=== PATIENT | female | born 1950 | race Caucasian/White ===

== ENCOUNTER 2017-01-19 08:58 | Day surgery (SDC) | payer OTHER ==
[2016-11-29 09:25] VITALS: BMI 42.0
[2017-01-16 09:56] VITALS: BMI 42.0
[~2017-01-19] VITALS: Ht 162.6 cm; Wt 110.5 kg
[~2017-01-19 08:58] MED LIST: ASPCH81X PO; ATOR-24 PO; CARV6.252 PO; FLUO40CA8 PO; LACTATED RINGER'S 1000ML 1,000 ML IV SCH; LEVO25TA5 PO; LORA-741 PO; PANT40TA PO; ZNTT/150 PO
[2017-01-19] MEDS ORDERED: FENTANYL CITRATE INJ 50 MCG/1 ML 2 ML VIAL ONE (09:10)
[2017-01-19] MEDS ORDERED: MIDAZOLAM HCL 1 MG/ML 2ML VIAL ONE (09:10)
[2017-01-19 09:15] VITALS: BP 128/71; PULSE 60; TEMP 37.4; O2SAT 96; Ht 162.6 cm; Wt 110.5 kg
[2017-01-19] MEDS ORDERED: METO50TA7 PO (09:15)
[2017-01-19] MEDS ORDERED: SODIUM CHLORIDE 0.9% 500ML 500 ML IV ONE (09:16)
--- NOTE | 2017-01-19 09:16 | Endo History and Physical ---
History & Physical Date of Service: Jan 18, 2017. Chief Complaint: Referring Physician: History of Present Illness Berta Swenson is a 66 year old female w non small cell lung ca, s/p RLL resection, XRT, currently on 4th line chemo Nivolumab. She is referred to GI clinic by Kimberli Vaz PA-C for evaluation of epigastric abd pain which pt reports as being for many months. She states pain comes and goes throughout the day. Pain is achy in nature, non radiating, not associated w eating or certain foods; or correlating w BM habits. She denies any loss of appetite or unexpected weight loss. Denies any dysphagia, odynophagia. Does have reflux symptoms despite being on Protonix 40mg daily and Ranitidine 150mg daily. Though takes ASA 81mg daily and regularly use Ibuprofen. She did have hx of constipation, but none now. She recently had PET scan on 10/11/16 which showed low level uptake within gastric fundus, antrum, within hiatal hernia, likely physiologic. Though also abnormal uptake in mid body and tail of pancreas, maximum SUV of 5.61. Mild heterogenous uptake throughout head of pancreas. Of note, she did have abnormal PET activity in stomach area too in 2015. Referred then for EGD evaluation on 02/05/15 and found to have normal esophagus, Zline irregular, medium sized hiatus hernia, normal stomach and duodenum. Bx of stomach and esophagus showed mild gastritis and esophagitis, normal duodenum. No signs of Hpylori, metaplasia or dysplasia. She has no hx of colonoscopy done. Hx of father who has colon ca. Her sister had pancreas ca. Today has stable dyspnea, but no other complaints. LINES AND DEVICES: None. LIVER: Within normal limits. BILE DUCTS: Stable mild intrahepatic biliary duct dilatation. There is stable dilatation of the common bile duct, measuring up to 20 mm. GALLBLADDER: Surgically absent. PANCREAS: The pancreas is stable in morphology from 2015. There is no focal atrophy of the gland and no focal pancreatic ductal dilatation. No discrete masses are identified in the pancreas. SPLEEN: Within normal limits. ADRENALS: Within normal limits. KIDNEYS/URETERS(visualized): The kidneys enhance symmetrically and there is no hydronephrosis. 1.5 cm cyst in the upper pole of the right kidney. There are tiny hypodensities within both kidneys which are too small to characterize. BOWEL: There is a small hiatal hernia. A transverse colonic anastomosis is noted. Visualized bowel loops are normal in caliber. LYMPH NODES: No significant adenopathy. VESSELS: Extensive atherosclerotic calcifications the abdominal aorta and its major branches. PERITONEUM/RETROPERITONEUM: No ascites, free air, or discrete fluid collections. ABDOMINAL WALL/SOFT TISSUES: Within normal limits. BONES: The osseous structures are diffusely osteopenic. There are mild degenerative changes of the spine. IMPRESSION 1. No discrete pancreatic mass, focal pancreatic atrophy, or focal pancreatic ductal dilatation. 2. Stable intrahepatic biliary ductal dilatation and dilatation of the common bile duct. 3. Other stable chronic and incidental findings, as above. I have personally reviewed this examination and agree with the resident/fellow physician's interpretation. Resident Physician: THEODORE CHOWDHURY [[id number]] Radiologist: OTIS EDMOND MD [[id number]] Authenticated By Authenticating Date Authenticating Time Reading Providers(s) OTIS EDMOND MD 12-12-2016 11:22 OTIS EDMOND MD Date and Time Status Provider Status Resulted: 12/12/2016 11:21 AM Final result Reviewed [facility]CRE[facility] CT WITH IV AND PO CONTRAST on 11/29/2016 Previous Results GIULIA Schmidt on 12/14/2016 3:18 PM GIULIA Morrison on 12/13/2016 12:[address] WITH IV AND PO CONTRAST [15375.3 (CPT)] (Spec. #[id number]) (Order [id number]) [employer] PACS Image Order Date and Time Ordering User Department 11/29/2016 5:00 PM GIULIA Schmidt [[id number]] Gastro [facility][[id number]] Authorizing Provider Encounter Provider ([id number]) GIULIA Schmidt ([id number]) GIULIA Schmidt Supervising Provider Type of Supervision ([id number]) Levar Cooley MD General Status Provider Status Final result (Collected: 12/06/2016 2:59 PM) Reviewed Collected: 12/06/2016 2:59 PM Resulting Agency: [facility] [employer] [facility] Priority Class Routine OUTPATIENT PRECERT POOL Please click here to add Additional Comments for this order or to review the most recent Creatinine and BUN result information for this patient. CREATININE(mg/dL) Cynthia Dt/Tm Resulted Value Status 11/27/16 9:30A 11/27/16 0.9 FINAL BUN(mg/dL) Cynthia Dt/Tm Resulted Value Status 11/27/16 9:30A 11/27/16 17 FINAL Question Answer Comment What is the Reason for Study? r/o pancreatic mass Where is this test being performed? [facility] How soon should this test be performed? 1 Week or Less Is the Patient Allergic to Contrast? No Order BUN/Creatine if conditions present. Select all that apply. No Indications Elevated CA 19-9 level [R97.8] - Primary 12/06/2016 2:00 PM - 30 min [id number] [address] Completed View Encounter Click here for any available precertification information PANCREAS CT WITH IV AND PO CONTRAST (Order #[id number]) on 11/29/16 CT PET Abdomen: The pancreas appears slightly more prominent than the previous examination, however, a distinct mass is difficult to identify. This finding, in addition to the FDG avidity mentioned above, is concerning for underlying inflammatory, infectious, or neoplastic process. Dedicated imaging and laboratory evaluation recommended. Extensive atherosclerotic calcifications are present. Stable cortical cyst on the right kidney. No acute process identified in the abdomen. Past Surgical History Hx Abdominal Surgery: Yes (LAP TOMY, COLOSTOMY WITH REVERSAL (2' COMPLICATION)) Hx Post-Op Nausea and Vomiting: No Hx Thoracic Surgery: Yes (RIGHT LOWER LOBECTOMY) Hx Orthopedic: No Hx Urinary Tract Surgery: No Social History Smoking Status: Never Smoker Hx Substance Use: No Hx Alcohol Use: No Allergies Coded Allergies: Penicillins (Verified Allergy, Mild, HIVES, 01/19/17) Current Medications Reported Home Medications Medications Dose Route/Sig Max Daily Dose Days Date Category Protonix (Pantoprazole Sodium) 40 Mg Tab 40 Mg PO QAM 11/29/16 Reported Lipitor (Atorvastatin Calcium) 40 Mg Tab 40 Mg PO QAM 11/29/16 Reported Levothyroxine Sodium 25 Mcg Tab 2 Tab PO QAM 11/29/16 Reported Zantac (Ranitidine HCl) 150 Mg Tab 150 Mg PO QAM 11/29/16 Reported Coreg (Carvedilol) 6.25 Mg Tab 6.25 Mg PO BID 11/29/16 Reported Prozac (Fluoxetine HCl) 40 Mg Cap 40 Mg PO QAM 11/29/16 Reported Ativan (Lorazepam) 0.5 Mg Tab 1 Mg PO HS 11/29/16 Reported Aspirin Chewable (Aspirin) 81 Mg Chew 81 Mg PO QAM 04/19/12 Reported Vital Signs Weight (Kilograms): 110.45 Height (Feet): 5 Height (Inches): 4 Physical Exam General Appearance: WD/WN, no apparent distress Respiratory/Chest: Auscultation: deminished air movement Cardiovascular: Apical Impulse: not displaced Heart Auscultation: RRR, normal S1, normal S2 Abdomen: Bowel Sounds: normal Inspection & Palpation: soft, non-distended Assessment and Plan 66-year-old with a history of non-small cell lung cancer, ischemic cardiomyopathy with an equivocally positive PET scan and normal CT scan of the abdomen and a very mildly elevated CA 19 9 presenting for endoscopic ultrasound
[2017-01-19] MEDS ORDERED: FENTANYL CITRATE INJ 50 MCG/1 ML 2 ML VIAL IV PRN (09:30)
[2017-01-19] MEDS ORDERED: PHENYLEPHRINE 100MCG/ML 5ML SYR IV PRN (09:30)
[2017-01-19] MEDS ORDERED: HYDROmorphone INJ 2 MG/ML SYR/VIAL IV PRN (09:30)
[2017-01-19] MEDS ORDERED: EpHEDrine SULFATE INJ 50 MG/ML AMP IV PRN (09:30)
[2017-01-19] MEDS ORDERED: MEPERIDINE HCL 25 MG/ML CARP IV PRN (09:30)
[2017-01-19] MEDS ORDERED: FLUMAZENIL 0.1 MG/1 ML 10 ML VIAL IV PRN (09:30)
[2017-01-19] MEDS ORDERED: ONDANSETRON INJ 2 MG/ML 2 ML VIAL IV PRN (09:30)
[2017-01-19] MEDS ORDERED: ATROPINE SULFATE 0.1 MG/ML 5ML SYR IV PRN (09:30)
[2017-01-19] MEDS ORDERED: LABETALOL HCL IV 5 MG/ML 20ML IV PRN (09:30)
[2017-01-19] MEDS ORDERED: NALOXONE HCL 0.4 MG/1 ML VIAL/CARP IV PRN (09:30)
--- NOTE | 2017-01-19 09:30 | Progress Note ---
Progress Note Date of Service Jan 19, 2017. Progress Note Plan to proceed with EUS as scheduled, no new additions.
[2017-01-19] MEDS ORDERED: SUCCINYLCHOLINE CHLORIDE 20 MG/ML 10 ML VIAL IV ONE (10:08)
[2017-01-19] MEDS ORDERED: LIDOCAINE HCL 2% 2 ML VIAL (20MG/ML) ONE (10:08)
[2017-01-19] MEDS ORDERED: LARYING-O-JET KIT (LTA) EXT ONE ×2 (10:08)
[2017-01-19] MEDS ORDERED: PROPOFOL IV EMULSION 10 MG/ML 20 ML VIAL IV ONE (10:08)
[2017-01-19] MEDS ORDERED: DEXAMETHASONE SOD INJ 4 MG/ML VIAL ONE (10:08)
[2017-01-19] MEDS ORDERED: ONDANSETRON INJ 2 MG/ML 2 ML VIAL ONE (10:08)
[2017-01-19 10:22] LABS: HEMATOCRIT 40.6 % (37-47); MEAN CELL VOLUME 85.8 fL (80-100); MEAN CORPUSCULAR HEMOGLOBIN 30.2 pg (25-34); MEAN PLATELET VOLUME 10.3 fL (7.4-10.4); PLATELET COUNT 198 K/uL (130-400); RED BLOOD COUNT 4.73 M/uL (4.2-5.4); WHITE BLOOD COUNT 7.47 K/uL (4.8-10.8)
--- NOTE | 2017-01-19 10:33 | Discharge Instructions ---
Endoscopy Patient Instructions Date / Procedure(s) Performed Jan 19, 2017. Other Allergy Information Coded Allergies: Penicillins (Verified Allergy, Mild, HIVES, 01/19/17) Discharge Date / Findings Jan 19, 2017. Normal exam Provider Instructions Activity Restrictions - No exercising or heavy lifting for 24 hours. - Do not drink alcohol the day of the procedure. - Do not drive a car or operate machinery until the day after the procedure. - Do not make any important decisions or sign important papers in 24 hours after the procedure. Following Day: - Return to full activity which may include returning to work/school. Diet Start your diet with liquids and light foods (jello, soup, juice, toast). Then eat your usual diet if not nauseated. Treatment For Common After Affects For mild abdominal pain, bloating, or excessive gas: - Rest - Eat lightly - Lie on right side Follow-Up Information Follow-up with as scheduled Anesthesia Information What You Should Know You have had a procedure that required some medicine to reduce anxiety and discomfort. This treatment is called moderate sedation. After receiving the treatment, you may be sleepy, but you will be able to breathe on your own. The effects of the treatment may last for several hours. Follow these instructions along with Activity/Diet recommendations noted above: * Do NOT do anything where dizziness or clumsiness would be dangerous. * Rest quietly at home today, then you can be up and about tomorrow. * Have a responsible person stay with you the rest of today. * You may have had an I.V. today. If so, you may take the dressing off later today. Recommendations Call your doctor if: * Trouble breathing * Continuous vomiting for more than 24 hours * Temperature above 101 degrees * Severe abdominal pain or bloating * Pain not relieved by pain medicine ordered * There is increased drainage or redness from any incision * A large amount of rectal bleeding greater than 2-3 tablespoons. (If you had a polyp/s removed or have hemorrhoids, a small amount of blood - from the rectum is to be expected.) * You have any unanswered questions or concerns. IN THE EVENT OF A SERIOUS EMERGENCY, GO TO THE NEAREST EMERGENCY ROOM Your discharge instructions were prepared by provider Chester Hernandez. Patient Instructions Signature Page Berta Swenson Patient (or Guardian) Signature/Date: I have read and understand the instructions given to me by my caregivers. Caregiver/RN/Doctor Signature/Date: The above-named patient and/or guardian has received patient instructions on this date. + Original Patient Signature Page (only) stays with chart. Please make copy for patient.
[2017-01-19 10:35] LABS: MEAN CORPUSCULAR HGB CONC 35.2 g/dl (32-36)
--- NOTE | 2017-01-19 11:04 | Anesthesiology Progress Note ---
Anesthesia Post Op Note Date & Time Jan 19, 2017 at 11:03 Vital Signs Pain Intensity: 0 Vital Signs Past 12 Hours Date Time Temp Pulse Resp B/P Pulse Ox O2 Delivery O2 Flow Rate FiO2 01/19/17 10:51 149/83 01/19/17 10:47 61 17 98 01/19/17 10:47 61 17 01/19/17 10:46 160/65 01/19/17 10:44 60 19 100 01/19/17 10:44 61 19 01/19/17 10:41 157/73 01/19/17 10:39 61 17 01/19/17 10:39 60 17 99 01/19/17 10:36 143/96 01/19/17 10:34 64 12 99 01/19/17 10:34 65 12 01/19/17 10:30 144/70 01/19/17 10:29 65 16 01/19/17 10:29 36.1 65 18 161/78 97 Mask 10 01/19/17 10:29 65 16 161/78 96 01/19/17 09:15 37.4 60 20 128/71 96 Room Air Notes Mental Status: alert / awake / arousable, participated in evaluation Pt Amnestic to Procedure: Yes Nausea / Vomiting: adequately controlled Pain: adequately controlled Airway Patency, RR, SpO2: stable & adequate BP & HR: stable & adequate Hydration State: stable & adequate Anesthetic Complications: no major complications apparent
[2017-01-19 11:15] VITALS: BP 124/67; PULSE 63; TEMP 37.1; O2SAT 93
[2017-01-19 11:45] VITALS: BP 135/59; PULSE 64; TEMP 36.2; O2SAT 93
--- NOTE | 2017-01-19 11:50 | GI REPORT ---
Procedure Date: 01/19/2017 9:54 AM Procedure: Upper GI endoscopy Indications: Epigastric abdominal pain Medicines: General Anesthesia Complications: No immediate complications. Estimated blood loss: None. Estimated Blood Loss: Estimated blood loss: none. Procedure: Pre-Anesthesia Assessment: - Pre-Anesthesia Assessment: - Prior to the procedure, a History and Physical was performed, and patient medications, allergies and sensitivities were reviewed. The patient's tolerance of previous anesthesia was reviewed. Please see [employer] for complete details. - The risks and benefits of the procedure and the sedation options and risks were discussed with the patient. All questions were answered and informed consent was obtained. - Patient identification and proposed procedure were verified prior to the procedure by the physician and the nurse. The procedure was verified in the pre-procedure area in the procedure room. After obtaining informed consent, the endoscope was passed carefully and meticuously under direct vision and only advanced when the lumen was clearly identified, C02 insuflation was utilized throughout the entirity of the procedure. Throughout the procedure, the patient's blood pressure, pulse, and oxygen saturations were monitored continuously. After obtaining informed consent, the endoscope was passed under direct vision. Throughout the procedure, the patient's blood pressure, pulse, and oxygen saturations were monitored continuously. The Scope was introduced through the mouth, and advanced to the second part of duodenum. The upper GI endoscopy was accomplished without difficulty. The patient tolerated the procedure well. Findings: The examined esophagus was normal. Localized mild inflammation was found in the gastric antrum. Biopsies were taken with a cold forceps for histology. The examined duodenum was normal. Biopsies were taken with a cold forceps for histology. Impression: - Normal esophagus. - Gastritis. Biopsied. - Normal examined duodenum. Biopsied. Recommendation: - Await pathology results. - Discharge patient to home (with escort). - Return to referring physician as previously scheduled. Chester Hernandez MD 01/19/2017 11:49:56 AM This report has been signed electronically. Note Initiated On: 01/19/2017 9:54 AM I attest to the content of the Intraoperative Record and orders documented therein, exceptions below
--- NOTE | 2017-01-19 11:54 | GI REPORT ---
Procedure Date: 01/19/2017 10:00 AM Procedure: Upper EUS Indications: Abnormal abdominal PET scan Medicines: General Anesthesia Complications: No immediate complications. Estimated blood loss: None. Estimated Blood Loss: Estimated blood loss: none. Procedure: Pre-Anesthesia Assessment: - Pre-Anesthesia Assessment: - Prior to the procedure, a History and Physical was performed, and patient medications, allergies and sensitivities were reviewed. The patient's tolerance of previous anesthesia was reviewed. Please see [employer] for complete details. - The risks and benefits of the procedure and the sedation options and risks were discussed with the patient. All questions were answered and informed consent was obtained. - Patient identification and proposed procedure were verified prior to the procedure by the physician and the nurse. The procedure was verified in the pre-procedure area in the procedure room. After obtaining informed consent, the endoscope was passed carefully and meticuously under direct vision and only advanced when the lumen was clearly identified, C02 insuflation was utilized throughout the entirity of the procedure. Throughout the procedure, the patient's blood pressure, pulse, and oxygen saturations were monitored continuously. After obtaining informed consent, the endoscope was passed under direct vision. Throughout the procedure, the patient's blood pressure, pulse, and oxygen saturations were monitored continuously. The Endosonoscope was introduced through the mouth, and advanced to the second part of duodenum. The upper EUS was accomplished without difficulty. The patient tolerated the procedure well. Findings: Endosonographic Finding : There was no sign of significant endosonographic abnormality in the entire pancreas. The pancreas was well visualized, no pathologic lymphadenopathy, no masses, no cysts, no calcifications, the pancreatic duct was well visualized from ampulla to tail, the pancreatic duct was thin in caliber, the pancreatic duct was regular in contour. There was no sign of significant endosonographic abnormality in the common bile duct. The gallbladder was surgically absent consistent with history of cholecystectomy. There was no sign of significant endosonographic abnormality in the left lobe of the liver. No lymphadenopathy seen. There was no sign of significant endosonographic abnormality in the entire examined left adrenal gland. There was no sign of significant endosonographic abnormality involving the celiac trunk. Impression: - There was no sign of significant pathology in the entire pancreas. - There was no sign of significant pathology in the common bile duct. - There was no evidence of significant pathology in the left lobe of the liver. - Endosonographic images of the left adrenal gland were unremarkable. - The celiac trunk was endosonographically normal. - No specimens collected. Recommendation: - Discharge patient to home (with escort). - Return to referring physician as previously scheduled. Chester Hernandez MD 01/19/2017 11:53:13 AM This report has been signed electronically. Note Initiated On: 01/19/2017 10:00 AM I attest to the content of the Intraoperative Record and orders documented therein, exceptions below
[2017-01-19 12:15] VITALS: BP 103/68; PULSE 60; TEMP 36.7; O2SAT 93
[2017-08-14] MEDS ORDERED: NYST80OI TOP (11:04)
[2017-08-14] MEDS ORDERED: IBUP-1050 PO (11:04)
[2017-08-14] MEDS ORDERED: ONDA8TAB6 PO (11:04)
[2017-08-14] MEDS ORDERED: NTRGSL/4 SL (11:04)
[2017-08-14] MEDS ORDERED: TIZA4CAP PO (11:04)
[2017-08-14] MEDS ORDERED: MULT-506 PO (11:04)
[2017-09-03] MEDS ORDERED: BENZ100C84 PO (15:10)
[2017-09-05] MEDS ORDERED: PRED20TA2 PO (09:11)
[2017-09-11] MEDS ORDERED: NAPR-1168 PO (09:21)
== END 2017-01-19 12:30 | disposition home or self-care (01) ==
LOC: C.ACU 08:58
PROVIDERS: ATTEND Internal Medicine
DX: K29.70 Gastritis, unspecified, without bleeding (principal); C34.90 Malignant neoplasm of unspecified part of unspecified bronchus or lung; Z98.890 Other specified postprocedural states

== ENCOUNTER → 2017-07-25 | Outpatient (CLI) | payer OTHER ==
[~2017-07-25] MED LIST changes: -CARV6.252 PO; -LACTATED RINGER'S 1000ML 1,000 ML IV SCH; +METO50TA7 PO
--- NOTE | 2017-07-25 14:02 | Discharge Instructions ---
Discharge Instructions Procedure Procedure Date: Jul 25, 2017. Reason for visit: Malignant Neoplasm Lower Lobe Rt Lung,Mets To Lymp. Discharge Discharge Date: Jul 25, 2017. Discharge Diagnosis: same Instructions Activity Recommendations: No limitations Return to School/Work: no limitations Recommended Home Diet: Resume Previous Diet Provider Instructions: ACTIVITY RECOMMENDATIONS: * Rest today. * Resume regular activity in one day. MEDICATIONS: * May take Tylenol or Ibuprofen as needed for pain. DIET: * Resume previous diet. SPECIAL CARE INSTRUCTIONS: Call your doctor if: * Temperature above 101 degrees F. * Pain not relieved by pain medicine ordered. * Increased drainage or redness from incision. * Notify your doctor with any questions or concerns. Call your doctor or go to the nearest Emergency Department if you experience: * Increased chest pain or shortness of breath. FOLLOW UP VISIT: Follow-up with Referring Physician as scheduled. Allergies Coded Allergies: Penicillins (Verified Allergy, Mild, HIVES, 01/19/17) Emmy Patel Recommendations: Call your doctor if: * Temperature above 101 degrees * Pain not relieved by pain medicine ordered * There is increased drainage or redness from any incision * You have any unanswered questions or concerns. Your Doctors Instructions noted above were prepared by provider Robson Schneider. Patient Signature Section: Patient Instructions Signature Page Berta Swenson Patient (or Guardian) Signature/Date: I have read and understand the instructions given to me by my caregivers. Caregiver/RN/Doctor Signature/Date: The above-named patient and/or guardian has received patient instructions on this date. + Original Patient Signature Page (only) stays with chart. Please make copy for patient.
--- NOTE | 2017-07-25 14:06 | DIAGNOSTIC IMAGING REPORT ---
ULTRASOUND-GUIDED FINE-NEEDLE ASPIRATION OF A LEFT CERVICAL LYMPH NODE HISTORY: FDG avid left cervical lymph node MALIGNANT NEOPLASM LOWER LOBE RT LUNG,METS TO LYMP COMPARISON: Outside hospital PET/CT 06/20/2017. PROCEDURE: Written informed consent was obtained. The neck was prepped and draped in the usual sterile fashion. 1% lidocaine was used for local anesthesia. A total of 1 pass using a 25-gauge needle were made through left cervical lymph node under ultrasound guidance. Specimens were given to the on-site pathologist who determined adequate tissue for diagnosis. The patient tolerated the procedure well. There were no immediate complications. IMPRESSION: Successful ultrasound-guided fine-needle aspiration of a left cervical lymph node. Of note, only a single pass was made due to the fact that the lymph node was directly behind the internal jugular vein. Electronically signed by: Robson Schneider M.D. 07/25/2017 2:05 PM Dictated Date/Time: 07/25/2017 2:03 PM
== END | disposition home or self-care (01) ==
LOC: C.ULTR 13:03
PROVIDERS: ATTEND Internal Medicine Hematology
DX: C34.31 Malignant neoplasm of lower lobe, right bronchus or lung (principal)

== ENCOUNTER 2017-08-28 11:54 | Emergency (ER) | payer OTHER ==
[~2017-08-28] VITALS: Ht 162.6 cm; Wt 106.0 kg
[~2017-08-28 11:54] MED LIST changes: +IBUP-1050 PO; +MULT-506 PO; +NTRGSL/4 SL; +NYST80OI TOP; +ONDA8TAB6 PO; +TIZA4CAP PO
[2017-08-28 12:03] VITALS: TEMP 36.9; Ht 162.6 cm; Wt 106.0 kg
[2017-08-28] MEDS ORDERED: ALBUTEROL HFA 8 GM INHALER INH STA (12:13)
--- NOTE | 2017-08-28 12:16 | EMERGENCY ROOM VISIT NOTE ---
History Report prepared by Shelli: Tiara De Los Santos Under the Supervision of: Dr. Hunter Funk M.D. First contact with patient: 12:06 Chief Complaint: RESPIRATORY PROBLEMS Stated Complaint: WHEEZING, PNEUMONIA History of Present Illness The patient is a 67 year old female who presents to the Emergency Room with complaints of constant respiratory problems beginning several days ago. Per her daughter, the patient went to her PCP and her PCP believed that the patient was getting pneumonia. Per her daughter, the patient was placed on a Z-pack. Her daughter states that the patient was hallucinating from her cough syrup so the patient stopped taking it. Her daughter reports that the patient also began to wheeze last night. The patient denies having a fever. Per her daughter, the patient takes prednisone intermittently for her liver, so her daughter gave her prednisone and albuterol which somewhat helped the patient's symptoms. Her daughter reports that the patient is in chemotherapy for lung cancer. Her daughter states that her cancer is not currently active in her lung, but is active in her lymph nodes right now. Per her daughter, the patient takes Aspirin but is not on other blood thinners. Source of History: patient, family (daughter) Onset: several days ago Position: other (global) Quality: other (respiratory problems ) Timing: constant Associated Symptoms: No fevers Note: additional symptom: wheezing Review of Systems All systems have been listed, reviewed, and are negative other than those previously mentioned. Please see Additional Medical History Sheet. Past Medical & Surgical Medical Problems: (1) Heart disease (2) Hypertension (3) Lung cancer (4) Pneumonia Surgical Problems: (1) History of cholecystectomy Family History Cancer Heart disease Hypertension Social History Smoking Status: Former Smoker Current/Historical Medications Scheduled Aspirin (Aspirin Chewable), 81 MG PO HS Atorvastatin (Lipitor), 40 MG PO HS Fluoxetine (Prozac), 40 MG PO HS Furosemide (Lasix), 20 MG PO QD@08 Levothyroxine Sodium (Levothyroxine Sodium), 2 TAB PO HS Lorazepam (Ativan), 1 MG PO HS Metoprolol Succ (Toprol Xl) (Toprol-Xl), 1 TAB PO HS Multivitamin (Multivitamin), 1 TAB PO HS Nitroglycerin (Nitrostat), 1 TAB SL UD Pantoprazole (Protonix), 40 MG PO HS Ranitidine (Zantac), 150 MG PO HS Scheduled PRN Ibuprofen (Advil), 200 MG PO BID PRN for Pain Allergies Coded Allergies: Penicillins (Verified Allergy, Mild, HIVES, 08/28/17) Physical Exam Vital Signs Date Time Temp Pulse Resp B/P (MAP) Pulse Ox O2 Delivery O2 Flow Rate FiO2 08/28/17 15:35 65 134/63 95 08/28/17 14:10 94 Room Air 08/28/17 14:10 65 22 126/68 94 Room Air 08/28/17 13:05 Room Air 08/28/17 12:03 36.9 69 22 110/54 94 Room Air Physical Exam GENERAL: Patient awake, alert, oriented x 3. Patient follows commands. Patient does not appear toxic. Patient is adequately hydrated and well- nourished. SKIN: No erythema, pallor, cyanosis or rash HEENT: Normal head, pupils equal, reactive to light and accommodation. Ears normal. Oral cavity and posterior pharynx appear normal. Dry mucous membranes. Neck: Without adenopathy, no neck vein distention. LUNGS: Wheezes in all martinez. No rales, no rhonchi. HEART: No murmurs. No gallops. No rubs ABDOMEN: No masses, no rebound, no hepatomegaly or splenomegaly. Obese. EXTREMITIES: No signs of trauma. No pedal or pretibial edema. No calf or thigh tenderness. Round dry scaly rash approximately 4 cm in diameter on dorsal aspect of left leg. NEUROLOGIC: Cranial nerves II-XII within normal limits. No gross motor sensory function deficits. Medical Decision & Procedures ER Provider Diagnostic Interpretation: Radiology results as stated below per my review and radiologist interpretation: CHEST 2 VIEWS ROUTINE CLINICAL HISTORY: cough dyspnea COMPARISON STUDY: 04/22/2012 FINDINGS: Central catheter remains in superior vena cava. Lungs remain generally clear. Mild chronic apical pleural thickening is present. Emphysematous changes noted. Increased prominence of the pulmonary vasculature compared to the prior study. IMPRESSION: Findings consistent with developing components of congestive failure. Stable emphysematous change with mild stable cardiomegaly. The above report was generated using voice recognition software. It may contain grammatical, syntax or spelling errors. Electronically signed by: Willie Ordaz M.D. 08/28/2017 2:08 PM Dictated Date/Time: 08/28/2017 2:07 PM Laboratory Results 08/28/17 12:55 Red Blood Count 4.53, Mean Corpuscular Volume 87.9, Mean Corpuscular Hemoglobin 30.2, Mean Corpuscular Hemoglobin Concent 34.4, Mean Platelet Volume 9.3, Neutrophils (%) (Auto) 61.2, Lymphocytes (%) (Auto) 18.7, Monocytes (%) (Auto) 12.0, Eosinophils (%) (Auto) 7.2, Basophils (%) (Auto) 0.5, Neutrophils # (Auto ) 6.41, Lymphocytes # (Auto) 1.95, Monocytes # (Auto) 1.25, Eosinophils # (Auto ) 0.75, Basophils # (Auto) 0.05 08/28/17 12:55 Test 08/28/17 12:55 08/28/17 12:58 White Blood Count 10.45 K/uL (4.8-10.8) Red Blood Count 4.53 M/uL (4.2-5.4) Hemoglobin 13.7 g/dL (12.0-16.0) Hematocrit 39.8 % (37-47) Mean Corpuscular Volume 87.9 fL (80-100) Mean Corpuscular Hemoglobin 30.2 pg (25-34) Mean Corpuscular Hemoglobin Concent 34.4 g/dl (32-36) Platelet Count 242 K/uL (130-400) Mean Platelet Volume 9.3 fL (7.4-10.4) Neutrophils (%) (Auto) 61.2 % Lymphocytes (%) (Auto) 18.7 % Monocytes (%) (Auto) 12.0 % Eosinophils (%) (Auto) 7.2 % Basophils (%) (Auto) 0.5 % Neutrophils # (Auto) 6.41 K/uL (1.4-6.5) Lymphocytes # (Auto) 1.95 K/uL (1.2-3.4) Monocytes # (Auto) 1.25 K/uL (0.11-0.59) Eosinophils # (Auto) 0.75 K/uL (0-0.5) Basophils # (Auto) 0.05 K/uL (0-0.2) RDW Standard Deviation 43.9 fL (36.4-46.3) RDW Coefficient of Variation 13.7 % (11.5-14.5) Immature Granulocyte % (Auto) 0.4 % Immature Granulocyte # (Auto) 0.04 K/uL (0.00-0.02) Anion Gap 7.0 mmol/L (3-11) Est Creatinine Clear Calc Drug Dose 73.3 ml/min Estimated GFR () 79.9 Estimated GFR (Non- 68.9 BUN/Creatinine Ratio 18.1 (10-20) Calcium Level 9.0 mg/dl (8.5-10.1) Lactic Acid Level 1.2 mmol/L (0.4-2.0) Laboratory results as stated above per my review. Medications Administered Medications (Trade) Dose Ordered Sig/Jadon Route Start Time Stop Time Status Last Admin Dose Admin Albuterol (Ventolin Hfa Inhaler) 2 puffs NOW STAT INH 08/28/17 12:13 08/28/17 12:16 DC 08/28/17 12:59 2 PUFFS Furosemide (Lasix Inj) 40 mg STK-MED ONCE .ROUTE 08/28/17 14:35 08/28/17 14:36 DC 08/28/17 14:35 40 MG Heparin Sodium (Porcine) (Heparin 100 Unit/ml 5ml Flush) 5 ml STK-MED ONCE .ROUTE 08/28/17 15:11 08/28/17 15:12 DC 08/28/17 15:11 5 ML ED Course 1212: Past medical records reviewed. The patient was evaluated in room B9. A complete history and physical examination was performed. 1213: Ordered Albuterol 2 puffs INH. 1435: Ordered Lasix Inj 40 mg. 1440: I spoke with the patient and updated her on her results. She stated that she will have a follow-up appointment with Dr. Christensen. 1507: Upon reevaluation, the patient appeared to have improvement of her symptoms. I discussed today's findings with her. She verbalized agreement of the treatment plan. She was discharged home. Medical Decision Nurses notes reviewed. Medical history sheet reviewed. Differential diagnosis includes but is not limited to: acute bronchitis, pneumonia, and lung cancer. Multiple labs, EKG and imaging were obtained. Please see above. White count is not elevated. The patient has findings on his chest x-ray consistent with early CHF. The patient was given 20 mg of IV Lasix here and will continue on Lasix at home. We've already set up a follow-up appointment with outpatient medicines later this week. The patient will also continue using her albuterol inhaler because I believe she has a component of bronchitis. The patient was felt stable enough to return home. Medication Reconcilliation Current Medication List: was personally reviewed by me Blood Pressure Screening Patient's blood pressure: Normal blood pressure Impression Primary Impression: Congestive heart failure Additional Impressions: Bronchitis History of lung cancer Scribe Attestation The scribe's documentation has been prepared under my direction and personally reviewed by me in its entirety. I confirm that the note above accurately reflects all work, treatment, procedures, and medical decision making performed by me. Departure Information Dispostion Home / Self-Care Prescriptions Furosemide (LASIX) 20 Mg Tab 20 MG PO QD@08, #30 TABS Prov: Hunter Funk M.D. 08/28/17 Referrals No Doctor, Assigned (PCP) Forms HOME CARE DOCUMENTATION FORM, IMPORTANT VISIT INFORMATION, WORK / SCHOOL INSTRUCTIONS Patient Instructions My [facility] Additional Instructions 20 mg of Lasix daily. Continue all of your current medications as prescribed. 2 puffs of the inhaler every 4 hours as needed for wheezing. Follow-up on Sunday with the medical doctor. Problem Qualifiers
[2017-08-28 13:04] LABS: BASO % 0.5 %; BASO ABS # 0.05 K/uL (0-0.2); COMPLETE YES; EOS % 7.2 %; HEMATOCRIT 39.8 % (37-47); IG% 0.4 %; LYMPH % 18.7 %; LYMPH ABS # 1.95 K/uL (1.2-3.4); MEAN CELL VOLUME 87.9 fL (80-100); MEAN CORPUSCULAR HEMOGLOBIN 30.2 pg (25-34); MEAN CORPUSCULAR HGB CONC 34.4 g/dl (32-36); MEAN PLATELET VOLUME 9.3 fL (7.4-10.4); NEUT % 61.2 %; PLATELET COUNT 242 K/uL (130-400); RED BLOOD COUNT 4.53 M/uL (4.2-5.4); WHITE BLOOD COUNT 10.45 K/uL (4.8-10.8)
[2017-08-28 13:22] LABS: BUN/CREATININE RATIO 18.1 (10-20); CREATININE 0.86 mg/dl (0.60-1.20); POTASSIUM 3.5 mmol/L (3.5-5.1)
--- NOTE | 2017-08-28 14:09 | DIAGNOSTIC IMAGING REPORT ---
CHEST 2 VIEWS ROUTINE CLINICAL HISTORY: cough dyspnea COMPARISON STUDY: 04/22/2012 FINDINGS: Central catheter remains in superior vena cava. Lungs remain generally clear. Mild chronic apical pleural thickening is present. Emphysematous changes noted. Increased prominence of the pulmonary vasculature compared to the prior study. IMPRESSION: Findings consistent with developing components of congestive failure. Stable emphysematous change with mild stable cardiomegaly. The above report was generated using voice recognition software. It may contain grammatical, syntax or spelling errors. Electronically signed by: Willie Ordaz M.D. 08/28/2017 2:08 PM Dictated Date/Time: 08/28/2017 2:07 PM
[2017-08-28 14:10] VITALS: O2SAT 94
[2017-08-28] MEDS ORDERED: FUROSEMIDE INJ 20 MG in SYRINGE 0 ML IV ONE (14:30)
[2017-08-28] MEDS ORDERED: FUROSEMIDE 40 MG/4 ML VIAL ONE (14:35)
[2017-08-28] MEDS ORDERED: FURO20TA PO (15:05)
[2017-08-28 15:35] VITALS: BP 134/63; PULSE 65; O2SAT 95
== END 2017-08-28 15:36 | disposition home or self-care (01) ==
LOC: C.EDB 11:55
DX: I50.9 Heart failure, unspecified (principal); J40 Bronchitis, not specified as acute or chronic; I10 Essential (primary) hypertension; Z85.118 Personal history of other malignant neoplasm of bronchus and lung; I51.9 Heart disease, unspecified; Z87.01 Personal history of pneumonia (recurrent); Z90.49 Acquired absence of other specified parts of digestive tract; Z87.891 Personal history of nicotine dependence; Z79.82 Long term (current) use of aspirin; Z79.899 Other long term (current) drug therapy; Z88.0 Allergy status to penicillin; Z80.9 Family history of malignant neoplasm, unspecified; Z82.49 Family history of ischemic heart disease and other diseases of the circulatory system

== ENCOUNTER 2017-09-14 12:30 | Emergency (ER) | payer OTHER ==
[~2017-09-14] VITALS: Ht 160 cm; Wt 105.0 kg
[~2017-09-14 12:30] MED LIST changes: +BENZ100C84 PO; +NAPR-1168 PO; -NYST80OI TOP; -ONDA8TAB6 PO; +PRED20TA2 PO; -TIZA4CAP PO
[2017-09-14 12:55] VITALS: TEMP 36.3; Ht 160 cm; Wt 105.0 kg
--- NOTE | 2017-09-14 14:27 | DIAGNOSTIC IMAGING REPORT ---
CT SCAN OF THE BONY PELVIS WITHOUT IV CONTRAST CLINICAL HISTORY: Fall with right hip pain. COMPARISON STUDY: PET/CT dated 06/20/2017. TECHNIQUE: CT scan of the bony pelvis is performed from the pelvic inlet to the proximal femora. Images are reviewed in the axial, sagittal, and coronal planes. IV contrast was not administered for this examination. A dose lowering technique was utilized adhering to the principles of ALARA. Note that interpretation is suboptimal without plain film correlate. CT DOSE: 814.45 mGycm FINDINGS: The skeletal structures are osteopenic. There is a subtle nondistracted fracture of the right sacral ala, best seen on axial image #131. There is also a nondistracted fracture of the left sacral ala. Fracture extends inferiorly involving the bodies of S1 and S2. Fracture may extend into the S1 sacral foramen on the left. There is angulation at the S2-S3 junction seen on the sagittal reformat, which is new from the 06/20/2017 PET examination and likely related to fracture. The remainder of the bony pelvis appears intact. The proximal femora are preserved. There is mild degenerative sclerosis in the sacroiliac joints. Minimal arthritic change is seen in the hips. No lytic or blastic lesion is seen. There is generalized atrophy of the regional musculature. No intramuscular hematoma is identified. The bladder is normal as visualized. There are calcified uterine fibroids. No adnexal lesion is seen. The visualized bowel loops are normal in caliber. No pelvic sidewall or inguinal lymphadenopathy is identified. There is atherosclerotic calcification of the distal abdominal aorta and iliac vessels. A small fat-containing umbilical hernia is noted. IMPRESSION: 1. There are bilateral nondistracted sacral ala fractures as detailed above. Fracture also crosses the sacral midline with mild angulation at the S2-S3 junction. 2. No additional fracture is seen. The proximal femora are intact. 3. Osteopenia and mild degenerative changes as above. 4. Fibroid uterus. Electronically signed by: Hank Castaneda M.D. 09/14/2017 2:25 PM Dictated Date/Time: 09/14/2017 2:16 PM
--- NOTE | 2017-09-14 15:04 | EMERGENCY ROOM VISIT NOTE ---
History Report prepared by Shelli: Cindy Rincon Under the Supervision of: Dr. Manny Escalante D.O. First contact with patient: 13:08 Chief Complaint: FALL Stated Complaint: BACK/LEG/BUTT PAIN DUE TO FALL History of Present Illness The patient is a 67 year old female who presents to the Emergency Room with complaints of persistent right leg pain that occurred after a fall. The patient' s daughter states that the patient has been experiencing pain for the past several weeks. The patient was given Tramadol as a pain medication, which did not help relief the symptoms. The patient was recently diagnosed with pneumonia and was given Codeine for her symptoms. The patient's daughter states that the Codeine made the patient hallucinate, causing her to full and injure her buttocks. The patient states she has bruising on her buttocks. The patient had an x-ray performed by her PCP, who said there were no findings. The patient's daughter is in the process of getting her a walker and having [facility] Source of History: patient, family (patient's daughter) Onset: several weeks Position: leg Quality: other (leg pain) Timing: other (persistent) Review of Systems See HPI for pertinent positives & negatives. A total of 10 systems reviewed and were otherwise negative. Past Medical & Surgical Medical Problems: (1) Heart disease (2) Hypertension (3) Lung cancer (4) Pneumonia Surgical Problems: (1) History of cholecystectomy Family History Cancer Heart disease Hypertension Social History Smoking Status: Never Smoker Smokeless Tobacco Use: No Alcohol Use: none Drug Use: none Marital Status: Housing Status: lives with family Occupation Status: unemployed Current/Historical Medications Scheduled Aspirin (Aspirin Chewable), 81 MG PO HS Atorvastatin (Lipitor), 40 MG PO HS Fluoxetine (Prozac), 40 MG PO HS Levothyroxine Sodium (Levothyroxine Sodium), 2 TAB PO DAILY Lorazepam (Ativan), 1 MG PO HS Metoprolol Succ (Toprol Xl) (Toprol-Xl), 1 TAB PO HS Multivitamin (Multivitamin), 1 TAB PO HS Naproxen Ds (Naprosyn Ds), 550 MG PO BID Pantoprazole (Protonix), 40 MG PO HS Prednisone (Prednisone Tab), 40 MG PO DAILY Ranitidine (Zantac), 150 MG PO HS Scheduled PRN Benzonatate (Tessalon Perles), 1-2 CAP PO Q4 PRN for Cough Ibuprofen (Advil), 200 MG PO BID PRN for Pain Nitroglycerin (Nitrostat), 1 TAB SL UD PRN for Chest Pain Allergies Coded Allergies: Penicillins (Verified Allergy, Mild, HIVES, 09/14/17) Physical Exam Vital Signs Date Time Temp Pulse Resp B/P (MAP) Pulse Ox O2 Delivery O2 Flow Rate FiO2 09/14/17 14:58 56 20 97/51 95 Room Air 09/14/17 12:55 36.3 59 18 93/52 94 Room Air Physical Exam CONSTITUTIONAL/VITAL SIGNS: Reviewed / noted above. GENERAL: Non-toxic in appearance. INTEGUMENTARY: Warm, dry, and [place]. HEAD: Normocephalic. EYES: without scleral icterus or trauma. ENT/OROPHARYNX: clear and moist. LYMPHADENOPATHY/NECK: Is supple without lymphadenopathy or meningismus. RESPIRATORY: Lungs clear and equal. CARDIOVASCULAR: Regular rate and rhythm. GI/ABDOMEN: Soft and nontender. No organomegaly or pulsatile mass. No rebound or guarding. Normal bowel sounds. EXTREMITIES: Warm and well perfused. Right hip and buttock pain with movement of right hip. BACK: No CVA tenderness. NEUROLOGICAL: Intact without focal deficits. PSYCHIATRIC: normal affect. MUSCULOSKELETAL: Normally developed with good muscle tone. Medical Decision & Procedures ER Provider Diagnostic Interpretation: Radiology results as stated below per my review and radiologist interpretation: CT SCAN OF THE BONY PELVIS WITHOUT IV CONTRAST CLINICAL HISTORY: Fall with right hip pain. COMPARISON STUDY: PET/CT dated 06/20/2017. TECHNIQUE: CT scan of the bony pelvis is performed from the pelvic inlet to the proximal femora. Images are reviewed in the axial, sagittal, and coronal planes. IV contrast was not administered for this examination. A dose lowering technique was utilized adhering to the principles of ALARA. Note that interpretation is suboptimal without plain film correlate. CT DOSE: 814.45 mGycm FINDINGS: The skeletal structures are osteopenic. There is a subtle nondistracted fracture of the right sacral ala, best seen on axial image #131. There is also a nondistracted fracture of the left sacral ala. Fracture extends inferiorly involving the bodies of S1 and S2. Fracture may extend into the S1 sacral foramen on the left. There is angulation at the S2-S3 junction seen on the sagittal reformat, which is new from the 06/20/2017 PET examination and likely related to fracture. The remainder of the bony pelvis appears intact. The proximal femora are preserved. There is mild degenerative sclerosis in the sacroiliac joints. Minimal arthritic change is seen in the hips. No lytic or blastic lesion is seen. There is generalized atrophy of the regional musculature. No intramuscular hematoma is identified. The bladder is normal as visualized. There are calcified uterine fibroids. No adnexal lesion is seen. The visualized bowel loops are normal in caliber. No pelvic sidewall or inguinal lymphadenopathy is identified. There is atherosclerotic calcification of the distal abdominal aorta and iliac vessels. A small fat-containing umbilical hernia is noted. IMPRESSION: 1. There are bilateral nondistracted sacral ala fractures as detailed above. Fracture also crosses the sacral midline with mild angulation at the S2-S3 junction. 2. No additional fracture is seen. The proximal femora are intact. 3. Osteopenia and mild degenerative changes as above. 4. Fibroid uterus. Electronically signed by: Hank Castaneda M.D. 09/14/2017 2:25 PM ED Course 1309: Previous medical records were reviewed. The patient was evaluated in room C2. A complete history and physical examination was performed. Medical Decision Differential includes close head injury, intracranial bleed, facial trauma, cervical spine trauma, chest and thoracic trauma, abdominal and intra-abdominal trauma, spine neurologic trauma, extremity trauma. This is a 67 year old who presents with bilateral buttock pain related to a fall 4 weeks ago. She [facility] and was referred here for evaluation for possible transfer to . the patient's physical exam reveals some discomfort with palpation of the sacral area and some discomfort in that area with movement of the legs. It seems to be a little worse on the right than the left. There is some old ecchymosis to the buttock area and some redness from her lying around a lot. There is no open sacral to keep his ulcers. Exam is otherwise unremarkable. She is in no distress. CT scan of the pelvis reveals bilateral sacral fractures with some mild evaluation of the S2-3 junction. An ultrasound of the leg was requested by the daughter to rule out DVT. This was negative. The CAT scan findings were reviewed with Dr. Campos who feels the patient can go to rehabilitation. This is a nonsurgical fracture. The patient is going to be evaluated for [facility]. Medication Reconcilliation Current Medication List: was personally reviewed by me Consults Time Called: [phone] Consulting Physician: Dr. Campos [facility] Returned Call: [phone] Discussed the patient's case. The patient will be evaluated for further treatment and disposition. Impression Primary Impression: Sacral fracture, closed Scribe Attestation The scribe's documentation has been prepared under my direction and personally reviewed by me in its entirety. I confirm that the note above accurately reflects all work, treatment, procedures, and medical decision making performed by me. Departure Information Dispostion Rehab Inpatient Facility Referrals Keith Carlson M.D.([facility]) (PCP) Patient Instructions My [facility]
--- NOTE | 2017-09-14 15:37 | DIAGNOSTIC IMAGING REPORT ---
R VENOUS DOPP LOWER EXT UNILAT CLINICAL HISTORY: rt leg pain pain. Edema. TECHNIQUE: Ultrasound COMPARISON STUDY: None FINDINGS: Normal study IMPRESSION: Normal study The above report was generated using voice recognition software. It may contain grammatical, syntax or spelling errors. Electronically signed by: Willie Ordaz M.D. 09/14/2017 3:35 PM Dictated Date/Time: 09/14/2017 3:35 PM
[2017-09-14 18:14] VITALS: BP 111/58; PULSE 60; O2SAT 96
[2017-09-17] MEDS ORDERED: LIDO5OIN TD (11:49)
[2017-09-17] MEDS ORDERED: SODIENE PR (11:49)
[2017-09-17] MEDS ORDERED: ACET-1256 PO (11:49)
[2017-09-17] MEDS ORDERED: TRAM-10 PO (11:49)
[2017-09-17] MEDS ORDERED: SENN-65 PO (11:49)
[2017-09-17] MEDS ORDERED: POLY335019 PO (11:49)
[2017-09-17] MEDS ORDERED: MOML PO (11:49)
[2017-09-17] MEDS ORDERED: DOCU-94 PO (11:49)
== END 2017-09-14 18:16 ==
LOC: C.EDB 12:31 → C.EDC 18:16
DX: S32.10XA Unspecified fracture of sacrum, initial encounter for closed fracture (principal); W19.XXXA Unspecified fall, initial encounter; I10 Essential (primary) hypertension; Z85.118 Personal history of other malignant neoplasm of bronchus and lung; Z87.01 Personal history of pneumonia (recurrent); Z90.49 Acquired absence of other specified parts of digestive tract; Z82.49 Family history of ischemic heart disease and other diseases of the circulatory system; Z79.82 Long term (current) use of aspirin; Z79.899 Other long term (current) drug therapy

== ENCOUNTER → 2017-10-05 | Outpatient (CLI) | payer OTHER ==
[~2017-10-05] MED LIST changes: -BENZ100C84 PO; +DOCU-94 PO; +GADAVIST IV PRN; -IBUP-1050 PO; +LIDO5OIN TD; -METO50TA7 PO; +METO50TA8 PO; +MOML PO; -NAPR-1168 PO; +POLY335019 PO; +RANI150T85 PO; +SENN-65 PO; +SODIENE PR; +TRAM-10 PO; -ZNTT/150 PO
--- NOTE | 2017-10-05 10:12 | DIAGNOSTIC IMAGING REPORT ---
MRI OF THE SACRUM COMBO CLINICAL HISTORY: Sacral fracture. Low back pain radiating into lower extremities, right greater than left. Reported history of lung cancer. COMPARISON STUDY: Pelvic CT dated 09/14/2017. TECHNIQUE: MRI of the sacrum was performed utilizing various T1 and T2-weighted sequences in the axial, sagittal, and coronal planes. Contrast-enhanced sequences are acquired following the IV administration of 10 cc of Gadavist. The Examination is mildly degraded by motion artifact. FINDINGS: There is marked marrow edema identified throughout the sacral ala bilaterally consistent with bilateral sacral fractures. Fracture extends to the sacral midline at S2-S3 with associated angulation. No destructive bony lesion is identified. The sacroiliac joints are maintained. The sacral nerve roots are normal as visualized. No enhancing mass lesion is suggested in the pelvis. Mild diverticulosis is noted in the sigmoid colon. The regional musculature is normal in bulk and signal intensity. IMPRESSION: 1. Marked marrow edema from bilateral sacral fractures as above. 2. The sacral nerve roots are normal as visualized. 3. No destructive bony lesion or enhancing pelvic mass is suspected. Dictated: 10/05/2017 9:38 AM Transcribed: 10/05/2017 10:12 AM [facility] Electronically signed by: Hank Castaneda M.D. 10/05/2017 10:58 AM Dictated Date/Time: 10/05/2017 9:38 AM
== END | disposition home or self-care (01) ==
LOC: C.MRI 07:49
PROVIDERS: ATTEND Physical Medicine & Rehabilitation
DX: M54.16 Radiculopathy, lumbar region (principal); Z51.0 Encounter for antineoplastic radiation therapy; C77.0 Secondary and unspecified malignant neoplasm of lymph nodes of head, face and neck; Z85.118 Personal history of other malignant neoplasm of bronchus and lung

== ENCOUNTER → 2018-01-10 | Outpatient (CLI) | payer OTHER ==
[~2018-01-10] MED LIST changes: -GADAVIST IV PRN
[2018-01-10 14:11] VITALS: BP 135/61; PULSE 73; TEMP 36.8; O2SAT 92
--- NOTE | 2018-01-10 16:02 | Radiation Oncology Follow-Up ---
Radiation Oncology Follow-Up Date of Visit Jan 10, 2018. Reason For Visit 3 month follow-up Radiation Completion Date 10/24/17 Diagnosis (1) Lung cancer Status: Chronic Histology Subtype: Adenocarcinoma Permanent Comment: History of carcinoma of the right lower lobe in 2011 Status post completion of combined radiation and chemotherapy, chemotherapy comprised of Taxol and carboplatin radiation completed 06/28/2012 Development right cervical lymphadenopathy 04/14/2014 Status post radiation therapy and 3 cycles of Taxol and carboplatin Finding of lung metastasis 01/21/2015 Chemotherapy with gemcitabine and then addition of Navelbine Development of left cervical lymphadenopathy 06/20/2017 Status post FNA 07/25/2017 showing metastatic adenocarcinoma 07/29/2015 chemotherapy changed to Opdivo Recheck PET/CT following chemotherapy, only residual disease left supraclavicular area Status post completion of radiation therapy to the left supraclavicular area received 6600 cGy Last Edited By: Nusrat Thomas on Oct 30, 2017 16: 15 History of Present Illness Ms. Swenson was initially diagnosed with right lung cancer in 2011. The patient was initially diagnosed with stage III non-small cell lung carcinoma involving the right lung ([id number], stage IIIA). The patient received chemotherapy with radiation therapy which completed in June 2012 (6620 cGy , 37 fractions, 06/28/2012, Dr. Mg Freedman). The patient subsequently got adjuvant chemotherapy underneath the supervision of Dr. Won Tesfaye. The patient then had a PET/CT scan completed in February 2014 which revealed recurrent disease involving her right supraclavicular region. The patient elected to undergo a course of chemotherapy and radiation therapy in May 2014. More recently, the patient did have a PET scan completed in January 2015 which revealed metabolic disease involving her left neck. The patient was then treated with gemcitabine chemotherapy until July 2015. Her PET scan in July 2015 did show progression of disease involving bilateral pulmonary nodules, right hilar adenopathy and subcarinal lymphadenopathy. The patient was then started on Opdivo in July 2015. The patient has been maintained on Opdivo. She more recently had a PET/CT scan completed on 06/21/2017 which only reveals a persistent area of metabolic activity involving a level IV lymph node in the left neck otherwise unremarkable. Dr. Tesfaye from medical oncology has recommended continued Opdivo with radiation therapy to the left supraclavicular region. We are now seeing the patient in consultation to discuss the role radiation therapy. Overall, the patient in relatively well. She has no significant complaints at this time. She completed radiation therapy 10/24/2017. She received 6600 cGy to the left supraclavicular area. Interim History She is stable currently from a respiratory standpoint. She does have a sore throat and dysphasia. She had discomfort at the end of treatment. This improved but lately she now has a sore throat once again. Her tongue feels sore. Her mouth is dry. She has a history of dryness of the mouth. They have tried multiple [id number] medications for the dry mouth. She has a cough which is dry. This is unchanged. She has been followed in medical oncology and recently underwent PET/CT. This is showed resolution of the areas of activity that were treated. She is currently off chemotherapy. Allergies Coded Allergies: Penicillins (Verified Allergy, Mild, HIVES, 09/14/17) Home Medications Scheduled Aspirin (Aspirin Chewable), 81 MG PO HS Atorvastatin (Lipitor), 40 MG PO HS Fluoxetine (Prozac), 40 MG PO HS Levothyroxine Sodium (Levothyroxine Sodium), 2 TAB PO DAILY Lorazepam (Ativan), 1 MG PO HS Metoprolol Succ (Toprol Xl) (Toprol-Xl), 1 TAB PO HS Multivitamin (Multivitamin), 1 TAB PO HS Pantoprazole (Protonix), 40 MG PO HS Ranitidine (Zantac), 150 MG PO BID Scheduled PRN Docusate Sodium (Colace), 1 CAP PO BID PRN for Constipation Magnesium Hydroxide (Milk Of Magnesia), 30 ML PO DAILY PRN for Constipation Nitroglycerin (Nitrostat), 1 TAB SL UD PRN for Chest Pain Polyethylene Glycol 3350 (Miralax), 17 GM PO DAILY PRN for Constipation Senna/Docusate Sod (Senokot S), 1 TAB PO DAILY PRN for Constipation Sodium Phosphate/Biphosphate (Fleet Enema), 1 EA NM DAILY PRN for Constipation Review of Systems Gastrointestinal: Symptoms: WNL, Diarrhea GI Comments: Mid Abd pain comes and goes, immodium with relief for diarrhea Oral: Symptoms: No Problems Other Oral Symptoms: Sore throat, mouth reddened, thick mucus in back of throat Respiratory: Symptoms: WNL, Moist Cough, SOB With Exertion, Productive Cough Other Respiratory: Productive cough of thick white/yellow mucus - one time was "skin" Urinary: Symptoms: WNL Skin: Symptoms: No Problems Physical Exam Vital Signs Date Time Temp Pulse Resp B/P (MAP) Pulse Ox O2 Delivery O2 Flow Rate FiO2 01/10/18 14:11 36.8 73 20 135/61 92 Fatigue: None General Appearance: no apparent distress Eyes: normal inspection, EOMI ENT: normal ENT inspection, hearing grossly normal, + pertinent finding (Mouth reveals erythema and dryness of the tongue. There is erythema of the buccal mucosa and hard palate. This extends to the soft palate and to the uvula.) Neck: no adenopathy, thyroid normal Respiratory/Chest: no respiratory distress, no accessory muscle use, + decreased breath sounds Cardiovascular: regular rate, rhythm, no gallop, no murmur Neurologic/Psychiatric: no motor/sensory deficits, alert, normal mood/affect Skin: warm/dry Pain Management Patient Reports Pain: Yes Pain Location: Abdomen Initial Pain Intensity: 8.0 Pain Management Plan Abdominal pain is intermittent. Currently she is without pain unless she coughs. This has been extensively evaluated and worked up on prior admissions. Pain management is through her primary care provider and medical oncology. Laboratory Laboratory Results: not applicable Pathology Pathology Results: were reviewed, and pertinent findings noted in HPI Imaging Imaging Studies: were reviewed, and pertinent findings noted below Imaging Comments Date/Time of Imaging Study Study Completed: 12/05/2017 11:46 AM [facility] PACS Image Narrative EXAM PET CT SKULL BASE TO MID THIGH FDG - 12/05/2017 11:46 am HISTORY History of recurrent non-small cell lung cancer with recent involvement of the left supraclavicular lymph node currently on immunotherapy, evaluate for restaging. DATE OF DICTATION:12/05/2017 COMPARISON Multiple PET CTs most recent from 06/20/2017. TECHNIQUE Following the intravenous administration of approximately 7.23 mCi of F18-FDG and the oral administration of Gastroview, PET/CT imaging was performed from the skull base to the mid thighs 60 minutes following the radiotracer injection. The patient's glucose level at the time of radiotracer injection was 96mg/dL. This is a follow up PET/CT for the above indication. FINDINGS HEAD / NECK: No FDG avid disease. Resolution of the previously seen metabolically active left level IV lymph node. No enlarged cervical lymph nodes. CHEST: No FDG avid disease. Right chest wall MediPort with distal tip at the cavoatrial junction. Heart is normal in size without pericardial effusion. Coronary artery calcifications. Right lung volume loss with surgical clips compatible with right lower lobectomy. Posttreatment changes within the right upper lobe. No pleural effusion. No mediastinal lymphadenopathy. No axillary lymphadenopathy. ABDOMEN/PELVIS: No FDG avid disease. Gastrointestinal and genitourinary uptake is physiologic. Unenhanced liver, spleen, gallbladder and pancreas are unremarkable. No focal adrenal nodules. No hydronephrosis. No acute findings in the bowel. Postsurgical changes of a partial colon resection. No significant abdominopelvic lymphadenopathy. Severe atherosclerotic calcifications of the aorta and its branches. MUSCULOSKELETAL / OTHER: FDG avid right sacral ala max SUV: 2.91, consistent with known history of sacral fracture. No focal suspicious osseous lesions. IMPRESSION 1. Resolution of the metabolically active left cervical lymph node with no evidence of recurrent disease. 2. Healing right sacral alar fracture. I have personally reviewed this examination and agree with the resident/fellow physician's interpretation. Resident Physician: DEDE STILL [[id number]] Radiologist: DAVID BOOKER DO [[id number]] Authenticated By Authenticating Date Authenticating Time Reading Providers(s) DAVID BOOKER DO 12-06-2017 10:57 DAVID BOOKER DO Assessment & Plan She was seen and examined by Dr. Tesfaye. It is felt she may be having a yeast infection of her mouth. She had been on antibiotics and steroids for prolonged period of time. Prescription was given for nystatin oral suspension. She will continue follow-up with medical oncology. She will have follow-up scanning scheduled through their office. We asked her to return to our office in 6 months. She may call if she has any questions or concerns in the interim. Assessment & Plan (Attending) I agree with note created by Nusrat Thomas PA-C. I reviewed the patient's chart and information with her. I have examined and evaluated the patient. I reviewed relevant clinical information and answered the patient's and/or family' s questions. MERCHANDISER Total Time In Follow-Up I spent 20 minutes speaking to the patient and performing examination. I spent 15 minutes reviewing information and completing this note. AK Total Time (Attending) In Follow-Up I spent 15 minutes examining and counseling the patient. MERCHANDISER Copy To Won Tesfaye M.D.; Keith Carlson M.D.(SHIVANI); Sweetie Lutz CRNP
== END | disposition home or self-care (01) ==
LOC: C.ONC 14:04
PROVIDERS: ATTEND Physician Assistant Medical
DX: Z08 Encounter for follow-up examination after completed treatment for malignant neoplasm (principal); Z92.3 Personal history of irradiation; Z85.118 Personal history of other malignant neoplasm of bronchus and lung

== ENCOUNTER 2024-09-08 14:33 | Inpatient (IN) ==
--- NOTE | 2024-09-08 14:57 | Emergency Department Note ---
Impression & Plan Acute hypoxemic respiratory failure, Lung cancer, Vocal cord paralysis, Leukocytosis, Pulmonary embolism ED Provider Note NAME: WESLY NOGUERA AGE: 74 SEX: F : 1950 ARRIVES VIA: Walk-In INFORMANT: Patient ED PROVIDER(S): Gera Morales DO CHIEF COMPLAINT: shortness of breath HPI: Patient is a 74-year-old female with a past medical history of lung cancer, heart disease, and hypertension who presents to the ER for trouble breathing. Daughter notes that this has been going on for the past 2 months. It has been gradually getting worse. She saw ENT today at [place] and was referred in here. Patient does have a history of dementia. She denies any headache or chest pain. Daughter notes that when she breathes through her nose she has no trouble. When she breathes through her mouth she appears to have trouble breathing. Denies any belly pain, nausea, vomiting, or diarrhea. ADDITIONAL HISTORY OBTAINED: Per HPI Chronic Medical/Social Conditions Affecting Care: Per HPI PAST MEDICAL HISTORY:See Below PAST SURGICAL HISTORY:See Below FAMILY HISTORY:See Below SOCIAL HISTORY:See Below HOME MEDICATIONS:See Below ALLERGIES:See Below VITALS:See Below PHYSICAL EXAMINATION: GENERAL: Sitting up in bed, alert, well appearing, well nourished, no distress, non-toxic EYE EXAM: normal conjunctiva. PERRL and EOM's grossly intact. OROPHARYNX: no exudate, no erythema, lips, buccal mucosa, and tongue normal and mucous membranes are moist NECK: supple, no nuchal rigidity, no adenopathy, non-tender, no stridor LUNGS: Clear to auscultation. Normal chest wall mechanics HEART: no murmurs, S1 normal and S2 normal ABDOMEN: abdomen soft, non-tender, normo-active bowel sounds, no masses, no rebound or guarding. UPPER EXTREMITIES: upper extremities are grossly normal. LOWER EXTREMITIES: No pitting edema. NEURO EXAM: Normal sensorium, cranial nerves II-XII grossly intact, normal speech, no gross weakness of arms, no gross weakness of legs. No drift. Finger to nose intact. Gross sensation intact. MEDICAL DECISION MAKING: Patient is a 74-year-old female who presents ER for the above-stated complaint. IV was established and blood work was obtained. Labs show a leukocytosis of 29,000. Hemoglobin is 17. BMP was fairly unremarkable. Mild transaminitis with a slightly elevated T. bili at 2.0. Troponin was elevated to 20. Lipase was normal. Chest x-ray does suggest a pneumonia. External records were reviewed I spoke with Dr. Lemon who initially evaluated the patient in the office and sent her to [facility] due to paralysis of bilateral vocal cords and possible need for trach. Upon arrival patient was tachypneic and was given racemic epi in combination with oxygen and missed. Symptoms did improve. Patient was evaluated by our ENT and recommended swallow studies but no need for trach at this time. Patient was discussed with the hospitalist for further evaluation management treatment. CT angio the chest was pending upon admission. I did call and spoke with [facility] and they noted they are having technical difficulties with transferring images. CT images were eventually obtained after patient had already been admitted for some time. I did notify the admitting service so multiple/double orders were not placed in regards to the PEs. They note they will handle this in place the appropriate orders. Consults/Care Managements Discussions: Per [facility] Triage Nursing notes reviewed. Limited review of prior medical records performed Vital Signs: reviewed and remarkable for HTN Differential diagnosis: Differential diagnoses includes but is not limited to pneumonia, bronchitis, COPD/Asthma exacerbation, pneumothorax, pulmonary embolism, congestive heart failure, acute coronary syndrome ER treatment provided: See below Diagnostics interpreted by me include EKG and cardiac monitoring as listed below: -Cardiac Monitoring: An order was placed for continuous cardiac monitoring. The monitor shows a rate of 80 with sinus rhythm. -ECG: Sinus rhythm rate of [address] wave changes in the lateral leads and inferior leads QTc 437 -Laboratory studies:Interpreted by me as stated above in MDM and shown below. Imaging studies: Xrays: As interpreted by me: Portable AP upright 1 view of the chest shows pneumonia CTs show: CT of the neck shows tracheal narrowing. Procedures:none Critical Care: I have personally spent 35 minutes of critical care time in the direct management of this patient. This includes bedside care, interpretation of diagnostic studies, and testing, discussion with consultants, patient, and family members, and other required patient management activities. This 35 minutes is in excess of all separately billable procedures. Past Med/Surg History Problem List (Updated 09/08/24 @ 18:51 by Gera Morales DO) Pulmonary embolism (Acute) Leukocytosis (Acute) Acute hypoxemic respiratory failure (Acute) Vocal cord paralysis (Acute) COVID-19 (Acute) Encounter for pre-operative examination Lung cancer (Chronic) Heart disease (Chronic) Hypertension (Chronic) Medical History Osteoarthritis GERD (gastroesophageal reflux disease) Hypothyroidism Anxiety Alzheimer disease beginning stage Lymph node cancer 2018 HAD RADIATION/CHEMO > HAS PORT LEFT SIDE Hx of myocardial infarction [place] 2001 & 2004 [facility] cardio Surgical History History of esophagogastroduodenoscopy (EGD) History of cataract surgery LEFT History of vascular access device infusa port is in place History of colostomy bowel ruptured during childbirth and had colostomy and then it was reversed History of cholecystectomy Hx of heart artery stent [place] 2001 & 2004 stent x 3 (2004) edmundo jones follow with [facility] cardio Family History Father Colon cancer Social History Smoking Status: Former smoker Second Hand Exposure: No; Do You Dip or Chew Tobacco: No; Hx Alcohol Use: No Hx Substance Use: No Preferred Language: Faroese Communication Ability: Effective Technical Illustrator Required: No Beliefs That Will Affect Care: None Current Living Situation: Family current occupational status: retired Feels Safe at Home: Yes Assistive Devices: Denture - Upper, Glasses and Walker Allergies Allergies Allergy/AdvReac Type Severity Reaction Status Date / Time acetaminophen [From Vicodin] Allergy Severe Hallucinati Verified 09/08/24 17:55 ng hydrocodone [From Vicodin] Allergy Severe Hallucinati Verified 09/08/24 17:55 ng Penicillins Allergy Mild HIVES Verified 09/08/24 17:55 Home Meds Home Medications Medication Instructions Recorded Confirmed aspirin 81 mg tablet,delayed 81 mg PO QPM 07/06/18 09/08/24 release metoprolol succinate 50 mg 50 mg PO QAM 07/06/18 09/08/24 tablet,extended release 24 hr (Toprol XL) atorvastatin 40 mg tablet 40 mg PO QPM 12/21/20 09/08/24 cyanocobalamin (vitamin B-12) 1,000 mcg IM UD 09/08/24 09/08/24 1,000 mcg/mL injection solution ezetimibe 10 mg tablet 10 mg PO QAM 09/08/24 09/08/24 famotidine 20 mg tablet 20 mg PO BID 09/08/24 09/08/24 hydroxyzine HCl 10 mg tablet 10 mg PO HS 09/08/24 09/08/24 ipratropium 0.5 mg-albuterol 3 mg 3 ml inhalation DAILY PRN 09/08/24 09/08/24 (2.5 mg base)/3 mL nebulization SOB/Wheezing soln levothyroxine 75 mcg tablet 75 mcg PO QAM 09/08/24 09/08/24 nystatin 100,000 unit/gram topical 100,000 unit topical BID 09/08/24 09/08/24 cream prednisone 10 mg tablet 10 mg PO QAM 09/08/24 09/08/24 quetiapine 25 mg tablet 25 mg PO HS 09/08/24 09/08/24 Results & Data (ED) Vital Signs Vital Signs - 24 hr 09/08/24 14:34 09/08/24 14:34 09/08/24 14:48 Temperature 36.6 C Temperature Source Temporal Artery Scan Pulse Rate 97 H 85 Pulse Rate [Apical] Pulse Rate from SpO2 Sensor Pulse Rhythm Regular Respiratory Rate 18 30 H Respiratory Effort / Characteristics Blood Pressure 144/85 H Blood Pressure [Right Arm] Blood Pressure Mean 104 Blood Pressure Mean [Right Arm] Pulse Oximetry 94 95 Oxygen Delivery Method Nasal Cannula Nasal Cannula Non-rebreather Oxygen Flow Rate 2 3 15 Sepsis Recent Fever Within 48 Hours No Sepsis New/Unexplained Change in Mental Status No Sepsis Action Taken by Nursing No Action Required 09/08/24 14:51 09/08/24 14:54 09/08/24 14:56 Temperature Temperature Source Pulse Rate 86 88 Pulse Rate [Apical] Pulse Rate from SpO2 Sensor 88 Pulse Rhythm Respiratory Rate 27 H Respiratory Effort / Characteristics Blood Pressure 154/81 H Blood Pressure [Right Arm] Blood Pressure Mean 102 Blood Pressure Mean [Right Arm] Pulse Oximetry 100 Oxygen Delivery Method Oxygen Flow Rate Sepsis Recent Fever Within 48 Hours Sepsis New/Unexplained Change in Mental Status Sepsis Action Taken by Nursing 09/08/24 15:00 09/08/24 15:16 09/08/24 15:18 Temperature Temperature Source Pulse Rate 86 86 Pulse Rate [Apical] 85 Pulse Rate from SpO2 Sensor 86 86 Pulse Rhythm Respiratory Rate 26 H 32 H 35 H Respiratory Effort / Characteristics Blood Pressure Blood Pressure [Right Arm] 158/90 H Blood Pressure Mean Blood Pressure Mean [Right Arm] 112 Pulse Oximetry 94 99 99 Oxygen Delivery Method Non-rebreather Oxygen Flow Rate Sepsis Recent Fever Within 48 Hours Sepsis New/Unexplained Change in Mental Status Sepsis Action Taken by Nursing 09/08/24 15:27 09/08/24 15:31 09/08/24 15:33 Temperature Temperature Source Pulse Rate 89 85 Pulse Rate [Apical] Pulse Rate from SpO2 Sensor 85 81 Pulse Rhythm Respiratory Rate 42 H 25 H Respiratory Effort / Characteristics Blood Pressure 171/85 H Blood Pressure [Right Arm] Blood Pressure Mean 105 Blood Pressure Mean [Right Arm] Pulse Oximetry 99 96 Oxygen Delivery Method Oxygen Flow Rate Sepsis Recent Fever Within 48 Hours Sepsis New/Unexplained Change in Mental Status Sepsis Action Taken by Nursing 09/08/24 15:43 09/08/24 15:45 09/08/24 15:54 Temperature Temperature Source Pulse Rate 87 91 H Pulse Rate [Apical] 87 Pulse Rate from SpO2 Sensor 86 92 H Pulse Rhythm Respiratory Rate 22 22 25 H Respiratory Effort / Characteristics Spontaneous Labored Short of Breath Blood Pressure Blood Pressure [Right Arm] Blood Pressure Mean Blood Pressure Mean [Right Arm] Pulse Oximetry 100 97 95 Oxygen Delivery Method Non-rebreather Oxygen Flow Rate 15 Sepsis Recent Fever Within 48 Hours Sepsis New/Unexplained Change in Mental Status Sepsis Action Taken by Nursing 09/08/24 15:57 09/08/24 16:00 09/08/24 16:33 Temperature Temperature Source Pulse Rate 92 H 90 Pulse Rate [Apical] Pulse Rate from SpO2 Sensor 91 H 90 Pulse Rhythm Respiratory Rate 20 20 Respiratory Effort / Characteristics Blood Pressure 153/79 H Blood Pressure [Right Arm] Blood Pressure Mean 121 Blood Pressure Mean [Right Arm] Pulse Oximetry 92 92 Oxygen Delivery Method Oxygen Flow Rate Sepsis Recent Fever Within 48 Hours Sepsis New/Unexplained Change in Mental Status Sepsis Action Taken by Nursing 09/08/24 17:00 09/08/24 17:03 09/08/24 17:12 Temperature Temperature Source Pulse Rate 84 Pulse Rate [Apical] 77 Pulse Rate from SpO2 Sensor 84 Pulse Rhythm Respiratory Rate 29 H 21 Respiratory Effort / Characteristics Blood Pressure 107/77 Blood Pressure [Right Arm] 162/82 H Blood Pressure Mean 101 Blood Pressure Mean [Right Arm] 108 Pulse Oximetry 95 94 Oxygen Delivery Method Oxygen Flow Rate Sepsis Recent Fever Within 48 Hours Sepsis New/Unexplained Change in Mental Status Sepsis Action Taken by Nursing 09/08/24 17:27 09/08/24 17:30 09/08/24 17:30 Temperature Temperature Source Pulse Rate 82 80 Pulse Rate [Apical] Pulse Rate from SpO2 Sensor 81 79 Pulse Rhythm Respiratory Rate 23 21 Respiratory Effort / Characteristics Blood Pressure 149/83 H Blood Pressure [Right Arm] Blood Pressure Mean 114 Blood Pressure Mean [Right Arm] Pulse Oximetry 97 96 Oxygen Delivery Method Oxygen Flow Rate Sepsis Recent Fever Within 48 Hours Sepsis New/Unexplained Change in Mental Status Sepsis Action Taken by Nursing 09/08/24 17:51 09/08/24 17:54 09/08/24 18:00 Temperature Temperature Source Pulse Rate 78 82 Pulse Rate [Apical] Pulse Rate from SpO2 Sensor 78 81 Pulse Rhythm Respiratory Rate 15 23 Respiratory Effort / Characteristics Blood Pressure 162/82 H Blood Pressure [Right Arm] Blood Pressure Mean 130 Blood Pressure Mean [Right Arm] Pulse Oximetry 97 97 Oxygen Delivery Method Oxygen Flow Rate Sepsis Recent Fever Within 48 Hours Sepsis New/Unexplained Change in Mental Status Sepsis Action Taken by Nursing 09/08/24 18:03 09/08/24 18:38 Temperature Temperature Source Pulse Rate 81 78 Pulse Rate [Apical] Pulse Rate from SpO2 Sensor 81 Pulse Rhythm Respiratory Rate 17 Respiratory Effort / Characteristics Blood Pressure Blood Pressure [Right Arm] Blood Pressure Mean Blood Pressure Mean [Right Arm] Pulse Oximetry 97 Oxygen Delivery Method Oxygen Flow Rate Sepsis Recent Fever Within 48 Hours Sepsis New/Unexplained Change in Mental Status Sepsis Action Taken by Nursing Laboratory Data 09/08/24 15:02 09/08/24 15:02 Lab Results 09/08/24 09/08/24 Range/Units 15:02 17:34 WBC 29.04 H (4.8-10.8) K/ul RBC 5.75 H (4.20-5.40) M/uL Hgb 17.1 H (12.0-16.0) g/dl Hct 51.1 H (37.0-47.0) % MCV 88.9 (80.0-100.0) fL MCH 29.7 (25.0-34.0) pg MCHC 33.5 (32.0-36.0) g/dL RDW Std Deviation 48.5 H (36.4-46.3) fL RDW Coeff of Darlene 14.8 H (11.5-14.5) % Plt Count 481 H (130-400) K/uL MPV 9.6 (9.4-12.4) fL Immature Gran % (Auto) 1.2 % Neut % (Auto) 69.5 % Lymph % (Auto) 2.0 % Wirt % (Auto) 7.3 % Eos % (Auto) 19.7 % Baso % (Auto) 0.3 % Neut # (Auto) 20.19 H (1.40-6.50) K/uL Lymph # (Auto) 0.58 L (1.20-3.40) K/uL Wirt # (Auto) 2.13 H (0.11-0.59) K/uL Eos # (Auto) 5.72 H (0.00-0.50) K/uL Baso # (Auto) 0.08 (0.00-0.20) K/uL Immature Gran # (Auto) 0.34 H (0.01-0.20) K/uL Sodium 138 (136-145) mmol/L Potassium 3.7 (3.5-5.1) mmol/L Chloride 96 L (98-107) mmol/L Carbon Dioxide 33 H (21-32) mmol/L Anion Gap 9 (3-11) BUN 27 H (6-23) mg/dl Creatinine 0.70 (0.6-1.2) mg/dl Est Cr Clr Drug Dosing 61.3 ml/min eGFR 89.58 BUN/Creatinine Ratio 38.6 H (10-20) Glucose 118 H (70-99(Fasting)) mg/dl Calcium 9.6 (8.6-10.3) mg/dl Total Bilirubin 2.0 H (0.2-1.0) mg/dl AST 94 H (13-39) U/L ALT 178 H (7-52) U/L Alkaline Phosphatase 93 (34-104) U/L Troponin I High Sens 226.2 H* 180.8 H* D (0-14) pg/ml Total Protein 6.8 (6.0-8.3) gm/dl Albumin 4.0 (3.4-5.0) gm/dl Globulin 2.8 (2.5-4.0) gm/dl Albumin/Globulin Ratio 1.4 (0.9-2) Lipase 20 (11-82) U/L Administered Medications Lactated Ringer's (Lr) 1,000 mls @ 80 mls/hr IV .[id number] ELIECER Stop: 09/09/24 18:14 Last Admin: 09/08/24 18:25 Dose: 80 mls/hr Documented By: YOLI Discontinued Medications Epinephrine (Racepinephrine 2.25% Nebu Soln 0.5 Ml Vial) 0.5 ml NEB NOW STA Stop: 09/08/24 15:26 Last Admin: 09/08/24 15:40 Dose: 0.5 ml Documented By: WES Cefepime HCl (Maxipime 2000mg) 2,000 mg in 20 mls @ 5 mls/min IV NOW STA; Protocol Stop: 09/08/24 17:22 Last Admin: 09/08/24 18:09 Dose: 5 mls/min Documented By: YOLI Ioversol (Optiray 320 125ml) 119 ml IV ONCE ONE Stop: 09/08/24 17:00 Last Admin: 09/08/24 16:59 Dose: 119 ml Documented By: MARCIE Methylprednisolone (Methylprednisolone 125 Mg/2 Ml Vial) 40 mg IV NOW STA Stop: 09/08/24 14:58 Last Admin: 09/08/24 15:15 Dose: 40 mg Documented By: CASPER Imaging Data Radiologist's Impression: Chest X-Ray 09/08/24 14:48 XR chest 1V portable CLINICAL HISTORY: Chest pain, nonspecific COMPARISON STUDY: Chest CT June 15, 2022. Chest radiograph June 29, 2024. PET/CT July 05, 2022. FINDINGS: Right internal jugular [id number] remains in place. Postoperative finding within the right hemithorax with volume loss are present. Mild rightward deviation of the mediastinum is noted. A moderate right pleural effusion with right basilar opacity has developed since prior exam. There is no pneumothorax. An irregular 6.9 x 3 cm right upper lobe opacity persists. This is similar to prior exam. Left basilar opacity favors atelectasis. There is no radiographic evidence for pulmonary edema. Old, healed proximal left humeral fracture is incidentally noted IMPRESSION: 1. Interval development of a moderate right pleural effusion since chest radiograph of June 29, 2024. Associated right basilar opacity could reflect pneumonia or atelectasis. Radiographic follow-up to ensure resolution is recommended, particularly given history of malignancy. 2. Postoperative findings within the right hemithorax with volume loss. 6.9 x 3 cm irregular right upper lobe opacity, similar to prior exam. The findings may reflect post radiation fibrosis. However, imaging follow-up is recommended to exclude the possibility of recurrent tumor. ACT 112: Negative or not required by law. Electronically signed by: Bro Davis M.D. 09/08/2024 3:49 PM Chest CTA 09/08/24 15:44 EXAM: CT angio chest PE protocol CLINICAL HISTORY: Pt reports sent in from ENT, vocal cords not moving, wheezing is getting worse over last two months, 3L NC at home, started after trip to the [place] 2 months ago, 119 ml optiray 320 TECHNIQUE: CT angiography of the chest was performed with and without intravenous contrast with the following protocol: axial images with, reconstructed coronal and sagittal images. Non-contrast images were initially acquired, followed by contrast-enhanced images in arterial and venous phases. Intravenous contrast [119 ml optiray 320] was administered using automated injection techniques. Bolus tracking was employed to optimize arterial phase imaging. One of these 3D techniques was utilized: Maximum Intensity Pixel (MIP), 3D Reconstructed Images, Volume Rendered Images, Surface Shaded Rendering. One of the following dose reduction techniques was utilized for this exam: Automated exposure control, adjustment of the mA and/or kV according to patient size, and use of iterative reconstruction. COMPARISON: Comparison is made with 06/15/2022 FINDINGS: Aorta and Great Vessels: Ascending Aorta: Normal in caliber, no aneurysm, dissection, or significant atherosclerosis. Aortic Arch: Normal in caliber, no aneurysm, dissection, or significant atherosclerosis. Descending Aorta: Normal in caliber, no aneurysm, dissection, or significant atherosclerosis. Pulmonary Arteries: The main pulmonary artery are patent. Filling defect seen partially obstructing the right ascending branch of right pulmonary artery seen extending and totally occluding the subsegmental apical and anterir branches, suggesting pulmonary embolism Heart: Cardiac Chambers: Moderate cardiomegaly with left ventricular wall hypertrophy. Pericardium: No pericardial effusion or thickening. Lungs and Pleura: Mild to moderate right pleural effusion. Complete collapse of right lower lobe with preserved air-bronchogram and post-contrast enhancement. Right lower lobe bronchus is completely occluded. Apical segment of right upper lobe mass replacing lung parenchyma with loss of aeration, mild enhancement, irregular vascularity and occluded supplying subsegmental bronchus and pulmonary artery subsegmental division, measuring 3.4 x 5.4 cm in axial dimensions, suggestive of an underlying mass lesion. Correlation with previous studies is recommended. Peribronchovascular nodules noted in the right upper lobe and apical segment of the right lower lung lobe, possible satellite neoplastic lesions Partial obstruction of right upper lobe bronchus. Bronchoscopy with lavage and histopathological analysis is recommended. Near total obstruction of the right lower lobar bronchus and bronchus intermedius likely by mucous plug. Further bronchoscopy is advised Left lower lobe small subpleural consolidation at its posterior segment. Moderate subglottic tracheal stenosis. Prominent right arytenoid cartilage, suggestive of Right vocal cord palsy. Mediastinum: Mediastinal shift toward the right side. Paraesophageal hiatal hernia is noted. Hilar Structures: Hilar structures are normal without enlargement. Chest Wall: No mass lesions or abnormalities in the chest wall. Vascular Structures: Superior Vena Cava: Patent without evidence of stenosis or thrombus. Inferior Vena Cava: Patent without evidence of stenosis or thrombus. Diffuse aortic atherosclerotic wall calcifications. Right-sided port-A-cath is noted. Bones and Soft Tissues: Cortical irregularities with periosteal reaction noted at the right 2nd, 3rd and 4th ribs laterally, possible sequalea of pathological fractures. Compression collapse of T7 with reduction of 90% of its height Soft tissues are unremarkable. Left glenohumeral osteoarthritis. IMPRESSION: 1. Filling defect seen partially obstructing the right ascending branch of the right pulmonary artery seen extending and totally occluding the subsegmental apical and anterior branches, suggesting pulmonary embolism/ infiltration by lung mass 2. Apical segment of right upper lobe mass-like lesion with no air bronchogram inside, suspicious of the neoplastic lesion. Correlation with previous studies is recommended. 3. Peribronchovascular nodules noted in the right upper lobe and apical segment of the right lower lung lobe, possible satellite neoplastic lesions 4. Cortical irregularities with periosteal reaction noted at the right 2nd, 3rd and 4th ribs laterally, possible sequelae of pathological fractures. 5. Compression collapse of T7 with a reduction of 90% of its height 6. Moderate cardiomegaly with left ventricular wall hypertrophy. 7. Moderate subglottic tracheal stenosis? post-intubation. Clinical correlation is advised. 8. Prominent right arytenoid cartilage, suggestive of right vocal cord palsy. Clinical correlation is advised. 9. Partial obstruction of right upper lobe bronchus. Bronchoscopy with lavage and histopathological analysis is recommended. 10. Complete collapse of right lower lobe with complete bronchial occlusion. 11. Mild to moderate right pleural effusion. 12. The mediastinal shift toward the right side. 13. Left lower lobe has small subpleural consolidation at its posterior segment. 14. Paraesophageal hiatal hernia is noted with dilated proximal esophagus 15. Compared to the previous CT study on 06/15/2022, there is currently progressively increased size of right upper lobe mass, denovo pleural effusion, right lower lobe collapse, and subglottic stenosis. Critical access hospital ER was called at [phone] at 05:50 PM , 09/08/2024, and Gera Boyce was informed regarding the presence of critical medical findings in the reports. Electronically signed by Ross Brady 09-08-2024 6:[address] 09/08/24 15:44 EXAM: CT soft tissue neck w con CLINICAL HISTORY: Pt reports sent in from ENT, vocal cords not moving, wheezing is getting worse over last two months, 3L NC at home, started after trip to the [place] 2 months ago, 119 ml optiray 320 TECHNIQUE: A CT scan of the neck was performed with the administration of intravenous contrast. Sagittal and coronal reconstructions were obtained.119 ml optiray 320 was administered for post-contrast images. One of the following dose reduction techniques were utilized for this exam: Automated exposure control, adjustment of the mA and/or kV according to patient size, and use of iterative reconstruction. COMPARISON: 07/05/2022. FINDINGS: Nasopharynx Normal size and appearance. No masses or abnormal enhancement. Oropharynx: Normal size and appearance. No masses or abnormal enhancement. Larynx and Hypopharynx: Normal appearance of the laryngeal structures. Redemonstration of medialization of the right vocal cord. Left vocal cord unremarkable. No masses or abnormal enhancement. Airway: Circumferential narrowing of the proximal trachea, without evidence of calcifications (Series 601 image 21/100, series 600 image 48/100, series 8, image 238/281). The trachea and main bronchi are patent. No evidence of tracheal or bronchial stenosis or masses. Thyroid Gland: Normal size and morphology. No nodules or masses. Normal enhancement post-contrast. Salivary Glands: Parotid, submandibular, and sublingual glands are normal in size and appearance. No evidence of sialadenitis or masses. Lymph Nodes: No evidence of an enlarged lymph node in the right cervical-paratracheal region, as previously seen. No pathologically enlarged cervical lymph nodes. Normal appearance of the lymph node chains. Vascular Structures: Normal enhancement of the carotid arteries, jugular veins, and other major vessels post-contrast. No evidence of vascular malformations, aneurysms, or thrombosis. Diffuse vascular calcifications. Soft Tissues: No abnormal masses, swelling, or fluid collections. Bones: No fractures, lytic or sclerotic lesions. Degenerative changes in the visualized spine, with marginal osteophytes. Patient had a chest CT same day and would recommend referring to that report for findings in this location. IMPRESSION: 1. Circumferential narrowing of the proximal trachea. Clinical correlation is advised. 2. Redemonstration of medialization of the right vocal cord. 3. No evidence of an enlarged lymph node in the right cervical-paratracheal region, as previously seen. Electronically signed by Ross Brady 09-08-2024 6:25 PM Discharge Plan Visit Data Chief Complaint: Shortness of Breath/Dyspnea Stated Complaint: VOCAL CORDS NOT MOVING/POOR MOVEMENT, SOB ED Provider: Gera Morales Discharge Problem: Acute hypoxemic respiratory failure, Lung cancer, Vocal cord paralysis, Leukocytosis, Pulmonary embolism Forms Stand Alone Forms: My [facility] Auto[employer] Prescriptions Prescriptions: No Action atorvastatin 40 mg tablet 40 mg PO QPM metoprolol succinate [Toprol XL] 50 mg Tablet Extended Release 24 Hr 50 mg PO QAM aspirin 81 mg Tablet,Delayed Release (Dr/Ec) 81 mg PO QPM quetiapine 25 mg tablet 25 mg PO HS prednisone 10 mg tablet 10 mg PO QAM ipratropium-albuterol 0.5 mg-3 mg(2.5 mg base)/3 mL solution for nebulization 3 ml inhalation DAILY PRN (Reason: SOB/Wheezing) levothyroxine 75 mcg tablet 75 mcg PO QAM famotidine 20 mg tablet 20 mg PO BID cyanocobalamin (vitamin B-12) 1,000 mcg/mL solution 1,000 mcg IM UD Rx Instructions: Monthly nystatin 100,000 unit/gram cream 100,000 unit TOPICAL BID hydroxyzine HCl 10 mg tablet 10 mg PO HS ezetimibe 10 mg tablet 10 mg PO QAM Referrals Referrals: PCP,NO [Physician] - Discharge Problem: Lung cancer Qualifiers: Laterality: unspecified laterality Lung location: unspecified part of lung Q ualified Code(s): C34.90 - Malignant neoplasm of unspecified part of unspecified bronchus or lung Leukocytosis Qualifiers: Leukocytosis type: unspecified Qualified Code(s): D72.829 - Elevated white blood cell count, unspecified
[2024-09-08] MEDS: methylPREDNISolone 125 MG/2 ML VIAL IV STA (15:15)
[2024-09-08] MEDS: RACEPINEPHRINE 2.25% NEBU SOLN 0.5 ML VIAL NEB STA (15:40)
[2024-09-08 15:45] LABS: Basophils # (auto) 0.08 K/uL (0.00-0.20); Basophils % (auto) 0.3 %; Eosinophils # (auto) 5.72 K/uL (0.00-0.50); Eosinophils % (auto) 19.7 %; Hematocrit (blood only) 51.1 % (37.0-47.0); Hemoglobin 17.1 g/dl (12.0-16.0); Immature Granulocytes # (auto) 0.34 K/uL (0.01-0.20); Immature Granulocytes % (auto) 1.2 %; Lymphocytes # (auto) 0.58 K/uL (1.20-3.40); Mean Corpuscular Hemoglobin 29.7 pg (25.0-34.0); Mean Corpuscular Hgb Conc 33.5 g/dL (32.0-36.0); Mean Corpuscular Volume 88.9 fL (80.0-100.0); Mean Platelet Volume 9.6 fL (9.4-12.4); Monocytes # (auto) 2.13 K/uL (0.11-0.59); Monocytes % (auto) 7.3 %; Neutrophils # (auto) 20.19 K/uL (1.40-6.50); Neutrophils % (auto) 69.5 %; Platelet Count 481 K/uL (130-400); RDW Coefficient of Variation 14.8 % (11.5-14.5); RDW Standard Deviation 48.5 fL (36.4-46.3); Red Blood Count 5.75 M/uL (4.20-5.40); White Blood Count 29.04 K/ul (4.8-10.8)
--- NOTE | 2024-09-08 15:48 | Electrocardiogram Report ---
Test Reason : Blood Pressure : */* mmHG Vent. Rate : 90 BPM Atrial Rate : 90 BPM P-R Int : 152 ms QRS Dur : 70 ms QT Int : 358 ms P-R-T Axes : 59 21 184 degrees QTcB Int : 437 ms Normal sinus rhythm Abnormal ECG When compared with ECG of 29-Jun-2024 19:54, T wave inversion now evident in Inferior leads Confirmed by Levar Ray ([id number]) on 09/08/2024 3:48:12 PM Referred By: Confirmed By: Levar Ray
--- NOTE | 2024-09-08 15:50 | XRay Report ---
XR chest 1V portable CLINICAL HISTORY: Chest pain, nonspecific COMPARISON STUDY: Chest CT June 15, 2022. Chest radiograph June 29, 2024. PET/CT July 05, 2022. FINDINGS: Right internal jugular Yxfrmz-n-Cctq remains in place. Postoperative finding within the rig ht hemithorax with volume loss are present. Mild rightward deviation of the mediastinum is noted. A m oderate right pleural effusion with right basilar opacity has developed since prior exam. There is no pneumothorax. An irregular 6.9 x 3 cm right upper lobe opacity persists. This is similar to prior ex am. Left basilar opacity favors atelectasis. There is no radiographic evidence for pulmonary edema. O ld, healed proximal left humeral fracture is incidentally noted IMPRESSION: 1. Interval development of a moderate right pleural effusion since chest radiograph of June 29, 2024. Associated right basilar opacity could reflect pneumonia or atelectasis. Radiographic follow-up to ensure resolution is recommended, particularly given history of malignancy. 2. Postoperative findings within the right hemithorax with volume loss. 6.9 x 3 cm irregular right up per lobe opacity, similar to prior exam. The findings may reflect post radiation fibrosis. However, i maging follow-up is recommended to exclude the possibility of recurrent tumor. ACT 112: Negative or not required by law. Electronically signed by: Bro Davis M.D. 09/08/2024 3:49 PM
[2024-09-08 16:09] LABS: Troponin I High Sensitivity 226.2 pg/ml (0-14)
--- NOTE | 2024-09-08 16:09 | ENT Consultation ---
Date of Consultation September 08, 2024 Assessment & Plan (1) Vocal cord paralysis: Plan The patient has a history of R TVF immobility in the setting of lung cancer s/p lobectomy/adjuvant tx and ongoing RUL opacity on CXR. L TVF has full mobility but is not able to compensate for the positioning of the right (paramedian) resulting in a large glottic gap. I suspect she is aspirating chronically. Airway is widely patent, no indication for urgent tracheostomy at this time. I recommend MBS while inpatient to evaluate for aspiration. Remainder of care per ED team. She should follow up as an outpatient - [phone] History of Present Illness History of Present Illness 74yF seen for evaluation of dyspnea and TVF immobility. History pertinent for lung cancer s/p lobectomy/adjuvant tx, CAD s/p stent on ASA, alzheimer's. [facility], per their note had bilateral TVF immobility in paramedian position with adequate glottic airway. Did have concern for clinical respiratory distress and sent to ED. Daughter reports voice change after lobectomy. Has had aspiration PNA in the past 6 months. WBC 29 CXR showed R pleural effusion, basilar PNA vs. atelectasis, 6.9x3cm RUL opacity CT neck per my read without mass or lesion, lateralized R TVF Allergies Allergy/AdvReac Type Severity Reaction Status Date / Time acetaminophen [From Vicodin] Allergy Severe Hallucinati Verified 08/03/21 15:16 ng hydrocodone [From Vicodin] Allergy Severe Hallucinati Verified 08/03/21 15:16 ng Penicillins Allergy Mild HIVES Verified 08/03/21 15:16 Home Medications Medication Instructions Recorded Confirmed Type aspirin 81 mg tablet,delayed 81 mg PO QPM 07/06/18 06/15/22 History release levothyroxine 50 mcg tablet 50 mcg PO QAM 07/06/18 06/15/22 History metoprolol succinate 50 mg 50 mg PO QPM 07/06/18 06/15/22 History tablet,extended release 24 hr (Toprol XL) multivitamin 1 tab PO QPM 07/06/18 06/15/22 History pantoprazole 40 mg tablet,delayed 40 mg PO QPM 07/06/18 06/15/22 History release (Protonix) fluoxetine 40 mg capsule 40 mg PO QPM 12/23/18 06/15/22 History atorvastatin 40 mg tablet 40 mg PO QPM 12/21/20 06/15/22 History azithromycin 250 mg tablet See Rx Instructions PO .COMPLEX #6 06/15/22 06/15/22 Rx tabs methylprednisolone 4 mg tablets in 4 mg PO UD #21 ea 06/15/22 06/15/22 Rx a dose pack (Medrol (Jhonathan)) Patient History Medical History Osteoarthritis GERD (gastroesophageal reflux disease) Hypothyroidism Anxiety Alzheimer disease beginning stage Lymph node cancer 2018 HAD RADIATION/CHEMO > HAS PORT LEFT SIDE Hx of myocardial infarction [place] 2001 & 2004 stent x 3 (2004) edmundo jones follow with [facility] cardio Surgical History History of esophagogastroduodenoscopy (EGD) History of cataract surgery LEFT History of vascular access device infusa port is in place History of colostomy bowel ruptured during childbirth and had colostomy and then it was reversed History of cholecystectomy Hx of heart artery stent [place] 2001 & 2004 stent x 3 (2004) edmundo jones follow with [facility] cardio Family History Father Colon cancer Social History Smoking Status: Former smoker Second Hand Exposure: No; Do You Dip or Chew Tobacco: No; Hx Alcohol Use: No Hx Substance Use: No Preferred Language: Upper Sorbian Communication Ability: Effective Weekend Caregiver Required: No Beliefs That Will Affect Care: None Current Living Situation: Family current occupational status: retired Feels Safe at Home: Yes Assistive Devices: Denture - Upper, Glasses and Walker Review of Systems Review of Systems: A 10-point ROS is negative except as noted above Physical Exam Physical Exam: General: No acute distress, nonlabored respirations on 15L nonbreather Face: normal facial motion Eyes: Extraocular motion is intact. Normal sclera and conjunctiva Ears: External auditory canals are clear. Tympanic membrane is intact and the middle ear is aerated bilaterally. Nose: no external deformity, nares patent. No rhinorrhea or epistaxis. Oral cavity: clear, edentulous, very dry oral mucosa Oropharynx: clear, tonsils absent Neck: soft, no masses or lymphadenopathy Very breathy voice Procedure: Flexible fiberoptic laryngoscopy Indication: dyspnea Details: Following the topical application of afrin and lidocaine, the flexible laryngoscope was inserted into the nasal cavity. The septum, turbinates, and nasal mucosa were normal. The nasopharynx was normal. The palatine tonsils were absent bilaterally. The base of tongue and vallecula were normal. The epiglottis, bilateral arytenoids, and bilateral aryepiglottic folds, and bilateral false vocal folds were normal. The true vocal folds were normal without masses or lesions. The right true vocal fold was immobile in the paramedian position. There was normal mobility of the left true vocal fold although not complete compensation with adequate abduction. There was a significant glottic gap. The bilateral pyriform sinuses and postcricoid space was normal. There was no pooling of secretions. No aspiration or penetration was visualized. The patient tolerated the procedure well. Results & Data Vital Signs (Past 12 Hours) Vital Signs Temp Pulse Pulse Resp BP BP Pulse Ox 09/08/24 15:43 87 22 100 09/08/24 15:16 85 32 H 158/90 H 99 09/08/24 14:51 86 09/08/24 14:48 85 30 H 95 09/08/24 14:34 09/08/24 14:34 36.6 C 97 H 18 144/85 H 94 O2 Del Method O2 Flow Rate 09/08/24 15:43 Non-rebreather 15 09/08/24 15:16 Non-rebreather 09/08/24 14:51 09/08/24 14:48 Non-rebreather 15 09/08/24 14:34 Nasal Cannula 3 09/08/24 14:34 Nasal Cannula 2 PG Care Time/CCT Total # of Minutes Spent Total Time Spent with Patient: Total time spent is greater than 50% in coordination of care (as documented) at patient's floor/unit and/or counseling patient: Coding Level of Care Code 62848 OFFICE CONSULT LVL M (25 - SIGNIFICANT, SEPARATELY IDENTIFIABLE ) Diagnoses Vocal cord paralysis J38.00
[2024-09-08 16:12] LABS: Calcium 9.6 mg/dl (8.6-10.3); Potassium 3.7 mmol/L (3.5-5.1)
[2024-09-08 16:18] LABS: Albumin Globulin Ratio 1.4 (0.9-2); BUN Creatinine Ratio 38.6 (10-20); Creatinine Clr Calc Pharmacy 61.3 ml/min; Globulin 2.8 gm/dl (2.5-4.0); Total Protein 6.8 gm/dl (6.0-8.3)
[2024-09-08] MEDS: OPTIRAY 320 125ml IV ONE (16:59)
[2024-09-08] MEDS: CEFEPIME 2000MG 2,000 MG/20 ML SYR IV STA (18:09)
--- NOTE | 2024-09-08 18:18 | History & Physical Report ---
Date of Service September 08, 2024 Assessment & Plan (1) Acute hypoxemic respiratory failure: Plan: The etiology of this is most likely a combination of post procedure status with/without some degree of aspiration, patient has already been started on cefepime in the ER which will be continued however I am concerned that the presence of right-sided pleural effusion is more of a reflection of underlying longer standing malignancy then a pneumonic process such as pneumonia. Patient does have leukocytosis of 29,000 which could be either infectious or neoplastic. Patient at this time will be kept on oxygen, empirically will be covered with antibiotic and her WBC count and general status will be monitored. (2) Lung cancer: Plan: I had a long conversation with her care provider about her CODE STATUS and decision for advanced directive and future care, I tried to give her care provider a good depiction of how her care might look like in the future and she is going to talk to the rest of the family on further decision making and in case they decide to proceed, we will consult oncology, her main oncologist is at [facility]. (3) Hypertension: Plan: Since patient will remain n.p.o. considering her hoarseness, will use hydralazine IV as needed and hold all p.o. medications (4) Vocal cord paralysis: Plan: Keep the patient n.p.o., cover with IV antibiotic, will continue to follow with recommendation by ENT and reevaluate the patient tomorrow to see if we can start feeding her only after [employer] evaluation. Plan Patient will be placed in observation, will reevaluate in V connected with family about advance plan of care and if needed to consult oncology tomorrow. Family is expected to help us making decision about CODE STATUS. History of Present Illness Chief Complaint: Hypoxemia, hoarseness Primary Care Provider: NO PCP Patient is a 74-year-old female with prior history of adenocarcinoma of the lung status post right lower lobectomy and radiation treatment as of 2011 along with chemotherapy, Alzheimer disease, history of coronary disease status post PCI and hypertension who in 2018, patient was found to have a right cervical lymphadenopathy with compressive effect on the vocal cord. Patient has been under care by Dr. Won BROWN and he has a subcutaneous port but he has not been getting any treatment anymore. I am unaware of details of her last discussion with her oncologist however today patient was taken by ENT for laryngoscopy concerning her hoarseness, postprocedure patient kept having shortness of breath and was sent to the emergency room and hospitalist service was requested to place the patient observation for further review. Patient was seen and examined and case was discussed with her care provider at bedside. We discussed in detail about aspects of her care, patient does have several concerning factors including elevated liver enzyme predominantly ALT, hoarseness and history of several years of presence of cervical lymphadenopathy. Her last PET scan showed a FDG avid 9 mm x 8 mm right lower cervical/paratracheal lymph node within the tracheoesophageal groove which was considered new. This was suspicious for a small delfino recurrence. There was mild FDG uptake within the right upper lobe focus of consolidation which favors post treatment change. There was also a 2.7 cm partially calcified right basilar nodule without significant FDG uptake. This is likely benign but should be assessed on subsequent exams with also evidence of vocal cord paralysis. Patient was seen and examined. At this time patient will be placed in observation. I had a conversation with care provider in regard to advanced directives, she will discuss with the rest of the family members and will decide about CODE STATUS. If they would like to proceed with further care, may need to consult on cology. At this time we will place in observation and monitor her oxygen requirement, the presence of right sided pleural effusion is more of a stigmata of recurrence of lung disease rather than a new infectious process however this cannot be ascertained completely so we will give the benefit of the doubt and treat her for a course of antibiotic presuming pneumonia. Allergies Allergy/AdvReac Type Severity Reaction Status Date / Time acetaminophen [From Vicodin] Allergy Severe Hallucinati Verified 09/08/24 17:55 ng hydrocodone [From Vicodin] Allergy Severe Hallucinati Verified 09/08/24 17:55 ng Penicillins Allergy Mild HIVES Verified 09/08/24 17:55 Home Medications Medication Instructions Recorded Confirmed Type aspirin 81 mg tablet,delayed 81 mg PO QPM 07/06/18 09/08/24 History release metoprolol succinate 50 mg 50 mg PO QAM 07/06/18 09/08/24 History tablet,extended release 24 hr (Toprol XL) atorvastatin 40 mg tablet 40 mg PO QPM 12/21/20 09/08/24 History cyanocobalamin (vitamin B-12) 1,000 mcg IM UD 09/08/24 09/08/24 History 1,000 mcg/mL injection solution ezetimibe 10 mg tablet 10 mg PO QAM 09/08/24 09/08/24 History famotidine 20 mg tablet 20 mg PO BID 09/08/24 09/08/24 History hydroxyzine HCl 10 mg tablet 10 mg PO HS 09/08/24 09/08/24 History ipratropium 0.5 mg-albuterol 3 mg 3 ml inhalation DAILY PRN 09/08/24 09/08/24 History (2.5 mg base)/3 mL nebulization SOB/Wheezing soln levothyroxine 75 mcg tablet 75 mcg PO QAM 09/08/24 09/08/24 History nystatin 100,000 unit/gram topical 100,000 unit topical BID 09/08/24 09/08/24 History cream prednisone 10 mg tablet 10 mg PO QAM 09/08/24 09/08/24 History quetiapine 25 mg tablet 25 mg PO HS 09/08/24 09/08/24 History Past Med/Surg History Problem List (Updated 09/08/24 @ 18:14 by Marivel Avina MD) Acute hypoxemic respiratory failure Vocal cord paralysis COVID-19 (Acute) Encounter for pre-operative examination Lung cancer (Chronic) Heart disease (Chronic) Hypertension (Chronic) Medical History Osteoarthritis GERD (gastroesophageal reflux disease) Hypothyroidism Anxiety Alzheimer disease beginning stage Lymph node cancer 2018 HAD RADIATION/CHEMO > HAS PORT LEFT SIDE Hx of myocardial infarction [place] 2001 & 2004 stent x 3 (2004) edmundo jones follow with [facility] cardio Surgical History History of esophagogastroduodenoscopy (EGD) History of cataract surgery LEFT History of vascular access device infusa port is in place History of colostomy bowel ruptured during childbirth and had colostomy and then it was reversed History of cholecystectomy Hx of heart artery stent [place] 2001 & 2004 stent x 3 (2004) edmundo jones follow with [facility] cardio Family History Father Colon cancer Social History Smoking Status: Former smoker Second Hand Exposure: No; Do You Dip or Chew Tobacco: No; Hx Alcohol Use: No Hx Substance Use: No Preferred Language: Uruguayan Communication Ability: Effective Project Asst Required: No Beliefs That Will Affect Care: None Current Living Situation: Family current occupational status: retired Feels Safe at Home: Yes Assistive Devices: Denture - Upper, Glasses and Walker Review of Systems Review of Systems: Constitutional: No Weight Change, No Fever, No Chills, No Night Sweats, No Fatigue, No Malaise ENT/Mouth: Significant hoarseness, on examination I could not establish any particular cervical mass Cardiovascular: No Chest Pain, No SOB, No PND, No Dyspnea on Exertion, No Orthopnea, No Claudication, No Edema, No Palpitations Respiratory: No Cough, No Sputum, No Wheezing, No Smoke Exposure, No Dyspnea Gastrointestinal: No Nausea, No Vomiting, No Diarrhea, No Constipation, No Pain, No Heartburn, No Anorexia, No Dysphagia, No Hematochezia, No Melena, No Flatulence, No Jaundice Neuro: No Weakness, No Numbness, No Paresthesias, No Loss of Consciousness, No Syncope, No Dizziness, No Headache, No Coordination Changes, No Recent Falls Physical Exam Physical Exam: VITALS: Reviewed. WEIGHT/BMI reviewed. GEN: Healthy appearing, well-developed, NAD, hoarseness with audible noisy breathing NECK: Supple, with no masses. CV: RRR, no m/r/g. LUNGS: CTAB, no w/r/c. EXT: No clubbing, cyanosis, or edema. NEURO: Ambulating with no limitations. Normal muscle strength and tone. No focal deficits. Results & Data Results & Data Vital Signs (Past 12 Hours) Vital Signs Temp Pulse Pulse Resp BP BP Pulse Ox 09/08/24 15:43 87 22 100 09/08/24 15:16 85 32 H 158/90 H 99 09/08/24 14:51 86 09/08/24 14:48 85 30 H 95 09/08/24 14:34 09/08/24 14:34 36.6 C 97 H 18 144/85 H 94 O2 Del Method O2 Flow Rate 09/08/24 15:43 Non-rebreather 15 09/08/24 15:16 Non-rebreather 09/08/24 14:51 12/02/24 14:48 Non-rebreather 15 09/08/24 14:34 Nasal Cannula 3 09/08/24 14:34 Nasal Cannula 2 Laboratory Results Laboratory Results - last 24 hr 09/08/24 09/08/24 15:02 17:34 WBC 29.04 H RBC 5.75 H Hgb 17.1 H Hct 51.1 H MCV 88.9 MCH 29.7 MCHC 33.5 RDW Std Deviation 48.5 H RDW Coeff of Darlene 14.8 H Plt Count 481 H MPV 9.6 Immature Gran % (Auto) 1.2 Neut % (Auto) 69.5 Lymph % (Auto) 2.0 Converse % (Auto) 7.3 Eos % (Auto) 19.7 Baso % (Auto) 0.3 Neut # (Auto) 20.19 H Lymph # (Auto) 0.58 L Converse # (Auto) 2.13 H Eos # (Auto) 5.72 H Baso # (Auto) 0.08 Immature Gran # (Auto) 0.34 H Sodium 138 Potassium 3.7 Chloride 96 L Carbon Dioxide 33 H Anion Gap 9 BUN 27 H Creatinine 0.70 Est Cr Clr Drug Dosing 61.3 eGFR 89.58 BUN/Creatinine Ratio 38.6 H Glucose 118 H Calcium 9.6 Total Bilirubin 2.0 H AST 94 H ALT 178 H Alkaline Phosphatase 93 Troponin I High Sens 226.2 H* Pending Total Protein 6.8 Albumin 4.0 Globulin 2.8 Albumin/Globulin Ratio 1.4 Lipase 20 Diagnostic Findings Chest X-Ray 09/08/24 14:48 XR chest 1V portable CLINICAL HISTORY: Chest pain, nonspecific COMPARISON STUDY: Chest CT June 15, 2022. Chest radiograph June 29, 2024. PET/CT July 05, 2022. FINDINGS: Right internal jugular Sillnh-y-Hctz remains in place. Postoperative finding within the right hemithorax with volume loss are present. Mild rightward deviation of the mediastinum is noted. A moderate right pleural effusion with right basilar opacity has developed since prior exam. There is no pneumothorax. An irregular 6.9 x 3 cm right upper lobe opacity persists. This is similar to prior exam. Left basilar opacity favors atelectasis. There is no radiographic evidence for pulmonary edema. Old, healed proximal left humeral fracture is incidentally noted IMPRESSION: 1. Interval development of a moderate right pleural effusion since chest radiograph of June 29, 2024. Associated right basilar opacity could reflect pneumonia or atelectasis. Radiographic follow-up to ensure resolution is recommended, particularly given history of malignancy. 2. Postoperative findings within the right hemithorax with volume loss. 6.9 x 3 cm irregular right upper lobe opacity, similar to prior exam. The findings may reflect post radiation fibrosis. However, imaging follow-up is recommended to exclude the possibility of recurrent tumor. ACT 112: Negative or not required by law. Electronically signed by: Bro Davis M.D. 09/08/2024 3:49 PM Medications Administered Current Inpatient Medications Cefepime HCl (Maxipime 2000mg) 2,000 mg in 20 mls @ 5 mls/min IV Q12H ELIECER; Protocol Stop: 09/09/24 18:14 Lactated Ringer's (Lr) 1,000 mls @ 80 mls/hr IV .[id number] ELIECER Stop: 09/09/24 18:14 Code Status & VTE Plan Code Status Full code VTE Prophylaxis Plan VTE Prophylaxis will be ordered: Yes (2) Lung cancer Laterality: right Lung location: upper lobe of lung Qualified Code(s): C34.11 - Malignant neoplasm of upper lobe, right bronchus or lung
[2024-09-08] MEDS: LACTATED RINGER'S 1,000 ML IV SCH (18:25)
--- NOTE | 2024-09-08 18:26 | CT Scan Report ---
EXAM: CT soft tissue neck w con CLINICAL HISTORY: Pt reports sent in from ENT, vocal cords not moving, wheezing is getting worse over last two months, 3L NC at home, started after trip to the [place] 2 months ago, 119 ml optiray 320 TECHNIQUE: A CT scan of the neck was performed with the administration of intravenous contrast. Sagittal and coronal reconstructions were obtained.119 ml optiray 320 was administered for post-contrast images. One of the following dose reduction techniques were utilized for this exam: Automated exposure control, adjustment of the mA and/or kV according to patient size, and use of iterative reconstruction. COMPARISON: 07/05/2022. FINDINGS: Nasopharynx Normal size and appearance. No masses or abnormal enhancement. Oropharynx: Normal size and appearance. No masses or abnormal enhancement. Larynx and Hypopharynx: Normal appearance of the laryngeal structures. Redemonstration of medialization of the right vocal cord. Left vocal cord unremarkable. No masses or abnormal enhancement. Airway: Circumferential narrowing of the proximal trachea, without evidence of calcifications (Series 601 image 21/100, series 600 image 48/100, series 8, image 238/281). The trachea and main bronchi are patent. No evidence of tracheal or bronchial stenosis or masses. Thyroid Gland: Normal size and morphology. No nodules or masses. Normal enhancement post-contrast. Salivary Glands: Parotid, submandibular, and sublingual glands are normal in size and appearance. No evidence of sialadenitis or masses. Lymph Nodes: No evidence of an enlarged lymph node in the right cervical-paratracheal region, as previously seen. No pathologically enlarged cervical lymph nodes. Normal appearance of the lymph node chains. Vascular Structures: Normal enhancement of the carotid arteries, jugular veins, and other major vessels post-contrast. No evidence of vascular malformations, aneurysms, or thrombosis. Diffuse vascular calcifications. Soft Tissues: No abnormal masses, swelling, or fluid collections. Bones: No fractures, lytic or sclerotic lesions. Degenerative changes in the visualized spine, with marginal osteophytes. Patient had a chest CT same day and would recommend referring to that report for findings in this location. IMPRESSION: 1. Circumferential narrowing of the proximal trachea. Clinical correlation is advised. 2. Redemonstration of medialization of the right vocal cord. 3. No evidence of an enlarged lymph node in the right cervical-paratracheal region, as previously seen. Electronically signed by Ross Brady 09-08-2024 6:25 PM
--- NOTE | 2024-09-08 18:52 | CT Scan Report ---
EXAM: CT angio chest PE protocol CLINICAL HISTORY: Pt reports sent in from ENT, vocal cords not moving, wheezing is getting worse over last two months, 3L NC at home, started after trip to the [place] 2 months ago, 119 ml optiray 320 TECHNIQUE: CT angiography of the chest was performed with and without intravenous contrast with the following protocol: axial images with, reconstructed coronal and sagittal images. Non-contrast images were initially acquired, followed by contrast-enhanced images in arterial and venous phases. Intravenous contrast [119 ml optiray 320] was administered using automated injection techniques. Bolus tracking was employed to optimize arterial phase imaging. One of these 3D techniques was utilized: Maximum Intensity Pixel (MIP), 3D Reconstructed Images, Volume Rendered Images, Surface Shaded Rendering. One of the following dose reduction techniques was utilized for this exam: Automated exposure control, adjustment of the mA and/or kV according to patient size, and use of iterative reconstruction. COMPARISON: Comparison is made with 06/15/2022 FINDINGS: Aorta and Great Vessels: Ascending Aorta: Normal in caliber, no aneurysm, dissection, or significant atherosclerosis. Aortic Arch: Normal in caliber, no aneurysm, dissection, or significant atherosclerosis. Descending Aorta: Normal in caliber, no aneurysm, dissection, or significant atherosclerosis. Pulmonary Arteries: The main pulmonary artery are patent. Filling defect seen partially obstructing the right ascending branch of right pulmonary artery seen extending and totally occluding the subsegmental apical and anterir branches, suggesting pulmonary embolism Heart: Cardiac Chambers: Moderate cardiomegaly with left ventricular wall hypertrophy. Pericardium: No pericardial effusion or thickening. Lungs and Pleura: Mild to moderate right pleural effusion. Complete collapse of right lower lobe with preserved air-bronchogram and post-contrast enhancement. Right lower lobe bronchus is completely occluded. Apical segment of right upper lobe mass replacing lung parenchyma with loss of aeration, mild enhancement, irregular vascularity and occluded supplying subsegmental bronchus and pulmonary artery subsegmental division, measuring 3.4 x 5.4 cm in axial dimensions, suggestive of an underlying mass lesion. Correlation with previous studies is recommended. Peribronchovascular nodules noted in the right upper lobe and apical segment of the right lower lung lobe, possible satellite neoplastic lesions Partial obstruction of right upper lobe bronchus. Bronchoscopy with lavage and histopathological analysis is recommended. Near total obstruction of the right lower lobar bronchus and bronchus intermedius likely by mucous plug. Further bronchoscopy is advised Left lower lobe small subpleural consolidation at its posterior segment. Moderate subglottic tracheal stenosis. Prominent right arytenoid cartilage, suggestive of Right vocal cord palsy. Mediastinum: Mediastinal shift toward the right side. Paraesophageal hiatal hernia is noted. Hilar Structures: Hilar structures are normal without enlargement. Chest Wall: No mass lesions or abnormalities in the chest wall. Vascular Structures: Superior Vena Cava: Patent without evidence of stenosis or thrombus. Inferior Vena Cava: Patent without evidence of stenosis or thrombus. Diffuse aortic atherosclerotic wall calcifications. Right-sided port-A-cath is noted. Bones and Soft Tissues: Cortical irregularities with periosteal reaction noted at the right 2nd, 3rd and 4th ribs laterally, possible sequalea of pathological fractures. Compression collapse of T7 with reduction of 90% of its height Soft tissues are unremarkable. Left glenohumeral osteoarthritis. IMPRESSION: 1. Filling defect seen partially obstructing the right ascending branch of the right pulmonary artery seen extending and totally occluding the subsegmental apical and anterior branches, suggesting pulmonary embolism/ infiltration by lung mass 2. Apical segment of right upper lobe mass-like lesion with no air bronchogram inside, suspicious of the neoplastic lesion. Correlation with previous studies is recommended. 3. Peribronchovascular nodules noted in the right upper lobe and apical segment of the right lower lung lobe, possible satellite neoplastic lesions 4. Cortical irregularities with periosteal reaction noted at the right 2nd, 3rd and 4th ribs laterally, possible sequelae of pathological fractures. 5. Compression collapse of T7 with a reduction of 90% of its height 6. Moderate cardiomegaly with left ventricular wall hypertrophy. 7. Moderate subglottic tracheal stenosis? post-intubation. Clinical correlation is advised. 8. Prominent right arytenoid cartilage, suggestive of right vocal cord palsy. Clinical correlation is advised. 9. Partial obstruction of right upper lobe bronchus. Bronchoscopy with lavage and histopathological analysis is recommended. 10. Complete collapse of right lower lobe with complete bronchial occlusion. 11. Mild to moderate right pleural effusion. 12. The mediastinal shift toward the right side. 13. Left lower lobe has small subpleural consolidation at its posterior segment. 14. Paraesophageal hiatal hernia is noted with dilated proximal esophagus 15. Compared to the previous CT study on 06/15/2022, there is currently progressively increased size of right upper lobe mass, denovo pleural effusion, right lower lobe collapse, and subglottic stenosis. [facility] was called at [phone] at 05:50 PM [employer], 09/08/2024, and Gera Boyce was informed regarding the presence of critical medical findings in the reports. Electronically signed by Ross Brady 09-08-2024 6:51 PM
[2024-09-08] MEDS: HEPARIN SODIUM/DEXTROSE 25,000 UNITS/500 ML BAG IV SCH (19:43)
[2024-09-08] MEDS: Heparin IV Adult Wt-Based Standard *NO* INITIAL Bolus Protocol IV STA (19:45)
[2024-09-08 20:01] LABS: ANTI-Xa, UFH(UnfractionatedHep < 0.10 IU/ml (0.3-0.7)
[2024-09-08] MEDS ORDERED: hydrALAZINE HCL 20 MG/ML VIAL IV PRN (22:30)
[2024-09-08] MEDS ORDERED: ONDANSETRON INJ 2 MG/ML 2 ML VIAL IV PRN (22:30)
[2024-09-08] MEDS ORDERED: ENOXAPARIN INJ 40 MG/0.4 ML SYR SQ SCH (22:30)
--- NOTE | 2024-09-08 23:34 | Communication Note ---
Date of Service: September 08, 2024 Patient noted to have scaly rash right inframammary area as per RN. Patient unable to give details due to confusion. PPE Scaly rash, right inframammary area, no tenderness AP Possible shingles Valtrex course
[2024-09-09] MEDS ORDERED: MELATONIN 3 MG TAB PO PRN (01:41)
[2024-09-09 02:58] LABS: ANTI-Xa, UFH(UnfractionatedHep 0.46 IU/ml (0.3-0.7)
[2024-09-09] MEDS: OLANZapine 10 MG/2.1 ML SDV IM STA (03:13)
[2024-09-09] MEDS ORDERED: HEPARIN 100 UNIT/ML 5ML FLUSH FLUSH PRN (04:30)
[2024-09-09] MEDS: ACYCLOVIR SOD 700 MG in DEXTROSE 5% 250 ML IV SCH ×2 (04:34→12:27)
[2024-09-09] MEDS ORDERED: OLANZapine 10 MG/2.1 ML SDV IM PRN (04:40)
[2024-09-09] MEDS: CEFEPIME 2000MG 2,000 MG/20 ML SYR IV SCH (05:38)
[2024-09-09 06:45] LABS: ANTI-Xa, UFH(UnfractionatedHep 0.66 IU/ml (0.3-0.7)
[2024-09-09] MEDS: valACYclovir HCL 500 MG TABLET PO SCH (07:40)
--- NOTE | 2024-09-09 08:40 | Hospitalist Progress Note ---
Date of Service September 09, 2024 Assessment & Plan (1) Non-ST elevated myocardial infarction (non-STEMI): Plan: EKG showed new findings of T inversion in inferior leads comparing with previous EKGs, initial troponin was 220 which improved 280, will get cardiology consult however in the meantime we will transition to medical treatment with for at least 48 hours of anticoagulation, will add statin and nitroglycerin if patient complains of chest pain, will start low-dose beta-blockade and add aspirin. Depending on plan of further care after discussion with family, will decide if patient needs to be moved to higher level of care. Echocardiogram will be ord ered. (2) Lung cancer: Plan: I waiting for her daughter to arrive to have further discussion, CT of the chest showed worsening of the right-sided pulmonary invasion of what appears to be underlying recurrence of adenocarcinoma, that is probably the explanation for her new right-sided pleural effusion and compressive atelectasis in the right base. Patient does have right upper lobe mass as well along with long known right cervical adenopathy causing compression over the vocal cords. If family is pursuing further care, I would get oncology consultation. (3) Shingles: Plan: Will treat with valacyclovir 1000 mg every 8 hours for 7 days, may provide local remedies such as calamine lotion if patient complains of itching. (4) Hypertension: Plan: This remained stable overnight, continue to use hydralazine as patient continues to be n.p.o. pending [employer] C[employer] OPERATOR. (5) Vocal cord paralysis: Plan: May continue with a course of antibiotic with impression of possible aspiration until SLITTER CUT OFF OPERATOR is completed, input from ENT evaluation was reviewed, it seems that at this time there is no input for acute care, they would recommend follow-up as outpatient (6) Acute hypoxemic respiratory failure: Plan: The etiology of this is most likely a combination of post procedure status with/without some degree of aspiration, this has resolved, her oxygen saturation on room air was 95% this morning checked by myself at rest. Plan Patient will be converted to inpatient admission, as we plan for at least another 24 hours of anticoagulation for myocardial infarction, will get echocardiogram, cardiology consult if there is any further input, keep restraint if needed which I think it is because of her underlying dementia. Keep n.p.o. until patient is evaluated by SLITTER CUT OFF OPERATOR and diet is recommended. If otherwise stable and there is no further recommendation by cardiology, I expect that probably tomorrow patient can be discharged on a course of valacyclovir to complete 7 days of treatment. We shall discuss advanced directives with daughter when she arrives today. Admission and Anticipated Discharge Date Admission Date: September 08, 2024 Subjective Patient was seen and examined, her breathing sounds much better than yesterday, I did not hear much wheezing, her oxygen requirement was checked by myself and after turning her oxygen completely down, her oxygen saturation remained stable at 95%. I think that her respiratory issue has resolved. After reviewing her EKG and trend of troponin, I noticed that patient was started on heparin infusion which I agree with, I think patient did have an non- STEMI inferior considering her, overall context of advanced lung disease, I would be leaning toward treating this medically however I would get benefit of getting cardiology input. Patient at this time is chest pain-free. I reviewed the findings of CT of the chest myself, I am more inclined to believe that this is tumor infiltration rather than pulmonary embolism. I am awaiting to speak to her daughter later today to discuss plan of care. However in the light of myocardial infarction, I would continue her stay for at least another day. I am aware the patient was found to have shingles on the right breast. Physical Exam Physical Exam: VITALS: Reviewed. WEIGHT/BMI reviewed. GEN: Healthy appearing, well-developed, NAD, no longer has hoarseness but appears confused to the point the patient needed to be on restraint overnight NECK: Supple, with no masses. CV: RRR, no m/r/g. LUNGS: CTAB, no w/r/c. On the right breast patient does have a streak of small blisters. EXT: No clubbing, cyanosis, or edema. NEURO: Ambulating with no limitations. Normal muscle strength and tone. No focal deficits. Results & Data Results & Data Vital Signs (Past 12 Hours) Vital Signs Temp Pulse Pulse Resp BP BP Pulse Ox 09/09/24 08:17 36.7 C 73 20 142/81 H 94 09/08/24 22:10 76 18 97 09/08/24 22:00 09/08/24 22:00 36.5 C 76 17 100/60 97 09/08/24 21:03 77 26 H 131/93 98 O2 Del Method O2 Flow Rate FiO2 09/09/24 08:17 Oxymask 873 09/08/24 22:10 Aerosol Mask 10 35 09/08/24 22:00 Aerosol Mask 9 09/08/24 22:00 Aerosol Mask 9 09/08/24 21:03 8 Laboratory Results Laboratory Results - last 24 hr 09/08/24 09/08/24 09/08/24 15:02 17:34 19:26 WBC 29.04 H RBC 5.75 H Hgb 17.1 H Hct 51.1 H MCV 88.9 MCH 29.7 MCHC 33.5 RDW Std Deviation 48.5 H RDW Coeff of Darlene 14.8 H Plt Count 481 H MPV 9.6 Immature Gran % (Auto) 1.2 Neut % (Auto) 69.5 Lymph % (Auto) 2.0 Sauk % (Auto) 7.3 Eos % (Auto) 19.7 Baso % (Auto) 0.3 Neut # (Auto) 20.19 H Lymph # (Auto) 0.58 L Sauk # (Auto) 2.13 H Eos # (Auto) 5.72 H Baso # (Auto) 0.08 Immature Gran # (Auto) 0.34 H Heparin Anti-Xa, Unfract < 0.10 L Sodium 138 Potassium 3.7 Chloride 96 L Carbon Dioxide 33 H Anion Gap 9 BUN 27 H Creatinine 0.70 Est Cr Clr Drug Dosing 61.3 eGFR 89.58 BUN/Creatinine Ratio 38.6 H Glucose 118 H Calcium 9.6 Total Bilirubin 2.0 H AST 94 H ALT 178 H Alkaline Phosphatase 93 Troponin I High Sens 226.2 H* 180.8 H* D Total Protein 6.8 Albumin 4.0 Globulin 2.8 Albumin/Globulin Ratio 1.4 Lipase 20 09/09/24 09/09/24 01:56 05:31 WBC RBC Hgb Hct MCV MCH MCHC RDW Std Deviation RDW Coeff of Darlene Plt Count MPV Immature Gran % (Auto) Neut % (Auto) Lymph % (Auto) Sauk % (Auto) Eos % (Auto) Baso % (Auto) Neut # (Auto) Lymph # (Auto) Sauk # (Auto) Eos # (Auto) Baso # (Auto) Immature Gran # (Auto) Heparin Anti-Xa, Unfract 0.46 0.66 Sodium Potassium Chloride Carbon Dioxide Anion Gap BUN Creatinine Est Cr Clr Drug Dosing eGFR BUN/Creatinine Ratio Glucose Calcium Total Bilirubin AST ALT Alkaline Phosphatase Troponin I High Sens Total Protein Albumin Globulin Albumin/Globulin Ratio Lipase Diagnostic Findings Chest X-Ray 09/08/24 14:48 XR chest 1V portable CLINICAL HISTORY: Chest pain, nonspecific COMPARISON STUDY: Chest CT June 15, 2022. Chest radiograph June 29, 2024. PET/CT July 05, 2022. FINDINGS: Right internal jugular [id number] remains in place. Postoperative finding within the right hemithorax with volume loss are present. Mild rightward deviation of the mediastinum is noted. A moderate right pleural effusion with right basilar opacity has developed since prior exam. There is no pneumothorax. An irregular 6.9 x 3 cm right upper lobe opacity persists. This is similar to prior exam. Left basilar opacity favors atelectasis. There is no radiographic evidence for pulmonary edema. Old, healed proximal left humeral fracture is incidentally noted IMPRESSION: 1. Interval development of a moderate right pleural effusion since chest radiograph of June 29, 2024. Associated right basilar opacity could reflect pneumonia or atelectasis. Radiographic follow-up to ensure resolution is recommended, particularly given history of malignancy. 2. Postoperative findings within the right hemithorax with volume loss. 6.9 x 3 cm irregular right upper lobe opacity, similar to prior exam. The findings may reflect post radiation fibrosis. However, imaging follow-up is recommended to exclude the possibility of recurrent tumor. ACT 112: Negative or not required by law. Electronically signed by: Bro Davis M.D. 09/08/2024 3:49 PM Chest CTA 09/08/24 15:44 EXAM: CT angio chest PE protocol CLINICAL HISTORY: Pt reports sent in from ENT, vocal cords not moving, wheezing is getting worse over last two months, 3L NC at home, started after trip to the [place] 2 months ago, 119 ml optiray 320 TECHNIQUE: CT angiography of the chest was performed with and without intravenous contrast with the following protocol: axial images with, reconstructed coronal and sagittal images. Non-contrast images were initially acquired, followed by contrast-enhanced images in arterial and venous phases. Intravenous contrast [119 ml optiray 320] was administered using automated injection techniques. Bolus tracking was employed to optimize arterial phase imaging. One of these 3D techniques was utilized: Maximum Intensity Pixel (MIP), 3D Reconstructed Images, Volume Rendered Images, Surface Shaded Rendering. One of the following dose reduction techniques was utilized for this exam: Automated exposure control, adjustment of the mA and/or kV according to patient size, and use of iterative reconstruction. COMPARISON: Comparison is made with 06/15/2022 FINDINGS: Aorta and Great Vessels: Ascending Aorta: Normal in caliber, no aneurysm, dissection, or significant atherosclerosis. Aortic Arch: Normal in caliber, no aneurysm, dissection, or significant atherosclerosis. Descending Aorta: Normal in caliber, no aneurysm, dissection, or significant atherosclerosis. Pulmonary Arteries: The main pulmonary artery are patent. Filling defect seen partially obstructing the right ascending branch of right pulmonary artery seen extending and totally occluding the subsegmental apical and anterir branches, suggesting pulmonary embolism Heart: Cardiac Chambers: Moderate cardiomegaly with left ventricular wall hypertrophy. Pericardium: No pericardial effusion or thickening. Lungs and Pleura: Mild to moderate right pleural effusion. Complete collapse of right lower lobe with preserved air-bronchogram and post-contrast enhancement. Right lower lobe bronchus is completely occluded. Apical segment of right upper lobe mass replacing lung parenchyma with loss of aeration, mild enhancement, irregular vascularity and occluded supplying subsegmental bronchus and pulmonary artery subsegmental division, measuring 3.4 x 5.4 cm in axial dimensions, suggestive of an underlying mass lesion. Correlation with previous studies is recommended. Peribronchovascular nodules noted in the right upper lobe and apical segment of the right lower lung lobe, possible satellite neoplastic lesions Partial obstruction of right upper lobe bronchus. Bronchoscopy with lavage and histopathological analysis is recommended. Near total obstruction of the right lower lobar bronchus and bronchus intermedius likely by mucous plug. Further bronchoscopy is advised Left lower lobe small subpleural consolidation at its posterior segment. Moderate subglottic tracheal stenosis. Prominent right arytenoid cartilage, suggestive of Right vocal cord palsy. Mediastinum: Mediastinal shift toward the right side. Paraesophageal hiatal hernia is noted. Hilar Structures: Hilar structures are normal without enlargement. Chest Wall: No mass lesions or abnormalities in the chest wall. Vascular Structures: Superior Vena Cava: Patent without evidence of stenosis or thrombus. Inferior Vena Cava: Patent without evidence of stenosis or thrombus. Diffuse aortic atherosclerotic wall calcifications. Right-sided port-A-cath is noted. Bones and Soft Tissues: Cortical irregularities with periosteal reaction noted at the right 2nd, 3rd and 4th ribs laterally, possible sequalea of pathological fractures. Compression collapse of T7 with reduction of 90% of its height Soft tissues are unremarkable. Left glenohumeral osteoarthritis. IMPRESSION: 1. Filling defect seen partially obstructing the right ascending branch of the right pulmonary artery seen extending and totally occluding the subsegmental apical and anterior branches, suggesting pulmonary embolism/ infiltration by lung mass 2. Apical segment of right upper lobe mass-like lesion with no air bronchogram inside, suspicious of the neoplastic lesion. Correlation with previous studies is recommended. 3. Peribronchovascular nodules noted in the right upper lobe and apical segment of the right lower lung lobe, possible satellite neoplastic lesions 4. Cortical irregularities with periosteal reaction noted at the right 2nd, 3rd and 4th ribs laterally, possible sequelae of pathological fractures. 5. Compression collapse of T7 with a reduction of 90% of its height 6. Moderate cardiomegaly with left ventricular wall hypertrophy. 7. Moderate subglottic tracheal stenosis? post-intubation. Clinical correlation is advised. 8. Prominent right arytenoid cartilage, suggestive of right vocal cord palsy. Clinical correlation is advised. 9. Partial obstruction of right upper lobe bronchus. Bronchoscopy with lavage and histopathological analysis is recommended. 10. Complete collapse of right lower lobe with complete bronchial occlusion. 11. Mild to moderate right pleural effusion. 12. The mediastinal shift toward the right side. 13. Left lower lobe has small subpleural consolidation at its posterior segment. 14. Paraesophageal hiatal hernia is noted with dilated proximal esophagus 15. Compared to the previous CT study on 06/15/2022, there is currently progressively increased size of right upper lobe mass, denovo pleural effusion, right lower lobe collapse, and subglottic stenosis. [facility] ER was called at [phone] at 05:50 PM [employer], 09/08/2024, and Gera Boyce was informed regarding the presence of critical medical findings in the reports. Electronically signed by Ross Brady 09-08-2024 6:[address] 09/08/24 15:44 EXAM: CT soft tissue neck w con CLINICAL HISTORY: Pt reports sent in from ENT, vocal cords not moving, wheezing is getting worse over last two months, 3L NC at home, started after trip to the [place] 2 months ago, 119 ml optiray 320 TECHNIQUE: A CT scan of the neck was performed with the administration of intravenous contrast. Sagittal and coronal reconstructions were obtained.119 ml optiray 320 was administered for post-contrast images. One of the following dose reduction techniques were utilized for this exam: Automated exposure control, adjustment of the mA and/or kV according to patient size, and use of iterative reconstruction. COMPARISON: 07/05/2022. FINDINGS: Nasopharynx Normal size and appearance. No masses or abnormal enhancement. Oropharynx: Normal size and appearance. No masses or abnormal enhancement. Larynx and Hypopharynx: Normal appearance of the laryngeal structures. Redemonstration of medialization of the right vocal cord. Left vocal cord unremarkable. No masses or abnormal enhancement. Airway: Circumferential narrowing of the proximal trachea, without evidence of calcifications (Series 601 image 21/100, series 600 image 48/100, series 8, image 238/281). The trachea and main bronchi are patent. No evidence of tracheal or bronchial stenosis or masses. Thyroid Gland: Normal size and morphology. No nodules or masses. Normal enhancement post-contrast. Salivary Glands: Parotid, submandibular, and sublingual glands are normal in size and appearance. No evidence of sialadenitis or masses. Lymph Nodes: No evidence of an enlarged lymph node in the right cervical-paratracheal region, as previously seen. No pathologically enlarged cervical lymph nodes. Normal appearance of the lymph node chains. Vascular Structures: Normal enhancement of the carotid arteries, jugular veins, and other major vessels post-contrast. No evidence of vascular malformations, aneurysms, or thrombosis. Diffuse vascular calcifications. Soft Tissues: No abnormal masses, swelling, or fluid collections. Bones: No fractures, lytic or sclerotic lesions. Degenerative changes in the visualized spine, with marginal osteophytes. Patient had a chest CT same day and would recommend referring to that report for findings in this location. IMPRESSION: 1. Circumferential narrowing of the proximal trachea. Clinical correlation is advised. 2. Redemonstration of medialization of the right vocal cord. 3. No evidence of an enlarged lymph node in the right cervical-paratracheal region, as previously seen. Electronically signed by Ross Brady 09-08-2024 6:25 PM (2) Lung cancer Laterality: unspecified laterality Lung location: unspecified part of lung Qualified Code(s): C34.90 - Malignant neoplasm of unspecified part of unspecified bronchus or lung
[2024-09-09] MEDS ORDERED: ENOXAPARIN 1 MG/KG SC SCH (08:45)
[2024-09-09] MEDS ORDERED: valACYclovir HCL 500 MG TABLET PO ONE (08:45)
[2024-09-09] MEDS ORDERED: ACYCLOVIR SOD 700 MG in DEXTROSE 5% 250 ML IV SCH (09:30)
[2024-09-09] MEDS: ENOXAPARIN 80 MG/0.8 ML SYR SQ SCH (10:30)
[2024-09-09] MEDS: ASPIRIN 325 MG ECTAB PO SCH (10:31)
[2024-09-09] MEDS: ATORVASTATIN 40 MG TAB PO SCH (10:31)
[2024-09-09] MEDS: METOPROLOL TARTRATE 25 MG TAB PO SCH (10:31)
--- NOTE | 2024-09-09 12:37 | Palliative Care Consultation ---
Date of Consultation September 10, 2024 Assessment & Plan (1) Encounter for end of life care: Pt transitioned to comfort directed care overnight. Currently on a morphine drip at 1mg/hr with notable WOB/dyspnea/tachypnea. [employer] orders per chart including medications to manage pain, dyspnea, anxiety/agitation, delirium, nausea, and secretions. Pt nonverbal, will require frequent assessment for non-verbal cues of discomfort. discontinue all medications/procedures that are not directed at comfort. (2) Dyspnea and respiratory abnormalities: Increase morphine drip to 2mg/hr with PRN 2mg Morphine q15m as needed. Titrate morphine drip as needed for comfort. If pt requires more than 3 prn doses in any 2hr period increase drip rate by 0.5mg /hr. Continue to titrate for verbal and nonverbal cues of pain, discomfort, dyspnea, or tachypnea to keep resp rate <22 breaths/min. (3) Encounter for end of life education, guidance and counseling: Spoke with pt's daughter Enedina balderasover phone, discussed pt's decline over night and initiation of morphine drip for comfort. Shared with Bernadine that pt is actively dying and may only survive hours to days. Bernadine shared that she is having a very difficult time seeing her mother so ill, especially after the recent of her father. She expressed concern for other family members who are or have newborns, given the pt's active shingles outbreak. Offered and dying anticipatory guidance and encouraged visitation. Plan See above. History of Present Illness Reason for Consultation: goals of care/hospice care Requesting Physician: Marivel Avina MD Attending Physician: Marivel Avina MD History of Present Illness 74-year-old female with prior history of adenocarcinoma of the lung status post right lower lobectomy and radiation treatment as of 2011 along with chemotherapy, Alzheimer disease, history of coronary disease status post PCI and hypertension who in 2018, patient was found to have a right cervical lymphadenopathy with compressive effect on the vocal cord. Patient has been under [place] [facility] [place] he has a subcutaneous port but not in active treatment. On 09/08 underwent laryngoscopy for evaluation of hoarseness. She developed postprocedure SOB and was sent to the Ed and admitted for medical management. She susequently had further respiratory decompensation and her family requested transition to [employer]. Palliative care is consulted for assistance with GOC and EOL symptom management. Allergies Allergy/AdvReac Type Severity Reaction Status Date / Time acetaminophen [From Vicodin] Allergy Severe Hallucinati Verified 09/08/24 17:55 ng hydrocodone [From Vicodin] Allergy Severe Hallucinati Verified 09/08/24 17:55 ng Penicillins Allergy Mild HIVES Verified 09/08/24 17:55 Home Medications Medication Instructions Recorded Confirmed Type aspirin 81 mg tablet,delayed 81 mg PO QPM 07/06/18 09/08/24 History release metoprolol succinate 50 mg 50 mg PO QAM 07/06/18 09/08/24 History tablet,extended release 24 hr (Toprol XL) atorvastatin 40 mg tablet 40 mg PO QPM 12/21/20 09/08/24 History cyanocobalamin (vitamin B-12) 1,000 mcg IM UD 09/08/24 09/08/24 History 1,000 mcg/mL injection solution ezetimibe 10 mg tablet 10 mg PO QAM 09/08/24 09/08/24 History famotidine 20 mg tablet 20 mg PO BID 09/08/24 09/08/24 History hydroxyzine HCl 10 mg tablet 10 mg PO HS 09/08/24 09/08/24 History ipratropium 0.5 mg-albuterol 3 mg 3 ml inhalation DAILY PRN 09/08/24 09/08/24 History (2.5 mg base)/3 mL nebulization SOB/Wheezing soln levothyroxine 75 mcg tablet 75 mcg PO QAM 09/08/24 09/08/24 History nystatin 100,000 unit/gram topical 100,000 unit topical BID 09/08/24 09/08/24 History cream prednisone 10 mg tablet 10 mg PO QAM 09/08/24 09/08/24 History quetiapine 25 mg tablet 25 mg PO HS 09/08/24 09/08/24 History Patient History Medical History Osteoarthritis GERD (gastroesophageal reflux disease) Hypothyroidism Anxiety Alzheimer disease beginning stage Lymph node cancer 2018 HAD RADIATION/CHEMO > HAS PORT LEFT SIDE Hx of myocardial infarction [place] 2001 & 2004 stent x 3 (2004) edmundo jones follow with [facility] cardio Surgical History History of esophagogastroduodenoscopy (EGD) History of cataract surgery LEFT History of vascular access device infusa port is in place History of colostomy bowel ruptured during childbirth and had colostomy and then it was reversed History of cholecystectomy Hx of heart artery stent [place] 2001 & 2005 stent x 3 (2004) michelleamadoucristian spicerguillermo follow with [facility] cardio Family History Father Colon cancer Social History Smoking Status: Former smoker Second Hand Exposure: No; Do You Dip or Chew Tobacco: No; Tobacco Cessation Education Requested by Patient: No Hx Alcohol Use: No Hx Substance Use: No Preferred Language: Greek Communication Ability: Effective Restaurant Maintenance Technician Required: No Beliefs That Will Affect Care: None Current Living Situation: Family Current Living Situation Comment: daughter and son-in-law current occupational status: retired Other Information That Helps Us Care for You: No Feels Safe at Home: Yes Safety Concerns: Feels Safe At This Time Assistive Devices: Hospital Bed and Oxygen - Continuous Review of Systems Review of Systems: MARTHA, pt unresponsive Physical Exam Physical Exam: pt unresponsive, supine in bed tachypneic with notable accessory muscle usage. Pt on morphine drip at 1mg/hr. Eyes: PERRL, conjunctivae normal, anicteric sclerae Respiratory: + respiratory distress, + labored breath ing, + retractions and + tachypneic Auscultation: + crackles Cardiovascular: Rate/Rhythm: + tachycardic and + irregularly irregular Extremities: + edema Gastrointestinal (Abdomen): normal bowel sounds, soft, nontender, no hepatosplenomegaly Skin: + turgor decreased, + dry skin and + pal von Neurologic: unresponsive, on morphine drip at 1mg/hr Results & Data Vital Signs (Past 12 Hours) Vital Signs Laboratory Results Abnormal lab results 09/08/24 09/08/24 09/08/24 Range/Units 15:02 17:34 19:26 WBC 29.04 H (4.8-10.8) K/ul RBC 5.75 H (4.20-5.40) M/uL Hgb 17.1 H (12.0-16.0) g/dl Hct 51.1 H (37.0-47.0) % RDW Std Deviation 48.5 H (36.4-46.3) fL RDW Coeff of Darlene 14.8 H (11.5-14.5) % Plt Count 481 H (130-400) K/uL Neut # (Auto) 20.19 H (1.40-6.50) K/uL Lymph # (Auto) 0.58 L (1.20-3.40) K/uL [place] # (Auto) 2.13 H (0.11-0.59) K/uL Eos # (Auto) 5.72 H (0.00-0.50) K/uL Immature Gran # (Auto) 0.34 H (0.01-0.20) K/uL Heparin Anti-Xa, Unfract < 0.10 L (0.3-0.7) IU/ml Chloride 96 L (98-107) mmol/L Carbon Dioxide 33 H (21-32) mmol/L BUN 27 H (6-23) mg/dl BUN/Creatinine Ratio 38.6 H (10-20) Glucose 118 H (70-99(Fasting)) mg/dl Total Bilirubin 2.0 H (0.2-1.0) mg/dl AST 94 H (13-39) U/L ALT 178 H (7-52) U/L Troponin I High Sens 226.2 H* 180.8 H* D (0-14) pg/ml Diagnostic Findings Chest X-Ray 09/08/24 14:48 XR chest 1V portable CLINICAL HISTORY: Chest pain, nonspecific COMPARISON STUDY: Chest CT June 15, 2022. Chest radiograph June 29, 2024. PET/CT July 05, 2022. FINDINGS: Right internal jugular [id number] remains in place. Postoperative finding within the right hemithorax with volume loss are present. Mild rightward deviation of the mediastinum is noted. A moderate right pleural effusion with right basilar opacity has developed since prior exam. There is no pneumothorax. An irregular 6.9 x 3 cm right upper lobe opacity persists. This is similar to prior exam. Left basilar opacity favors atelectasis. There is no radiographic evidence for pulmonary edema. Old, healed proximal left humeral fracture is incidentally noted IMPRESSION: 1. Interval development of a moderate right pleural effusion since chest radiograph of June 29, 2024. Associated right basilar opacity could reflect pneumonia or atelectasis. Radiographic follow-up to ensure resolution is recommended, particularly given history of malignancy. 2. Postoperative findings within the right hemithorax with volume loss. 6.9 x 3 cm irregular right upper lobe opacity, similar to prior exam. The findings may reflect post radiation fibrosis. However, imaging follow-up is recommended to exclude the possibility of recurrent tumor. ACT 112: Negative or not required by law. Electronically signed by: Bro Davis M.D. 09/08/2024 3:49 PM Chest CTA 09/08/24 15:44 EXAM: CT angio chest PE protocol CLINICAL HISTORY: Pt reports sent in from ENT, vocal cords not moving, wheezing is getting worse over last two months, 3L NC at home, started after trip to the [place] 2 months ago, 119 ml optiray 320 TECHNIQUE: CT angiography of the chest was performed with and without intravenous contrast with the following protocol: axial images with, reconstructed coronal and sagittal images. Non-contrast images were initially acquired, followed by contrast-enhanced images in arterial and venous phases. Intravenous contrast [119 ml optiray 320] was administered using automated injection techniques. Bolus tracking was employed to optimize arterial phase imaging. One of these 3D techniques was utilized: Maximum Intensity Pixel (MIP), 3D Reconstructed Images, Volume Rendered Images, Surface Shaded Rendering. One of the following dose reduction techniques was utilized for this exam: Automated exposure control, adjustment of the mA and/or kV according to patient size, and use of iterative reconstruction. COMPARISON: Comparison is made with 06/15/2022 FINDINGS: Aorta and Great Vessels: Ascending Aorta: Normal in caliber, no aneurysm, dissection, or significant atherosclerosis. Aortic Arch: Normal in caliber, no aneurysm, dissection, or significant atherosclerosis. Descending Aorta: Normal in caliber, no aneurysm, dissection, or significant atherosclerosis. Pulmonary Arteries: The main pulmonary artery are patent. Filling defect seen partially obstructing the right ascending branch of right pulmonary artery seen extending and totally occluding the subsegmental apical and anterir branches, suggesting pulmonary embolism Heart: Cardiac Chambers: Moderate cardiomegaly with left ventricular wall hypertrophy. Pericardium: No pericardial effusion or thickening. Lungs and Pleura: Mild to moderate right pleural effusion. Complete collapse of right lower lobe with preserved air-bronchogram and post-contrast enhancement. Right lower lobe bronchus is completely occluded. Apical segment of right upper lobe mass replacing lung parenchyma with loss of aeration, mild enhancement, irregular vascularity and occluded supplying subsegmental bronchus and pulmonary artery subsegmental division, measuring 3.4 x 5.4 cm in axial dimensions, suggestive of an underlying mass lesion. Correlation with previous studies is recommended. Peribronchovascular nodules noted in the right upper lobe and apical segment of the right lower lung lobe, possible satellite neoplastic lesions Partial obstruction of right upper lobe bronchus. Bronchoscopy with lavage and histopathological analysis is recommended. Near total obstruction of the right lower lobar bronchus and bronchus intermedius likely by mucous plug. Further bronchoscopy is advised Left lower lobe small subpleural consolidation at its posterior segment. Moderate subglottic tracheal stenosis. Prominent right arytenoid cartilage, suggestive of Right vocal cord palsy. Mediastinum: Mediastinal shift toward the right side. Paraesophageal hiatal hernia is noted. Hilar Structures: Hilar structures are normal without enlargement. Chest Wall: No mass lesions or abnormalities in the chest wall. Vascular Structures: Superior Vena Cava: Patent without evidence of stenosis or thrombus. Inferior Vena Cava: Patent without evidence of stenosis or thrombus. Diffuse aortic atherosclerotic wall calcifications. Right-sided port-A-cath is noted. Bones and Soft Tissues: Cortical irregularities with periosteal reaction noted at the right 2nd, 3rd and 4th ribs laterally, possible sequalea of pathological fractures. Compression collapse of T7 with reduction of 90% of its height Soft tissues are unremarkable. Left glenohumeral osteoarthritis. IMPRESSION: 1. Filling defect seen partially obstructing the right ascending branch of the right pulmonary artery seen extending and totally occluding the subsegmental apical and anterior branches, suggesting pulmonary embolism/ infiltration by lung mass 2. Apical segment of right upper lobe mass-like lesion with no air bronchogram inside, suspicious of the neoplastic lesion. Correlation with previous studies is recommended. 3. Peribronchovascular nodules noted in the right upper lobe and apical segment of the right lower lung lobe, possible satellite neoplastic lesions 4. Cortical irregularities with periosteal reaction noted at the right 2nd, 3rd and 4th ribs laterally, possible sequelae of pathological fractures. 5. Compression collapse of T7 with a reduction of 90% of its height 6. Moderate cardiomegaly with left ventricular wall hypertrophy. 7. Moderate subglottic tracheal stenosis? post-intubation. Clinical correlation is advised. 8. Prominent right arytenoid cartilage, suggestive of right vocal cord palsy. Clinical correlation is advised. 9. Partial obstruction of right upper lobe bronchus. Bronchoscopy with lavage and histopathological analysis is recommended. 10. Complete collapse of right lower lobe with complete bronchial occlusion. 11. Mild to moderate right pleural effusion. 12. The mediastinal shift toward the right side. 13. Left lower lobe has small subpleural consolidation at its posterior segment. 14. Paraesophageal hiatal hernia is noted with dilated proximal esophagus 15. Compared to the previous CT study on 06/15/2022, there is currently progressively increased size of right upper lobe mass, denovo pleural effusion, right lower lobe collapse, and subglottic stenosis. Critical access hospital ER was called at [phone] at 05:50 PM CHILD CARE COUNSELOR, 09/08/2024, and Gera Boyce was informed regarding the presence of critical medical findings in the reports. Electronically signed by Ross Brady 09-08-2024 6:[address] 09/08/24 15:44 EXAM: CT soft tissue neck w con CLINICAL HISTORY: Pt reports sent in from ENT, vocal cords not moving, wheezing is getting worse over last two months, 3L NC at home, started after trip to the [place] 2 months ago, 119 ml optiray 320 TECHNIQUE: A CT scan of the neck was performed with the administration of intravenous contrast. Sagittal and coronal reconstructions were obtained.119 ml optiray 320 was administered for post-contrast images. One of the following dose reduction techniques were utilized for this exam: Automated exposure control, adjustment of the mA and/or kV according to patient size, and use of iterative reconstruction. COMPARISON: 07/05/2022. FINDINGS: Nasopharynx Normal size and appearance. No masses or abnormal enhancement. Oropharynx: Normal size and appearance. No masses or abnormal enhancement. Larynx and Hypopharynx: Normal appearance of the laryngeal structures. Redemonstration of medialization of the right vocal cord. Left vocal cord unremarkable. No masses or abnormal enhancement. Airway: Circumferential narrowing of the proximal trachea, without evidence of calcifications (Series 601 image 21/100, series 600 image 48/100, series 8, image 238/281). The trachea and main bronchi are patent. No evidence of tracheal or bronchial stenosis or masses. Thyroid Gland: Normal size and morphology. No nodules or masses. Normal enhancement post-contrast. Salivary Glands: Parotid, submandibular, and sublingual glands are normal in size and appearance. No evidence of sialadenitis or masses. Lymph Nodes: No evidence of an enlarged lymph node in the right cervical-paratracheal region, as previously seen. No pathologically enlarged cervical lymph nodes. Normal appearance of the lymph node chains. Vascular Structures: Normal enhancement of the carotid arteries, jugular veins, and other major vessels post-contrast. No evidence of vascular malformations, aneurysms, or thrombosis. Diffuse vascular calcifications. Soft Tissues: No abnormal masses, swelling, or fluid collections. Bones: No fractures, lytic or sclerotic lesions. Degenerative changes in the visualized spine, with marginal osteophytes. Patient had a chest CT same day and would recommend referring to that report for findings in this location. IMPRESSION: 1. Circumferential narrowing of the proximal trachea. Clinical correlation is advised. 2. Redemonstration of medialization of the right vocal cord. 3. No evidence of an enlarged lymph node in the right cervical-paratracheal region, as previously seen. Electronically signed by Ross Brady 09-08-2024 6:25 PM Medications Administered Current Inpatient Medications Acetaminophen (Acetaminophen 650 Mg Supp) 650 mg GA Q6H PRN PRN Reason: Fever 37.8C or Above Stop: 10/09/24 17:22 Atropine Sulfate (Atropine Sulfate 1% Op Soln 5 Ml Btl) 4 drops SL Q1H PRN PRN Reason: Secretions or pulm congestion Stop: 10/09/24 17:22 Glycopyrrolate (Glycopyrrolate 0.2 Mg/Ml Vial) 0.4 mg IV Q4H PRN PRN Reason: Rattling Secretions or Pulm Congestion Stop: 10/09/24 17:22 Hyoscyamine (Hyoscyamine Sulfate 0.125 Mg Tab) 0.125 mg SL Q4H PRN PRN Reason: Secretions or Pulm Congestion Stop: 10/09/24 17:22 Morphine Sulfate (Morphine Sulf) 100 mg in 100 mls @ 1 mls/hr IV .[id number] ELIECER; Protocol Stop: 09/24/24 08:29 Lorazepam (Lorazepam 2 Mg/1 Ml Vial) 0.5 mg IV Q1H PRN PRN Reason: Insomnia Stop: 10/09/24 17:18 Morphine Sulfate (Morphine Bolus From Bag) 1 mg IV Q15M PRN PRN Reason: Comfort Care Parameters Stop: 09/24/24 08:25 Ondansetron HCl (Ondansetron Inj 2 Mg/Ml 2 Ml Vial) 4 mg IV Q6H PRN PRN Reason: Nausea Stop: 10/08/24 22:29 Valacyclovir HCl (Valacyclovir Hcl 500 Mg Tablet) 1,000 mg PO TID ELIECER Stop: 09/19/24 02:39 Last Admin: 09/09/24 07:40 Dose: Not Given PG Care Time/CCT Total # of Minutes Spent Total Time Spent with Patient: Total time spent is greater than 50% in coordination of care (as documented) at patient's floor/unit and/or counseling patient: [place] [address] INT INP/OBS CARE 2/55MIN Patient Type New Exam Expanded Problem Focused Medical Decision Making Moderate Complexity Diagnoses Encounter for end of life care Z51.5 Dyspnea and respiratory abnormalities R06.00; R06.89 Encounter for end of life education, guidance and counseling
--- NOTE | 2024-09-09 15:05 | XCELERA ---
[id number]
--- NOTE | 2024-09-09 15:22 | Hospitalist Progress Note ---
Date of Service September 09, 2024 Assessment & Plan Admission and Anticipated Discharge Date Admission Date: September 09, 2024 Subjective Other long conversation with patient's daughter and another family member in the room, I explained the natural course of her disease and other complicating factors such as the new coronary event and the fact that patient has not been able to be recommended any safe diet. Patient's daughter stated that she has been in touch with a hospice team from [facility](?) and as soon as patient is discharged he should be able to start seeing the patient at home. We agreed mutually on changing the CODE STATUS to DNR and DNI and will give it another day for completion of her treatment and as of tomorrow patient should be able to be discharged home with home hospice with pleasure eating and taking medication as much as she can tolerate. Results & Data Results & Data Vital Signs (Past 12 Hours) Vital Signs Temp Pulse Resp BP Pulse Ox O2 Del Method O2 Flow Rate 09/09/24 10:41 Oxymask 8 09/09/24 08:17 36.7 C 73 20 142/81 H 94 Oxymask 873
[2024-09-09] MEDS ORDERED: ACETAMINOPHEN 650 MG SUPP PR PRN (17:23)
[2024-09-09] MEDS ORDERED: HYOSCYAMINE SULFATE 0.125 MG TAB SL PRN (17:23)
[2024-09-09] MEDS ORDERED: LORazepam 2 MG/1 ML VIAL IV PRN (17:23)
[2024-09-09] MEDS ORDERED: ATROPINE SULFATE 1% OP SOLN 5 ML BTL SL PRN (17:23)
[2024-09-09] MEDS ORDERED: ONDANSETRON INJ 2 MG/ML 2 ML VIAL IV PRN (17:23)
[2024-09-09] MEDS: LORazepam 2 MG/1 ML VIAL ONE (17:25)
[2024-09-09] MEDS: MoRPHine SULFATE 2 MG/ML CARP IV PRN ×2 (17:48→18:22)
[2024-09-09] MEDS ORDERED: MoRPHine SULFATE 2 MG/ML CARP IV PRN (17:49)
--- OUTSIDE RECORDS SUMMARY | 2024-09-09 17:52 | External Medical Summary | Summary of Care ---
Author Name Unknown Organization [facility] Address [address] [facility] [address] Phone [phone] Care Team Providers Care Printing Screen Assembler Name Role Phone Carlos Paniagua MD Primary Care Provider [phone] Reason for Visit * Reason Onset Date Comments Home Health 08/29/2024 Encounter Details Date Type Department Care Team (Late st Contact Info) Description 08/29/2024 Telephone [facility] [address] [place] [address] Carlos Paniagua MD [address] [place] [address] Home Health Allergies Active Allergy Reactions Criticality Noted Date Comments Hydrocodone High 08/03/2021 Other reaction(s): Hallucinating Hydrocodone Bit-Homatrop Mbr 08/22/2017 hallucinations Isosorbide Nitrate Other (Please comment) 02/24/2021 headaches Penicillins 09/10/2002 hives documented as of this encounter (statuses as of 09/01/2024) Medications ASPIRIN 81 MG PO CHEW one chewable by mouth daily 34 5 6 Active IMODIUM A-D 2 MG PO TABS 1 tablet four times daily as needed Active acetaminophen (TYLENOL) 500 MG Tablet Take 2 Tablets by mouth every 8 hours as needed for Pain or Fever. 100 Tab 0 Active Famotidine 20 MG Oral Tablet (Pepcid) Take 1 Tablet by mouth in the morning and 1 Tablet before bedtime. 180 Tablet 3 4 Active Levothyroxine Sodium 75 MCG Oral Tablet (Levoxyl)Indicatio ns:Acquired hypothyroidism TAKE 1 TABLET BY MOUTH ONCE DAILY AT LEAST 30 MINUTES PRIOR TO BREAKFAST OR OTHER MEDS 90 Tablet 3 4 Active Metoprolol Succinate ER 50 MG Oral Tablet Extended Release 24 Hour (toPROL XL)Indications:Ath erosclerosis of sh[place] coronary artery of sh[place] heart without angina pectoris,HTN, goal below 140/90 Take 1 Tablet by mouth in the morning. 90 Tablet 3 4 Active Pantoprazole Sodium 40 MG Oral Tablet Delayed Release (Protonix)Indicati ons:Gastroesophage al reflux disease without esophagitis Take 1 Tablet by mouth in the morning. 90 Tablet 3 4 Active Nitroglycerin 0.4 MG Sublingual Tablet Sublingual (Nitrostat) 1 tab dissolved under tongue every 5 mins for a maximum of 3 for chest pain 25 Tablet 1 4 Active Atorvastatin Calcium 40 MG Oral Tablet (Lipitor)Indicatio ns:Dyslipidemia Take 1 Tablet by mouth in the morning. 90 Tablet 3 4 Active Ezetimibe 10 MG Oral Tablet (Zetia)Indications :Dyslipidemia Take 1 Tablet by mouth in the morning. 90 Tablet 3 4 Active Albuterol Sulfate 1.25 MG/3ML Inhalation Nebulization SolutionIndication s:COPD, severity to be determined (HCC) Inhale 1.25 mg via nebulizer every 4 hours as needed for Shortness of Breath or Wheezing. 360 mL 2 4 Active Ipratropium-Albute rol 0.5-2.5 (3) MG/3ML Inhalation Solution (Duoneb)Indication s:Centrilobular emphysema (HCC) Inhale 3 mL via nebulizer in the morning and 3 mL at noon and 3 mL in the evening and 3 mL before bedtime. As needed. 180 mL 3 4 Active Syringe/Needle (Disp) 23G X 1" 3 ML Use as directed 180 Each 3 4 Active Syringe/Needle (Disp) 25G X 1" 3 ML Use as directed. 12 Each 4 Active QUEtiapine Fumarate 25 MG Oral Tablet (SEROquel) Take 1 Tablet by mouth at bedtime. 30 Tablet 11 4 Active Nystatin 380441 UNIT/GM External Cream Apply 1 g topically to affected area in the morning and 1 g before bedtime. To affacted area for two weeks.. 60 g 3 4 Active Cyanocobalamin 1000 MCG/ML Injection Solution (Cyanocobalamin)In dications:B12 deficiency Inject 1,000 mcg into a large muscle every 30 days. 1 mL 11 4 Active hydrOXYzine HCl 10 MG Oral Tablet (Atarax)Indication s:Squamous cell carcinoma of right lung (HCC),Anxiety One tab at bedtime. 30 Tablet 4 Active predniSONE 10 MG Oral Tablet (Deltasone) Take 1 Tablet by mouth in the morning. 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 Ischemic cardiomyopathy Coronary atherosclerosis of shawnee coronary мария ry documented as of this encounter (statuses as of 09/01/2024) Resolved Problems Problem Noted Date Diagnosed Date Resolved Date COPD, group C, by GOLD 2017 classification 07/21/2024 08/21/2024 Overview: Per COPD GOLD Classification Body mass index (BMI) of 40. 0 to 44.9 in adult 05/19/2019 11/22/2023 Overview: Per Obesity protocol Systolic and diastolic CHF, chronic 08/31/2017 12/31/2018 COPD, group B, by GOLD 2017 classification 08/31/2017 07/24/2024 Overview: Per COPD GOLD Classification Malignant neoplasm metastatic to lung 02/10/2016 08/31/2017 Hypomagnesemia 07/03/2014 08/31/2017 Positive blood cultures 06/05/201408/08 Overview (06/05/2014): 06/01/14 Gram negative rods ( E- coli) Dehydration 05/21/2012 08/31/2017 Malignant neoplasm of lower lobe of right lung 04/12/2012 08/31/2017 Encounter for antineoplastic chemotherapy 04/12/2012 08/31/2017 Encounter for antineoplastic chemotherapy 04/12/2012 06/05/2014 Right carotid bruit 01/16/2012 08/31/20 17 Overview (01/16/2012): Carotid US 01/15/12: <50% LICA, 50-69% DUNIA Non-small cell lung cancer 01/09/2012 0 02/22/2018 Overview (01/09/2012): Found in 2009 - non-small cell poorly dif adenocarcinoma - s/p right lung resection 04/2011 (surg postponed due to cardiac status) followed by chemo - last chemo 06/2011 Obesity, Class II, BMI 35-39 .9, isolated (see actual BMI) 03/21/2010 08/31/2017 Overview (03/21/2010): Per Obesity Protocol, #19 Old myocardial infarct 04/29/200908/04 Overview (04/29/2009): Modified by Acute [place] Protocol #5. Oct 10 2007, Septal Acute [place] 10/28/2007 04/29/2009 Overview (04/29/2009): Modified by Acute [place] Protocol #5. Oct 10 2007, Septal Acute [place] 10/28/2007 08/04/2011 Overview (08/03/2011): Oct 10 2007, Septal Painful Soft tissue tumor Left Forehead >1cm 7 08/31/2017 ADVANCE DIRECTIVE INFORMATION 09/04/2006 08/31/2017 Overview (09/04/2006): No, brochure given at this visit CHR ISCHEMIC HRT DIS NOS 09/10/2002 HTN, goal below 130/80 09/10/200202/02 Dyslipidemia, goal LDL below 70 08/31/2017 documented as of this encounter (statuses as of 09/01/2024) Immunizations Name Administration Dates Next Due COVID-19 mRNA, LNP-s, No Pre serve, 2-Dose Series (Pfizer) 01/12/2021,12/22/2020 Pneumococcal Conjugate Vacc, 13 Valent (Prevnar) 12/31/2018 Pneumococcal Polysaccharide PPV23 (Pneumovax) 01/03/2022,09/04/2006 Seasonal Influenza Vac., MDV , IM, 0.5 mL (Fluzone) 08/18/2008,08/06/2007,09/04/2006 Seasonal Influenza, High Dos e, Trivalent, PF, IM (Fluzone HD) 06/30/2024 Seasonal Influenza, PF, 6 M & above, IM , (FluLaval or Fluzone) 12/31/2018,11/20/2017 Seasonal Influenza, Quadriva lent Hd (Fluzone Hd) 01/03/2022 Seasonal Influenza, Trivalen t, Adjuvanted, 65+ YRS, PF, (Fluad) 08/08/2019 TDAP, Age 7 and older, IM (Adacel) 07/23/2010 documented as of this encounter Social History Tobacco Use Types Packs/Day Years Used Date Smoking Tobacco: Former Cigarettes 2 40 0 10/12/1965 - 10/12/2005 Smokeless Tobacco: Never Alcohol Use Standard Drinks/Week Comments No 0 (1 standard drink = 0.6 oz pur e alcohol) PHQ-2 Answer Date Recorded PHQ-2 Score 1 09/15/2019 Comments No Sex and Gender Information Value Date Recorded Sex Assigned at Not on file Legal Sex Female 5:55 AM EST Gender Identity Female 12/31/2018 9:27 AM EDT Sexual Orientation Straight 12/31/2018 9: 27 AM EDT Occupation Industry Job Start Date Job End Date homemaker Not on file Not on file Not on file documented as of this encounter Miscellaneous Notes * Telephone Encounter - Carlos Paniagua MD - 09/01/2024 11:20 AM EST Please advise pt to get swallowing test Please schedule * Telephone Encounter - Carlos Paniagua MD - 08/29/2024 1:34 PM EST Noted Thanks for update * Telephone Encounter - Kimberli Urias LPN - 08/29/2024 12:35 PM EST Discharge [place] Speech Therapist , Calling from: [facility] Patient is/has been discharged from Home Health on 08/29 due to pt never having swallow study completed and no answer calls/returning call for therapy. Once pt has swallow study is complete. A new speech therapy order will need placed. documented in this encounter Plan of Treatment Upcoming Encounters Date Type Department Care Team (Late st Contact Info) Description 09/08/2024 1:00 PM EST Office Visit Otolaryngology, [facility] [address] [place] [address] Igor Cox PA-C [address] [place] [address] 09/12/2024 7:20 AM EST Office Visit Family [facility] [address] [place] [address] Ashkan Hernandez MD [address] [place] [address] 09/24/2024 12:00 PM EST Nurse Only Hematology/Oncology Treatment, [place] [address] [place] [address] Ariana, Chair 2 Hem Onc Scenery [address] [place] [address] 10/27/2024 10:00 AM EST Imaging Radiology, [facility] [address] [facility] [place] [address] 11/18/2024 3:30 PM EST Office Visit Hematology/Oncology [facility] [place] [address] [facility] [place] [phone] Won Tesfaye MD [address] [place] [address] 11/18/2024 4:00 PM EST Nurse Only [facility]ematology[facility], [place] [address] [facility] [phone] 12/09/2024 1:30 PM EST Appointment Radiology, [facility] [address] [facility] [address] 12/09/2024 2:00 PM EST Rehab Services Voice Lab, [facility] [address] [facility] [address] Willie Johnston, [facility] [address] [place] [address] Scheduled Orders Name Type Priority Associated Diagnoses Orde r Schedule FLUORO SWALLOWING FUNCTION W VIDEO CINE Medical Imaging Routine Aspiration pneumonia, unspecified aspiration pneumonia type, unspecified laterality, unspecified part of lung (HCC) Ordered: 09/01/2024 Scheduled Procedures Name Priority Associated Diagnoses Date/Ti me COLONOSCOPY FLEXIBLE PROXIMA L DIAGNOSTIC Recall Special screening for malignant neoplasms, colon Health Maintenance Due Date Last Done Comments DXA Scan 1950 Albumin/Creatinine Ratio 02/17/1966 Adult Wellness Visit 02/17/2014 DTap/Tdap Vaccines (2 - Td or Tdap) 07/23/2020 07/23/2010 Depression Screening 09/15/2020 09/15/2019 *COPD SEVERITY VERIFIED BY PFT 02/06/2022 TSH 04/17/2025 04/17/2024, 08/09, 01/03/2022, Additional history exists GFR 07/15/2025 07/15/2024, 04/07, 09/05/2023, Additional history exists O2 ASSESSMENT COMPLETED IN PAST YEAR FOR COPD 08/13/2025 08/13/2024 Alpha-1 Antitrypsin Completed 06/04/2020 COVID-19 Vaccine Discontinued 01/12/2021, 12/22/2020 Pneumococcal Vaccine: 65+ Years Completed 01/03/2022, 12/31/2018, 09/04/2006 Influenza Vaccine (FLU shot) Completed 06/30/2024, 01/03/2022, 08/08/2019, Additional history exists HPV (Gardasil) Vaccine Aged Out No lo nger eligible based on patient's age to complete this topic Hepatitis B Vaccine Aged Out No longe r eligible based on patient's age to complete this topic MENINGOCOCCAL (MENACTRA/MENVEO) Aged Out No longer eligible based on patient's age to complete this topic Zoster Vaccines Discontinued documented as of this encounter Medical Devices Not on filedocumented as of this encounter Visit Diagnoses Diagnosis Aspiration pneumonia, unspecified aspiration pneumonia type, unspecified laterality, unspecified part of lung (HCC)- Primary documented in this encounter Care Teams Printing Screen Assembler Relationship Specialty Start Date End Date Carlos Paniagua MD [address] [place] [address] PCP - General Internal Medicine 07/12/24 documented as of this encounter
--- OUTSIDE RECORDS SUMMARY | 2024-09-09 17:52 | External Medical Summary | Summary of Care ---
Author Name Unknown Organization [facility] Address [address] [facility] [place] [address] Phone [phone] Care Team Providers Care Manager Of Network Name Role Phone Carlos Paniagua MD Primary Care Provider [phone] Reason for Referral * Evaluate & Treat - Unlimited Visits (Within 10 days (routine)) - Authorized Specialty Diagnoses / Procedures Referred By Albaro stone Referred To Contact Otolaryngology Diagnoses Dysphagia, unspecified type Carlos Paniagua MD [address] [place] [address] Phone: tel: fax: Referral ID Status Reason Start Date Expiration Date Visits Requested Visits Authorized [id number] Authorized Specialty Services Required 08/14/[phone] Question Answer Referral Priority Within 10 days (routine) Where should this appointment be scheduled? [facility] Reason for Referral Throat Conditions Specific Condition: Dysphagia (swallowing concerns) Reason for Visit * Reason Onset Date Comments Home Health 08/14/2024 Encounter Details Date Type Department Care Team ([facility] st Contact Info) Description 08/14/2024 Telephone [facility] [address] [place] [facility] [place] [address] Carlos Paniagua MD [address] [place] [address] Home Health Allergies Active Allergy Reactions Criticality Noted Date Comments Hydrocodone High 08/03/2021 Other reaction(s): Hallucinating Hydrocodone Bit-Homatrop Mbr 08/22/2017 hallucinations Isosorbide Nitrate Other (Please comment) 02/24/2021 headaches Penicillins 09/10/2002 hives documented as of this encounter (statuses as of 08/27/2024) Medications ASPIRIN 81 MG PO CHEW one chewable by mouth daily 34 5 06/12/20 06 Active IMODIUM A-D 2 MG PO TABS 1 tablet four times daily as needed Active acetaminophen (TYLENOL) 500 MG Tablet Take 2 Tablets by mouth every 8 hours as needed for Pain or Fever. 100 Tab 01/03/20 20 Active Famotidine 20 MG Oral Tablet (Pepcid) Take 1 Tablet by mouth in the morning and 1 Tablet before bedtime. 180 Tablet 3 04/17/20 24 Active Levothyroxine Sodium 75 MCG Oral Tablet (Levoxyl)Indicatio ns:Acquired hypothyroidism TAKE 1 TABLET BY MOUTH ONCE DAILY AT LEAST 30 MINUTES PRIOR TO BREAKFAST OR OTHER MEDS 90 Tablet 3 04/17/20 24 Active Metoprolol Succinate ER 50 MG Oral Tablet Extended Release 24 Hour (toPROL XL)Indications:Ath erosclerosis of [place] coronary artery of [place] heart without angina pectoris,HTN, goal below 140/90 Take 1 Tablet by mouth in the morning. 90 Tablet 3 04/17/20 24 Active Pantoprazole Sodium 40 MG Oral Tablet Delayed Release (Protonix)Indicati ons:Gastroesophage al reflux disease without esophagitis Take 1 Tablet by mouth in the morning. 90 Tablet 3 04/17/20 24 Active Nitroglycerin 0.4 MG Sublingual Tablet Sublingual (Nitrostat) 1 tab dissolved under tongue every 5 mins for a maximum of 3 for chest pain 25 Tablet 1 04/17/20 24 Active Atorvastatin Calcium 40 MG Oral Tablet (Lipitor)Indicatio ns:Dyslipidemia Take 1 Tablet by mouth in the morning. 90 Tablet 3 04/17/20 24 Active Ezetimibe 10 MG Oral Tablet (Zetia)Indications :Dyslipidemia Take 1 Tablet by mouth in the morning. 90 Tablet 3 04/17/20 24 Active Albuterol Sulfate 1.25 MG/3ML Inhalation Nebulization SolutionIndication s:COPD, severity to be determined (HCC) Inhale 1.25 mg via nebulizer every 4 hours as needed for Shortness of Breath or Wheezing. 360 mL 2 04/17/20 24 Active Ipratropium-Albute rol 0.5-2.5 (3) MG/3ML Inhalation Solution (Duoneb)Indication s:Centrilobular emphysema (HCC) Inhale 3 mL via nebulizer in the morning and 3 mL at noon and 3 mL in the evening and 3 mL before bedtime. As needed. 180 mL 3 04/17/20 24 Active Syringe/Needle (Disp) 23G X 1" 3 ML Use as directed 180 Each 3 04/17/20 24 Active Syringe/Needle (Disp) 25G X 1" 3 ML Use as directed. 12 Each 04/17/20 24 Active QUEtiapine Fumarate 25 MG Oral Tablet (SEROquel) Take 1 Tablet by mouth at bedtime. 30 Tablet 11 07/12/20 24 Active Nystatin 729708 UNIT/GM External Cream Apply 1 g topically to affected area in the morning and 1 g before bedtime. To affacted area for two weeks.. 60 g 3 07/28/20 24 Active Cyanocobalamin 1000 MCG/ML Injection Solution (Cyanocobalamin)In dications:B12 deficiency Inject 1,000 mcg into a large muscle every 30 days. 1 mL 11 08/11/20 24 Active hydrOXYzine HCl 10 MG Oral Tablet (Atarax)Indication s:Squamous cell carcinoma of right lung (HCC),Anxiety One tab at bedtime. 30 Tablet 08/13/20 24 Active predniSONE 10 MG Oral Tablet (Deltasone) Take 1 Tablet by mouth in the morning. 30 Tablet 07/29/20 24 024 Discontin ued(Refil l) documented as of this encounter (statuses as of 08/27/2024) Active Problems Problem Noted Date Diagnosed Date [...] Lipid Taxonomy. Ischemic cardiomyopathy Coronary atherosclerosis of [place] coronary мария ry documented as of this encounter (statuses as of 08/27/2024) Resolved Problems Problem Noted Date Diagnosed Date [...] infarct 04/29/200908/04 Overview (04/29/2009): Modified by Acute [place] Protocol #5. Oct 10 2007, Septal Acute [place] 10/28/2007 04/29/2009 Overview (04/29/2009): Modified by Acute [place] Protocol #5. Oct 10 2007, Septal Acute [place] 10/28/2007 08/04/2011 Overview (08/03/2011): Oct 10 2007, Septal Painful Soft tissue tumor Left Forehead >1cm 7 08/31/2017 ADVANCE DIRECTIVE INFORMATION 09/04/2006 08/31/2017 Overview (09/04/2006): No, brochure given at this visit CHR ISCHEMIC HRT DIS NOS 09/10/2002 HTN, goal below 130/80 09/10/200202/02 Dyslipidemia, goal LDL below 70 08/31/2017 documented as of this encounter (statuses as of 08/27/2024) Immunizations Name Administration Dates Next Due COVID-19 [...] encounter Miscellaneous Notes * Telephone Encounter - Harley Hill OSA - 08/27/2024 2:07 PM EST FAXED 08/27 * Telephone Encounter - Carlos Paniagua MD - 08/14/2024 5:35 PM EST signed order and referral * Telephone Encounter - Ashkan Hernandez MD - 08/14/2024 4:56 PM EST I appreciate her confidence but this should be handled by her PCP. I forwarded this message to Dr Paniagua. * Telephone Encounter - Mariama Valdez LPN - 08/14/2024 3:37 PM EST HH Concerns Phillip SAMSON, Calling from: [facility] Report/Concerns of: order for video study Symptoms: none Vitals: T 97.8 P 57 reg RR 18 BP did not get SP O2 95 Lung sounds clear Weight n/a Blood sugar n/a Narrative: Phillip, OT calling from [facility]. Recommended a video fluroscopic swallow study. It has to saywhy and has to have the diagnosis of dysphagia. Pended. Phillip is worried that the patient's insurance won't accept it if not ordered correctly. Asking for the order to be sent to Dr. Hernandez. Also recommending a referral for ENT evaluation Call back Phillip with any advice or orders at [phone] Please fax new orders to [facility] Home Health documented in this encounter Plan of Treatment Upcoming Encounters Date Type Department Care Team (Late st Contact Info) Description 09/08/2024 1:00 PM EST Office Visit Otolaryngology, [facility] [address] [address] Igor Cox PA-C [address] [place] [address] 09/12/2024 7:20 AM EST Office Visit Family Practice [facility] [address] [place] [address] Ashkan Hernandez MD [address] [place] [address] 09/24/2024 12:00 PM EST Nurse Only Hematology/Oncology Treatment, [place] [address] [facility] [address] [place] [address] Ariana, Chair 2 Hem Onc [facility] [address] [facility] [place] [address] 10/27/2024 10:00 AM EST Imaging Radiology, [place] [id number] [facility] [place] [address] 11/18/2024 3:30 PM EST Office Visit Hematology/Oncology [facility] [address] [facility] [place] [phone] Won Tesfaye MD [address] [place] [address] 11/18/2024 4:00 PM EST Nurse Only Hematology/Oncology Treatment, [place] [address] [facility] [place] [phone] 12/09/2024 1:30 PM EST Appointment Radiology, [facility] [address] [facility] [phone] 12/09/2024 2:00 PM EST Rehab Services Voice Lab, [facility] [address] [facility] [address] Willie Johnston, CCC-DRY TALC RACKER [address] [place] [address] Scheduled Orders Name Type Priority Associated Diagnoses Orde r Schedule FLUORO SWALLOWING FUNCTION W VIDEO CINE Medical Imaging Routine Dysphagia, unspecified type Ordered: 08/14/2024 Scheduled Procedures Name Priority Associated Diagnoses Date/Ti me COLONOSCOPY FLEXIBLE PROXIMA L DIAGNOSTIC Recall Special screening for malignant neoplasms, colon Scheduled Referrals Name Type Priority Associated Diagnoses Orde r Schedule ADULT/PEDS OTOLARYNGOLOGY REFERRAL OP Referral Within 10 days (routine) Dysphagia, unspecified type Ordered: 08/14/2024 Health Maintenance Due Date Last Done Comments [...] as of this encounter Visit Diagnoses Diagnosis Dysphagia, unspecified type- Primary documented in this encounter Care Teams Manager Of Network Relationship Specialty Start Date End Date Carlos Paniagua MD [address] [place] [address] PCP - General Internal Medicine 07/12/24 documented as of this encounter
--- OUTSIDE RECORDS SUMMARY | 2024-09-09 17:53 | External Medical Summary | Summary of Care ---
Author Name Unknown Organization [facility] Address [address] [facility] [place] [address] Phone [phone] Care Team Providers Care Mat Packer Name Role Phone Carlos Paniagua MD Primary Care Provider [phone] Reason for Visit * Reason Onset Date Comments Fax 08/21/2024 [facility] Encounter Details Date Type Department Care Team (Late st Contact Info) Description 08/21/2024 Telephone [facility] [address] [place] [address] Carlos Paniagua MD [address] [place] [address] Fax ([facility]) Allergies Active Allergy Reactions Criticality Noted Date Comments Hydrocodone High 08/03/2021 Other reaction(s): Hallucinating Hydrocodone Bit-Homatrop Mbr 08/22/2017 hallucinations Isosorbide Nitrate Other (Please comment) 02/24/2021 headaches Penicillins 09/10/2002 hives documented as of this encounter (statuses as of 08/21/2024) Medications ASPIRIN 81 MG PO CHEW one [...] Release 24 Hour (toPROL XL)Indications:Ath erosclerosis of [place] coronary artery of [place] heart without angina pectoris,HTN, goal below 140/90 [...] 3 ML Use as directed 180 Each 4 Active Syringe/Needle (Disp) 25G X 1" 3 ML Use as directed. 12 Each 4 Active QUEtiapine Fumarate 25 MG Oral Tablet (SEROquel) Take 1 Tablet by mouth at bedtime. 30 Tablet 11 4 Active Nystatin 247099 UNIT/GM External Cream Apply 1 g topically [...] as of this encounter (statuses as of 08/21/2024) Active Problems Problem Noted Date Diagnosed Date [...] Lipid Taxonomy. Ischemic cardiomyopathy Coronary atherosclerosis of [place] coronary мария ry documented as of this encounter (statuses as of 08/21/2024) Resolved Problems Problem Noted Date Diagnosed Date [...] infarct 04/29/200908/04 Overview (04/29/2009): Modified by Acute MD Protocol #5. Oct 10 2007, Septal Acute MD 10/28/2007 04/29/2009 Overview (04/29/2009): Modified by Acute MD Protocol #5. 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 Carlos Paniagua ORDER received from [facility] and FAXED documented in this encounter Plan of Treatment Upcoming Encounters Date Type Department Care Team (Late st Contact Info) Description 08/25/2024 2:00 PM EST Office Visit Otolaryngology, [facility] [address] [place] [address] Igor Cox PA-C [address] [place] [address] 09/12/2024 7:20 AM EST Office Visit Family Practice [facility] [address] [place] [address] Ashkan Hernandez MD [address] [place] [address] 09/24/2024 12:00 PM EST Nurse Only Hematology/Oncology Treatment, [place] [address] [place] [phone] Ariana, Chair 2 Hem Onc [facility] [address] [facility] [place] [address] 10/27/2024 10:00 AM EST Imaging Radiology, [facility] [address] [facility] [address] [place] [address] 11/18/2024 3:30 PM EST Office Visit Hematology/Oncology [facility] [address] [facility] [place] [address] Won Tesfaye MD [address] [facility] [place] [address] 11/18/2024 4:00 PM EST Nurse Only Hematology/Oncology Treatment, [place] [address] [place] [address] 12/09/2024 1:30 PM EST Appointment Radiology, [facility] [address] [place] [phone] 12/09/2024 2:00 PM EST Rehab Services Voice Lab, [facility] [address] [place] [address] Willie Johnston, CCC-CHANCELLOR [address] [place] [address] Scheduled Procedures Name Priority Associated Diagnoses Date/Ti [...] Not on filedocumented as of this encounter Care Teams Mat Packer Relationship Specialty Start Date End Date Carlos Paniagua MD [address] [place] [address] PCP - General Internal Medicine 07/12/24 documented as of this encounter
--- OUTSIDE RECORDS SUMMARY | 2024-09-09 17:53 | External Medical Summary | Summary of Care ---
Author Name Unknown Organization [facility] Address [address] [facility] [place] [address] Phone [phone] Care Team Providers Care Hotel Staff Member Name Role Phone Carlos Paniagua MD Primary Care Provider [phone] Reason for Visit * Reason Onset Date Comments Medication Refill 08/20/2024 Encounter Details Date Type Department Care Team (Late st Contact Info) Description 08/20/2024 Refill [facility] [address] [place] [address] Carlos Paniagua MD [address] [place] [address] Allergies Active Allergy Reactions Criticality Noted Date Comments Hydrocodone High 08/03/2021 Other reaction(s): Hallucinating Hydrocodone Bit-Homatrop Mbr 08/22/2017 hallucinations Isosorbide Nitrate Other (Please comment) 02/24/2021 headaches Penicillins 09/10/2002 hives documented as of this encounter (statuses as of 08/22/2024) Medications ASPIRIN 81 MG PO CHEW one [...] Release 24 Hour (toPROL XL)Indications:Ath erosclerosis of [place] coronary artery of [place] heart without angina pectoris,HTN, goal below 140/90 [...] bedtime. 30 Tablet 11 4 Active Nystatin 149957 UNIT/GM External Cream Apply 1 g topically [...] as of this encounter (statuses as of 08/22/2024) Active Problems Problem Noted Date Diagnosed Date [...] Lipid Taxonomy. Ischemic cardiomyopathy Coronary atherosclerosis of [place] coronary мария ry documented as of this encounter (statuses as of 08/22/2024) Resolved Problems Problem Noted Date Diagnosed Date [...] as of this encounter (statuses as of 08/22/2024) Immunizations Name Administration Dates Next Due COVID-19 [...] on file documented as of this encounter Plan of Treatment Upcoming Encounters Date Type Department Care Team (Late st Contact Info) Description 08/25/2024 2:00 PM EST Office Visit Otolaryngology, T[facility] Hernandez [address] [place] [address] Igor Cox PA-C [address] [place] [address] 09/12/2024 7:20 AM EST Office Visit [facility] [address] [place] [address] Ashkan Hernandez MD [address] [place] [address] 09/24/2024 12:00 PM EST Nurse Only Hematology/[address], [address] [phone] Ariana, Chair 2 Hem Onc [address] [place] [address] 10/27/2024 10:00 AM EST Imaging Radiology, [address] [place] [address] 11/18/2024 3:30 PM EST Office Visit Hematology/Oncology [address] [place] [phone] Won Tesfaye MD [address] [facility] [place] [address] 11/18/2024 4:00 PM EST Nurse Only Hematology/Oncology Treatment, [address] [phone] 12/09/2024 1:30 PM EST Appointment Radiology, [address] [place] [phone] 12/09/2024 2:00 PM EST Rehab Services Voice Lab, [address] [place] [address] Willie Johnston, [facility] [address] [place] [address] Scheduled Procedures Name Priority Associated Diagnoses Date/Ti [...] filedocumented as of this encounter Care Teams Hotel Staff Member Relationship Specialty Start Date End Date Carlos Paniagua MD [address] [place] [address] PCP - General Internal Medicine 07/12/24 documented as of this encounter
--- OUTSIDE RECORDS SUMMARY | 2024-09-09 17:54 | External Medical Summary | Summary of Care ---
Author Name Unknown Organization [facility] Address [address] [facility] [place] [address] Phone [phone] Care Team Providers Care Deburrer Name Role Phone Carlos Paniagua MD Primary Care Provider [phone] Reason for Visit * Reason Comments Follow Up 6 month Encounter Details Date Type Department Care Team (Late st Contact Info) Description 08/13/2024 8:45 AM EST Office Visit Hematology/Oncology [address] [place] [address] [facility] [place] [id number] Won Tesfaye MD [address] [facility] [place] [address] Squamous cell carcinoma of right lung (HCC)*; Anxiety; Vocal cord paralysis Allergies Active Allergy Reactions Criticality Noted Date Comments Hydrocodone High 08/03/2021 Other reaction(s): Hallucinating Hydrocodone Bit-Homatrop Mbr 08/22/2017 hallucinations Isosorbide Nitrate Other (Please comment) 02/24/2021 headaches Penicillins 09/10/2002 hives documented as of this encounter (statuses as of 08/13/2024) Medications Medication Sig Dispensed Refills Start Date End Date Status ASPIRIN 81 MG PO CHEW one chewable by mouth daily 34 5 06/12/2006 Active IMODIUM A-D 2 MG PO TABS 1 tablet four times daily as needed Active acetaminophen (TYLENOL) 500 MG Tablet Take 2 Tablets by mouth every 8 hours as needed for Pain or Fever. 100 Tab 01/03/2020 Active Famotidine 20 MG Oral Tablet (Pepcid) Take 1 Tablet by mouth in the morning and 1 Tablet before bedtime. 180 Tablet 3 04/17/2024 Active Levothyroxine Sodium 75 MCG Oral Tablet (Levoxyl)Indications: Acquired hypothyroidism TAKE 1 TABLET BY MOUTH ONCE DAILY AT LEAST 30 MINUTES PRIOR TO BREAKFAST OR OTHER MEDS 90 Tablet 3 04/17/2024 Active Metoprolol Succinate ER 50 MG Oral Tablet Extended Release 24 Hour (toPROL XL)Indications:Athero sclerosis of [place] coronary artery of [place] heart without angina pectoris,HTN, goal below 140/90 Take 1 Tablet by mouth in the morning. 90 Tablet 3 04/17/2024 Active Pantoprazole Sodium 40 MG Oral Tablet Delayed Release (Protonix)Indications :Gastroesophageal reflux disease without esophagitis Take 1 Tablet by mouth in the morning. 90 Tablet 3 04/17/2024 Active Nitroglycerin 0.4 MG Sublingual Tablet Sublingual (Nitrostat) 1 tab dissolved under tongue every 5 mins for a maximum of 3 for chest pain 25 Tablet 1 04/17/2024 Active Atorvastatin Calcium 40 MG Oral Tablet (Lipitor)Indications: Dyslipidemia Take 1 Tablet by mouth in the morning. 90 Tablet 3 04/17/2024 Active Ezetimibe 10 MG Oral Tablet (Zetia)Indications:Dy slipidemia Take 1 Tablet by mouth in the morning. 90 Tablet 04/17/2024 Active Albuterol Sulfate 1.25 MG/3ML Inhalation Nebulization SolutionIndications:C OPD, severity to be determined (HCC) Inhale 1.25 mg via nebulizer every 4 hours as needed for Shortness of Breath or Wheezing. 360 mL 2 04/17/2024 Active Ipratropium-Albuterol 0.5-2.5 (3) MG/3ML Inhalation Solution (Duoneb)Indications:C entrilobular emphysema (HCC) Inhale 3 mL via nebulizer in the morning and 3 mL at noon and 3 mL in the evening and 3 mL before bedtime. As needed. 180 mL 04/17/2024 Active Syringe/Needle (Disp) 23G X 1" 3 ML Use as directed 180 Each 04/17/2024 Active Syringe/Needle (Disp) 25G X 1" 3 ML Use as directed. 12 Each 04/17/2024 Active QUEtiapine Fumarate 25 MG Oral Tablet (SEROquel) Take 1 Tablet by mouth at bedtime. 30 Tablet 11 07/12/2024 Active Nystatin 212243 UNIT/GM External Cream Apply 1 g topically to affected area in the morning and 1 g before bedtime. To affacted area for two weeks.. 60 g 3 07/28/2024 Active predniSONE 10 MG Oral Tablet (Deltasone) Take 1 Tablet by mouth in the morning. 30 Tablet 07/29/2024 Active Cyanocobalamin 1000 MCG/ML Injection Solution (Cyanocobalamin)Indic ations:B12 deficiency Inject 1,000 mcg into a large muscle every 30 days. 1 mL 11 08/11/2024 Active hydrOXYzine HCl 10 MG Oral Tablet (Atarax)Indications:S quamous cell carcinoma of right lung (HCC),Anxiety One tab at bedtime. 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 Ischemic cardiomyopathy Coronary atherosclerosis of [place] coronary мария ry documented as of this encounter (statuses as of 08/13/2024) Resolved Problems Problem Noted Date Diagnosed Date Resolved Date Body mass index (BMI) of 40. 0 to 44.9 in adult 05/19/2019 11/22/2023 Overview: Per Obesity protocol Systolic and diastolic CHF, chronic 08/31/2017 12/31/2018 COPD, group B, by GOLD 2017 classification 08/31/2017 07/24/2024 Overview: Per COPD GOLD Classification Malignant neoplasm metastatic to lung 02/10/2016 08/31/2017 Hypomagnesemia 07/03/2014 08/31/2017 Positive blood cultures 06/05/201408/08 Overview: 06/01/14 Gram negative rods ( E- coli) Dehydration 05/21/2012 08/31/2017 Malignant neoplasm of lower lobe of right lung 04/12/2012 08/31/2017 Encounter for antineoplastic chemotherapy 04/12/2012 08/31/2017 Encounter for antineoplastic chemotherapy 04/12/2012 06/05/2014 Right carotid bruit 01/16/2012 08/31/20 17 Overview: Carotid US 01/15/12: <50% LICA, 50-69% DUNIA Non-small cell lung cancer 01/09/2012 0 02/22/2018 Overview: Found in 2009 - non-small cell poorly dif adenocarcinoma - s/p right lung resection 04/2011 (surg postponed due to cardiac status) followed by chemo - last chemo 06/2011 Obesity, Class II, BMI 35-39 .9, isolated (see actual BMI) 03/21/2010 08/31/2017 Overview: Per Obesity Protocol, #19 Old myocardial infarct 04/29/200908/04 Overview: Modified by Acute [place] Protocol #5. Oct 10 2007, Septal Acute OK 10/28/2007 04/29/2009 Overview: Modified by Acute [place] Protocol #5. Oct 10 2007, Septal Acute OK 10/28/2007 08/04/2011 Overview: Oct 10 2007, Septal Painful Soft tissue tumor Left Forehead >1cm 7 08/31/2017 ADVANCE DIRECTIVE INFORMATION 09/04/2006 08/31/2017 Overview: No, brochure given at this visit CHR ISCHEMIC HRT DIS NOS 09/10/2002 HTN, goal below 130/80 09/10/200202/02 Dyslipidemia, goal LDL below 70 08/31/2017 documented as of this encounter (statuses as of 08/13/2024) Immunizations Name Administration Dates Next Due COVID-19 [...] Answer Date Recorded PHQ-2 Score 1 09/15/2019 Utilities Answer Date Recorded Do you have trouble paying y our heating, water, or electric bill? (Adult - for ages 18 years and over) Not on file 03/25/2024 Is your family able to pay t he heat, water, or electric bill? (Household - for ages 0-17 years) Not on file 03/25/2024 Does your family have access to good internet? (Household - for ages 0-17 years) Not on file 03/25/2024 Social Connections Answer Date Recorded How often do you feel lonely or isolated from those around you? (Adult - for ages 18 years and over) Not on file 03/25/2024 Sex and Gender Information Value Date Recorded Sex Assigned at Not on file Gender Identity Female 12/31/2018 9:27 AM EDT Sexual Orientation Straight 12/31/2018 9: 27 AM EDT Job Start Date Occupation Industry Not on file Not on file Not on file documented as of this encounter Last Filed Vital Signs Vital Sign Reading Time Taken Comments Blood Pressure 119/61 08/13/2024 8:46 AM EST Pulse 81 08/13/2024 8:46 AM EST Temperature 36.2 C (97.2 F) 08/13/2024 8:46 AM ES T Respiratory Rate 24 08/13/2024 8:46 AM EST Oxygen Saturation 96% 08/13/2024 8:46 AM EST Inhaled Oxygen Concentration - - Weight 73.8 kg (162 lb 9.6 oz) 08/13/2024 8:46 A M EST Height - - Body Mass Index 27.06 07/30/2024 11:10 AM EDT documented in this encounter Progress Notes * Won Tesfaye MD - 08/13/2024 8:45 AM EST Hematology/Oncology Outpatient Clinic note [address] [place] [address] Name: Berta Swenson Date: 03/05/2024 CHIEF COMPLAINT: Berta Swenson is a 74 year old female patient here today for f/u visit DIAGNOSIS: Non-small cell lung cancer(adenocarcinoma, 2011), involving the right mediastinal lymph delfino region. -PET-CT scan done on 07/13/2015 showed multiple new enlarging metabolically active bilateral lung nodules, subcarinal lymph nodes, right hilar lymph node, no liver or bone metastatic disease. - squamous cell carcinoma involving the right lung (11/17/2020). S/p SBRT to the right lung squamouscell carcinoma lesion in 01/2021. Nivolumab (Opdivo) induced hepatotoxicity ( she had a very good response with Nivolumab But It was discontinued because of liver toxicity) Last cycle of Nivolumab (Opdivo) received on 08/07/2017. Progressive dementia for the last few years noted Vitamin B12 deficiency, she is on oral Vitamin B12 supplementation. (07/2022). Trouble swallowing, risk for aspiration pneumonia. Current treatment: No systemic treatment for the lung cancer diagnosis since July,. Previous treatment: - Nivolumab (Opdivo) every other week since 07/2015. Last cycle of Nivolumab (Opdivo) received on 08/07/2017. She had abnormal liver function test, responded well with the steroid therapy, She completed radiation treatment to the left supraclavicular lymph delfino mass around 10/24/2017. Combined chemotherapy with weekly paclitaxel and carboplatin x 6 between 04/26/2012-05/31/2012 along with radiation therapy, she completed radiation therapy on 06/28/2012. Gemcitabine between February 2015-June 2015 Previous treatment and imaging studies: She received combined chemotherapy with weekly paclitaxel and carboplatin x 6 between 04/26/2012-05/31/2012 along with radiation therapy, she completed radiation therapy on 06/28/2012. - Follow-up CT scan of the chest done on 07/10/2012 showed interval reduction of the right paratracheal mass measuring 1.9 x 2.3 x 3.1 cm. Radiation changes noted. New small tiny nodules involving theleft lower lobe noted. She then received additional chemotherapy with paclitaxel and carboplatin x 3, last cycle of chemotherapy received on 09/19/2012. Her chemotherapy treatment was complicated by generalized weakness, nausea and vomiting. Imaging studies done in her case: -follow-up PET-CT scan done on 04/07/2013 at [facility] showed residual 1.1 x 0.9 cm right paratracheal mild metabolically active lymph node, no evidence of any metastatic disease noted anywhere else. -CT scan of the abdomen and pelvis done on 05/07/2013 at [facility] showed S/P cholecystectomy, sliding hiatal hernia present, no evidence of metastatic disease noted in the abdomen. -PET-CT scan done on 08/15/2013 at [facility] showed minimal uptake noted in the right perihilar region with some scarring, mild increase uptake noted in the pretracheal lymph node which is within normal size, slight uptake noted in the medial aspect of the apical pleura. No enlarged lymph nodes noted, no metabolic activity noted anywhere else. -PET-CT scan done on 02/25/2014 at [facility] showed metabolically active lymphadenopathy noted in the right supraclavicular region which is new finding, no clear evidence of recurrent disease noted in the chest or anywhere else. -CT scan of the chest showed findings suggestive of post radiation changes involving the right upper lobe. -CT scan of the neck done on 04/14/2014 showed right cervical lymphadenopathy measuring 5.9 mm, 5.3 mm, 7.7 mm, 1.6 cm. She started on combined chemotherapy with weekly paclitaxel/carboplatin on 05/13/2014, received 3 cycles of chemotherapy, also received radiation treatment to the right neck region. Following last cycle of chemotherapy, she was not feeling quite well, she was admitted at [facility] on 06/01/2014 for increasing diarrhea, dehydration. She had diarrhea perhaps 4-5 times in a day, someabdominal discomfort present, no blood in the stool, blood culture positive for E. Coli, received Levaquin, IV Rocephin once a day as an outpatient treatment at the Hospital. She also had a stool for C. Difficile was positive, she received oral antibiotic in the form of Flagyl which she completed. She also had hypomagnesemia, started on oral and IV magnesium supplementation. Because of her positive blood culture and C. Difficile colitis, decided not to proceed with systemic chemotherapy at this time, she completed radiation treatment somewhere in 1st week of 07/2014. -CT scan of the neck done with intravenous contrast on 08/20/2014--> no cervical lymphadenopathyor masses noted. -CT scan of the abdomen and pelvis done on 01/15/2015 showed 3 discrete lung nodules involving the left lung which were not present previous imaging studies. No liver lesion noted. Probable hemorrhagiccyst involving the left kidney noted. - PET-CT scan done on 01/21/2015 at [facility] showed metabolic active left supraclavicular lymph node measuring 1.2 cm, multiple right hilar, paraesophageal, subcarinal multiple bilateral lung nodules, more on the left side noted. No liver lesions, no bony lesions noted. Patchy intense activity noted in the stomach. - Upper GI endoscopic done in early Feb, 2015 showed no new suspicious findings. Started on single agent chemotherapy with gemcitabine weekly x2 followed by 1 week off, received 1st cycle of chemotherapy on 02/19/2015. She was seen at [facility] ER for abdominal pain and low-grade fever. ANC was around 1500, blood and urine culture negative, BNP normal range, normal lipase, lactic acid normal range, mild hypokalemia with potassium level of 3.3 noted. She was discharged from the ER. CT scan of the abdomen on 03/03/2015, some rectal thickening noted, no other suspicious findings noted. -PET-CT scan done on 07/13/2015 showed multiple new enlarging metabolically active bilateral lung nodules, subcarinal lymph nodes, right hilar lymph node, no liver or bone metastatic disease. Gemcitabine therapy was discontinued and started her on single agent chemotherapy the Nivolumab, received 1st cycle on 07/29/2015. Previous workup done in her case: - She was diagnosed a case of adenocarcinoma involving the right lung in December of 2010, S/P resection, final pathology showed T2b N2 M0, she was seen at [facility], by Dr. Flood, she received 4 cycles of adjuvant chemotherapy with cisplatin and Alimta. She did quite well following that. - CT scan of the chest done on 02/20/2012 showed worsening get lymphadenopathy. Right paratracheal lymph node measuring 1.6 x 1.8 cm, subcarinal lymph node measuring 0.9 x 1.2 cm suspicious for recurrent disease. - She underwent bronchoscopic examination and then biopsy of the right paratracheal lymph node which is consistent with metastatic adenocarcinoma (03/06/2012. - MRI of the brain --> Negative for metastatic disease (02/25/2012) - PET-CT scan done on 03/21/2012 --> Increased metabolic activity noted in the right paratracheallymph delfino mass, right lower lobe lung nodules measuring 4 mm in right upper lobe and 4 mm in the right lower lobe). No evidence of any distant metastatic disease noted. - Started her on weekly paclitaxel and carboplatin on 04/26/2012 along with daily radiation treatment at [facility]. - CT scan of the abdomen and pelvis done on 06/06/2012 at [facility] showed no new suspicious findings suggestive of recurrent disease involving the abdomen. Cholecystectomy noted. - EGFR and ALK mutation --> Negative (12/2012) - PET-CT scan done on 11/13/2012 at [facility] showed further reduction of the previously noted right paratracheal mediastinal lymph node now measuring 2.3 x 1.5 cm and also decreased metabolicactivity noted in the same lymph node. Post radiation changes noted. No other new suspicious findings noted anywhere else. Uptake in the spine appears to be DJD. -MRI of the brain--> negative for metastatic disease (07/17/2015) - PET-CT scan done on 07/13/2015 showed enlargement of the previously noted lung nodules as well as mediastinal lymphadenopathy Chest x-ray: Improved appearance the lungs with resolved pulmonary nodules(09/2015) -PET-CT scan done on 10/12/2015 showed significant interval improvement of the previously noted, multiple lung nodules, subcarinal right hilar lymph node. No other distant metastatic noted anywhere else. -PET-CT scan done on 03/01/2016 showed the treatment response in the both lungs and mediastinum, hilar lymph nodes, no significant FDG avid lesions noted in the chest. Osteonecrosis of the left humeral head noted. -PET-CT scan done 06/15/2016 showed further reduction of the previously noted lung nodules in the size as well as the metabolic activity, no other new findings noted. No new liver or bone lesions noted. Bilateral lower extremity venous Doppler from 07/24/2016: Right and left lower extremity venous systems without evidence of acute deep venous thrombosis. PET-CT from 10/11/2016: No abnormal uptake present to suggest active neoplasm. Abnormal uptake within the mid body and tail of the pancreas, maximum SUV of 5.61. Mildly heterogenous uptake is also present throughout the head of the pancreas. Focal intense activity in the antrum of the stomach is ofunclear etiology or significance. Postsurgical and post radiation changes involving the right hemithorax. HISTORY OF PRESENT ILLNESS: In June 2024, she was seen at [facility] ER, while she was eating vegetable soup and then she started coughing and choking, family member performed Heimlich twice and several vegetables came up. She had upper GI endoscopic evaluation on 06/29/2024, it was unremarkable. She has chronic hoarseness of voice, tolerated to the right vocal cord paralysis which was noted inthe imaging studies done in June 2022. About a week later, she was admitted for 1 day at [facility] for suspected to have aspiration pneumonia. I reviewed hospital records: -he was treated with Rocephin, Zithromax, Flagyl and then pattern changer to Levaquin for 5 days as an outpatient -she was seen by speech therapy, recommended Ptreed with thick nectar consistency, She did not requiring oxygen treatment during the hospitalization. CT scan of the chest on 07/06/2029 at [facility]: (no comparison was done with a any previous imaging studies as it was not done over there ) -abnormal large soft tissue density in the right suprahilar area extending laterally to the chest wall and superiorly to the lower neck where it appears to be encasing the right common carotid artery. -calcified pleural-based soft tissue mass measuring 3.6 cm overlying the left hemidiaphragm. Extensive peribronchial cuffing with PET-CT density in the left lung. -left lower lobe lung nodule measuring about 1 cm. Small right pleural effusion -multiple right-sided rib fractures Brain MRI on 07/06/2024: -motion artifacts, no convincing evidence of CV stroke or metastatic disease. -generalized brain parenchymal volume loss. CT angiogram of the neck on 07/06/2024: -severe stenosis of the left common carboplatin artery at origin, left distal common carotid arteryand proximal cervical ICA, -moderate stenosis of the right distal common carboplatin artery and proximal cervical ICA -multifocal stenosis of the bilateral subclavian arteries. -extensive multifocal stenosis with a near occlusive changes of the right cerebral vertebral artery. -stenosis at the origin of the bilateral cervical vertebral arteries. -overall extensive vascular disease of the cervical and intracranial arterial systems noted. Since the hospital discharge, she gets periodic trouble breathing, her daughter gives her prednisone 10 mg and within 1 to 2 hours it improves. She was then started on oxygen treatment at 2 liters/minute. She has come the clinic for the follow-up, ambulating slowly by herself, received oxygen treatment 2 liters/minute, she is comfortable, smiling, dementia present, no leg edema, no chest pain, she is on H2 jose and PPI therapy on regular basis, no chest pain, some coughing present, no fever. Past Medical History: Diagnosis Date Acute OK (HCC) 10/28/2007 Oct 10 2007, Septal Cancer of lung (HCC) Lymph nodes- last chemo treatment 09/26/12 Chronic ischemic heart disease COPD (chronic obstructive pulmonary disease) (HCC) Coronary atherosclerosis of [place] coronary artery 08/03/2011 Dyslipidemia, goal LDL below 70 GERD (gastroesophageal reflux disease) History of lung cancer 02/22/2018 HTN, goal below 130/80 Ischemic cardiomyopathy 08/03/2011 Lung cancer (HCC) Malignant neoplasm of lower lobe, bronchus or lung 04/12/2012 Reactive airway disease 08/31/2017 Past Surgical History: Procedure Laterality Date BRONCHOSCOPY, DIAGNOSTIC N/A 05/28/2020 BRONCHOSCOPY DIAGNOSTIC WITH OR WITHOUT WASHING performed by Doe Figueroa MD at [facility] CATHETERIZE LEFT HEART THRU SKIN Cardiac Catheterization, Left Heart EGD, FLEXIBLE, DIAGNOSTIC N/A 02/05/2015 mild-mod inflammation/ESOPHAGOGASTRODUODENOSCOPY (EGD), FLEXIBLE, TRANSORAL, DIAGNOSTIC performed by Levar Cooley MD at [facility] EGD, FLEXIBLE,W/ENDOSCOPIC US 01/19/2017 mild-mod inflammation on gastric biopsy/[facility] INFORMATION bowel surg 35 yrs ago due to complication INFORMATION colostomy 35 yrs ago for 2 yrs and reversed INSERTION OF LENS PROSTHESIS Left 01/14/2019 INSERTION OF LENS PROSTHESIS Right 09/16/2019 INTRAVASCULAR STENT, PERC,EACH ADD'L VESSEL 08-20-01 08-20-01 Multi-Link Penta REF [id number] INTRAVASCULAR STENT, PERC,EACH ADD'L VESSEL 09-07-05 CYPHER Sirolimus-eluting coronary stent [id number] IR BIOPSY 11/17/2020 OTHER (INFORMATION) 04/22/12 Insertion of Infuse -A -Port, intraoperative fluoroscopic guidance, layered closure of 5cm incisionDr Carlos Enrique [facility] REMOVE GALLBLADDER Cholecystectomy SINGLE LOBECTOMY, LUNG December 30, 2010 Right Lower Lobectomy Social History Socioeconomic History Marital status: Spouse name: Not on file Number of children: Not on file Years of education: Not on file Highest education level: Not on file Occupational History Occupation: homemaker Tobacco Use Smoking status: Former Current packs/day: 0.00 Average packs/day: 2.0 packs/day for 40.0 years (80.0 ttl pk-yrs) Types: Cigarettes Start date: 10/12/1965 Quit date: 10/12/2005 Years since quittin.8 Smokeless tobacco: Never Vaping Use Vaping status: Never Used Substance and Sexual Activity Alcohol use: No Drug use: No Sexual activity: Not on file Other Topics Concern Not on file Social History Narrative No pets. No mold. Lives with her daughter, Bernadine. Social Determinants of Health Financial Resource Strain: Not on file Food Insecurity: Not on file Transportation Needs: Not on file Social Connections: Unknown (03/25/2024) Social Connections How often do you feel lonely or isolated from those around you? (Adult - for ages 18 years and over): Not on file Housing Stability: Not on file Review of patient's allergies indicates: Allergen Reactions Hydrocodone Other reaction(s): Hallucinating Hydrocodone Bit-Homatrop Mbr hallucinations Isosorbide Mononitrate [Isosorbide Nitrate] Other (Please comment) headaches Penicillins hives Current Outpatient Medications Medication Sig Dispense Refill ASPIRIN 81 MG PO CHEW one chewable by mouth daily 34 5 IMODIUM A-D 2 MG PO TABS 1 tablet four times daily as needed acetaminophen (TYLENOL) 500 MG Tablet Take 2 Tablets by mouth every 8 hours as needed for Pain or Fever. 100 Tab 0 Famotidine 20 MG Oral Tablet (Pepcid) Take 1 Tablet by mouth in the morning and 1 Tablet before bedtime. 180 Tablet 3 Levothyroxine Sodium 75 MCG Oral Tablet (Levoxyl) TAKE 1 TABLET BY MOUTH ONCE DAILY AT LEAST 30 MINUTES PRIOR TO BREAKFAST OR OTHER MEDS 90 Tablet 3 Metoprolol Succinate ER 50 MG Oral Tablet Extended Release 24 Hour (toPROL XL) Take 1 Tablet by mouth in the morning. 90 Tablet 3 Pantoprazole Sodium 40 MG Oral Tablet Delayed Release (Protonix) Take 1 Tablet by mouth in the morning. 90 Tablet 3 Nitroglycerin 0.4 MG Sublingual Tablet Sublingual (Nitrostat) 1 tab dissolved under tongue every 5 mins for a maximum of 3 for chest pain 25 Tablet 1 Atorvastatin Calcium 40 MG Oral Tablet (Lipitor) Take 1 Tablet by mouth in the morning. 90 Tablet 3 Ezetimibe 10 MG Oral Tablet (Zetia) Take 1 Tablet by mouth in the morning. 90 Tablet 3 Albuterol Sulfate 1.25 MG/3ML Inhalation Nebulization Solution Inhale 1.25 mg via nebulizer every 4hours as needed for Shortness of Breath or Wheezing. 360 mL 2 Ipratropium-Albuterol 0.5-2.5 (3) MG/3ML Inhalation Solution (Duoneb) Inhale 3 mL via nebulizer in the morning and 3 mL at noon and 3 mL in the evening and 3 mL before bedtime. As needed. 180 mL 3 Syringe/Needle (Disp) 23G X 1" 3 ML Use as directed 180 Each 3 Syringe/Needle (Disp) 25G X 1" 3 ML Use as directed. 12 Each 0 QUEtiapine Fumarate 25 MG Oral Tablet (SEROquel) Take 1 Tablet by mouth at bedtime. 30 Tablet 11 Nystatin 247375 UNIT/GM External Cream Apply 1 g topically to affected area in the morning and 1 g before bedtime. To affacted area for two weeks.. 60 g 3 predniSONE 10 MG Oral Tablet (Deltasone) Take 1 Tablet by mouth in the morning. 30 Tablet 0 Cyanocobalamin 1000 MCG/ML Injection Solution (Cyanocobalamin) Inject 1,000 mcg into a large muscleevery 30 days. 1 mL 11 No current facility-administered medications for this visit. REVIEW OF SYSTEMS: OBJECTIVE: BP 119/61 (BP Site: Left Arm, BP Position: Sitting, BP Cuff Size: Large) | Pulse 81 | Temp 36.2 C(97.2 F) (Tympanic) | Resp 24 | Wt 73.8 kg (162 lb 9.6 oz) | SpO2 96% | BMI 27.06 kg/m | BSA 1.84 m PHYSICAL EXAM: ECOG: Performance Status 1 = 80-90% Symptoms but nearly ambulatory General Appearance: Normal - elderly appearing patient in no acute distress, alert and oriented x 3 hoarse HEENT: Normal - No oral or pharyngeal masses, ulceration or thrush noted, no sinus tenderness Lymph Nodes: Normal - No palpable lymph nodes in the neck or supraclavicular areas Lungs/Thorax: few crepitations in the left lung base. Heart: Normal - Regular rate and rhythm, normal S1, S2, no appreciable murmurs, rubs, gallops Pulses/Extremities: No leg edema. Abdomen: Normal - Soft, nontender, bowel sounds present, no appreciable hepatosplenomegaly, no palpable masses Musculoskeletal: Normal - No pain on palpation over bony prominence, no joint or bony deformity Neurologic: Normal - Grossly intact Gait steady walking with the help of the walker. LABS: Blood workup done on 07/15/2024: -BUN/Creat: 6/0.8, Calcium 9.4, normal LFT -WBC 9500, Hemoglobin and hematocrit -15.7/47.4, IMAGING: CT chest (06/15/2022). 1. Emphysema with subtle bibasilar groundglass opacities suggestive of a mild infectious or inflammatory pneumonitis. 2. Postoperative changes of the right lung. There is mildly progressive consolidation within the right upper lobe obscuring the patient's known pulmonary malignancy. Findings may be secondary to postradiation fibrosis, however follow-up is needed to assess for recurrent versus residual disease. 3. No lymphadenopathy. 4. Unchanged 2.1 cm irregular nodule of the left lower lobe. 5. Additional findings as above include possible stone within the upper common bile duct which is similar to prior. Correlation with serum bilirubin recommended. PET-CT scan (06/27/2022 at [facility]: 1. FDG avid 9 mm x 8 mm right lower cervical/paratracheal lymph node within the tracheoesophageal groove. This is new since prior PET/CT. This is suspicious for a small delfino recurrence. 2. Mild FDG uptake within the right upper lobe focus of consolidation which favors post treatment change. However, attention to this region on subsequent studies is recommended. 3. 2.7 cm partially calcified right basilar nodule without significant FDG uptake. This is likely benign but should be assessed on subsequent exams. 4. No change in an indeterminate 2.1 cm left lower lobe irregular nodular density which also be assessed on follow-up studies. 5. Findings suggestive of right vocal cord paralysis. CT scan of the chest (01/03/2023). 1. Moderate interval increase in now wedge-shaped consolidation involving the right upper lung suspicious for recurrent malignancy. Correlation with PET-CT recommended. 2. Mild pulmonary emphysematous changes. 3. Moderate coronary arterial calcification, indicating the presence of coronary artery disease CT neck ( 06/19/2023): 1. No cervical soft tissue mass is identified. 2. No worrisome cervical lymphadenopathy. 3. Right upper lung consolidation, similar to the prior CT chest dated 01/03/2023. IMPRESSION: Non-small cell lung cancer Dementia Hoarseness B12 deficiency Ms. 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 She did have hypothyroidism secondary to treatment for which she has been placed on levothyroxine and the TSH has normalized. 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 Presently she is off the Nivolumab (Opdivo) or any kind of systemic treatment lung cancer diagnosis since 07/2017. She completed radiation treatment to the left supraclavicular lymph node (biopsy-proven adenocarcinoma), around 10/24/2017 at [facility]. 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 -PD-L1 less than 1%. She received SBRT to the right upper lobe squamous cell carcinoma in 01/2021 She has hoarseness of voice for the last several months, imaging studies done in 2021 showed right vocal cord paralysis Recently she had trouble swallowing, choking, she was seen at [facility] ER, had a upper GI endoscopic evaluation, it was unremarkable, about week later, she was admitted at [facility] for aspiration pneumonia, she was there for about 1 day, I reviewed hospitalization pharmacy, she had extensive imaging workup, she has right lung findings which were noted in the previous imaging studies. Now she is on oxygen treatment 2 liters/minute She has very peculiar shortness of breath, mainly in the morning hours and the his daughter gives her 10 mg of prednisone and within 1 to 2 hours, shortness of breath improves. This could be some kind of panic attack, could be aspiration but she is already on H2 jose and PPI therapy. Could this be something blocking in the morning hours and takes 1 to 2 hours to improve. I would like to try hydroxyzine and see how she does. She is having barium swallow checkup. If her symptoms persist, perhaps ENT evaluation maybe helpful Regarding lung cancer diagnosis, I do not think she would be a good candidate for any kind of systemic treatment, immunotherapy would be contraindicated with the previous hepatitis following Nivolumab (Opdivo) treatment. I am planning to see her in about [address] Won Tesfaye Hem/Onc (This note was completed using the dictation program Fluency Direct. As such, there may be misspellings word substitutions, or other variations that should not change the essence of the clinical content of this encounter note. If there is need for further clarification, please direct questions to the provider listed above.) documented in this encounter Nursing Notes * Mayelin Knight LPN - 08/13/2024 8:50 AM EST Patient identifed by name and birthdate Do you have any concerns about pain management for today's visit? No Living Will or Advance Directive for Health Care as noted on the problem list. [employer] is a way you can talk to your provider on line through e-mail. Would you like to sign up? I can activate it for you? ALREADY ACTIVE Filed Vitals: 08/13/24 0846 BP: 119/61 Pulse: 81 Resp: 24 Temp: 36.2 C (97.2 F) TempSrc: Tympanic SpO2: 96% Weight: 73.8 kg (162 lb 9.6 oz) Patient was instructed to not get up on the exam table/exam chair until directed and assisted by their provider; patient is to remain seated in the chair/ wheelchair/ exam table/ exam chair for fall prevention and safety reasons. Patient is aware to have assistance to step down off exam table/exam chair with personnel. Patient voiced full comprehension of instructions. documented in this encounter Plan of Treatment Upcoming Encounters Date Type Department Care Team (Late st Contact Info) Description 10/27/2024 10:00 AM EST Imaging Radiology, [facility] [address] [facility] [place] [address] 11/18/2024 3:30 PM EST Office Visit Hematology/Oncology [facility] [address] [facility] [place] [phone] Won Tesfaye MD [address] [facility] [place] [address] 12/09/2024 1:30 PM EST Appointment Radiology, [facility] [address] [facility] [address] 12/09/2024 2:00 PM EST Rehab Services Voice Lab, [facility] [address] [facility] [address] Willie Johnston, [facility] [address] [facility] [place] [address] Scheduled Procedures Name Priority Associated Diagnoses Date/Ti [...] as of this encounter Visit Diagnoses Diagnosis Squamous cell carcinoma of right lung (HCC)- Primary Anxiety Anxiety state, unspecified Vocal cord paralysis Paralysis of vocal cords or larynx, unspecified documented in this encounter Care Teams Deburrer Relationship Specialty Start Date End Date Carlos Paniagua MD [address] [place] [address] PCP - General Internal Medicine 07/12/24 documented as of this encounter
--- OUTSIDE RECORDS SUMMARY | 2024-09-09 17:54 | External Medical Summary | Summary of Care ---
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 30 Tablet 11 07/12/2024 Active Nystatin [id number] UNIT/GM External Cream Apply 1 g topically [...] Lipid Taxonomy. Ischemic cardiomyopathy Coronary atherosclerosis of [place] coronary мария ry documented as of this [...] myocardial infarct 04/29/200908/04 Overview: Modified by Acute PR Protocol #5. Oct 10 2007, Septal Acute PR 10/28/2007 04/29/2009 Overview: Modified by Acute PR Protocol #5. Oct 10 2007, Septal Acute PR 10/28/2007 08/04/2011 Overview: Oct 10 2007, Septal [...] on file documented as of this encounter Nursing Notes * Colette Marte, FIONA - 08/13/2024 3:17 PM EST Exam Rm 1, per Dr. Tesfaye port flush post OV. VAD (Venous Access Device) accessed with #19G 3/4" without difficulty. Positive blood return observed. VAD flushed with 10 ml NSS and Heparin 5 ml (100 units/ml). Feng needle removed intact. Pt tolerated procedure without complication. documented in this encounter Plan of Treatment Upcoming Encounters Date Type Department Care Team (Late st Contact Info) Description 09/24/2024 12:00 PM EST Nurse Only Hematology/[address] [phone] Ariana, Chair 2 Hem Onc [address] [place] [address] 10/27/2024 10:00 AM EST Imaging Radiology, [address] [place] [address] 11/18/2024 3:30 PM EST Office Visit Hematology/Oncology [address] [place] [address] Won Tesfaye MD [address] [facility] [place] [address] 11/18/2024 4:00 PM EST Nurse Only Hematology/[address]cology [address], [address] [address] 12/09/2024 1:30 PM EST Appointment Radiology, [facility] [address] [facility] [place] [address] 12/09/2024 2:00 PM EST Rehab Services Voice Lab, [facility] [address] [facility] [address] Willie Johnston, 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 Given 08/13/2024 9:27 AM EST 500 Units sodium chloride 0.9 % flush central line 10 mL 10 mL, IV Push, PRN Other, IV Flush, Starting on Sun08/13/24 at 1520, Until Mesha 08/14/24 at 1519, For 24 hours, Do not flush if lock, PICC, or central line not in place; IV infusing or unable to flush. Given 08/13/2024 9:27 AM EST 10 mL documented in this encounter Care Teams Child Care Attendant School Relationship Specialty Start Date End Date Carlos Paniagua MD [address] [place] [address] PCP - General Internal Medicine 07/12/24 documented as of this encounter
--- OUTSIDE RECORDS SUMMARY | 2024-09-09 17:54 | External Medical Summary | Summary of Care ---
Author Name Unknown Organization [facility] Address [address] [place] [address] Phone [phone] Care Team Providers Care Showroom Sales Consultant Name Role Phone Carlos Paniagua MD Primary Care Provider [phone] Reason for Visit * Reason Onset Date Comments Home Health 07/25/2024 FYI 07/25/2024 Encounter Details Date Type Department Care Team (Late st Contact Info) Description 07/25/2024 Telephone [facility] [address] [place] [address] Carlos Paniagua MD [address] [place] [address] Home Health; (/) Allergies Active Allergy Reactions Criticality Noted Date Comments Hydrocodone High 08/03/2021 Other reaction(s): Hallucinating Hydrocodone Bit-Homatrop Mbr 08/22/2017 hallucinations Isosorbide Nitrate Other (Please comment) 02/24/2021 headaches Penicillins 09/10/2002 hives documented as of this encounter (statuses as of 08/15/2024) Medications ASPIRIN 81 MG PO CHEW one [...] and 1 Tablet before bedtime. 180 Tablet 04/17/20 24 Active Levothyroxine Sodium 75 MCG Oral Tablet (Levoxyl)Indicatio ns:Acquired hypothyroidism TAKE 1 TABLET BY MOUTH ONCE DAILY AT LEAST 30 MINUTES PRIOR TO BREAKFAST OR OTHER MEDS 90 Tablet 04/17/20 24 Active Metoprolol Succinate ER 50 MG Oral Tablet Extended Release 24 Hour (toPROL XL)Indications:Ath erosclerosis of ambler coronary artery of ambler heart without angina pectoris,HTN, goal below 140/90 Take 1 Tablet by mouth in the morning. 90 Tablet 04/17/20 24 Active Pantoprazole Sodium 40 MG Oral Tablet Delayed Release (Protonix)Indicati ons:Gastroesophage al reflux disease without esophagitis Take 1 Tablet by mouth in the morning. 90 Tablet 04/17/20 24 Active Nitroglycerin 0.4 MG Sublingual Tablet Sublingual (Nitrostat) 1 tab dissolved under tongue every 5 mins for a maximum of 3 for chest pain 25 Tablet 04/17/20 24 Active Atorvastatin Calcium 40 MG Oral Tablet (Lipitor)Indicatio ns:Dyslipidemia Take 1 Tablet by mouth in the morning. 90 Tablet 04/17/20 24 Active Ezetimibe 10 MG Oral Tablet (Zetia)Indications :Dyslipidemia Take 1 Tablet by mouth in the morning. 90 Tablet 04/17/20 24 Active Albuterol Sulfate 1.25 MG/3ML Inhalation Nebulization SolutionIndication s:COPD, severity to be determined (HCC) Inhale 1.25 mg via nebulizer every 4 hours as needed for Shortness of Breath or Wheezing. 360 mL 04/17/20 24 Active Ipratropium-Albute rol 0.5-2.5 (3) MG/3ML Inhalation Solution (Duoneb)Indication s:Centrilobular emphysema (HCC) Inhale 3 mL via nebulizer in the morning and 3 mL at noon and 3 mL in the evening and 3 mL before bedtime. As needed. 180 mL 04/17/20 24 Active Syringe/Needle (Disp) 23G X 1" 3 ML Use as directed 180 Each 04/17/20 24 Active Syringe/Needle (Disp) 25G X 1" 3 ML Use as directed. 12 Each 04/17/20 24 Active QUEtiapine Fumarate 25 MG Oral Tablet (SEROquel) Take 1 Tablet by mouth at bedtime. 30 Tablet 11 07/12/20 24 Active Nystatin 996523 UNIT/GM External Cream Apply 1 g topically to affected area in the morning and 1 g before bedtime. To affacted area for two weeks.. 60 g 3 07/28/20 24 Active Cyanocobalamin 1000 MCG/ML Injection Solution (Cyanocobalamin)In dications:B12 deficiency Inject 1,000 mcg into a large muscle every 30 days. 1 mL 04/17/20 24 024 Discontin ued(Refil l) predniSONE 10 MG Oral Tablet (Deltasone)Indicat ions:Acute cough,COPD exacerbation (HCC) Take 5 tabs for 2 days, 4 tabs for 2 days, 3 tabs for 2 days, 2 tabs for 2 days 1 tab for 2 days 30 Tablet 07/15/20 024 Discontin ued(Medic ation List Clean Up) documented as of this encounter (statuses as of 08/15/2024) Active Problems Problem Noted Date Diagnosed Date COPD, group C, by GOLD 2017 classification 07/21 Overview: Per COPD GOLD Classification Dementia without behavioral disturbance 10/15/19 History of lung cancer 02/22/2018 Liver enzyme elevation 01/24/2017 Acquired hypothyroidism 12/11/2016 HTN, goal below 140/90 08/05/2014 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 Ischemic cardiomyopathy Coronary atherosclerosis of ambler coronary мария ry documented as of this encounter (statuses as of 08/15/2024) Resolved Problems Problem Noted Date Diagnosed Date [...] infarct 04/29/200908/04 Overview (04/29/2009): Modified by Acute [place] Protocol #5. Oct 10 2007, Septal Acute [place] 10/28/2007 04/29/2009 Overview (04/29/2009): Modified by [place] Protocol #5. Oct 10 2007, Septal Acute [place] 10/28/2007 08/04/2011 Overview (08/03/2011): Oct 10 2007, Septal Painful Soft tissue tumor Left Forehead >1cm 7 08/31/2017 ADVANCE DIRECTIVE INFORMATION 09/04/2006 08/31/2017 Overview (09/04/2006): No, brochure given at this visit CHR ISCHEMIC HRT DIS NOS 09/10/2002 HTN, goal below 130/80 09/10/200202/02 Dyslipidemia, goal LDL below 70 08/31/2017 documented as of this encounter (statuses as of 08/15/2024) Immunizations Name Administration Dates Next Due COVID-19 [...] years and over) Not on file 03/25/2024 Comments No Sex and Gender Information Value [...] encounter Miscellaneous Notes * Telephone Encounter - Mary Huynh OSA - 08/15/2024 12:40 PM EST Appt scheduled and referral for Aug 25, per patients chart * Addendum Note - Carlos Paniagua MD - 08/07/2024 7:47 AM EDTAddended by: CARLOS PANIAGUA on: 08/07/2024 07:47 AM Modules accepted: Orders * Telephone Encounter - Carlos Paniagua MD - 08/07/2024 7:47 AM EDT Rerodered Please fax * Addendum Note - Marv Escobedo LPN - 08/06/2024 12:27 PM EDTAddended by: MARV ESCOBEDO on: 08/06/2024 12:27 PM Modules accepted: Orders * Telephone Encounter - Marv Escobedo LPN - 08/06/2024 12:18 PM EDT Feliciano VEGA calling in today from [facility]. She called [facility] registration and they did receive Fluoro swallow order, but the Diagnosis needs fixed to be covered. Order needs addended with DX: Dysphagia After Addended please re fax to [facility] and Contact patient daughter Bernadine to schedule procedure. Please advice- addend order and fax * Telephone Encounter - Mariama Valdez LPN - 08/01/2024 10:[address] Phillip calling from [facility] HH Patient can have the video swallowing test done at [facility] next week. Order faxed to [facility] with confirmed receipt. Fyi * Telephone Encounter - Michelle Bennett OSA - 07/29/2024 2:40 PM EDT ADDED, THE PT CAN ALWAYS CALL FOR CANCELLATIONS WELL * Telephone Encounter - Carlos Paniagua MD - 07/29/2024 10:12 AM EDT Please ask pt to put her in wait list if possible * Telephone Encounter - Michelle Bennett OSA - 07/28/2024 3:19 PM EDT PT IS SCHEDULED FOR 12/09/24 DID YOU WANT A SOONER APPT? * Telephone Encounter - Carlos Paniagua MD - 07/28/2024 9:21 AM EDT Please schedule swallow test And also sent nystatin cream to use twice daily as needed Try at least 1-2 wks for rash * Telephone Encounter - Johnna Crenshaw LPN - 07/25/2024 3:26 PM EDT HH PT/OT/ST Eval Start of Care/Continuation Phillip Speech Therapist , Calling from: [facility] Speech Therapist Plan of care: 1 times per week for 3 weeks Focusing on: swallowing management and dysphagia education. Concerns: yes Symptoms: See narrative. Vitals: T 97.0 P 61 RR 16 BP 138/70 SP O2 99% RA Narrative: Recommends PT and OT evaluations also. Reports that that pt was SOB when up and moving around. Breath sounds were abnormal but does clear up with coughing. Does recommend a video fluoroscopic swallow study to find out what is most appropriate for the pt. Also reports that the pt has a rash under bilateral breasts that was reported by the pt's daughter.Has been using OTC powders like Gold Griffin and a cream but neither have been effective. Is asking if something could be prescribed for this? Please advise. Call back ST Phillip with any advice or orders at [phone]. Please fax new orders to [facility] Home Health [phone] Advised that additional visit orders will be signed by Carlos Paniagua MD and to fax to the office for signature documented in this encounter Plan of Treatment Upcoming Encounters Date Type Department Care Team (Late st Contact Info) Description 08/25/2024 2:00 PM EST Office Visit Otolaryngology, [facility] [address] [place] [address] Igor Cox PA-C [address] [place] [address] 09/12/2024 7:20 AM EST Office Visit Family [facility] [address] [place] [address] Ashkan Hernandez MD [address] [place] [address] 09/24/2024 12:00 PM EST Nurse Only Hematology/Oncology Treatment, [place] [address] [facility], [place] [phone] Ariana, Chair 2 Hem Onc [facility] [address] [facility] [place] [address] 10/27/2024 10:00 AM EST Imaging Radiology, [address] [address] 11/18/2024 3:30 PM EST Office Visit Hematology/Oncology [facility] [address] [facility] [place] [phone] Won Tesf[facility] [address] [facility] [address] 11/18/2024 4:00 PM EST Nurse Only Hematology/Oncology Treatment, [place] [address] [facility], [place] [phone] 12/09/2024 1:30 PM EST Appointment Radiology, [facility] [address] [facility] [place] [phone] 12/09/2024 2:00 PM EST Rehab Services Voice Lab, [facility] [address] [facility] [facility] [place] [phone] Willie Johnston, CCC-BUSINESS BROKER [address] [place] [address] Scheduled Orders Name Type Priority Associated Diagnoses Orde r Schedule FLUORO SWALLOWING FUNCTION W VIDEO CINE Medical Imaging Routine Dysphagia Ordered: 08/07/2024 Scheduled Procedures Name Priority Associated Diagnoses Date/Ti [...] as of this encounter Visit Diagnoses Diagnosis Cough, unspecified type- Primary Dementia without behavioral disturbance (HCC) Dementia, unspecified, without behavioral disturbance Dysphagia Dysphagia, unspecified documented in this encounter Care Teams Showroom Sales Consultant Relationship Specialty Start Date End Date Carlos Paniagua MD [address] [place] [address] PCP - General Internal Medicine 07/12/24 documented as of this encounter
--- OUTSIDE RECORDS SUMMARY | 2024-09-09 17:54 | External Medical Summary | Summary of Care ---
Author Name Unknown Organization [facility] Address [address] [facility] [place] [address] Phone [phone] Care Team Providers Care Circus Train Supervisor Name Role Phone Carlos Paniagua MD Primary Care Provider [phone] Reason for Referral * Evaluate & Treat - Unlimited Visits (Within 10 days (routine)) - Authorized Specialty Diagnoses / Procedures Referred By Albaro stone Referred To Contact Otolaryngology Diagnoses Dysphagia, unspecified type Carlos Paniagua MD [address] [place] [address] Referral ID Status Reason Start Date Expiration Date Visits Requested Visits Authorized [id number] Authorized Specialty Services Required 08/14/2024 999 999 Question Answer Referral Priority Within 10 days (routine) Where should this appointment be scheduled? [facility] Reason for Referral Throat Conditions Specific Condition: Dysphagia (swallowing concerns) Reason for Visit * Reason Onset Date Comments Home Health 08/14/2024 Encounter Details Date Type Department Care Team ([facility] st Contact Info) Description 08/14/[address] [facility] [address] [place] [address] Carlos Paniagua MD [address] [place] [address] Home Health Allergies Active Allergy Reactions Criticality Noted Date Comments Hydrocodone High 08/03/2021 Other reaction(s): Hallucinating Hydrocodone Bit-Homatrop Mbr 08/22/2017 hallucinations Isosorbide Nitrate Other (Please comment) 02/24/2021 headaches Penicillins 09/10/2002 hives documented as of this encounter (statuses as of 08/14/2024) Medications Medication Sig Dispensed Refills Start Date [...] Release 24 Hour (toPROL XL)Indications:Athero sclerosis of [place] coronary artery of [place] heart without angina pectoris,HTN, goal below 140/90 [...] the morning. 90 Tablet 3 04/17/2024 Active Albuterol Sulfate 1.25 MG/3ML Inhalation [...] before bedtime. As needed. 180 mL 3 04/17/2024 Active Syringe/Needle (Disp) 23G X 1" 3 ML Use as directed 180 Each 3 04/17/2024 Active Syringe/Needle (Disp) 25G X 1" 3 ML Use as directed. 12 Each 04/17/2024 Active QUEtiapine Fumarate 25 MG Oral Tablet (SEROquel) Take 1 Tablet by mouth at bedtime. 30 Tablet 11 07/12/2024 Active Nystatin 996494 UNIT/GM External Cream Apply 1 g topically [...] as of this encounter (statuses as of 08/14/2024) Active Problems Problem Noted Date Diagnosed Date [...] Lipid Taxonomy. Ischemic cardiomyopathy Coronary atherosclerosis of [place] coronary мария ry documented as of this encounter (statuses as of 08/14/2024) Resolved Problems Problem Noted Date Diagnosed Date [...] myocardial infarct 04/29/200908/04 Overview: Modified by [place] Protocol #5. Oct 10 2007, Septal [place] 10/28/2007 04/29/2009 Overview: Modified by [place] Protocol #5. 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 7 08/31/2017 ADVANCE DIRECTIVE INFORMATION 09/04/2006 08/31/2017 Overview: No, brochure given at this visit CHR ISCHEMIC HRT DIS NOS 09/10/2002 HTN, goal below 130/80 09/10/200202/02 Dyslipidemia, goal LDL below 70 08/31/2017 documented as of this encounter (statuses as of 08/14/2024) Immunizations Name Administration Dates Next Due COVID-19 [...] Phillip SAMSON, Calling from: [facility] Report/Concerns of: order for video study Symptoms: none Vitals: T 97.8 P 57 reg RR 18 BP did not get SP O2 95 Lung sounds clear Weight n/a Blood sugar n/a Narrative: MALI Fisher calling from [facility]. Recommended a video fluroscopic swallow study. It has to saywhy and has to have the diagnosis of dysphagia. Pended. Phillip is worried that the patient's insurance won't accept it if not ordered correctly. Asking for the order to be sent to Dr. Hernandez. Also recommending a referral for ENT evaluation Call back Phillip with any advice or orders at [phone] Please fax new orders to [facility] Home Health documented in this encounter Plan of Treatment Upcoming Encounters Date Type Department Care Team (Late st Contact Info) Description 09/12/2024 7:20 AM EST Office Visit [facility] [address] [place] [address] Ashkan Hernandez MD [address] [place] [address] 09/24/2024 12:00 PM EST Nurse Only Hematology/Oncology Treatment, [address] [phone] Ariana, Chair 2 Hem Onc [address] [place] [address] 10/27/2024 10:00 AM EST Imaging Radiology, [place] [phone] [facility] [place] [address] 11/18/2024 3:30 PM EST Office Visit Hematology/Oncology [address] [place] [phone] Won Tesfaye MD [address] [facility] [place] [address] 11/18/2024 4:00 PM EST Nurse Only Hematology/Oncology Treatment, [address] [phone] 12/09/2024 1:30 PM EST Appointment Radiology, [address] [place] [phone] 12/09/2024 2:00 PM EST Rehab Services Voice Lab, [facility] [address] [facility] [place] [address] Willie Johnston, [facility] [address] [place] [address] Scheduled Orders Name Type Priority Associated Diagnoses [...] Primary documented in this encounter Care Teams Circus Train Supervisor Relationship Specialty Start Date End Date Carlos Paniagua MD [address] [place] [address] PCP - General Internal Medicine 07/12/24 documented as of this encounter
--- OUTSIDE RECORDS SUMMARY | 2024-09-09 17:55 | External Medical Summary | Summary of Care ---
Author Name Unknown Organization [facility] Address [address] [facility] [address] Phone [phone] Care Team Providers Care Pest Control Worker Helper Name Role Phone Carlos Paniagua MD Primary Care Provider [phone] Reason for Visit * Reason Onset Date Comments Home Health 08/01/2024 Encounter Details Date Type Department Care Team (Late st Contact Info) Description 08/01/[address] [facility] [address] [place] [address] Carlos Paniagua MD [address] [place] [address] Home Health Allergies Active Allergy Reactions Criticality Noted Date Comments Hydrocodone High 08/03/2021 Other reaction(s): Hallucinating Hydrocodone Bit-Homatrop Mbr 08/22/2017 hallucinations Isosorbide Nitrate Other (Please comment) 02/24/2021 headaches Penicillins 09/10/2002 hives documented as of this encounter (statuses as of 08/12/2024) Medications Medication Sig Dispensed Refills Start Date [...] and 1 Tablet before bedtime. 180 Tablet 04/17/2024 Active Levothyroxine Sodium 75 MCG Oral Tablet (Levoxyl)Indications :Acquired hypothyroidism TAKE 1 TABLET BY MOUTH ONCE DAILY AT LEAST 30 MINUTES PRIOR TO BREAKFAST OR OTHER MEDS 90 Tablet 04/17/2024 Active Metoprolol Succinate ER 50 MG Oral Tablet Extended Release 24 Hour (toPROL XL)Indications:Ather osclerosis of [place] coronary artery of [place] heart without angina pectoris,HTN, goal below 140/90 Take 1 Tablet by mouth in the morning. 90 Tablet 04/17/2024 Active Pantoprazole Sodium 40 MG Oral Tablet Delayed Release (Protonix)Indication s:Gastroesophageal reflux disease without esophagitis Take 1 Tablet by mouth in the morning. 90 Tablet 04/17/2024 Active Nitroglycerin 0.4 MG Sublingual Tablet Sublingual (Nitrostat) 1 tab dissolved under tongue every 5 mins for a maximum of 3 for chest pain 25 Tablet 04/17/2024 Active Atorvastatin Calcium 40 MG Oral Tablet (Lipitor)Indications :Dyslipidemia Take 1 Tablet by mouth in the morning. 90 Tablet 04/17/2024 Active Ezetimibe 10 MG Oral Tablet (Zetia)Indications:D yslipidemia Take 1 Tablet by mouth in the morning. 90 Tablet 04/17/2024 Active Albuterol Sulfate 1.25 MG/3ML Inhalation Nebulization SolutionIndications: COPD, severity to be determined (HCC) Inhale 1.25 mg via nebulizer every 4 hours as needed for Shortness of Breath or Wheezing. 360 mL 04/17/2024 Active Ipratropium-Albutero l 0.5-2.5 (3) MG/3ML Inhalation Solution (Duoneb)Indications: Centrilobular emphysema (HCC) Inhale 3 mL via nebulizer [...] bedtime. 30 Tablet 11 07/12/2024 Active Nystatin 208647 UNIT/GM External Cream Apply 1 g topically to affected area in the morning and 1 g before bedtime. To affacted area for two weeks.. 60 g 3 07/28/2024 Active predniSONE 10 MG Oral Tablet (Deltasone) Take 1 Tablet by mouth in the morning. 30 Tablet 07/29/2024 Active Cyanocobalamin 1000 MCG/ML Injection Solution (Cyanocobalamin)Tamela cations:B12 deficiency Inject 1,000 mcg into a large muscle every 30 days. 1 mL 04/17/2024 Discontinue d(Refill) documented as of this encounter (statuses as of 08/12/2024) Active Problems Problem Noted Date Diagnosed Date [...] Lipid Taxonomy. Ischemic cardiomyopathy Coronary atherosclerosis of [place] coronary мария ry documented as of this encounter (statuses as of 08/12/2024) Resolved Problems Problem Noted Date Diagnosed Date [...] myocardial infarct 04/29/200908/04 Overview: Modified by Acute [place] Protocol #5. Oct 10 2007, Septal Acute [place] 10/28/2007 04/29/2009 Overview: Modified by Acute [place] Protocol #5. 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 7 08/31/2017 ADVANCE DIRECTIVE INFORMATION 09/04/2006 08/31/2017 Overview: No, brochure given at this visit CHR ISCHEMIC HRT DIS NOS 09/10/2002 HTN, goal below 130/80 09/10/200202/02 Dyslipidemia, goal LDL below 70 08/31/2017 documented as of this encounter (statuses as of 08/12/2024) Immunizations Name Administration Dates Next Due COVID-19 mRNA, LNP-s, No Pre serve, 2-Dose Series ([employer]) 01/12/2021,12/22/2020 Pneumococcal Conjugate Vacc, 13 Valent (Prevnar) [...] encounter Miscellaneous Notes * Telephone Encounter - Mellisa Osei LPN - 08/12/2024 9:34 AM EST Per note below-- Wants oxygen sent to [facility]. Phone #--[phone] Fax #-- [phone] DME printed and OV note faxed to [facility] per request. * Addendum Note - Ashkan Clark MD - 08/07/2024 2:00 PM EDTAddended by: ASHKAN CLARK on: 08/07/2024 02:00 PM Modules accepted: Orders * Telephone Encounter - Ashkan Clark MD - 08/07/2024 1:56 PM EDT Originally this was not going to be ordered through our office but rather obtained through hospice but the patient (and her daughter) have elected to delay that path (per messaging - in order to get more testing done regarding swallowing). I have communicated with daughter via MyG and she would prefer to get O2 sooner rather than later despite potential cost/redundancy. Therefore will order O2. Order placed. [facility]. * Telephone Encounter - Michelle Villar RN - 08/05/2024 12:08 PM EDT Per 08/01/24- looks like patient already had qualifying visit with PCP's office on 07/30/24, but they did not set patient up with oxygen as the plan was for her to go on hospice (and hospice would have arranged this). [facility]: please follow up with patients daughter. Thanks! * Telephone Encounter - Marv Cuello LPN - 08/05/2024 9:32 AM EDT Concerns Phillip Speech Therapist , Calling from: [facility] Report/Concerns of: Oxygen stat's Symptoms: See Narrative Vitals: SP O2-90% RA- 2 HHN treatments-increased to 95% Narrative: Phillip calling in today stating she received a text from patients daughter Bernadine this AMstating mothers SPO2 this AM 90% RA. After 2 HHN treatments SPO2 increased to 95%. Family was usinga apple watch to monitor SPO2 levels and was educated on to use a pulse ox machine. SPO2 now 95% RA. Patient has low oxygen levels in AM then by mid morning they improve. Daughter states she has beengiving prednisone BID because if not patient wakes during night unable to breath. Bernadine states her mother wakes in AM in distress,anxious, and unable to breath. Daughter states her mother is resting at this time. Daughter wants oxygen ordered until she goes on to hospice. [facility] Phone #--[phone] Fax #-- [phone] Last hematology/oncology appt-03/05/24 Next-Hem/Onc-08/13 swallowing study faxed to [facility] on 08/01. Needs to have Fluoro swallow done before can be placed on hospice. Daughter states [facility] have not scheduled it at this time. Call back Phillip with any advice or orders at [phone] Please fax new orders to [facility] Home Health Please advise- Hematology/ * Telephone Encounter - Peggy Flores LPN - 08/01/2024 1:06 PM EDT Karissa calling from [facility]. She received the order for a shower chair and raised toilet seat. She is asking that the order be faxed to a local [employer] company. Faxed to [facility] in [place], received confirmation that the transmission was successful. * Telephone Encounter - Hilary Grider OSA - 08/01/2024 1:02 PM EDT Reason for patient's call: karissa with [facility] home health Caller was transferred to peggy at the nurse line. * Telephone Encounter - Celina Alves LPN - 08/01/2024 11:39 AM EDT Faxed order below to [facility] # listed below. * Telephone Encounter - Carlos Paniagua MD - 08/01/2024 11:18 AM EDT Thanks for update and ordered DME * Telephone Encounter - Peggy Flores LPN - 08/01/2024 10:56 AM EDT HH PT/OT/ST Eval Start of Care/Continuation José OT, Calling from: [facility] PT Plan of care: 1 times per week for 2 weeks: Then every other week for 4 weeks Focusing on: medical equipment, exercise program Vitals: T 97.0 P 140/88 RR 18 BP 140/88 SP O2 98% Narrative: José calling in as he was with patient at the time of call for OT evaluation. He is asking for a DME for Shower chair and a raised toilet seat. --pended if agreeable Please also see other Home Health message below [facility] HH Advised that additional visit orders will be signed by Carlos Paniagua MD and to fax to the office for signature * Telephone Encounter - Mariama Valdez LPN - 08/01/2024 10:36 AM EDT HH Concerns Phillip Speech Therapist , Calling from: [facility] Report/Concerns of: wheezing Symptoms: cough- nonproductive Vitals: T 97 P 70 RR 18 BP 140/88 SP O2 98 Lung sounds inspiratory wheezes Weight n/a Blood sugar n/a Narrative: Phillip calling from [facility], she is speech Therapy. Patient is on prednisone starting 07/29 Lungs sound better than last time. She is not short of breath with activity like she was. Daughter wanted it mentioned she has a big improvement with the prednisone. Also asking for extra visits. Beginning the week of 08/10 one time a week every other week for 2 visits. Will fax over the information. Call back Phillip with any advice or orders at [phone] Please fax new orders to [facility] Home Health documented in this encounter Plan of Treatment Upcoming Encounters Date Type Department Care Team (Late st Contact Info) Description 08/13/2024 8:45 AM EST Office Visit Hematology/Oncology [facility] [address] [facility] [place] [address] Won Tesfaye MD [address] [facility] [place] [address] 08/16/2024 8:20 AM EST Office Visit Family Practice [facility] [address] [facility] [place] [address] Carlos [facility] [address] [facility] [address] 10/27/2024 10:00 AM EST Imaging Radiology, [place] [id number] [facility] [place] [address] 12/09/2024 1:30 PM EST Appoint[address] Radiology, [address] [place] [address] 12/09/2024 2:00 PM EST Rehab Services Voice Lab, [address] [place] [address] Willie Johnston, [facility] [address] [place] [address] Scheduled Procedures Name Priority Associated Diagnoses Date/Ti [...] ASSESSMENT COMPLETED IN PAST YEAR FOR COPD 07/30/2025 07/30/2024 Alpha-1 Antitrypsin Completed 06/04/2020 COVID-19 Vaccine Discontinued [...] as of this encounter Visit Diagnoses Diagnosis Hypoxia- Primary Hypoxemia Generalized weakness Other malaise and fatigue Dyspnea on exertion Other dyspnea and respiratory abnormality Mass of right lung documented in this encounter Care Teams Pest Control Worker Helper Relationship Specialty Start Date End Date Carlos Paniagua MD [address] [place] [address] PCP - General Internal Medicine 07/12/24 documented as of this encounter
--- OUTSIDE RECORDS SUMMARY | 2024-09-09 17:55 | External Medical Summary | Summary of Care ---
Author Name Unknown Organization [facility] Address [address] [facility] [place] [address] Phone [phone] Care Team Providers Care Bag Valver Name Role Phone Carlos Paniagua MD Primary Care Provider [phone] Reason for Visit * Reason Onset Date Comments Order Request 08/12/2024 [facility] Encounter Details Date Type Department Care Team ([facility] st Contact Info) Description 08/12/2024 Telephone [facility] [address] [place] [address] Carlos Paniagua MD [address] [place] [address] Order Request ([facility]) Allergies Active Allergy Reactions Criticality Noted [...] Release 24 Hour (toPROL XL)Indications:Athero sclerosis of [place] coronary artery of [place] heart without angina pectoris,HTN, goal below 140/90 [...] Breath or Wheezing. 360 mL 04/17/2024 Active Ipratropium-Albuterol 0.5-2.5 (3) MG/3ML Inhalation [...] bedtime. 30 Tablet 11 07/12/2024 Active Nystatin 522738 UNIT/GM External Cream Apply 1 g topically [...] 30 days. 1 mL 11 08/11/2024 Active documented as of this encounter (statuses [...] Lipid Taxonomy. Ischemic cardiomyopathy Coronary atherosclerosis of [place] coronary мария ry documented as of this [...] myocardial infarct 04/29/200908/04 Overview: Modified by Acute [place] Protocol #5. Oct 10 2007, Septal Acute [place] 10/28/2007 04/29/2009 Overview: Modified by Acute [place] Protocol #5. Oct 10 2007, Septal Acute [place] 10/28/2007 08/04/2011 Overview: Oct 10 2007, Septal [...] mRNA, LNP-s, No Pre serve, 2-Dose Series ([employer]) 01/12/2021,12/22/2020 Pneumococcal Conjugate Vacc, 13 Valent (Prevnar) [...] Telephone Encounter - Celina Alves LPN - 08/12/2024 1:46 PM EST Received Fax for BFPROVIDERS: Dr. Carlos Paniagua ORDER received from [facility] and FAXED documented in this encounter Plan of Treatment Upcoming Encounters Date Type Department Care Team (Late st Contact Info) Description 08/13/2024 8:45 AM EST Office Visit Hematology/Oncology [facility] [address] [facility] [place] [phone] Won Tesfaye MD [address] [facility] [place] [address] 08/16/2024 8:20 AM EST Office Visit Family [facility] [address] [facility] [place] [address] Carlos Paniagua MD [address] [place] [address] 10/27/2024 10:00 AM EST Imaging Radiology, [facility] [address] [facility] [place] [address] 12/09/2024 1:30 PM EST Appointment Radiology, [facility] [address] [facility] [address] 12/09/2024 2:00 PM EST Rehab Services Voice Lab, [facility] [address] [facility] [address] Willie Johnston, CCC-RD MECHANICAL ENGINEER [address] [place] [address] Scheduled Procedures Name Priority Associated Diagnoses Date/Ti [...] filedocumented as of this encounter Care Teams Bag Valver Relationship Specialty Start Date End Date Carlos Paniagua MD [address] [place] [address] PCP - General Internal Medicine 07/12/24 documented as of this encounter
--- OUTSIDE RECORDS SUMMARY | 2024-09-09 17:56 | External Medical Summary | Summary of Care ---
Author Name Unknown Organization [facility] Address [address] [facility] [place] [address] Phone [phone] Care Team Providers Care Volunteer Assistant Name Role Phone Carlos Paniagua MD Primary Care Provider [phone] Reason for Visit * Reason Onset Date Comments Order Request 08/07/2024 [facility] Encounter Details Date Type Department Care Team ([facility] st Contact Info) Description 08/07/2024 Telephone [facility] [address] [place] [address] Carlos Paniagua MD [address] [place] [address] Order Request ([facility]) Allergies Active Allergy Reactions Criticality Noted Date Comments Hydrocodone High 08/03/2021 Other reaction(s): Hallucinating Hydrocodone Bit-Homatrop Mbr 08/22/2017 hallucinations Isosorbide Nitrate Other (Please comment) 02/24/2021 headaches Penicillins 09/10/2002 hives documented as of this encounter (statuses as of 08/07/2024) Medications Medication Sig Dispensed Refills Start Date [...] Release 24 Hour (toPROL XL)Indications:Athero sclerosis of [place] coronary artery of [place] heart without angina pectoris,HTN, goal below 140/90 Take 1 Tablet by mouth in the morning. 90 Tablet 3 04/17/2024 Active Cyanocobalamin 1000 MCG/ML Injection Solution (Cyanocobalamin)Indic ations:B12 deficiency Inject 1,000 mcg into a large muscle every 30 days. 1 mL 04/17/2024 Active Pantoprazole Sodium 40 MG Oral [...] bedtime. 30 Tablet 11 07/12/2024 Active Nystatin 228055 UNIT/GM External Cream Apply 1 g topically to affected area in the morning and 1 g before bedtime. To affacted area for two weeks.. 60 g 3 07/28/2024 Active predniSONE 10 MG Oral Tablet (Deltasone) Take 1 Tablet by mouth in the morning. 30 Tablet 07/29/2024 Active documented as of this encounter (statuses as of 08/07/2024) Active Problems Problem Noted Date Diagnosed Date [...] Lipid Taxonomy. Ischemic cardiomyopathy Coronary atherosclerosis of [place] coronary мария ry documented as of this encounter (statuses as of 08/07/2024) Resolved Problems Problem Noted Date Diagnosed Date [...] myocardial infarct 04/29/200908/04 Overview: Modified by Acute [place] Protocol #5. Oct 10 2007, Septal Acute [place] 10/28/2007 04/29/2009 Overview: Modified by Acute [place] Protocol #5. 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 Carlos Paniagua ORDER received from [facility] and FAXED documented in this encounter Plan of Treatment Upcoming Encounters Date Type Department Care Team (Late st Contact Info) Description 08/13/2024 8:45 AM EST Office Visit Hematology/Oncology [facility] [address] [facility] [place] [address] Won Tesfaye MD [address] [facility] [place] [address] 08/16/2024 8:20 AM EST Office Visit Family [facility] [address] [facility] [place] [address] Carlos Paniagua MD [address] [place] [address] 10/27/2024 10:00 AM EST Imaging Radiology, [facility] [address] [facility] [place] [address] 12/09/2024 1:30 PM EST Appointment Radiology, [address] [address] 12/09/2024 2:00 PM EST Rehab Services Voice Lab, [facility] [address] [facility] [place] [address] Willie Johnston, [facility] [address] [place] [address] Scheduled Procedures Name Priority Associated Diagnoses Date/Ti [...] filedocumented as of this encounter Care Teams Volunteer Assistant Relationship Specialty Start Date End Date Carlos Paniagua MD [address] [place] [address] PCP - General Internal Medicine 07/12/24 documented as of this encounter
--- OUTSIDE RECORDS SUMMARY | 2024-09-09 17:56 | External Medical Summary | Summary of Care ---
Author Name Unknown Organization [facility] Address [address] [place] [facility] [place] [place] [address] Phone [phone] Care Team Providers Care Advertising Inserter Name Role Phone Carlos Paniagua MD Primary Care Provider [phone] Reason for Visit * Reason Onset Date Comments Medication Refill 08/10/2024 Encounter Details Date Type Department Care Team (Late st Contact Info) Description 08/10/2024 Refill Family Practice [facility] [address] [facility] [place] [address] Chandni Qureshi CRNP [address] [place] [address] B12 deficiency Allergies Active Allergy Reactions Criticality Noted Date Comments Hydrocodone High 08/03/2021 Other reaction(s): Hallucinating Hydrocodone Bit-Homatrop Mbr 08/22/2017 hallucinations Isosorbide Nitrate Other (Please comment) 02/24/2021 headaches Penicillins 09/10/2002 hives documented as of this encounter (statuses as of 08/11/2024) Medications Medication Sig Dispensed Refills Start Date [...] Release 24 Hour (toPROL XL)Indications:Ather osclerosis of [place] coronary artery of [place] heart without angina pectoris,HTN, goal below 140/90 [...] bedtime. 30 Tablet 11 07/12/2024 Active Nystatin 466963 UNIT/GM External Cream Apply 1 g topically [...] 30 days. 1 mL 11 08/11/2024 Active Cyanocobalamin 1000 MCG/ML Injection Solution (Cyanocobalamin)Tamela cations:B12 deficiency Inject 1,000 mcg into a large muscle every 30 days. 1 mL 04/17/2024 Discontinue d(Refill) documented as of this encounter (statuses as of 08/11/2024) Active Problems Problem Noted Date Diagnosed Date [...] Lipid Taxonomy. Ischemic cardiomyopathy Coronary atherosclerosis of [place] coronary мария ry documented as of this encounter (statuses as of 08/11/2024) Resolved Problems Problem Noted Date Diagnosed Date [...] myocardial infarct 04/29/200908/04 Overview: Modified by Acute [place] Protocol #5. Oct 10 2007, Septal Acute [place] 10/28/2007 04/29/2009 Overview: Modified by Acute [place] Protocol #5. 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 Authorizing Provider: CARLOS PANIAGUA * Telephone Encounter - Margarita Pickering LPN - 08/11/2024 11:29 AM ESTPending Prescriptions: Disp Refills Cyanocobalamin 1000 MCG/ML Injection Solut*1 mL 0 Sig: Inject 1,000 mcg into a large muscle every 30 days. * Telephone Encounter - Criselda Ayoub - 08/10/2024 9:08 PM ESTPending Prescriptions: Disp Refills Cyanocobalamin 1000 MCG/ML Injection Solut*1 mL 0 Sig: Inject 1,000 mcg into a large muscle every 30 days. documented in this encounter Plan of Treatment Upcoming Encounters Date Type Department Care Team (Late st Contact Info) Description 08/13/2024 8:45 AM EST Office Visit Hematology/Oncology [facility] 200 [facility] [place] [phone] Won Tesfaye MD [address] [facility] [place] [address] 08/16/2024 8:20 AM EST Office Visit [facility] [place] [address] Carlos Paniagua MD [address] [facility] [address] 10/27/2024 10:00 AM EST Imaging Radiology, [facility] [address] [facility] [place] [address] 12/09/2024 1:30 PM EST Appointment Radiology, [facility] [address] [place] [address] 12/09/2024 2:00 PM EST Rehab Services Voice Lab, [facility] [address] [place] [address] Willie Johnston, CCC-SUPERVISOR [employer] [address] [place] [address] Scheduled Procedures Name Priority Associated Diagnoses Date/Ti [...] as of this encounter Visit Diagnoses Diagnosis B12 deficiency Other B-complex deficiencies documented in this encounter Care Teams Advertising Inserter Relationship Specialty Start Date End Date Carlos Paniagua MD [address] [place] [address] PCP - General Internal Medicine 07/12/24 documented as of this encounter
--- OUTSIDE RECORDS SUMMARY | 2024-09-09 17:56 | External Medical Summary | Summary of Care ---
Author Name Unknown Organization [facility] Address [address] [facility] [address] Phone [phone] Care Team Providers Care Professor Of Legal Studies Name Role Phone Carlos Paniagua MD Primary Care Provider [phone] Reason for Visit * Reason Onset Date Comments Home Health 08/01/2024 Encounter Details Date Type Department Care Team (Late st Contact Info) Description 08/01/2024 Telephone [facility] [address] [place] [address] Carlos Paniagua MD [address] [place] [address] Home Health Allergies Active Allergy Reactions Criticality Noted Date Comments Hydrocodone High 08/03/2021 Other reaction(s): Hallucinating Hydrocodone Bit-Homatrop Mbr 08/22/2017 hallucinations Isosorbide Nitrate Other (Please comment) 02/24/2021 headaches Penicillins 09/10/2002 hives documented as of this encounter (statuses as of 08/08/2024) Medications Medication Sig Dispensed Refills Start Date [...] Release 24 Hour (toPROL XL)Indications:Athero sclerosis of [place] coronary artery of [place] heart without angina pectoris,HTN, goal below 140/90 [...] bedtime. 30 Tablet 11 07/12/2024 Active Nystatin 694307 UNIT/GM External Cream Apply 1 g topically to affected area in the morning and 1 g before bedtime. To affacted area for two weeks.. 60 g 3 07/28/2024 Active predniSONE 10 MG Oral Tablet (Deltasone) Take 1 Tablet by mouth in the morning. 30 Tablet 07/29/2024 Active documented as of this encounter (statuses as of 08/08/2024) Active Problems Problem Noted Date Diagnosed Date [...] Lipid Taxonomy. Ischemic cardiomyopathy Coronary atherosclerosis of [place] coronary мария ry documented as of this encounter (statuses as of 08/08/2024) Resolved Problems Problem Noted Date Diagnosed Date [...] myocardial infarct 04/29/200908/04 Overview: Modified by Acute [place] Protocol #5. Oct 10 2007, Septal Acute [place] 10/28/2007 04/29/2009 Overview: Modified by Acute [place] Protocol #5. 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 7 08/31/2017 ADVANCE DIRECTIVE INFORMATION 09/04/2006 08/31/2017 Overview: No, brochure given at this visit CHR ISCHEMIC HRT DIS NOS 09/10/2002 HTN, goal below 130/80 09/10/200202/02 Dyslipidemia, goal LDL below 70 08/31/2017 documented as of this encounter (statuses as of 08/08/2024) Immunizations Name Administration Dates Next Due COVID-19 [...] as of this encounter Miscellaneous Notes * Addendum Note - Ashkan Hernandez MD - 08/07/2024 2:00 PM EDTAddended by: ASHKAN HERNANDEZ on: 08/07/2024 02:00 PM Modules accepted: Orders * Telephone Encounter - Ashkan Hernandez MD - 08/07/2024 1:56 PM EDT Originally [...] Cuello LPN - 08/05/2024 9:32 AM EDT HH Concerns Phillip Speech Therapist , Calling from: [facility] Report/Concerns of: Oxygen stat's Symptoms: See Narrative Vitals: SP O2-90% RA- 2 HHN treatments-increased to 95% Narrative: Phillip calling in today stating she received a text from patients daughter Bernadine this AMstating mothers SPO2 this AM 90% RA. After 2 HHN treatments SPO2 increased to 95%. Family was usinga BumpTop watch to monitor SPO2 levels and was [...] on to hospice. [facility] Phone #--[phone] Fax #-- [phone] Last hematology/oncology appt-03/05/24 Next-Hem/Onc-08/13 swallowing study faxed to [facility] on 08/01. Needs to have Fluoro swallow done before can be placed on hospice. Daughter states [facility] have not scheduled it at this time. Call back Phillip with any advice or orders at [phone] Please fax new orders to [facility] Home Health Please advise- Hematology/ * Telephone Encounter - Peggy Flores LPN - 08/01/2024 1:06 PM EDT Karissa calling from [facility]. She received the order for a shower chair and raised toilet seat. She is asking that the order be faxed to a local BTR company. [facility] [place], received confirmation that the transmission was successful. * Telephone Encounter - Hilary Grider OSA - 08/01/2024 1:02 PM EDT Reason for patient's call: karissa with [facility] home health Caller was transferred to [facility] at the nurse line. * Telephone Encounter - Celina Alves LPN - 08/01/2024 11:39 AM EDT Faxed order below to [facility] # listed below. * Telephone Encounter - Carlos Paniagua MD - 08/01/2024 11:18 AM EDT Thanks for update and ordered DME * Telephone Encounter - Peggy Flores LPN - 08/01/2024 10:56 AM EDT PT/OT/ST Eval Start of Care/Continuation José OT, Calling from: [facility] PT Plan of care: 1 times [...] also see other Home Health message below [facility] HH Advised that additional visit orders will be signed by Carlos Paniagua MD and to fax to the office for signature * Telephone Encounter - Mariama Valdez LPN - 08/01/2024 10:36 AM EDT HH Concerns Phillip Speech Therapist , Calling from: [facility] Report/Concerns of: wheezing Symptoms: cough- nonproductive Vitals: T 97 P 70 RR 18 BP 140/88 SP O2 98 Lung sounds inspiratory wheezes Weight n/a Blood sugar n/a Narrative: Phillip calling from [facility], she is speech Therapy. Patient is [...] Phillip with any advice or orders at [phone] Please fax new orders to [facility] Home Health documented in this encounter Plan of Treatment Upcoming Encounters Date Type Department Care Team (Late st Contact Info) Description 08/13/2024 8:45 AM EST Office Visit Hematology/Oncology [facility] [address] [facility] [place] [address] Won Tesfaye MD [address] [facility] [place] [address] 08/16/2024 8:20 AM EST Office Visit Family Practice [facility] [address] [facility] [place] [address] Carlos Paniagua MD [address] [place] [address] 10/27/2024 10:00 AM EST Imaging Radiology, [place] [address] [facility] [place] [address] 12/09/2024 1:30 PM EST Appointment Radiology, [address] [phone] 12/09/2024 2:00 PM EST Rehab Services Voice Lab, [facility] [address] [place] [address] Willie Johnston, [facility]-ADVISOR [employer]ATE [employer]EL [employer] FOUNDER [address] [place] [address] Scheduled Procedures Name Priority Associated Diagnoses Date/Ti [...] lung documented in this encounter Care Teams Professor Of Legal Studies Relationship Specialty Start Date End Date Carlos Paniagua MD [address] [facility] [place] [address] PCP - General Internal Medicine 07/12/24 documented as of this encounter
--- OUTSIDE RECORDS SUMMARY | 2024-09-09 17:56 | External Medical Summary | Summary of Care ---
Author Name Unknown Organization [facility] Address [address] [facility] [place] [address] Phone [phone] Care Team Providers Care Music Researcher Name Role Phone Carlos Paniagua MD Primary Care Provider [phone] Reason for Visit * Reason Onset Date Comments Medication Refill 08/10/2024 Encounter Details Date Type Department Care Team (Late st Contact Info) Description 08/10/2024 Refill [facility] [address] [place] [address] Carlos Paniagua MD [address] [place] [address] Allergies Active Allergy Reactions Criticality [...] Release 24 Hour (toPROL XL)Indications:Athero sclerosis of [place] coronary artery of [place] heart without angina pectoris,HTN, goal below 140/90 [...] bedtime. 30 Tablet 11 07/12/2024 Active Nystatin 245024 UNIT/GM External Cream Apply 1 g topically [...] Lipid Taxonomy. Ischemic cardiomyopathy Coronary atherosclerosis of [place] coronary мария ry documented as of this [...] myocardial infarct 04/29/200908/04 Overview: Modified by Acute [place] Protocol #5. Oct 10 2007, Septal Acute [place] 10/28/2007 04/29/2009 Overview: Modified by Acute [place] Protocol #5. Oct 10 2007, Septal Acute [place] 10/28/2007 08/04/2011 Overview: Oct 10 2007, Septal [...] encounter Miscellaneous Notes * Telephone Encounter - Molly Smith [facility] - 08/11/2024 8:50 PM EST Refused Prescriptions: Disp Refills predniSONE 10 MG Oral Tablet (Deltasone) 30 Tab*0 Sig: Take 1 Tablet by mouth in the morning.Refused By: MOLLY SMITH for Refusal: Duplicate Request documented in this encounter Plan of Treatment Upcoming Encounters Date Type Department Care Team (Late st Contact Info) Description 08/13/2024 8:45 AM EST Office Visit Hematology/Oncology [facility] [address] [place] [address] Won Tesfaye MD [address] [place] [address] 08/16/2024 8:20 AM EST Office Visit Family Practice [facility] 132 [facility] [place] [address] Carlos Paniagua MD [address] [place] [address] 10/27/2024 10:00 AM EST Imaging Radiology, [facility] [address] [facility] [place] [address] 12/09/2024 1:30 PM EST Appointment Radiology, [address] [phone] 12/09/2024 2:00 PM EST Rehab Services Voice Lab, [address] [address] Willie Johnston, CCC-AVIATION SURVIVAL TECHNICIAN [address] [facility] [place] [address] Scheduled Procedures Name Priority Associated Diagnoses Date/Ti [...] filedocumented as of this encounter Care Teams Music Researcher Relationship Specialty Start Date End Date Carlos Paniagua MD [address] [place] [address] PCP - General Internal Medicine 07/12/24 documented as of this encounter
--- OUTSIDE RECORDS SUMMARY | 2024-09-09 17:56 | External Medical Summary | Summary of Care ---
Author Name Unknown Organization [facility] Address [address] [facility] [place] [address] Phone [phone] Care Team Providers Care Protective Signal Installer Helper Name Role Phone Carlos Paniagua MD Primary Care Provider [phone] Reason for Visit * Reason Onset Date Comments Medication Refill 07/28/2024 Encounter Details Date Type Department Care Team (Late st Contact Info) Description 07/28/2024 Refill General Internal Medicine [facility] [place] [address] [facility] [place] [address] Elizabeth Dc MD 200 [place] [address] Acute cough; COPD exacerbation (HCC) Allergies Active Allergy Reactions Criticality Noted Date [...] Release 24 Hour (toPROL XL)Indications:Ather osclerosis of [place] coronary artery of [place] heart without angina pectoris,HTN, goal below 140/90 [...] bedtime. 30 Tablet 11 07/12/2024 Active Nystatin 984648 UNIT/GM External Cream Apply 1 g topically to affected area in the morning and 1 g before bedtime. To affacted area for two weeks.. 60 g 3 07/28/2024 Active Cyanocobalamin 1000 MCG/ML Injection Solution (Cyanocobalamin)Tamela cations:B12 deficiency Inject 1,000 mcg into a large muscle every 30 days. 1 mL 04/17/2024 4 Discontinue d(Refill) predniSONE 10 MG Oral Tablet (Deltasone)Indicatio ns:Acute cough,COPD exacerbation (HCC) Take 5 tabs for 2 days, 4 tabs for 2 days, 3 tabs for 2 days, 2 tabs for 2 days 1 tab for 2 days 30 Tablet 07/15/2024 4 Discontinue d(Medicatio n List Clean Up) documented as of this [...] Lipid Taxonomy. Ischemic cardiomyopathy Coronary atherosclerosis of [place] coronary мария ry documented as of this [...] myocardial infarct 04/29/200908/04 Overview: Modified by Acute [place] Protocol #5. Oct 10 2007, Septal Acute [place] 10/28/2007 04/29/2009 Overview: Modified by Acute [place] Protocol #5. Oct 10 2007, Septal Acute [place] 10/28/2007 08/04/2011 Overview: Oct 10 2007, Septal [...] encounter Miscellaneous Notes * Telephone Encounter - Sofi Urias OSA - 07/28/2024 4:09 PM EDT Did you pend patient's preferred pharmacy and medication before forwarding?yes Pharmacy: [facility] [id number] [facility] Pending Prescriptions: Disp Refills predniSONE 10 MG Oral Tablet (Deltasone) 30 Tab*0 Sig: Take 5 tabs for 2 days, 4 tabs for 2 days, 3 tabs for 2 days, 2 tabs for 2 days 1 tab for 2 days Last Visit: 07/15/2024 (in office), Visit date not found (telemedicine) Next Visit: Visit date not found If no future appointments scheduled, and last appointment is greater than a year ago, please schedule patient for a follow-up appointment Last date the medication was ordered: 07/15/2024 Is this request for a controlled substance?No Urine Drug Screen:No results found. However, due to the size of the patient record, not all encounters were searched. Please check Results Review for a complete set of results. Patient Phone Numbers Labs: Lab Results Component Value Date/Time CREAT 0.8 07/15/2024 02:07 PM CREAT 0.9 05/11/2020 10:26 AM POTASSIUM 4.4 07/15/2024 02:07 PM POTASSIUM 4.0 02/26/2020 02:42 PM TSH 5.85 (H) 04/17/2024 09:49 AM TSH 2.59 02/26/2020 02:42 PM LDL 170 (H) 04/17/2024 09:49 AM LDL 92 08/08/2019 10:27 AM ALT 26 07/15/2024 02:07 PM ALT 29 08/23/2020 10:53 AM ALT 22 10/25/2007 12:00 AM documented in this encounter Plan of Treatment Upcoming Encounters Date Type Department Care Team (Late st Contact Info) Description 08/13/2024 8:45 AM EST Office [facility] [address] [place] [address] Won Tesfaye MD [address] [place] [address] 08/16/2024 8:20 AM EST Office Visit [facility] [place] [address] Carlos Paniagua MD [address] [facility] [place] [address] 10/27/2024 10:00 AM EST Imaging Radiology, [facility] [address] [facility] [place] [address] 12/09/2024 1:30 PM EST Appointment Radiology, [facility] [address] [place] [phone] 12/09/2024 2:00 PM EST Rehab Services Voice Lab, [facility] [address] [place] [address] Willie Johnston, CCC-ARMATURE WINDER REPAIR [address] [place] [address] Scheduled Procedures Name Priority Associated Diagnoses Date/Ti [...] as of this encounter Visit Diagnoses Diagnosis Acute cough COPD exacerbation (HCC) Obstructive chronic bronchitis with exacerbation documented in this encounter Care Teams Protective Signal Installer Helper Relationship Specialty Start Date End Date Carlos Paniagua MD 132 [facility] [place] [address] PCP - General Internal Medicine 07/12/24 documented as of this encounter
--- OUTSIDE RECORDS SUMMARY | 2024-09-09 17:57 | External Medical Summary | Summary of Care ---
Author Name Unknown Organization [facility] Address [address] [facility] [place] [address] Phone [phone] Care Team Providers Care Door Fitter Name Role Phone Carlos Paniagua MD Primary Care Provider [phone] Reason for Visit * Reason Onset Date Comments Home Health 07/25/2024 FYI 07/25/2024 Encounter Details Date Type Department Care Team (Late st Contact Info) Description 07/25/2024 Telephone [facility] [address] [place] [address] Carlos Paniagua MD [address] [place] [address] Home Health; (/) Allergies Active [...] Release 24 Hour (toPROL XL)Indications:Ather osclerosis of [place] coronary artery of [place] heart without angina pectoris,HTN, goal below 140/90 Take 1 Tablet by mouth in the morning. 90 Tablet 3 04/17/2024 Active Cyanocobalamin 1000 MCG/ML Injection Solution (Cyanocobalamin)Tamela [...] or Wheezing. 360 mL 2 04/17/2024 Active Ipratropium-Albutero l 0.5-2.5 (3) MG/3ML [...] bedtime. 30 Tablet 11 07/12/2024 Active Nystatin 211285 UNIT/GM External Cream Apply 1 g topically to affected area in the morning and 1 g before bedtime. To affacted area for two weeks.. 60 g 3 07/28/2024 Active predniSONE 10 MG Oral Tablet (Deltasone)Indicatio ns:Acute [...] Lipid Taxonomy. Ischemic cardiomyopathy Coronary atherosclerosis of [place] coronary мария ry documented as [...] myocardial infarct 04/29/200908/04 Overview: Modified by Acute [place] Protocol #5. Oct 10 2007, Septal Acute [place] 10/28/2007 04/29/2009 Overview: Modified by Acute [place] Protocol #5. Oct 10 2007, Septal Acute [place] 10/28/2007 08/04/2011 Overview: Oct 10 2007, Septal [...] encounter Miscellaneous Notes * Addendum Note - Carlos Paniagua MD [...] EDT Feliciano VEGA calling in today from [facility]. She called [facility] registration and they did receive Fluoro swallow order, but the Diagnosis needs fixed to be covered. Order needs addended with DX: Dysphagia After Addended please re fax to [facility] and Contact patient daughter Bernadine to schedule procedure. Please advice- addend order and fax * Telephone Encounter - Mariama Valdez LPN - 08/01/2024 10:46 AM EDT Phillip calling from [facility] Patient can have the video swallowing test done at [facility] next week. Order faxed to [facility] with confirmed receipt. Fyi * [...] Crenshaw LPN - 07/25/2024 3:26 PM EDT PT/OT/ST [place] Start of Care/Continuation Phillip Speech Therapist , [...] Phillip with any advice or orders at [phone]. Please fax new orders to [facility] Home Health [phone] Advised that additional visit orders will be signed by Carlos Paniagua MD and to fax to the office for signature documented in this encounter Plan of Treatment Upcoming Encounters Date Type Department Care Team (Late st Contact Info) Description 08/13/2024 8:45 AM EST Office Visit Hematology/Oncology [facility] 200 [facility] [place] [phone] Won Tesfyae MD 200 [facility] [place] [address] 08/16/2024 8:20 AM EST Office Visit Family Practice [facility] 132 [facility] [place] [address] Carlos Paniagua MD [facility] [place] [address] 10/27/2024 10:00 AM EST Imaging Radiology, [address] [place] [address] 12/09/2024 1:30 PM EST Appointment Radiology, [address] [place] [phone] 12/09/2024 2:00 PM EST Rehab Services Voice Lab, [address] [id number] Willie Johnston, CCC-SOFTWARE SUPPORT TECHNICIAN 132 [facility] [place] [address] Scheduled Orders Name Type Priority Associated Diagnoses [...] unspecified documented in this encounter Care Teams Door Fitter Relationship Specialty Start Date End Date Carlos Paniagua MD 132 [facility] [place] [address] PCP - General Internal Medicine 07/12/24 documented as of this encounter
--- OUTSIDE RECORDS SUMMARY | 2024-09-09 17:57 | External Medical Summary | Summary of Care ---
Author Name Unknown Organization [facility] Address [address] [facility] [address] Phone [phone] Care Team Providers Care Claim Specialist Name Role Phone Carlos Paniagua MD Primary Care Provider [phone] Reason for Visit * Reason Onset Date Comments Home Health 08/01/2024 Encounter Details Date Type Department Care Team (Late st Contact Info) Description 08/01/2024 Telephone [facility] [address] [place] [address] Carlos Paniagua MD [address] [place] [address] Home Health Allergies Active Allergy Reactions Criticality Noted Date Comments Hydrocodone High 08/03/2021 Other reaction(s): Hallucinating Hydrocodone Bit-Homatrop Mbr 08/22/2017 hallucinations Isosorbide Nitrate Other (Please comment) 02/24/2021 headaches Penicillins 09/10/2002 hives documented as of this encounter (statuses as of 08/06/2024) Medications Medication Sig Dispensed Refills Start Date [...] Release 24 Hour (toPROL XL)Indications:Athero sclerosis of [place] coronary artery of robinson heart without angina pectoris,HTN, goal below 140/90 [...] bedtime. 30 Tablet 11 07/12/2024 Active Nystatin 898484 UNIT/GM External Cream Apply 1 g topically to affected area in the morning and 1 g before bedtime. To affacted area for two weeks.. 60 g 3 07/28/2024 Active predniSONE 10 MG Oral Tablet (Deltasone) Take 1 Tablet by mouth in the morning. 30 Tablet 07/29/2024 Active documented as of this encounter (statuses as of 08/06/2024) Active Problems Problem Noted Date Diagnosed Date [...] Lipid Taxonomy. Ischemic cardiomyopathy Coronary atherosclerosis of robinson coronary мария ry documented as of this encounter (statuses as of 08/06/2024) Resolved Problems Problem Noted Date Diagnosed Date [...] myocardial infarct 04/29/200908/04 Overview: Modified by Acute [place] Protocol #5. Oct 10 2007, Septal Acute [place] 10/28/2007 04/29/2009 Overview: Modified by Acute [place] Protocol #5. 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 7 08/31/2017 ADVANCE DIRECTIVE INFORMATION 09/04/2006 08/31/2017 Overview: No, brochure given at this visit CHR ISCHEMIC HRT DIS NOS 09/10/2002 HTN, goal below 130/80 09/10/200202/02 Dyslipidemia, goal LDL below 70 08/31/2017 documented as of this encounter (statuses as of 08/06/2024) Immunizations Name Administration Dates Next Due COVID-19 [...] encounter Miscellaneous Notes * Telephone Encounter - Michelle Villar RN [...] Concerns Phillip Speech Therapist , Calling from: [facility] Report/Concerns of: Oxygen stat's Symptoms: See Narrative Vitals: SP O2-90% RA- 2 HHN treatments-increased to 95% Narrative: Phillip calling in today stating she received a text from patients daughter Bernadine this AMstating mothers SPO2 this AM 90% RA. After 2 HHN treatments SPO2 increased to 95%. Family was usinga [employer] watch to monitor SPO2 levels and was [...] on to hospice. [facility] Phone #--[phone] Fax #-- [phone] Last hematology/oncology appt-03/05/24 Next-Hem/Onc-08/13 swallowing study faxed to [facility] on 08/01. Needs to have Fluoro swallow done before can be placed on hospice. Daughter states [facility] have not scheduled it at this time. Call back Phillip with any advice or orders at [phone] Please fax new orders to [facility] Home Health Please advise- Hematology/ * Telephone Encounter - Peggy Flores LPN - 08/01/2024 1:06 PM EDT Karissa calling from [facility]. She received the order for a shower chair and raised toilet seat. She is asking that the order be faxed to a local DME company. Faxed to [facility] in [place], received confirmation that the transmission was successful. * Telephone Encounter - Hilary Grider OSA - 08/01/2024 1:02 PM EDT Reason for patient's call: karissa with [facility] home health Caller was transferred to [facility] at the nurse line. * Telephone Encounter - Celina Alves LPN - 08/01/2024 11:39 AM EDT Faxed order below to [facility] # listed below. * Telephone Encounter - Carlos Paniagua MD - 08/01/2024 11:18 AM EDT Thanks for update and ordered DME * Telephone Encounter - Peggy Flores LPN - 08/01/2024 10:56 AM EDT PT/OT/ST Eval Start of Care/Continuation José OT, Calling from: [facility] PT Plan of care: 1 [...] also see other Home Health message below [facility] HH Advised that additional visit orders will be signed by Carlos Paniagua MD and to fax to the office for signature * Telephone Encounter - Mariama Valdez LPN - 08/01/2024 10:36 AM EDT HH Concerns Phillip Speech Therapist , Calling from: [facility] Report/Concerns of: wheezing Symptoms: cough- nonproductive Vitals: T 97 P 70 RR 18 BP 140/88 SP O2 98 Lung sounds inspiratory wheezes Weight n/a Blood sugar n/a Narrative: Phillip calling from [facility], she is speech Therapy. Patient [...] Phillip with any advice or orders at [phone] Please fax new orders to [facility] Home Health documented in this encounter Plan of Treatment Upcoming Encounters Date Type Department Care Team (Late st Contact Info) Description 08/13/2024 8:45 AM EST Office Visit Hematology[facility] [address] [place] [address] Won Tesfaye MD [address] [place] [address] 08/16/2024 8:20 AM EST Office Visit Family Practice [facility] [address] [facility] [place] [address] Carlos Paniagua MD [address] [facility] [place] [address] 10/27/2024 10:00 AM EST [address]iology, [address] [address] 12/09/2024 1:30 PM EST [facility] [place] [phone] 12/09/2024 2:00 PM EST Rehab Services Voice Lab, [facility] [address] [facility] [place] [address] Willie Johnston, [facility] [address] [place] [address] Scheduled Procedures Name Priority Associated Diagnoses Date/Ti [...] as of this encounter Visit Diagnoses Diagnosis Generalized weakness- Primary Other malaise and fatigue documented in this encounter Care Teams Claim Specialist Relationship Specialty Start Date End Date Carlos Paniagua MD 132 [facility] [place] [address] PCP - General Internal Medicine 07/12/24 documented as of this encounter
--- OUTSIDE RECORDS SUMMARY | 2024-09-09 17:57 | External Medical Summary | Summary of Care ---
Author Name Unknown Organization [facility] Address [address] [facility] [address] Phone [phone] Care Team Providers Care E Commerce Merchant Name Role Phone Carlos Paniagua MD Primary Care Provider [phone] Reason for Visit * Reason Onset Date Comments Home Health 08/01/2024 Encounter Details Date Type Department Care Team (Late st Contact Info) Description 08/01/2024 Telephone [facility] [address] [place] [address] Carlos Paniagua MD [address] [place] [address] Home Health Allergies Active Allergy [...] Release 24 Hour (toPROL XL)Indications:Athero sclerosis of [place] coronary artery of [place] heart without angina pectoris,HTN, goal below 140/90 [...] bedtime. 30 Tablet 11 07/12/2024 Active Nystatin 691655 UNIT/GM External Cream Apply 1 g topically [...] Lipid Taxonomy. Ischemic cardiomyopathy Coronary atherosclerosis of [place] coronary мария ry documented as of this [...] myocardial infarct 04/29/200908/04 Overview: Modified by Acute [place] Protocol #5. Oct 10 2007, Septal Acute [place] 10/28/2007 04/29/2009 Overview: Modified by Acute [place] Protocol #5. Oct 10 2007, Septal Acute [place] 10/28/2007 08/04/2011 Overview: Oct 10 2007, Septal [...] daughter. Thanks! * Telephone Encounter - Marv Ceullo LPN - 08/05/2024 9:32 AM EDT HH Concerns Phillip Speech Therapist , Calling from: [facility] Report/Concerns of: Oxygen stat's Symptoms: See Narrative Vitals: SP O2-90% RA- 2 HHN treatments-increased to 95% Narrative: Phillip calling in today stating she received a text from patients daughter Bernadine this AMstating mothers SPO2 this AM 90% RA. After 2 HHN treatments SPO2 increased to 95%. Family was usinga [employer] watch to monitor SPO2 levels and was [...] on to hospice. [facility] Phone #--[phone] Fax #-- [phone] Last hematology/oncology appt-03/05/24 Next-Hem/Onc-08/13 swallowing study faxed to [facility] on 08/01. Needs to have Fluoro swallow done before can be placed on hospice. Daughter states [facility] have not scheduled it at this time. Call back Phillip with any advice or orders at [phone] Please fax new orders to [facility] Home Health Please advise- Hematology/ * Telephone Encounter - Peggy Flores LPN - 08/01/2024 1:06 PM EDT Karissa calling from [facility]. She received the order for a shower chair and raised toilet seat. She is asking that the order be faxed to a local [employer] company. [facility] [place], received confirmation that the transmission was successful. * Telephone Encounter - Hilary Grider OSA - 08/01/2024 1:02 PM EDT Reason for patient's call: karissa with [facility] home health Caller [facility] at [facility] nurse line. * Telephone Encounter - Celina Alves LPN - 08/01/2024 11:39 AM EDT Faxed order below to [facility] # listed below. * Telephone Encounter - Carlos Paniagua MD - 08/01/2024 11:18 AM EDT Thanks for update and ordered DME * Telephone Encounter - Peggy Flores LPN - 08/01/2024 10:56 AM EDT PT/OT/ST Eval Start of Care/Continuation José OT, Calling from: [facility] PT Plan of care: 1 times per [...] also see other Home Health message below [facility] HH Advised that additional visit orders will be signed by Carlos Paniagua MD and to fax to the office for signature * Telephone Encounter - Mariama Valdez LPN - 08/01/2024 10:36 AM EDT HH Concerns Phillip Speech Therapist , Calling from: [facility] Report/Concerns of: wheezing Symptoms: cough- nonproductive Vitals: T 97 P 70 RR 18 BP 140/88 SP O2 98 Lung sounds inspiratory wheezes Weight n/a Blood sugar n/a Narrative: Phillip calling from [facility], she is speech Therapy. Patient is on [...] Phillip with any advice or orders at [phone] Please fax new orders to [facility] Home Health documented in this encounter Plan of Treatment Upcoming Encounters Date Type Department Care Team (Late st Contact Info) Description 08/13/2024 8:45 AM EST Office Visit Hematology/Oncology [facility] [address] [facility] [place] [address] Won Tesfaye MD [address] [facility] [place] [address] 08/16/2024 8:20 AM EST Office Visit Family Practice [facility] 132 [facility] [place] [address] Carlos Paniagua MD [address] [place] [address] 10/27/2024 10:00 AM EST Imaging Radiology, [place] [address] [facility] [place] [address] 12/09/2024 1:30 PM EST Appointment Radiology, [address] [phone] 12/09/2024 2:00 PM EST Rehab Services Voice Lab, [facility] [address] [place] [address] Willie Johnston, [facility] MACHINE OPERATOR [address] [place] [address] Scheduled Procedures Name Priority Associated Diagnoses Date/Ti [...] lung documented in this encounter Care Teams E Commerce Merchant Relationship Specialty Start Date End Date Carlos Paniagua MD [address] [facility] [place] [address] PCP - General Internal Medicine 07/12/24 documented as of this encounter
--- OUTSIDE RECORDS SUMMARY | 2024-09-09 17:58 | External Medical Summary | Summary of Care ---
Author Name Unknown Organization [facility] Address [address] [facility] [place] [address] Phone [phone] Care Team Providers Care Template Checker Name Role Phone Carlos Paniagua MD Primary Care Provider [phone] Reason for Visit * Reason Onset Date Comments Home Health 07/25/2024 FYI 07/25/2024 Encounter Details Date Type Department Care Team (Late st Contact Info) Description 07/25/2024 Telephone [facility] [address] [place] [address] Carlos Paniagua MD [address] [place] [address] Home Health; (/) Allergies Active [...] Release 24 Hour (toPROL XL)Indications:Ather osclerosis of creek coronary artery of creek heart without angina pectoris,HTN, goal below [...] bedtime. 30 Tablet 11 07/12/2024 Active Nystatin 990425 UNIT/GM External Cream Apply 1 g topically [...] Lipid Taxonomy. Ischemic cardiomyopathy Coronary atherosclerosis of creek coronary мария ry documented as of [...] myocardial infarct 04/29/200908/04 Overview: Modified by Acute [place] Protocol #5. Oct 10 2007, Septal Acute [place] 10/28/2007 04/29/2009 Overview: Modified by Acute [place] Protocol #5. Oct 10 2007, Septal Acute [place] 10/28/2007 08/04/2011 Overview: Oct 10 2007, Septal [...] encounter Miscellaneous Notes * Addendum Note - Marv Cuello LPN - 08/06/2024 12:27 PM EDTAddended by: MARV CUELLO on: 08/06/2024 12:27 PM Modules accepted: Orders * Telephone Encounter - Marv Cuello LPN - 08/06/2024 12:18 PM EDT Feliciano VEGA calling in today from [facility]. She called [facility] registration and they did receive Fluoro swallow order, but the Diagnosis needs fixed to be covered. Order needs addended with DX: Dysphagia After Addended please re fax to [facility] and Contact patient daughter Bernadine to schedule procedure. Please advice- addend order and fax * Telephone Encounter - Mariama Valdez LPN - 08/01/2024 10:[address] Phillip calling from [facility] Patient can have the video swallowing test done at [facility] next week. Order faxed to [facility] with confirmed receipt. Fyi * Telephone [...] Care/Continuation Phillip Speech Therapist , Calling from: [facility] Speech Therapist Plan of care: 1 [...] Phillip with any advice or orders at [phone]. Please fax new orders to [facility] Home Health [phone] Advised that additional visit orders will be signed by Carlos Paniagua MD and to fax to the office for signature documented in this encounter Plan of Treatment Upcoming Encounters Date Type Department Care Team (Late st Contact Info) Description 08/13/2024 8:45 AM EST Office Visit Hematology/Oncology [facility] 200 [facility] [place], [place] [address] Won Tesfaye MD [address] [facility] [place] [address] 08/16/2024 8:20 AM EST Office Visit Family Practice [facility] 132 [facility] [place] [address] Carlos Paniagua MD [address] [place] [address] 10/27/2024 10:00 AM EST Imaging Radiology, [facility] [address] [facility] [place], [place] [address] 12/09/2024 1:30 PM EST Appointment Radiology, [facility] 400 [facility] [place] [address] 12/09/2024 2:00 PM EST Rehab Services Voice Lab, [facility] [address] [place] [address] Willie Johnston, [employer]-CUTTER HAND 132 [facility] [place] [address] Scheduled Orders Name Type Priority Associated Diagnoses Orde r Schedule FLUORO SWALLOWING FUNCTION W VIDEO CINE Medical Imaging Routine Dementia without behavioral disturbance (HCC) Cough, unspecified type Ordered: 07/28/2024 Scheduled Procedures Name Priority Associated Diagnoses Date/Ti [...] unspecified documented in this encounter Care Teams Template Checker Relationship Specialty Start Date End Date Carlos Paniagua MD [address] [place] [address] PCP - General Internal Medicine 07/12/24 documented as of this encounter
--- OUTSIDE RECORDS SUMMARY | 2024-09-09 17:58 | External Medical Summary | Summary of Care ---
Author Name Unknown Organization [facility] Address [address] [facility] [address] Phone [phone] Care Team Providers Care Online Affiliate Marketing Manager Name Role Phone Carlos Paniagua MD Primary Care Provider [phone] Reason for Visit * Reason Onset Date Comments Home Health 08/01/2024 Encounter Details Date Type Department Care Team (Late st Contact Info) Description 08/01/2024 Telephone [facility] [address] [place] [address] Carlos Paniagua MD [address] [place] [address] Home Health Allergies Active Allergy Reactions Criticality Noted Date Comments Hydrocodone High 08/03/2021 Other reaction(s): Hallucinating Hydrocodone Bit-Homatrop Mbr 08/22/2017 hallucinations Isosorbide Nitrate Other (Please comment) 02/24/2021 headaches Penicillins 09/10/2002 hives documented as of this encounter (statuses as of 08/05/2024) Medications Medication Sig Dispensed Refills Start Date [...] Release 24 Hour (toPROL XL)Indications:Athero sclerosis of the [place] coronary artery of the [place] heart without angina pectoris,HTN, [...] bedtime. 30 Tablet 11 07/12/2024 Active Nystatin 084681 UNIT/GM External Cream Apply 1 g topically to affected area in the morning and 1 g before bedtime. To affacted area for two weeks.. 60 g 3 07/28/2024 Active predniSONE 10 MG Oral Tablet (Deltasone) Take 1 Tablet by mouth in the morning. 30 Tablet 07/29/2024 Active documented as of this encounter (statuses as of 08/05/2024) Active Problems Problem Noted Date Diagnosed Date [...] Lipid Taxonomy. Ischemic cardiomyopathy Coronary atherosclerosis of the [place] coronary мария ry documented as of this encounter (statuses as of 08/05/2024) Resolved Problems Problem Noted Date Diagnosed Date [...] myocardial infarct 04/29/200908/04 Overview: Modified by Acute [place] Protocol #5. Oct 10 2007, Septal Acute [place] 10/28/2007 04/29/2009 Overview: Modified by Acute [place] Protocol #5. 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 Family was usinga [employer] watch to monitor SPO2 levels and was [...] on to hospice. [facility] Phone #--[phone] Fax #-- [phone] Last hematology/oncology appt-03/05/24 Next-Hem/Onc-08/13 swallowing study faxed to [facility] on 08/01. Needs to have Fluoro swallow done before can be placed on hospice. Daughter states [facility] have not scheduled it at this time. Call back Phillip with any advice or orders at [phone] Please fax new orders to [facility] Home Health Please advise- Hematology/ * Telephone Encounter - Peggy Flores LPN - 08/01/2024 1:06 PM EDT Karissa calling from [facility]. She received the order for a shower chair and raised toilet seat. She is asking that the order be faxed to a local DME company. Faxed to [facility] in [place], received confirmation that the transmission was successful. * Telephone Encounter - Hilary Grider OSA - 08/01/2024 1:02 PM EDT Reason for patient's call: karissa with [facility] home health Caller was transferred to [facility] at the nurse line. * Telephone [...] Phillip with any advice or orders at [phone] Please fax new orders to [facility] Home Health documented in this encounter Plan of Treatment Upcoming Encounters Date Type Department Care Team (Late st Contact Info) Description 08/13/2024 8:45 AM EST Office Visit Hematology/Oncology [facility] [address] [place] [address] Won Tesfaye MD [address] [place] [address] 08/16/2024 8:20 AM EST Office Visit Family Practice [facility] 132 [facility] [place] [address] Carlos Paniagua MD [address] [facility] [place] [address] 10/27/2024 10:00 AM EST Imaging Radiology, [address] [address] 12/09/2024 1:30 PM EST Appointment Radiology, [facility] [place] [phone] 12/09/2024 2:00 PM EST Rehab Services Voice Lab, [facility] [address] [facility] [place] [address] Willie Johnston, [facility]-DIRECTOR CAREER [address] [place] [address] Scheduled Procedures Name Priority Associated Diagnoses Date/Ti [...] fatigue documented in this encounter Care Teams Online Affiliate Marketing Manager Relationship Specialty Start Date End Date Carlos Paniagua MD 132 [facility] [place] [address] PCP - General Internal Medicine 07/12/24 documented as of this encounter
--- OUTSIDE RECORDS SUMMARY | 2024-09-09 17:58 | External Medical Summary | Summary of Care ---
Author Name Unknown Organization [facility] Address [address] [facility] [address] Phone [phone] Care Team Providers Care Field Marketing Director Name Role Phone Carlos Paniagua MD Primary Care Provider [phone] Reason for Visit * Reason Onset Date Comments Home Health 08/01/2024 Encounter Details Date Type Department Care Team (Late st Contact Info) Description 08/01/2024 Telephone [facility] [address] [place] [address] Carlos Paniagua MD [address] [place] [address] Home Health Allergies Active Allergy [...] Release 24 Hour (toPROL XL)Indications:Athero sclerosis of [place] coronary artery of [place] heart without angina pectoris,HTN, goal below 140/90 [...] bedtime. 30 Tablet 11 07/12/2024 Active Nystatin 139478 UNIT/GM External Cream Apply 1 g topically [...] Lipid Taxonomy. Ischemic cardiomyopathy Coronary atherosclerosis of [place] coronary мария ry documented as of this [...] myocardial infarct 04/29/200908/04 Overview: Modified by Acute MS Protocol #5. Oct 10 2007, Septal Acute MS 10/28/2007 04/29/2009 Overview: Modified by Acute MS Protocol #5. Oct 10 2007, Septal Acute MS 10/28/2007 08/04/2011 Overview: Oct 10 2007, Septal [...] encounter Miscellaneous Notes * Telephone Encounter - Marv Cuello LPN - 08/05/2024 4:08 PM EDT HH PT/OT/ST Eval Start of Care/Continuation Manny PT, Calling from: [facility] PT Plan of care: 1 times per week for 6 weeks: Focusing on: endurance and strength Concerns: no None Symptoms: none Vitals: T 97.8 P 72 RR 20 BP 116/62 SP O2 97% at rest Narrative: continue PT services Call back Manny with any advice or orders at [facility] Home Health Advised that additional visit orders will be signed by Carlos Paniagua MD and to fax to the office for signature Please fax new orders to [facility] * Telephone Encounter - Kimberli Urias LPN - 08/01/2024 4:05 PM EDT Manny [facility] HH calling to report he will do eval for physical therapy next Sunday 08/05. documented in this encounter Plan of Treatment Upcoming Encounters Date Type Department Care Team (Late st Contact Info) Description 08/13/2024 8:45 AM EST Office Visit Hematology/Oncology [facility] [address] [facility] [place] [address] Won Tesfaye MD [address] [facility] [place] [address] 08/16/2024 8:20 AM EST Office Visit Family Practice [facility] 132 [facility] [place] [address] Carlos Paniagua MD [address] [facility] [place] [id number] 10/27/2024 10:00 AM EST Imaging Radiology, [place] 278760 [facility] [place] [address] 12/09/2024 1:30 PM EST Appointment Radiology, [facility] [place] [address] 12/09/2024 2:00 PM EST Rehab Services Voice Lab, [facility] [address] [place] [address] [place] [address] Willie Johnston, [facility]STRUCTURED CABLING TECHNICIAN [address] [place] [address] Scheduled Procedures Name Priority Associated Diagnoses Date/Ti [...] filedocumented as of this encounter Care Teams Field Marketing Director Relationship Specialty Start Date End Date Carlos Paniagua MD 132 [place] [address] PCP - General Internal Medicine 07/12/24 documented as of this encounter
--- OUTSIDE RECORDS SUMMARY | 2024-09-09 17:58 | External Medical Summary | Summary of Care ---
Author Name Unknown Organization [facility] Address [address] [facility] [address] Phone [phone] Care Team Providers Care Disability Representative Name Role Phone Carlos Paniagua MD Primary Care Provider [phone] Reason for Visit * Reason Onset Date Comments Home Health 08/01/2024 Encounter Details Date Type Department Care Team (Late st Contact Info) Description 08/01/2024 Telephone [facility] [address] [place] [address] Carlos Paniagua MD [address] [place] [address] Home Health Allergies Active Allergy [...] bedtime. 30 Tablet 11 07/12/2024 Active Nystatin 588025 UNIT/GM External Cream Apply 1 g topically [...] myocardial infarct 04/29/200908/04 Overview: Modified by Acute CA Protocol #5. Oct 10 2007, Septal Acute CA 10/28/2007 04/29/2009 Overview: Modified by Acute CA Protocol #5. Oct 10 2007, Septal Acute CA 10/28/2007 08/04/2011 Overview: Oct 10 2007, Septal [...] Concerns Phillip Speech Therapist , Calling from: [facility] Report/Concerns of: Oxygen stat's Symptoms: See Narrative Vitals: SP O2-90% RA- 2 HHN treatments-increased to 95% Narrative: Phillip calling in today stating she received a text from patients daughter Bernadine this AMstating mothers SPO2 this AM 90% RA. After 2 HHN treatments SPO2 increased to 95%. Family was usinga [employer] watch to monitor SPO2 levels and was [...] on to hospice. [facility]. Phone #--[phone] Fax #-- [phone] Last hematology/oncology appt-03/05/24 Next-Hem/Onc-08/13 swallowing study faxed to [facility] on 08/01. Needs to have Fluoro swallow done before can be placed on hospice. Daughter states [facility] have not scheduled it at this time. Call back Phillip with any advice or orders at [phone] Please fax new orders to [facility] Home Health Please advise- Hematology/ * Telephone Encounter - Peggy Flores LPN - 08/01/2024 1:06 PM EDT Karissa calling from [facility]. She received the order for a shower chair and raised toilet seat. She is asking that the order be faxed to a local DME company. Faxed to [facility] in [place], received confirmation that the transmission was successful. * Telephone Encounter - Hilary Grider OSA - 08/01/2024 1:02 PM EDT Reason for patient's call: karissa with [facility] home health Caller was transferred to [facility] at the nurse line. * Telephone Encounter - Celina Alves LPN - 08/01/2024 11:39 AM EDT Faxed order below to [facility] # listed below. * Telephone Encounter - Carlos Paniagua MD - 08/01/2024 11:18 AM EDT Thanks for update and ordered DME * Telephone Encounter - Peggy Flores LPN - 08/01/2024 10:56 AM EDT PT/OT/ST Eval Start of Care/Continuation José OT, Calling from: [facility] PT Plan of care: 1 times per [...] also see other Home Health message below [facility] HH Advised that additional visit orders will be signed by Carlos Paniagua MD and to fax to the office for signature * Telephone Encounter - Mariama Valdez LPN - 08/01/2024 10:36 AM EDT HH Concerns Phillip Speech Therapist , Calling from: [facility] Report/Concerns of: wheezing Symptoms: cough- nonproductive Vitals: T 97 P 70 RR 18 BP 140/88 SP O2 98 Lung sounds inspiratory wheezes Weight n/a Blood sugar n/a Narrative: Phillip calling from [facility], she is speech Therapy. Patient is on [...] Phillip with any advice or orders at [phone] Please fax new orders to [facility] Home Health documented in this encounter Plan of Treatment Upcoming Encounters Date Type Department Care Team (Late st Contact Info) Description 08/13/2024 8:45 AM EST Office Visit Hematology/Oncology [facility] [address] [place] [address] Won Tesfaye MD [address] [place] [address] 08/16/2024 8:20 AM EST Office Visit Family Practice [facility] 132 [facility] [place] [address] Carlos Paniagua MD [address] [facility] [place] [address] 10/27/2024 10:00 AM EST Imaging Radiology, [address] [address] 12/09/2024 1:30 PM EST Appointment Radiology, [facility] 400 [facility] [place] [phone] 12/09/2024 2:00 PM EST Rehab Services Voice Lab, [facility] 400 [facility] [place] [address] Wlilie Johnston, [facility] L[facility]ER HEAD [address] [place] [address] Scheduled Procedures Name Priority Associated Diagnoses Date/Ti [...] fatigue documented in this encounter Care Teams Disability Representative Relationship Specialty Start Date End Date Carlos Paniagua MD 132 [facility] [place] [address] PCP - General Internal Medicine 07/12/24 documented as of this encounter
--- OUTSIDE RECORDS SUMMARY | 2024-09-09 17:59 | External Medical Summary | Summary of Care ---
Author Name Unknown Organization [facility] Address [address] [facility] [place] [place] [address] Phone [phone] Care Team Providers Care Reliability Specialist Name Role Phone Carlos Paniagua MD Primary Care Provider [phone] Reason for Visit * Reason Onset Date Comments Home Health 08/01/2024 Encounter Details Date Type Department Care Team (Late st Contact Info) Description 08/01/2024 Telephone [facility] [address] [place] [address] Carlos Paniagua MD [address] [place] [address] Home Health Allergies Active Allergy Reactions Criticality Noted Date Comments Hydrocodone High 08/03/2021 Other reaction(s): Hallucinating Hydrocodone Bit-Homatrop Mbr 08/22/2017 hallucinations Isosorbide Nitrate Other (Please comment) 02/24/2021 headaches Penicillins 09/10/2002 hives documented as of this encounter (statuses as of 08/01/2024) Medications Medication Sig Dispensed Refills Start Date [...] Release 24 Hour (toPROL XL)Indications:Athero sclerosis of [place] coronary artery of [place] heart without angina pectoris,HTN, goal below 140/90 [...] bedtime. 30 Tablet 11 07/12/2024 Active Nystatin 843554 UNIT/GM External Cream Apply 1 g topically to affected area in the morning and 1 g before bedtime. To affacted area for two weeks.. 60 g 3 07/28/2024 Active predniSONE 10 MG Oral Tablet (Deltasone) Take 1 Tablet by mouth in the morning. 30 Tablet 07/29/2024 Active documented as of this encounter (statuses as of 08/01/2024) Active Problems Problem Noted Date Diagnosed Date [...] Lipid Taxonomy. Ischemic cardiomyopathy Coronary atherosclerosis of [place] coronary мария ry documented as of this encounter (statuses as of 08/01/2024) Resolved Problems Problem Noted Date Diagnosed Date [...] myocardial infarct 04/29/200908/04 Overview: Modified by Acute GA Protocol #5. Oct 10 2007, Septal Acute GA 10/28/2007 04/29/2009 Overview: Modified by Acute GA Protocol #5. 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 7 08/31/2017 ADVANCE DIRECTIVE INFORMATION 09/04/2006 08/31/2017 Overview: No, brochure given at this visit CHR ISCHEMIC HRT DIS NOS 09/10/2002 HTN, goal below 130/80 09/10/200202/02 Dyslipidemia, goal LDL below 70 08/31/2017 documented as of this encounter (statuses as of 08/01/2024) Immunizations Name Administration Dates Next Due COVID-19 [...] encounter Miscellaneous Notes * Telephone Encounter - Hilary Grider OSA - 08/01/2024 1:02 PM EDT Reason for patient's call: rico with [facility] home health Caller was transferred to peggy [...] Phillip with any advice or orders at [phone] Please fax new orders to [facility] Home Health documented in this encounter Plan of Treatment Upcoming Encounters Date Type Department Care Team (Late st Contact Info) Description 08/04/2024 8:00 AM EDT Office Visit Cardiology, [facility] 132 [facility] [place] [address] Margarita Rangel PA-C 400 [facility] [place] [address] 08/13/2024 8:45 AM EST Office Visit Hematology/Oncology [facility] [address] [place] [phone] Won Tesfaye MD 200 [facility] [place] [address] 08/16/2024 8:20 AM EST Office Visit Family Practice [facility] [address] [place] [address] Carlos Paniagua MD [address] [place] [address] 10/27/2024 10:00 AM EST Imaging Radiology, [place] [phone] [facility] [place] [address] 12/09/2024 1:30 PM EST Appointment Radiology, [facility] [address] [place] [phone] 12/09/2024 2:00 PM EST Rehab Services Voice Lab, [facility] [address] [place] [address] Willie Johnston, [facility]-POWER TOOL REPAIR TECHNICIAN [address] [place] [address] Scheduled Procedures Name Priority Associated Diagnoses Date/Ti [...] fatigue documented in this encounter Care Teams Reliability Specialist Relationship Specialty Start Date End Date Carlos Paniagua MD 132 [place] [address] PCP - General Internal Medicine 07/12/24 documented as of this encounter
--- OUTSIDE RECORDS SUMMARY | 2024-09-09 17:59 | External Medical Summary | Summary of Care ---
Author Name Unknown Organization [facility] Address [address] [facility] [place] [address] Phone [phone] Care Team Providers Care It Infrastructure Engineer Name Role Phone Carlos Paniagua MD Primary Care Provider [phone] Reason for Visit * Reason Onset Date Comments Home Health 08/01/2024 Encounter Details Date Type Department Care Team (Late st Contact Info) Description 08/01/2024 Telephone [facility] [address] [place] [address] Carlos Paniagua MD [address] [place] [address] Home Health Allergies Active Allergy [...] Release 24 Hour (toPROL XL)Indications:Athero sclerosis of [place] coronary artery of [place] heart without angina pectoris,HTN, goal below 140/90 [...] bedtime. 30 Tablet 11 07/12/2024 Active Nystatin 789909 UNIT/GM External Cream Apply 1 g topically [...] Lipid Taxonomy. Ischemic cardiomyopathy Coronary atherosclerosis of [place] coronary мария ry documented as of this [...] encounter Miscellaneous Notes * Telephone Encounter - Peggy Flores LPN - 08/01/2024 1:06 PM EDT Karissa calling from [facility]. She received the order for a shower chair and raised toilet seat. She is asking that the order be faxed to a local DME company. Faxed to [facility] in [place], received confirmation that the transmission was successful. * Telephone Encounter - Hilary Grider OSA - 08/01/2024 1:02 PM EDT Reason for patient's call: karissa with [facility] home health Caller was transferred to [facility] at the nurse line. * Telephone Encounter - Celina Alves LPN - 08/01/2024 11:39 AM EDT Faxed order below to [facility] # listed below. * Telephone Encounter - Carlos Paniagua MD - 08/01/2024 11:18 AM EDT Thanks for update and ordered DME * Telephone Encounter - Peggy Flores LPN - 08/01/2024 10:56 AM EDT PT/OT/ST Eval Start of Care/Continuation José OT, Calling from: [facility] PT Plan of care: 1 times per [...] also see other Home Health message below [facility] Advised that additional visit orders will be signed by Carlos Paniagua MD and to fax to the office for signature * Telephone Encounter - Mariama Valdez LPN - 08/01/2024 10:36 AM EDT HH Concerns Phillip Speech Therapist , Calling from: [facility] Report/Concerns of: wheezing Symptoms: cough- nonproductive Vitals: T 97 P 70 RR 18 BP 140/88 SP O2 98 Lung sounds inspiratory wheezes Weight n/a Blood sugar n/a Narrative: Phillip calling from [facility], she is speech Therapy. Patient is on [...] Phillip with any advice or orders at [phone] Please fax new orders to [facility] Home Health documented in this encounter Plan of Treatment Upcoming Encounters Date Type Department Care Team (Late st Contact Info) Description 08/04/2024 8:00 AM EDT Office Visit Cardiology, [facility] 132 [employer] [place] [address] Margarita Rangel PA-C [address] [place] [address] 08/13/2024 8:45 AM EST Office Visit Hematology/Oncology [address] [place] [address] [place] [phone] Won Tesfaye MD 200 [facility] [place] [address] 08/16/2024 8:20 AM EST Office Visit Family Practice [facility] [address] [place] [address] Carlos Paniagua MD [address] [place] [address] 10/27/2024 10:00 AM EST Imaging Radiology, [facility] [address] [facility] [address] 12/09/2024 1:30 PM EST Appointment Radiology, [facility] 400 [facility] [place] [phone] 12/09/2024 2:00 PM EST Rehab Services Voice Lab, [facility] 400 [place] [address] Willie Johnston, [employer]-SOLE LAYER HAND [address] [place] [address] Scheduled Procedures Name Priority Associated Diagnoses Date/Ti [...] fatigue documented in this encounter Care Teams It Infrastructure Engineer Relationship Specialty Start Date End Date Carlos Paniagua MD [address] [place] [address] PCP - General Internal Medicine 07/12/24 documented as of this encounter
--- OUTSIDE RECORDS SUMMARY | 2024-09-09 17:59 | External Medical Summary | Summary of Care ---
Author Name Unknown Organization [facility] Address [address] [facility] [place] [address] Phone [phone] Care Team Providers Care Pet Care Attendant Name Role Phone Carlos Paniagua MD Primary Care Provider [phone] Reason for Visit * Reason Onset Date Comments Home Health 08/01/2024 Encounter Details Date Type Department Care Team (Late st Contact Info) Description 08/01/[address] [facility] [place] [address] Ashkan Hernandez MD 132 [facility] [place] [address] Home Health Allergies Active Allergy Reactions Criticality [...] Release 24 Hour (toPROL XL)Indications:Athero sclerosis of [place] coronary artery of [place] heart without angina pectoris,HTN, goal below 140/90 [...] bedtime. 30 Tablet 11 07/12/2024 Active Nystatin 166429 UNIT/GM External Cream Apply 1 g topically [...] Lipid Taxonomy. Ischemic cardiomyopathy Coronary atherosclerosis of [place] coronary мария ry documented as of this [...] encounter Miscellaneous Notes * Telephone Encounter - Ashkan Hernandez MD - 08/01/2024 11:54 AM EDT Oxygen was not ordered as she is enrolling in hospice. * Telephone Encounter - Peggy Flores LPN - 08/01/2024 10:24 AM EDT José calling from [facility]. He is inquiring about an Oxygen order. Patient qualified for oxygen at office visit on 07/30/2024 with a 6 minute walk test. No oxygen order in chart. Please advise [facility] documented in this encounter Plan of Treatment Upcoming Encounters Date Type Department Care Team (Late st Contact Info) Description 08/04/2024 8:00 AM EDT Office Visit Cardiology, [facility] 132 [facility] [place] [address] Margarita Rangel PA-C 400 [place] [address] 08/13/2024 8:45 AM EST Office Visit Hematology/Oncology [facility] [address] [place] [phone] Won Tesfaye MD 200 [facility] [place] [address] 08/16/2024 8:20 AM EST Office Visit Family Practice [facility] 132 [facility] [place] [address] Carlos Paniagua MD [address] [place] [address] 10/27/2024 10:00 AM EST Imaging Radiology, [place] 416660 [facility] [place] [address] 12/09/2024 1:30 PM EST Appointment Radiology, [facility] [address] [place] [phone] 12/09/2024 2:00 PM EST Rehab Services Voice Lab, [facility] [address] [place] [address] Willie Johnston, [facility]-OSCILLOGRAPH TECHNICIAN [address] [place] [address] Scheduled Procedures Name Priority Associated Diagnoses Date/Ti [...] filedocumented as of this encounter Care Teams Pet Care Attendant Relationship Specialty Start Date End Date Carlos Paniagua MD [address] [place] [address] PCP - General Internal Medicine 07/12/24 documented as of this encounter
--- OUTSIDE RECORDS SUMMARY | 2024-09-09 17:59 | External Medical Summary | Summary of Care ---
Author Name Unknown Organization [facility] Address [address] [facility] [place] [address] Phone [phone] Care Team Providers Care Nitrogen Operator Name Role Phone Carlos Paniagua MD Primary Care Provider [phone] Reason for Visit * Reason Comments eRx-Medication Refill Encounter Details Date Type Department Care Team (Late st Contact Info) Description 08/03/2024 Refill [facility] [address] [place] [address] Carlos Paniagua MD [address] [place] [address] Allergies Active Allergy Reactions Criticality [...] Release 24 Hour (toPROL XL)Indications:Athero sclerosis of [place] coronary artery of [place] heart without angina pectoris,HTN, goal below 140/90 [...] bedtime. 30 Tablet 11 07/12/2024 Active Nystatin 973627 UNIT/GM External Cream Apply 1 g topically [...] Lipid Taxonomy. Ischemic cardiomyopathy Coronary atherosclerosis of [place] coronary мария ry documented as of this [...] encounter Miscellaneous Notes * Telephone Encounter - Lori Sanchez [facility] - 08/05/2024 10:00 AM EDT Refused Prescriptions: Disp Refills predniSONE 10 MG Oral Tablet (Deltasone) 30 Tab*0 Sig: TAKE 1 TABLET BY MOUTH IN THE MORNINGRefused By: LORI SANCHEZ for Refusal: Duplicate Request--- documented in this encounter Plan of Treatment Upcoming Encounters Date Type Department Care Team (Late st Contact Info) Description 08/13/2024 8:45 AM EST Office Visit Hematology/Oncology [facility] 200 [facility] [place] [address] Won Tesfaye MD 200 [facility] [place], [place] [address] 08/16/2024 8:20 AM EST Office Visit Family Practice [facility] 132 [facility] [place] [address] Carlos Paniagua MD [address] [place] [address] 10/27/2024 10:00 AM EST Imaging Radiology, [place] [address] [facility] [place] [address] 12/09/2024 1:30 PM EST Appointment Radiology, [address] [phone] 12/09/2024 2:00 PM EST Rehab Services Voice Lab, [address] [address] Willie Johnston, [facility] SPECIAL[facility] [address] [place] [address] Scheduled Procedures Name Priority Associated Diagnoses Date/Ti [...] filedocumented as of this encounter Care Teams Nitrogen Operator Relationship Specialty Start Date End Date Carlos Paniagua MD 132 [place] [address] PCP - General Internal Medicine 07/12/24 documented as of this encounter
--- OUTSIDE RECORDS SUMMARY | 2024-09-09 17:59 | External Medical Summary | Summary of Care ---
Author Name Unknown Organization [facility] Address [address] [facility] [place] [address] Phone [phone] Care Team Providers Care Sign Painter Helper Name Role Phone Carlos Paniagua MD Primary Care Provider [phone] Reason for Visit * Reason Onset Date Comments Home Health 08/01/2024 Encounter Details Date Type Department Care Team (Late st Contact Info) Description 08/01/2024 Telephone [facility] [address] [place] [address] Carlos Paniagua MD [address] [place] [address] Home Health Allergies Active Allergy [...] Release 24 Hour (toPROL XL)Indications:Athero sclerosis of confederated goshute coronary artery of confederated goshute heart without angina pectoris,HTN, goal below 140/90 [...] bedtime. 30 Tablet 11 07/12/2024 Active Nystatin 763505 UNIT/GM External Cream Apply 1 g topically [...] Lipid Taxonomy. Ischemic cardiomyopathy Coronary atherosclerosis of confederated goshute coronary мария ry documented as of this [...] myocardial infarct 04/29/200908/04 Overview: Modified by Acute [place] Protocol #5. Oct 10 2007, Septal Acute [place] 10/28/2007 04/29/2009 Overview: Modified by Acute [place] Protocol #5. Oct 10 2007, Septal Acute [place] 10/28/2007 08/04/2011 Overview: Oct 10 2007, Septal [...] 11:39 AM EDT Faxed order below to [facility] # listed below. * Telephone Encounter - Carlos Paniagua MD - 08/01/2024 11:18 AM EDT Thanks for update and ordered DME * Telephone Encounter - Peggy Flores LPN - 08/01/2024 10:56 AM EDT HH PT/OT/ST Eval Start of Care/Continuation José OT, Calling from: [facility] PT Plan of care: 1 times [...] also see other Home Health message below [facility] HH Advised that additional visit orders will be signed by Carlos Paniagua MD and to fax to the office for signature * Telephone Encounter - Mariama Valdez LPN - 08/01/2024 10:36 AM EDT HH Concerns Phillip Speech Therapist , Calling from: [facility] Report/Concerns of: wheezing Symptoms: cough- nonproductive Vitals: T 97 P 70 RR 18 BP 140/88 SP O2 98 Lung sounds inspiratory wheezes Weight n/a Blood sugar n/a Narrative: Phillip calling from [facility], she is speech Therapy. Patient is [...] Phillip with any advice or orders at [phone] Please fax new orders to [facility] Home Health documented in this encounter Plan of Treatment Upcoming Encounters Date Type Department Care Team (Late st Contact Info) Description 08/04/2024 8:00 AM EDT Office Visit Cardiology, [facility] 132 [facility] [place] [address] Margarita Rangel PA-C [address] [place] [place] [address] 08/13/2024 8:45 AM EST Office Visit Hematology/Oncology [facility] [address] [facility] [place] [phone] Won Tesfaye MD [address] [facility] [place] [address] 08/16/2024 8:20 AM EST Office Visit Family Practice [facility] 132 [facility] [place] [address] Carlos Paniagua MD [address] [place] [address] 10/27/2024 10:00 AM EST Imaging Radiology, [address] [place] [address] 12/09/2024 1:30 PM EST Appointment Radiology, [facility] [phone] 12/09/2024 2:00 PM EST Rehab Services Voice Lab, [facility] [address] [facility] [place] [address] Willie Johnston, CCC-CLIENT SERVICES SPECIALIST [address] [place] [address] Scheduled Procedures Name Priority Associated Diagnoses Date/Ti [...] fatigue documented in this encounter Care Teams Sign Painter Helper Relationship Specialty Start Date End Date Carlos Paniagua MD [address] [place] [address] PCP - General Internal Medicine 07/12/24 documented as of this encounter
--- OUTSIDE RECORDS SUMMARY | 2024-09-09 17:59 | External Medical Summary | Summary of Care ---
Author Name Unknown Organization [facility] Address [address] [place] [facility] [place] [address] Phone [phone] Care Team Providers Care Merchant Tailor Name Role Phone Carlos Paniagua MD Primary Care Provider [phone] Reason for Visit * Reason Onset Date Comments Home Health 08/01/2024 Encounter Details Date Type Department Care Team (Late st Contact Info) Description 08/01/2024 Telephone Family Practice [facility] [place] [address] Ashkan Hernandez MD 132 [facility] [place] [address] Home Health Allergies Active Allergy Reactions Criticality [...] Release 24 Hour (toPROL XL)Indications:Athero sclerosis of [place] coronary artery of lovelock heart without angina pectoris,HTN, goal below 140/90 [...] bedtime. 30 Tablet 11 07/12/2024 Active Nystatin 178024 UNIT/GM External Cream Apply 1 g topically [...] Lipid Taxonomy. Ischemic cardiomyopathy Coronary atherosclerosis of [place]velock coronary мария ry documented as of this [...] myocardial infarct 04/29/200908/04 Overview: Modified by Acute [place] Protocol #5. Oct 10 2007, Septal Acute [place] 10/28/2007 04/29/2009 Overview: Modified by Acute [place] Protocol #5. Oct 10 2007, Septal Acute [place] 10/28/2007 08/04/2011 Overview: Oct 10 2007, Septal [...] Encounter - Peggy Flores LPN - 08/01/2024 1:07 PM EDT Karissa calling from [facility]. Advised of the message from Dr. Hernandez. [facility] * Telephone Encounter - Ashkan Hernandez MD - 08/01/2024 11:54 AM EDT Oxygen was not ordered as she is enrolling in hospice. * Telephone Encounter - Peggy Flores LPN - 08/01/2024 10:24 AM EDT José calling from [facility]. He is inquiring about an Oxygen order. Patient qualified for oxygen at office visit on 07/30/2024 with a 6 minute walk test. No oxygen order in chart. Please advise [facility] documented in this encounter Plan of Treatment Upcoming Encounters Date Type Department Care Team (Late st Contact Info) Description 08/04/2024 8:00 AM EDT Office Visit Cardiology, [facility] 132 [facility] [place] [address] Margarita Rangel PA-C [address] [place] [address] [place] [address] 08/13/2024 8:45 AM EST Office Visit Hematology/Oncology [address] [place] [address] [place] [address] Won Tesfaye MD 200 [place] [address] 08/16/2024 8:20 AM EST Office Visit Family Practice [facility] 132 [facility] [place] [address] Carlos Paniagua MD [address] [facility] [place] [address] 10/27/2024 10:00 AM EST Imaging Radiology, [facility] [address] [facility] [place] [address] 12/09/2024 1:30 PM EST Appointment Radiology, [facility] 400 [facility] [phone] 12/09/2024 2:00 PM EST Rehab Services Voice Lab, [facility] [address] [place] [address] Willie Johnston, [facility] [address] [place] [address] Scheduled Procedures Name Priority Associated Diagnoses Date/Ti [...] filedocumented as of this encounter Care Teams Merchant Tailor Relationship Specialty Start Date End Date Carlos Paniagua MD [address] [place] [address] PCP - General Internal Medicine 07/12/24 documented as of this encounter
--- OUTSIDE RECORDS SUMMARY | 2024-09-09 17:59 | External Medical Summary | Summary of Care ---
Author Name Unknown Organization [facility] Address [address] [facility] [place] [address] Phone [phone] Care Team Providers Care Cognos Bi Developer Name Role Phone Carlos Paniagua MD Primary Care Provider [phone] Reason for Visit * Reason Onset Date Comments Home Health 08/01/2024 Encounter Details Date Type Department Care Team (Late st Contact Info) Description 08/01/2024 Telephone [facility] [address] [place] [address] Carlos Paniagua MD [address] [place] [address] Home Health Allergies Active Allergy [...] Release 24 Hour (toPROL XL)Indications: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 30 Tablet 11 07/12/2024 Active Nystatin 368858 UNIT/GM External Cream Apply 1 g topically [...] Lipid Taxonomy. Ischemic cardiomyopathy Coronary atherosclerosis of nul[place] coronary мария ry documented as of this [...] Phillip Speech Therapist , Calling from: [facility] Report/Concerns of: Oxygen stat's Symptoms: See Narrative [...] on to hospice. [facility] Phone #--[phone] Fax #-- [phone] Last hematology/oncology appt-03/05/24 Next-Hem/Onc-08/13 swallowing study faxed to [facility] on 08/01. Needs to have Fluoro swallow done before can be placed on hospice. Daughter states [facility] have not scheduled it at this time. Call back Phillip with any advice or orders at [phone] Please fax new orders to [facility] Home Health Please advise- Hematology/ * Telephone Encounter - Peggy Flores LPN - 08/01/2024 1:06 PM EDT Karissa calling from [facility]. She received the order for a shower chair and raised toilet seat. She is asking that the order be faxed to a local [employer] company. Faxed to [facility] in [place], received confirmation that the transmission was successful. * Telephone Encounter - Hilary Grider OSA - 08/01/2024 1:02 PM EDT Reason for patient's call: karissa with [facility] home health Caller was transferred to peggy at the nurse line. * Telephone Encounter - Celina Alves LPN - 08/01/2024 11:39 AM EDT Faxed order below to [facility] # listed below. * Telephone Encounter - Carlos Paniagua MD - 08/01/2024 11:18 AM EDT Thanks for update and ordered DME * Telephone Encounter - Peggy Flores LPN - 08/01/2024 10:56 AM EDT HH PT/OT/ST Eval Start of Care/Continuation José OT, Calling from: [facility] PT Plan of care: 1 times [...] also see other Home Health message below [facility] HH Advised that additional visit orders will be signed by Carlos Paniagua MD and to fax to the office for signature * Telephone Encounter - Mariama Valdez LPN - 08/01/2024 10:36 AM EDT HH Concerns Phillip Speech Therapist , Calling from: [facility] Report/Concerns of: wheezing Symptoms: cough- nonproductive Vitals: T 97 P 70 RR 18 BP 140/88 SP O2 98 Lung sounds inspiratory wheezes Weight n/a Blood sugar n/a Narrative: Phillip calling from [facility], she is speech Therapy. Patient is [...] Phillip with any advice or orders at [phone] Please fax new orders to [facility] Home Health documented in this encounter Plan of Treatment Upcoming Encounters Date Type Department Care Team (Late st Contact Info) Description 08/13/2024 8:45 AM EST Office Visit Hematology/Oncology [facility] 200 [facility] [place] [phone] Won Tesfaye MD 200 [facility] [place] [address] 08/16/2024 8:20 AM EST Office Visit Family Practice [facility] 132 [facility] [place] [address] Carlos [facility]aniagua MD [address] [facility] [address] 10/27/2024 10:00 AM EST Imaging Radiology, [place] [address] [facility] [place] [address] 12/09/2024 1:30 PM EST [address]ment [address], [address] [place] [address] 12/09/2024 2:00 PM EST Rehab Services Voice Lab, [address] [place] [address] Willie Johnston, [facility] TRUCK DRIVER [address] [place] [address] Scheduled Procedures Name Priority Associated Diagnoses Date/Ti [...] fatigue documented in this encounter Care Teams Cognos Bi Developer Relationship Specialty Start Date End Date Carlos Paniagua MD [address] [place] [address] PCP - General Internal Medicine 07/12/24 documented as of this encounter
--- OUTSIDE RECORDS SUMMARY | 2024-09-09 18:00 | External Medical Summary | Summary of Care ---
Author Name Unknown Organization [facility] Address [address] [facility] [place] [address] Phone [phone] Care Team Providers Care Drainman Name Role Phone Carlos Paniagua MD Primary Care Provider [phone] Reason for Visit * Reason Onset Date Comments Advice 07/26/2024 Encounter Details Date Type Department Care Team (Late st Contact Info) Description 07/26/2024 Telephone [facility] [address] [place] [address] Carlos Paniagua MD [address] [place] [address] Advice Allergies Active Allergy Reactions Criticality Noted Date Comments Hydrocodone High 08/03/2021 Other reaction(s): Hallucinating Hydrocodone Bit-Homatrop Mbr 08/22/2017 hallucinations Isosorbide Nitrate Other (Please comment) 02/24/2021 headaches Penicillins 09/10/2002 hives documented as of this encounter (statuses as of 07/31/2024) Medications Medication Sig Dispensed Refills Start Date [...] Release 24 Hour (toPROL XL)Indications:Ather osclerosis of huslia coronary artery of huslia heart without angina pectoris,HTN, goal below 140/90 [...] at bedtime. 30 Tablet 11 07/12/2024 Active predniSONE 10 MG Oral Tablet (Deltasone) Take 1 Tablet by mouth in the morning. 30 Tablet 07/29/2024 Active predniSONE 10 MG Oral Tablet (Deltasone)Indicatio ns:Acute cough,COPD exacerbation (HCC) Take 5 tabs for 2 days, 4 tabs for 2 days, 3 tabs for 2 days, 2 tabs for 2 days 1 tab for 2 days 30 Tablet 07/15/2024 Discontinue d(Medicatio n List Clean Up) documented as of this encounter (statuses as of 07/31/2024) Active Problems Problem Noted Date Diagnosed Date [...] Lipid Taxonomy. Ischemic cardiomyopathy Coronary atherosclerosis of huslia coronary мария ry documented as of this encounter (statuses as of 07/31/2024) Resolved Problems Problem Noted Date Diagnosed Date [...] myocardial infarct 04/29/200908/04 Overview: Modified by Acute [place] Protocol #5. Oct 10 2007, Septal Acute [place] 10/28/2007 04/29/2009 Overview: Modified by Acute [place] Protocol #5. 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 * Telephone Encounter - Mikki Chowdary LPN - 07/30/2024 11:50 AM EDT Left generic message on answering machine asking patient to return our call. * Telephone Encounter - Carlos Paniagua MD - 07/29/2024 1:01 PM EDT Will try prednisone 10 mg daily for 2 wks and then will adjust dose on aug 16 * Telephone Encounter - Juli Gayle LPN - 07/29/2024 10:43 AM EDT MED QUESTION(S): Yes Medication Questions: Wants to start taking a medication Patient's Action(s) What have you done or taken for this problem? Patient's daughter Bernadine calling in and she wants to know from pt's PCP if they can get a [facility] script for Prednisone. She states that patient has had troubles with getting out of breath when she gets up to walk and pt was prescribed prednisone for this and when patient was on it, she was good and did not have the breathing issues but now that patient is out of prednisone and has not taken any in 2 days, she is back to having the hard time breathing when she is walking Patient Request Patient Requesting: Medication Prescribed * Telephone Encounter - Tonya Abebe OSA - 07/26/2024 11:00 AM EDT Patients daughter Bernadine is calling in regards to a script for Prednisone. Please see call details. documented in this encounter Plan of Treatment Upcoming Encounters Date Type Department Care Team (Late st Contact Info) Description 08/04/2024 8:00 AM EDT Office Visit Cardiology, [facility] 132 [facility] [place] [address] Margarita Rangel PA-C 400 [facility] [place] [address] 08/13/2024 8:45 AM EST Office Visit Hematology/Oncology [facility] 200 [facility] [place] [phone] Won Tesfaye MD 200 [facility] [place] [address] 08/16/2024 8:20 AM EST Office Visit Family Practice [facility] 132 [facility] [place] [address] Carlos Paniagua MD [address] [place] [address] 10/27/2024 10:00 AM EST Imaging Radiology, [facility] [address] [facility] [place] [address] 12/09/2024 1:30 PM EST Appointment Radiology, [facility] 400 [facility] [place] [phone] 12/09/2024 2:00 PM EST Rehab Services Voice Lab, [facility] 400 [facility] [place] [address] Willie Johnston, CCC-WEAPONS AND TACTICS INSTRUCTOR 132 [facility] [place] [address] Scheduled Procedures Name Priority Associated Diagnoses Date/Ti [...] filedocumented as of this encounter Care Teams Drainman Relationship Specialty Start Date End Date Carlos Paniagua MD [address] [place] [address] PCP - General Internal Medicine 07/12/24 documented as of this encounter
--- OUTSIDE RECORDS SUMMARY | 2024-09-09 18:00 | External Medical Summary | Summary of Care ---
Author Name Unknown Organization [facility] Address [address] [facility] [place] [address] Phone [phone] Care Team Providers Care Physical Security Engineer Name Role Phone Carlos Paniagua MD Primary Care Provider [phone] Reason for Visit * Reason Onset Date Comments Home Health 08/01/2024 Encounter Details Date Type Department Care Team (Late st Contact Info) Description 08/01/2024 Telephone [facility] [address] [place] [address] Carlos Paniagua MD [address] [place] [address] Home Health Allergies Active Allergy [...] Release 24 Hour (toPROL XL)Indications:Athero sclerosis of morongo coronary artery of morongo heart without angina pectoris,HTN, goal below 140/90 [...] bedtime. 30 Tablet 11 07/12/2024 Active Nystatin 092055 UNIT/GM External Cream Apply 1 g topically [...] Lipid Taxonomy. Ischemic cardiomyopathy Coronary atherosclerosis of morongo coronary мария ry documented as of this [...] myocardial infarct 04/29/200908/04 Overview: Modified by Acute [place] Protocol #5. Oct 10 2007, Septal Acute [place] 10/28/2007 04/29/2009 Overview: Modified by Acute [place] Protocol #5. Oct 10 2007, Septal Acute [place] 10/28/2007 08/04/2011 Overview: Oct 10 2007, Septal [...] Start of Care/Continuation José OT, Calling from: [facility] PT Plan of care: 1 [...] also see other Home Health message below [facility] HH Advised that additional visit orders will be signed by Carlos Paniagua MD and to fax to the office for signature * Telephone Encounter - Mariama Valdez LPN - 08/01/2024 10:36 AM EDT Concerns Phillip Speech Therapist , Calling from: [facility] Report/Concerns of: wheezing Symptoms: cough- nonproductive Vitals: T 97 P 70 RR 18 BP 140/88 SP O2 98 Lung sounds inspiratory wheezes Weight n/a Blood sugar n/a Narrative: Phillip calling from [facility], she is speech Therapy. Patient [...] Phillip with any advice or orders at [phone] Please fax new orders to [facility] Home Health documented in this encounter Plan of Treatment Upcoming Encounters Date Type Department Care Team (Late st Contact Info) Description 08/04/2024 8:00 AM EDT Office Visit Cardiology, [facility] 132 [facility] [place] [address] Margarita Rangel PA-C [address] [facility] [place] [address] 08/13/2024 8:45 AM EST Office Visit Hematology/Oncology [facility] 200 [facility] [place] [address] Won Tesfaye MD 200 [facility] [place] [address] 08/16/2024 8:20 AM EST Office Visit Family Practice [facility] 132 [facility] [place] [address] Carlos Paniagua MD [address] [place] [address] 10/27/2024 10:00 AM EST Imaging Radiology, [place] [address] [facility] [place] [address] 12/09/2024 1:30 PM EST Appointment Radiology, [facility] [address] [place] [phone] 12/09/2024 2:00 PM EST Rehab Services Voice Lab, [facility] [address] [facility] [place] [address] Willie Johnston, [facility]3]-BANANA LOADER [address] [facility] [place] [address] Scheduled Procedures Name Priority Associated Diagnoses Date/Ti [...] fatigue documented in this encounter Care Teams Physical Security Engineer Relationship Specialty Start Date End Date Cralos Paniagua MD [address] [place] [address] PCP - General Internal Medicine 07/12/24 documented as of this encounter
--- OUTSIDE RECORDS SUMMARY | 2024-09-09 18:00 | External Medical Summary | Summary of Care ---
Author Name Unknown Organization [facility] Address [address] [facility] [place] [address] Phone [phone] Care Team Providers Care Community Representative Name Role Phone Carlos Paniagua MD Primary Care Provider [phone] Reason for Visit * Reason Onset Date Comments Home Health 07/25/2024 FYI 07/25/2024 Encounter Details Date Type Department Care Team (Late st Contact Info) Description 07/25/2024 Telephone [facility] [address] [place] [address] Carlos Paniagua MD [address] [place] [address] Home Health; (/) Allergies Active [...] Release 24 Hour (toPROL XL)Indications:Ather osclerosis of [place] coronary artery of [place] heart without angina pectoris,HTN, goal below 140/90 [...] bedtime. 30 Tablet 11 07/12/2024 Active Nystatin 279636 UNIT/GM External Cream Apply 1 g topically [...] Lipid Taxonomy. Ischemic cardiomyopathy Coronary atherosclerosis of [place] coronary мария ry documented as of this [...] myocardial infarct 04/29/200908/04 Overview: Modified by Acute [place] Protocol #5. Oct 10 2007, Septal Acute AR 10/28/2007 04/29/2009 Overview: Modified by Acute [place] Protocol #5. Oct 10 2007, Septal Acute AR 10/28/2007 08/04/2011 Overview: Oct 10 2007, Septal [...] encounter Miscellaneous Notes * Telephone Encounter - Mariama Valdez LPN - 08/01/2024 10:[address] Phillip calling from [facility] HH Patient can have the video swallowing test done at [facility] next week. Order faxed to [facility] with confirmed receipt. Fyi * Telephone [...] Care/Continuation Phillip Speech Therapist , Calling from: [facility] Speech Therapist Plan of care: [...] Phillip with any advice or orders at [phone]. Please fax new orders to [facility] Home Health [phone] Advised that additional visit orders will be signed by Carlos Paniagua MD and to fax to the office for signature documented in this encounter Plan of Treatment Upcoming Encounters Date Type Department Care Team (Late st Contact Info) Description 08/04/2024 8:00 AM EDT Office Visit Cardiology, [facility] [address] [facility] [place] [address] Margarita Rangel PA-C [address] [place] [address] [place] [address] 08/13/2024 8:45 AM EST Office Visit Hematology/Oncology [address] [place] [address] [place] [address] Won Tesfaye MD [address] [place] [address] 08/16/2024 8:20 AM EST Office Visit Family Practice [facility] [address] [facility] [place] [address] Carlos Paniagua MD [address] [facility] [address] 10/27/2024 10:00 AM EST Imaging Radiology, [place] [address] [facility] [address] 12/09/2024 1:30 PM EST Appointment Radiology, [facility] [phone] 12/09/2024 2:00 PM EST Rehab Services Voice Lab, [facility] [address] [facility] [address] Willie Johnston, [facility] TREATING ASSISTANT [address] [facility] [place] [address] Scheduled Orders Name Type Priority Associated Diagnoses [...] disturbance (HCC) Dementia, unspecified, without behavioral disturbance documented in this encounter Care Teams Community Representative Relationship Specialty Start Date End Date Carlos Paniagua MD [address] [place] [address] PCP - General Internal Medicine 07/12/24 documented as of this encounter
--- OUTSIDE RECORDS SUMMARY | 2024-09-09 18:00 | External Medical Summary | Summary of Care ---
Author Name Unknown Organization [facility] Address [address] [facility] [place] [address] Phone [phone] Care Team Providers Care Used Car Salesperson Name Role Phone Carlos Paniagua MD Primary Care Provider [phone] Reason for Visit * Reason Onset Date Comments Order Request 07/31/2024 [facility] Encounter Details Date Type Department Care Team ([facility] st Contact Info) Description 07/31/2024 Telephone [facility] [address] [place] [address] Carlos Paniagua MD [address] [place] [address] Order Request ([facility]) Allergies Active Allergy Reactions Criticality Noted Date [...] Release 24 Hour (toPROL XL)Indications:Athero sclerosis of [place] coronary artery of [place] heart without angina pectoris,HTN, goal below 140/90 [...] bedtime. 30 Tablet 11 07/12/2024 Active Nystatin 235231 UNIT/GM External Cream Apply 1 g topically [...] Lipid Taxonomy. Ischemic cardiomyopathy Coronary atherosclerosis of [place] coronary мария ry documented as of this [...] mRNA, LNP-s, No Pre serve, 2-Dose Series (Skytree) 01/12/2021,12/22/2020 Pneumococcal Conjugate Vacc, 13 Valent (Prevnar) [...] Telephone Encounter - Celina Alves LPN - 07/31/2024 5:18 PM EDT Received Fax for BFPROVIDERS: Dr. Carlos Paniagua ORDER received from [facility] FIMS and FAXED documented in this encounter Plan of Treatment Upcoming Encounters Date Type Department Care Team (Late st Contact Info) Description 08/04/2024 8:00 AM EDT Office Visit Cardiology, [facility] [address] [place] [address] Margarita Rangel PA-C [address] [facility] [address] 08/13/2024 8:45 AM EST Office Visit Hematology/Oncology [facility] 200 [facility] [place] [phone] Won Tesfaye MD [address] [facility] [place] [address] 08/16/2024 8:20 AM EST Office Visit Family Practice [facility] [address] [place] [address] Carlos Paniagua MD [address] [place] [address] 10/27/2024 10:00 AM EST Imaging Radiology, [place] [address] [facility] [place] [address] 12/09/2024 1:30 PM EST Appointment Radiology, [facility] 400 [facility] [place] [phone] 12/09/2024 2:00 PM EST Rehab Services Voice Lab, [facility] 400 [facility] [address] Willie Johnston, CCC-PACKAGE DRIER [address] [place] [address] Scheduled Procedures Name Priority Associated Diagnoses Date/Ti [...] filedocumented as of this encounter Care Teams Used Car Salesperson Relationship Specialty Start Date End Date Carlos Paniagua MD [address] [place] [address] PCP - General Internal Medicine 07/12/24 documented as of this encounter
--- OUTSIDE RECORDS SUMMARY | 2024-09-09 18:01 | External Medical Summary | Summary of Care ---
Author Name Unknown Organization [facility] Address [address] [facility] [address] Phone [phone] Care Team Providers Care Corrosion Prevention Metal Sprayer Name Role Phone Carlos Paniagua MD Primary Care Provider [phone] Reason for Referral * Ancillary Services (Within 3 days (urgent)) - Authorized Specialty Diagnoses / Procedures Referred By Albaro stone Referred To Contact HOME CARE / Palliative Medicine Diagnoses HURT (dyspnea on exertion) COPD, group B, by GOLD 2017 classification (HCC) Mass of right lung Squamous cell carcinoma of right lung (HCC) Ashkan Hernandez MD [address] [place] [address] Referral ID Status Reason Start Date Expiration Date Visits Requested Visits Authorized [id number] Authorized Ancillary Services Required 4 [phone] Question Answer Referral Priority Within 3 days (urgent) Where should this appointment be scheduled? [facility] Reason for Visit * Reason Comments Acute Pt here for panic at tacks and and feels like can't breath. Encounter Details Date Type Department Care Team (Latest Contact Info) Description 07/30/2024 11:20 AM EDT Office Visit Family [facility] [address] [place] [address] Ashkan Hernandez MD [address] [place] [address] HURT (dyspnea on exertion)*; COPD, group B, by GOLD 2017 classification (HCC); Mass of right lung; Swallowing dysfunction; Squamous cell carcinoma of right lung (HCC) Allergies Active Allergy Reactions Criticality Noted Date Comments Hydrocodone High 08/03/2021 Other reaction(s): Hallucinating Hydrocodone Bit-Homatrop Mbr 08/22/2017 hallucinations Isosorbide Nitrate Other (Please comment) 02/24/2021 headaches Penicillins 09/10/2002 hives documented as of this encounter (statuses as of 07/30/2024) Medications Medication Sig Dispensed Refills Start Date [...] Release 24 Hour (toPROL XL)Indications:Ather osclerosis of [place] coronary artery of [place] heart without angina pectoris,HTN, goal below 140/90 [...] bedtime. 30 Tablet 11 07/12/2024 Active Nystatin 891658 UNIT/GM External Cream Apply 1 g topically [...] as of this encounter (statuses as of 07/30/2024) Active Problems Problem Noted Date Diagnosed Date [...] Lipid Taxonomy. Ischemic cardiomyopathy Coronary atherosclerosis of [place] coronary мария ry documented as of this encounter (statuses as of 07/30/2024) Resolved Problems Problem Noted Date Diagnosed Date [...] myocardial infarct 04/29/200908/04 Overview: Modified by Acute SD Protocol #5. Oct 10 2007, Septal Acute SD 10/28/2007 04/29/2009 Overview: Modified by Acute SD Protocol #5. 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 7 08/31/2017 ADVANCE DIRECTIVE INFORMATION 09/04/2006 08/31/2017 Overview: No, brochure given at this visit CHR ISCHEMIC HRT DIS NOS 09/10/2002 HTN, goal below 130/80 09/10/200202/02 Dyslipidemia, goal LDL below 70 08/31/2017 documented as of this encounter (statuses as of 07/30/2024) Immunizations Name Administration Dates Next Due COVID-19 [...] Sign Reading Time Taken Comments Blood Pressure 122/66 07/30/2024 11:10 AM EDT Pulse 90 07/30/2024 11:10 AM EDT Temperature 35.9 C (96.6 F) 07/30/2024 11:10 AM E DT Respiratory Rate 16 07/30/2024 11:10 AM EDT Oxygen Saturation 98% 07/30/2024 11:10 AM EDT Inhaled Oxygen Concentration - - Weight 73.6 kg (162 lb 3.2 oz) 07/30/2024 11:10 AM EDT Height 165.1 cm (5' 5") 07/30/2024 11:10 AM EDT Body Mass Index 26.99 07/30/2024 11:10 AM EDT documented in this encounter Progress Notes * Ashkan Hernandez MD - 07/30/2024 11:48 AM EDT Images from the original note were not included. History of Present Illness Berta K Messi is a 74 year old female that presents for Acute (Pt here for panic attacks and andfeels like can't breath.) 74 yo female patient of Dr Paniagua at [place] presenting today with her daughter Bernadine to discuss episodes she has been having with increased SOB and what daughter describes as panic attack like episodes. She has a fairly extensive hx of lung CA (NSCLC - adenocarcinoma - 2011 involving right mediastinum - treated with chemoradiation carboplatin-paclitaxel and partial resection) and int [address] right hilum found later to be SCC. This was treated with nivolumab. She received SBRP to right lung in 01/2021. s/p partial resection rihgt lung with recurrence of mass in the right hilar areathat compresses laterally, into the neck and most recently onto and has begun encasing the right carotid artery. Repeat tissue dx has not been sough nor has aggressive treatment as this is almost certain recurrence/persistence of the previous SCC. She had a recent episode of aspiration PNA for which she was treated and has adjusted her diet to more thickened foods. Hospice has been discussed withdaughter who acceded to this agreeing with the idea but formal evaluation has not yet occurred. A few days ago patient had an episode where she was walking around her house and got short of breath and then started breathing really hard. The colors on her face changed where the left side of her forehead was dark red and the right side was nehemiah white. This improved with rest. Daughter was initially concnerned she may be having a stroke. Symptoms abated on their own in time. Daughter is quite concerned about her overall condition and is asking for help. Hospice had been discussed and referral was created but was never formalized and she has not been evaluated. Physical Exam BP 122/66 (BP Site: Left Arm, BP Position: Sitting, BP Cuff Size: Regular) | Pulse 90 | Temp 35.9 C (96.6 F) (Tympanic) | Resp 16 | Ht 1.651 m (5' 5") | Wt 73.6 kg (162 lb 3.2 oz) | SpO2 98% | BMI 26.99 kg/m | BSA 1.84 m AAOx2 Fatigued appearing Normal affect NCAT/ PERRL Neck supple Throat clear RRR Impaired air movement right lung Ext warm and well perfused Ambulates slowly with assistance Frail appearance Hunched posture I have reviewed most recent labs None Assessment and Plan HURT (dyspnea on exertion) - worsening. Related to underlying malignancy in right lung. I suspect the constriction around her carotid is the cause of the changes in facial coloration that occurred during the event at home her daughter was concerned about. We did discuss hospice at length through the lens of goals of care and they are both amenable and know that it is the right course, particularly considering her general condition and the fact that she has been dealing with the lung cancer issue since 2011. Formal referral made and arrangements are being set up through [facility]. Dr Paniagua will remain her PCP. I did discuss with her as well. - PULMONARY STRESS TESTING COPD, group B, by GOLD 2017 classification (HCC) - underlying/. - PULMONARY STRESS TESTING Mass of right lung/SCC of right lung - hospice dx. - PULMONARY STRESS TESTING Swallowing dysfunction - dysphagia. She is going to continue to microaspirate. Would encourage her and her daughter to feed/eat what she likes at this point. 6 minute walk performed and patient had desaturation to 84% at minute 4 with HR of 108. Pulse ox starting was 97% at rest. She qualifies for home oxygen. As hospice is being pursued this can be arranged through that medicare benefit. Wrap-Up F/u tbd - enrolling in hospice I did discuss case with Dr Paniagua as well Time: I spent a total of 40-54 minutes (exact time 45 mins) on the date of service in preparation, delivery, and documentation of the care provided to Berta Swenson excluding any time spent in the performance of separately billed services. documented in this encounter Plan of Treatment Upcoming Encounters Date Type Department Care Team (Late st Contact Info) Description 08/04/2024 8:00 AM EDT Office Visit Cardiology, [facility] 132 [facility] [place] [address] Margarita Rangel PA-C [address] [place] [place] [address] 08/13/2024 8:45 AM EST Office Visit Hematology/Oncology [facility] [address] [place] [phone] Won Tesfaye MD [address] [place] [address] 08/16/2024 8:20 AM EST Office Visit [facility] [place] [address] Carlos Paniagua MD [address] [facility] [place] [address] 10/27/2024 10:00 AM EST Imaging Radiology, [facility] [address] [facility] [place] [address] 12/09/2024 1:30 PM EST Appointment Radiology, [facility] [address] [place] [phone] 12/09/2024 2:00 PM EST Rehab Services Voice Lab, [facility] [address] [place] [address] Willie Johnston, [facility] [employer]ENER [address] [place] [address] Scheduled Procedures Name Priority Associated Diagnoses Date/Ti me COLONOSCOPY FLEXIBLE PROXIMA L DIAGNOSTIC Recall Special screening for malignant neoplasms, colon Scheduled Referrals Name Type Priority Associated Diagnoses Orde r Schedule HOSPICE REFERRAL OP Referral Within 3 days (urgent) HURT (dyspnea on exertion) COPD, group B, by GOLD 2017 classification (HCC) Mass of right lung Squamous cell carcinoma of right lung (HCC) Ordered: 07/30/2024 Health Maintenance Due Date Last Done Comments [...] Not on filedocumented as of this encounter Procedures Procedure Name Priority Date/Time Associated Diagnosis Comments PULMONARY STRESS TESTING Routine 07/30/2024 12:08 PM EDT HURT (dyspnea on exertion) COPD, group B, by GOLD 2017 classification (HCC) Mass of right lung documented in this encounter Results * (ABNORMAL) PULMONARY STRESS TESTING (07/30/2024 12:08 PM EDT) Narrative Pinky Meyer LPN - 07/30/2024 12:08 PM EDT SpO2 - room air at rest 97% SpO2 - room air while ambulating 84% after 4 minutes Ashkan Hernandez MD MEDICINE documented in this encounter Visit Diagnoses Diagnosis HURT (dyspnea on exertion)- Primary Other dyspnea and respiratory abnormality COPD, group B, by GOLD 2017 classification (HCC) Mass of right lung Swallowing dysfunction Dysphagia, unspecified Squamous cell carcinoma of right lung (HCC) documented in this encounter Care Teams Corrosion Prevention Metal Sprayer Relationship Specialty Start Date End Date Carlos Paniagua MD 132 [facility] [place] [address] PCP - General Internal Medicine 07/12/24 documented as of this encounter
--- OUTSIDE RECORDS SUMMARY | 2024-09-09 18:01 | External Medical Summary | Summary of Care ---
Author Name Unknown Organization [facility] Address [address] [facility] [address] Phone [phone] Care Team Providers Care Packaging Operator Name Role Phone Carlos Paniagua MD Primary Care Provider [phone] Reason for Visit * Reason Onset Date Comments Referral 07/30/2024 Encounter Details Date Type Department Care Team (Late st Contact Info) Description 07/30/2024 Telephone Family Practice [facility] 132 [facility] [place] [address] Ashkan Hernandez MD 132 [facility] [place] [address] Referral Allergies Active Allergy Reactions Criticality Noted Date [...] Release 24 Hour (toPROL XL)Indications:Athero sclerosis of [place] coronary artery of [place] heart without angina pectoris,HTN, goal below 140/90 [...] bedtime. 30 Tablet 11 07/12/2024 Active Nystatin 011781 UNIT/GM External Cream Apply 1 g topically [...] Lipid Taxonomy. Ischemic cardiomyopathy Coronary atherosclerosis of [place] coronary мария ry documented as of this [...] myocardial infarct 04/29/200908/04 Overview: Modified by Acute CT Protocol #5. Oct 10 2007, Septal Acute CT 10/28/2007 04/29/2009 Overview: Modified by Acute CT Protocol #5. Oct 10 2007, Septal Acute CT 10/28/2007 08/04/2011 Overview: Oct 10 2007, Septal [...] encounter Miscellaneous Notes * Telephone Encounter - Pinky Meyer LPN - 07/30/2024 12:29 PM EDT Pt referred to hospice. Spoke with Ju at [facility] # [phone]. Faxed referral, demographics, office notes, CT reports and hospital records to [phone] Ju's documented in this encounter Plan of Treatment Upcoming Encounters Date Type Department Care Team (Late st Contact Info) Description 08/04/2024 8:00 AM EDT Office Visit Cardiology, [facility] 132 [facility] [place] [address] Margarita Rangel PA-C [address] [place] [address] 08/13/2024 8:45 AM EST Office Visit Hematology/Oncology [facility] 200 [facility] [place] [phone] Won Tesfaye MD 200 [facility] [place] [address] 08/16/2024 8:20 AM EST Office Visit Family Practice [facility] 132 [facility] [place] [address] Carlos Paniagua MD [address] [place] [address] 10/27/2024 10:00 AM EST Imaging Radiology, [facility] [address] [facility] [place] [address] 12/09/2024 1:30 PM EST Appointment Radiology, [address] [place] [address] 12/09/2024 2:00 PM EST Rehab Services Voice Lab, [facility] 400 [facility] [place] [address] Willie Johnston, CCC-TENSILE TESTER [address] [place] [address] Scheduled Procedures Name Priority Associated Diagnoses Date/Ti [...] filedocumented as of this encounter Care Teams Packaging Operator Relationship Specialty Start Date End Date Carlos Paniagua MD [address] [place] [address] PCP - General Internal Medicine 07/12/24 documented as of this encounter
--- OUTSIDE RECORDS SUMMARY | 2024-09-09 18:01 | External Medical Summary | Summary of Care ---
Author Name Unknown Organization [facility] Address [address] [facility] [address] Phone [phone] Care Team Providers Care News Editor Name Role Phone Carlos Paniagua MD Primary Care Provider [phone] Reason for Visit * Reason Onset Date Comments Advice 07/31/2024 Encounter Details Date Type Department Care Team (Late st Contact Info) Description 07/31/2024 Telephone [facility] [address] [place] [address] Carlos Paniagua MD [address] [place] [address] Advice Allergies Active Allergy Reactions [...] Release 24 Hour (toPROL XL)Indications:Athero sclerosis of [place] coronary artery of [place] heart without angina pectoris,HTN, goal below 140/90 [...] bedtime. 30 Tablet 11 07/12/2024 Active Nystatin 741881 UNIT/GM External Cream Apply 1 g topically [...] Lipid Taxonomy. Ischemic cardiomyopathy Coronary atherosclerosis of [place] coronary мария ry documented as of this [...] Overview: Carotid US 01/15/12: <50% LICA, 50-69% UDNIA Non-small cell lung cancer 01/09/2012 0 02/22/2018 Overview: Found in 2009 - non-small cell poorly dif adenocarcinoma - s/p right lung resection 04/2011 (surg postponed due to cardiac status) followed by chemo - last chemo 06/2011 Obesity, Class II, BMI 35-39 .9, isolated (see actual BMI) 03/21/2010 08/31/2017 Overview: Per Obesity Protocol, #19 Old myocardial infarct 04/29/200908/04 Overview: Modified by Acute [place] Protocol #5. Oct 10 2007, Septal Acute [place] 10/28/2007 04/29/2009 Overview: Modified by Acute [place] Protocol #5. Oct 10 2007, Septal Acute [place] 10/28/2007 08/04/2011 Overview: Oct 10 2007, Septal [...] encounter Miscellaneous Notes * Telephone Encounter - Kimberli Urias LPN - 07/31/2024 10:39 AM EDT Phillip from [facility] calling as she is not able to get a hold of pt today. She inquired if pt is in the hospital. Advised no, not per chart. No further questions. documented in this encounter Plan of Treatment Upcoming Encounters Date Type Department Care Team (Late st Contact Info) Description 08/04/2024 8:00 AM EDT Office Visit Cardiology, [facility] 132 [facility] [place] [address] Margarita Rangel PA-C 400 [facility] [place] [address] 08/13/2024 8:45 AM EST Office Visit Hematology/Oncology [facility] 200 [facility] [place] [phone] Won Tesfaye MD [address] [facility] [place] [address] 08/16/2024 8:20 AM EST Office Visit Family Practice [facility] [address] [place] [address] Carlos Paniagua MD [address] [place] [address] 10/27/2024 10:00 AM EST Imaging Radiology, [place] [address] [facility] [place] [address] 12/09/2024 1:30 PM EST Appointment Radiology, [address] [phone] 12/09/2024 2:00 PM EST Rehab Services Voice Lab, [facility] 400 [facility] [place] [address] Willie Johnston, CCC-GRAIN SACKER 132 [facility] [place] [address] Scheduled Procedures Name Priority Associated Diagnoses Date/Ti [...] filedocumented as of this encounter Care Teams News Editor Relationship Specialty Start Date End Date Carlos Paniagua MD [address] [place] [address] PCP - General Internal Medicine 07/12/24 documented as of this encounter
--- OUTSIDE RECORDS SUMMARY | 2024-09-09 18:01 | External Medical Summary | Summary of Care ---
Author Name Unknown Organization [facility] Address [address] [facility] [address] Phone [phone] Care Team Providers Care Chef Instructor Name Role Phone Carlos Paniagua MD Primary Care Provider Reason for Visit * Reason Onset Date Comments Advice 07/26/2024 Encounter Details Date Type Department Care Team (Late st Contact Info) Description 07/26/2024 Telephone [facility] [address] [place] [address] Carlos Paniagua MD [address] [place] [address] Advice Allergies Active Allergy Reactions [...] Release 24 Hour (toPROL XL)Indications:Ather osclerosis of [place] coronary artery of [place] heart without angina pectoris,HTN, goal below 140/90 [...] Lipid Taxonomy. Ischemic cardiomyopathy Coronary atherosclerosis of [place] coronary мария ry documented as of this [...] myocardial infarct 04/29/200908/04 Overview: Modified by Acute [place] Protocol #5. Oct 10 2007, Septal Acute [place] 10/28/2007 04/29/2009 Overview: Modified by Acute [place] Protocol #5. Oct 10 2007, Septal Acute [place] 10/28/2007 08/04/2011 Overview: Oct 10 2007, Septal [...] Notes * Telephone Encounter - Ricarda, Mikki, SOLID WASTE DISPOSAL MANAGER - 07/30/2024 11:50 AM EDT Left generic [...] pt's PCP if they can get a jail script for Prednisone. She states that patient [...] Office Visit Cardiology, [facility] [address] [place] [address] Margarita Rangel PA-C 400 [facility] [place] [address] 08/16/2024 8:20 AM EST Office Visit Family [facility] [address] [place] [address] Carlos Paniagua MD [address] [place] [address] 09/09/2024 2:15 PM EST Office Visit Hematology/Oncology [facility] 200 [facility] [place] [phone] Won Tesfaye MD [address] [place] [address] 10/27/2024 10:00 AM EST Imaging Radiology, [facility] [address] [facility] [address] 12/09/2024 1:30 PM EST Appointment Radiology, [facility] [phone] 12/09/2024 2:00 PM EST Rehab Services Voice Lab, [facility] [address] [place] [address] Willie Johnston, [facility] [address] [place] [address] Scheduled Procedures Name Priority Associated Diagnoses Date/Ti [...] ASSESSMENT COMPLETED IN PAST YEAR FOR COPD 07/15/2025 07/15/2024 Alpha-1 Antitrypsin Completed 06/04/2020 COVID-19 Vaccine Discontinued [...] filedocumented as of this encounter Care Teams Chef Instructor Relationship Specialty Start Date End Date Carlos Paniagua MD [address] [place] [address] PCP - General Internal Medicine 07/12/24 documented as of this encounter
--- OUTSIDE RECORDS SUMMARY | 2024-09-09 18:07 | External Medical Summary | Summary of Care ---
Author Name Unknown Organization [facility] Address [address] [facility] [address] Phone [phone] Care Team Providers Care Curing Supervisor Name Role Phone Carlos Paniagua MD Primary Care Provider [phone] Reason for Visit * Reason Onset Date Comments Home Health 07/25/2024 Encounter Details Date Type Department Care Team (Late st Contact Info) Description 07/25/2024 Telephone [facility] [address] [place] [address] Carlos Paniagua MD [address] [place] [address] Home Health Allergies Active Allergy Reactions Criticality Noted Date Comments Hydrocodone High 08/03/2021 Other reaction(s): Hallucinating Hydrocodone Bit-Homatrop Mbr 08/22/2017 hallucinations Isosorbide Nitrate Other (Please comment) 02/24/2021 headaches Penicillins 09/10/2002 hives documented as of this encounter (statuses as of 07/29/2024) Medications Medication Sig Dispensed Refills Start Date [...] Release 24 Hour (toPROL XL)Indications:Ather osclerosis of [place] coronary artery of [place] heart without angina pectoris,HTN, goal below [...] at bedtime. 30 Tablet 11 07/12/2024 Active Additional Information Patient not taking.Reported on 07/15/2024 predniSONE 10 MG Oral Tablet (Deltasone)Indicatio ns:Acute cough,COPD exacerbation (HCC) Take 5 tabs for 2 days, 4 tabs for 2 days, 3 tabs for 2 days, 2 tabs for 2 days 1 tab for 2 days 30 Tablet 07/15/2024 Active Nystatin 142978 UNIT/GM External Cream Apply 1 g topically to affected area in the morning and 1 g before bedtime. To affacted area for two weeks.. 60 g 3 07/28/2024 Active documented as of this encounter (statuses as of 07/29/2024) Active Problems Problem Noted Date Diagnosed Date [...] Lipid Taxonomy. Ischemic cardiomyopathy Coronary atherosclerosis of [place] coronary мария ry documented as of this encounter (statuses as of 07/29/2024) Resolved Problems Problem Noted Date Diagnosed Date [...] as of this encounter (statuses as of 07/29/2024) Immunizations Name Administration Dates Next Due COVID-19 [...] Miscellaneous Notes * Telephone Encounter - Michelle Bennett OSA [...] LPN - 07/25/2024 3:26 PM EDT PT/OT/ST Evbarbie Start of Care/Continuation Phillip Speech Therapist , Calling from: [facility] Speech Therapist Plan of care: 1 times [...] Phillip with any advice or orders at [phone]. Please fax new orders to [facility] Home Health [phone] Advised that additional visit orders will be signed by Carlos Paniagua MD and to fax to the office for signature documented in this encounter Plan of Treatment Upcoming Encounters Date Type Department Care Team (Late st Contact Info) Description 07/30/2024 11:20 AM EDT Office Visit [facility] 132 [facility] [place] [address] Ashkan Hernandez MD 132 [facility] [place] [address] 08/04/2024 8:00 AM EDT Office Visit Cardiology, [facility] 132 [facility] [place] [address] Margarita Rangel PA-C [address] [place] [address] 08/16/2024 8:20 AM EST Office Visit [facility] [address] [place] [address] Carlos Paniagua MD [address] [place] [address] 09/09/2024 2:15 PM EST Office Visit Hematology/Oncology [facility] [place] [address] [place] [address] [place] [phone] Won Tesfaye MD [address] [place] [address] 10/27/2024 10:00 AM EST Imaging Radiology, [place] [address] [facility], [place] [address] 12/09/2024 1:30 PM EST Appointment Radiology, [facility] [place] [phone] 12/09/2024 2:00 PM EST Rehab Services Voice Lab, [facility] [address] [facility] [address] Willie Johnston, [facility] TEXTURER [address] [place] [address] Scheduled Orders Name Type Priority Associated Diagnoses Orde r Schedule FLUORO SWALLOWING FUNCTION W VIDEO CINE Medical Imaging Routine Dementia without behavioral disturbance (HCC) Cough, unspecified type Ordered: 07/28/2024 Scheduled Procedures Name Priority Associated Diagnoses Date/Ti me COLONOSCOPY FLEXIBLE PROXIMA L DIAGNOSTIC Recall Special screening for malignant neoplasms, colon Health Maintenance Due Date Last Done Comments DXA Scan 1950 Albumin/Creatinine Ratio 02/17/1966 Zoster Vaccines (1 of 2) 02/17/1967 Adult Wellness Visit 02/17/2014 DTap/Tdap Vaccines (2 - Td or Tdap) 07/23/2020 07/23/2010 Depression Screening 09/15/2020 09/15/2019 *COPD SEVERITY VERIFIED BY PFT 02/06/2022 COVID-19 Vaccine ( season) 2024 01/12/2021, 12/22/2020 TSH 04/17/2025 04/17/2024, 08/09, 01/03/2022, Additional history exists GFR 07/15/2025 07/15/2024, 04/07, 09/05/2023, Additional history exists O2 ASSESSMENT COMPLETED IN PAST YEAR FOR COPD 07/15/2025 07/15/2024 Alpha-1 Antitrypsin Completed 06/04/2020 Pneumococcal Vaccine: 65+ Years Completed 01/03/2022, 12/31/2018, 09/04/2006 Influenza Vaccine (FLU shot) Completed , 01/03/2022, 08/08/2019, Additional history exists HPV (Gardasil) Vaccine Aged Out No lo nger eligible based on patient's age to complete this topic Hepatitis B Vaccine Aged Out No longe r eligible based on patient's age to complete this topic MENINGOCOCCAL (MENACTRA/MENVEO) Aged Out No longer eligible based on patient's age to complete this topic documented as of this encounter Medical Devices Not on filedocumented as of this encounter Visit Diagnoses Diagnosis Cough, unspecified type- Primary Dementia without behavioral disturbance (HCC) Dementia, unspecified, without behavioral disturbance documented in this encounter Care Teams Curing Supervisor Relationship Specialty Start Date End Date Carlos Paniagua MD [address] [place] [address] PCP - General Internal Medicine 07/12/24 documented as of this encounter
--- OUTSIDE RECORDS SUMMARY | 2024-09-09 18:07 | External Medical Summary | Summary of Care ---
Author Name Unknown Organization [facility] Address [address] [facility] [place] [address] Phone [phone] Care Team Providers Care Pad Extraction Tender Name Role Phone Carlos Paniagua MD Primary Care Provider [phone] Reason for Visit * Reason Onset Date Comments Advice 07/26/2024 Encounter Details Date Type Department Care Team (Late st Contact Info) Description 07/26/2024 Telephone [facility] [address] [place] [address] Carlos Paniagua MD [address] [place] [address] Advice Allergies Active Allergy Reactions [...] Release 24 Hour (toPROL XL)Indications:Ather osclerosis of [place] coronary artery of [place] heart without angina pectoris,HTN, goal below 140/90 [...] for 2 days 30 Tablet 07/15/2024 Active predniSONE 10 MG Oral Tablet (Deltasone) [...] Lipid Taxonomy. Ischemic cardiomyopathy Coronary atherosclerosis of [place] coronary мария ry documented as of this [...] myocardial infarct 04/29/200908/04 Overview: Modified by Acute [place] Protocol #5. Oct 10 2007, Septal Acute [place] 10/28/2007 04/29/2009 Overview: Modified by Acute [place] Protocol #5. Oct 10 2007, Septal Acute [place] 10/28/2007 08/04/2011 Overview: Oct 10 2007, Septal [...] mRNA, LNP-s, No Pre serve, 2-Dose Series ([employer]) 01/12/2021,12/22/2020 Pneumococcal Conjugate Vacc, 13 Valent (Prevnar) [...] pt's PCP if they can get a computer terminal operator script for Prednisone. She states that patient [...] 07/30/2024 11:20 AM EDT Office Visit Family Practice [facility] [address] [place] [address] Ashkan Hernandez MD [address] [place] [address] 08/04/2024 8:00 AM EDT Office Visit Cardiology, [facility] 132 [facility] [place] [address] Margarita Rangel PA-C 400 [facility] [place] [address] 08/16/2024 8:20 AM EST Office Visit Family [facility] 132 [facility] [place] [address] Carlos Paniagua MD [address] [place] [address] 09/09/2024 2:15 PM EST Office Visit Hematology/Oncology [facility] [address] [facility] [place] [phone] Won Tesfaye MD [address] [facility] [place] [address] 10/27/2024 10:00 AM EST Imaging Radiology, [place] [id number] [facility] [place] [address] 12/09/2024 1:30 PM EST Appointment Radiology, [facility] [phone] 12/09/2024 2:00 PM EST Rehab Services Voice Lab, [facility] [address] [facility] [address] Willie Johnston, CCC-BIOMEDICAL SERVICE ENGINEER 132 [facility] [place] [address] Scheduled Procedures Name Priority Associated Diagnoses Date/Ti [...] filedocumented as of this encounter Care Teams Pad Extraction Tender Relationship Specialty Start Date End Date Carlos Paniagua MD [address] [place] [address] PCP - General Internal Medicine 07/12/24 documented as of this encounter
--- OUTSIDE RECORDS SUMMARY | 2024-09-09 18:08 | External Medical Summary | Summary of Care ---
Author Name Unknown Organization [facility] Address [address] [facility] [place] [address] Phone [phone] Care Team Providers Care Spring Coiler Name Role Phone Carlos Paniagua MD Primary Care Provider [phone] Reason for Visit * Reason Onset Date Comments Test Results 06/19/2024 Encounter Details Date Type Department Care Team (Late st Contact Info) Description 06/19/2024 Telephone Family Practice [facility] 132 [facility] [place] [address] Chandni Qureshi CRNP 132 [place] [address] Test Results Allergies Active Allergy Reactions Criticality Noted Date [...] Active Levothyroxine Sodium 75 MCG Oral Tablet (Levoxyl)Indication s:Acquired hypothyroidism TAKE 1 TABLET BY MOUTH ONCE DAILY AT LEAST 30 MINUTES PRIOR TO BREAKFAST OR OTHER MEDS 90 Tablet 3 04/17/2024 Active Metoprolol Succinate ER 50 MG Oral Tablet Extended Release 24 Hour (toPROL XL)Indications:Athe rosclerosis of [place] coronary artery of [place] heart without angina pectoris,HTN, goal below 140/90 Take 1 Tablet by mouth in the morning. 90 Tablet 3 04/17/2024 Active Cyanocobalamin 1000 MCG/ML Injection Solution (Cyanocobalamin)Ind ications:B12 deficiency Inject 1,000 mcg into a large muscle every 30 days. 1 mL 04/17/2024 Active Pantoprazole Sodium 40 MG Oral Tablet Delayed Release (Protonix)Indicatio ns:Gastroesophageal reflux disease without esophagitis Take 1 Tablet by mouth in the morning. 90 Tablet 04/17/2024 Active Nitroglycerin 0.4 MG Sublingual Tablet Sublingual (Nitrostat) 1 tab dissolved under tongue every 5 mins for a maximum of 3 for chest pain 25 Tablet 1 04/17/2024 Active Atorvastatin Calcium 40 MG Oral Tablet (Lipitor)Indication s:Dyslipidemia Take 1 Tablet by mouth in the morning. 90 Tablet 04/17/2024 Active Ezetimibe 10 MG Oral Tablet (Zetia)Indications: Dyslipidemia Take 1 Tablet by mouth in the morning. 90 Tablet 04/17/2024 Active Albuterol Sulfate 1.25 MG/3ML Inhalation Nebulization SolutionIndications :COPD, severity to be determined (HCC) Inhale 1.25 mg via nebulizer every 4 hours as needed for Shortness of Breath or Wheezing. 360 mL 2 04/17/2024 Active Ipratropium-Albuter ol 0.5-2.5 (3) MG/3ML Inhalation Solution (Duoneb)Indications :Centrilobular emphysema (HCC) Inhale 3 mL via nebulizer in the morning and 3 mL at noon and 3 mL in the evening and 3 mL before bedtime. As needed. 180 mL 04/17/2024 Active Syringe/Needle (Disp) 23G X 1" 3 ML Use as directed 180 Each 3 04/17/2024 Active Syringe/Needle (Disp) 25G X 1" 3 ML Use as directed. 12 Each 04/17/2024 Active Zoster Vac Recomb Adjuvanted 50 MCG/0.5ML Intramuscular Suspension Reconstituted (Shingrix)Indicatio ns:Need for vaccination for zoster Inject 0.5 mL into a large muscle now and repeat dose in 60 to 180 days 1 Each 1 04/17/2024 4 Discontinued (Medication List Clean Up) FLUoxetine HCl 10 MG Oral Capsule (PROzac) Take 2 capsules by mouth daily for four weeks, then 1 capsule by mouth daily for four weeks, then stop the medication. 90 Capsule 04/17/2024 4 Discontinued (Medication List Clean Up) Doxycycline Hyclate 100 MG Oral CapsuleIndications: Acute cough,COPD exacerbation (HCC) Take 1 Capsule by mouth in the morning and 1 Capsule before bedtime. Do all this for 10 days. Until gone.. 20 Capsule 06/17/2024 4 predniSONE 10 MG Oral Tablet (Deltasone)Indicati ons:Acute cough,COPD exacerbation (HCC) Take 5 tabs for 2 days, 4 tabs for 2 days, 3 tabs for 2 days, 2 tabs for 2 days 1 tab for 2 days 30 Tablet 06/17/2024 4 Discontinued (Refill) documented as of this encounter (statuses as [...] Lipid Taxonomy. Ischemic cardiomyopathy Coronary atherosclerosis of [place] coronary мария ry documented as of this [...] IM, 0.5 mL (Fluzone) 08/18/2008,08/06/2007,09/04/2006 Seasonal Influenza, PF, 6 M & above, [...] Telephone Encounter - Kimberli Urias LPN - 06/24/2024 10:15 AM EDT Called pt, informed of message. Pt is feeling better for the most part. In the evening her breathing seems to worsen, she is using her neb tx serafin do help with breathing. * Telephone Encounter - Pinky Meyer LPN - 06/21/2024 3:03 PM EDT Attempted to call patient, there was no answer, left voicemail. Transfer to nurse line when calls back * Telephone Encounter - Cintia Andrade LPN - 06/20/2024 3:59 PM EDT Left message to return call. * Telephone Encounter - Chandni Qureshi CRNP - 06/19/2024 10:27 PM EDT No pneumonia on xray How is she feeling? documented in this encounter Plan of Treatment Upcoming Encounters Date Type Department Care Team (Late st Contact Info) Description 07/30/2024 11:20 AM EDT Office Visit Family [address] [place] [address] Ashkan Hernandez MD [facility] [place] [address] 08/04/2024 8:00 AM EDT Office Visit Cardiology, [facility] 132 [facility] [place] [address] Margarita Rangel, [place]C 400 [place] [address] 08/16/2024 8:20 AM EST Office Visit Family Practice [facility] 132 [facility] [place] [address] Carlos Paniagua MD [address] [place] [address] 09/09/2024 2:15 PM EST Office Visit Hematology/Oncology [facility] [place] [phone] Won Tesfaye MD 200 [place] [address] 10/27/2024 10:00 AM EST Imaging Radiology, [place] [address] [facility], [place] [address] 12/09/2024 1:30 PM EST Appointment Radiology, [facility] [address] [facility] [phone] 12/09/2024 2:00 PM EST Rehab Services Voice Lab, [facility] 400 [place] [address] Willie Johnston, CCC-DIRECTOR OF PEOPLE [address] [place] [address] Scheduled Procedures Name Priority Associated Diagnoses Date/Ti [...] SEVERITY VERIFIED BY PFT 02/06/2022 COVID-19 Vaccine (3 - season) 2024 01/12/2021, 12/22/2020 TSH 04/17/2025 04/17/2024, [...] filedocumented as of this encounter Care Teams Spring Coiler Relationship Specialty Start Date End Date Carlos Paniagua MD [address] [place] [address] PCP - General Internal Medicine 07/12/24 documented as of this encounter
--- OUTSIDE RECORDS SUMMARY | 2024-09-09 18:08 | External Medical Summary | Summary of Care ---
Author Name Unknown Organization [facility] Address [address] [facility] [address] Phone [phone] Care Team Providers Care Retread Mold Operator Name Role Phone Carlos Paniagua MD Primary Care Provider [phone] Reason for Visit * Reason Onset Date Comments Home Health 07/25/2024 Encounter Details Date Type Department Care Team (Late st Contact Info) Description 07/25/2024 Telephone [facility] [address] [place] [address] Carlos Paniagua MD [address] [place] [address] Home Health Allergies Active Allergy Reactions Criticality Noted Date Comments Hydrocodone High 08/03/2021 Other reaction(s): Hallucinating Hydrocodone Bit-Homatrop Mbr 08/22/2017 hallucinations Isosorbide Nitrate Other (Please comment) 02/24/2021 headaches Penicillins 09/10/2002 hives documented as of this encounter (statuses as of 07/28/2024) Medications Medication Sig Dispensed Refills Start Date [...] Release 24 Hour (toPROL XL)Indications:Ather osclerosis of [place] coronary artery of [place] heart without angina pectoris,HTN, goal below 140/90 [...] 2 days 30 Tablet 07/15/2024 Active Nystatin 441863 UNIT/GM External Cream Apply 1 g topically to affected area in the morning and 1 g before bedtime. To affacted area for two weeks.. 60 g 3 07/28/2024 Active documented as of this encounter (statuses as of 07/28/2024) Active Problems Problem Noted Date Diagnosed Date [...] Lipid Taxonomy. Ischemic cardiomyopathy Coronary atherosclerosis of [place] coronary мария ry documented as of this encounter (statuses as of 07/28/2024) Resolved Problems Problem Noted Date Diagnosed Date [...] as of this encounter (statuses as of 07/28/2024) Immunizations Name Administration Dates Next Due COVID-19 [...] A SOONER APPT? * Telephone Encounter - Cralos Paniagua MD - 07/28/2024 9:21 AM EDT Please schedule swallow test And also sent nystatin cream to use twice daily as needed Try at least 1-2 wks for rash * Telephone Encounter - Johnna Crenshaw LPN - 07/25/2024 3:26 PM EDT PT/OT/ST Eval Start of Care/Continuation Phillip Speech Therapist , Calling from: [facility] Speech Therapist Plan of care: 1 times [...] Phillip with any advice or orders at [phone]. Please fax new orders to [facility] Home Health [phone] Advised that additional visit orders will be signed by Carlos Paniagua MD and to fax to the office for signature documented in this encounter Plan of Treatment Upcoming Encounters Date Type Department Care Team (Late st Contact Info) Description 08/04/2024 8:00 AM EDT Office Visit Cardiology, [facility] 132 [facility] [place] [address] Margarita Rangel PA-C [address] [facility] [place] [address] 08/16/2024 8:20 AM EST Office Visit Family Practice [facility] 132 [facility] [place] [address] Carlos Paniagua MD [address] [place] [address] 09/09/2024 2:15 PM EST Office Visit Hematology/Oncology [facility] 200 [facility] [place] [phone] Won Tesfaye MD 200 [facility] [place] [address] 10/27/2024 10:00 AM EST Imaging Radiology, [address] [place] [address] 12/09/2024 1:30 PM EST Appointment Radiology, [address] [phone] 12/09/2024 2:00 PM EST Rehab Services Voice Lab, [facility] [address] [facility] [address] Willie Johnston, CCC-NONFARM ANIMAL CARETAKER 132 [facility] [place] [address] Scheduled Orders Name Type Priority Associated Diagnoses [...] disturbance documented in this encounter Care Teams Retread Mold Operator Relationship Specialty Start Date End Date Carlos Paniagua MD [address] [place] [address] PCP - General Internal Medicine 07/12/24 documented as of this encounter
--- OUTSIDE RECORDS SUMMARY | 2024-09-09 18:08 | External Medical Summary | Summary of Care ---
Author Name Unknown Organization [facility] Address [address] [facility] [address] Phone [phone] Care Team Providers Care Nurse Supervisor Name Role Phone Carlos Paniagua MD Primary Care Provider [phone] Reason for Visit * Reason Onset Date Comments Home Health 07/25/2024 Encounter Details Date Type Department Care Team (Late st Contact Info) Description 07/25/2024 Telephone [facility] [address] [place] [address] Carlos Paniagua MD [address] [place] [address] Home Health Allergies Active Allergy [...] Release 24 Hour (toPROL XL)Indications:Ather osclerosis of [place] coronary artery of [place] heart without angina pectoris,HTN, goal below 140/90 [...] 2 days 30 Tablet 07/15/2024 Active Nystatin 307328 UNIT/GM External Cream Apply 1 g topically [...] Lipid Taxonomy. Ischemic cardiomyopathy Coronary atherosclerosis of [place] coronary мария ry documented as of this [...] LPN - 07/25/2024 3:26 PM EDT PT/OT/ST Maryal Start of Care/Continuation Phillip Speech Therapist , Calling from: [facility] Speech Therapist Plan of care: 1 times [...] Phillip with any advice or orders at [phone]. Please fax new orders to [facility] Home Health [phone] Advised that additional visit orders will be signed by Carlos Paniagua MD and to fax to the office for signature documented in this encounter Plan of Treatment Upcoming Encounters Date Type Department Care Team (Late st Contact Info) Description 07/30/2024 11:20 AM EDT Office Visit Family Practice [facility] 132 [facility] [place] [address] Ashkan Hernandez MD 132 [facility] [place] [address] 08/04/2024 8:00 AM EDT Office Visit Cardiology, [facility] 132 [facility] [place] [address] Margarita Rangel PA-C 400 [facility] [address] 08/16/2024 8:20 AM EST Office Visit [facility] 132 [facility] [place] [address] Carlos Paniagua MD [address] [place] [address] 09/09/2024 2:15 PM EST Office Visit Hematology/Oncology [facility] [address] [place] [phone] Won Tesfaye MD [address] [place] [address] 10/27/2024 10:00 AM EST Imaging Radiology, [place] [address] [facility] [place] [address] 12/09/2024 1:30 PM EST Appointment Radiology, [facility] 400 [facility] [place] [address] 12/09/2024 2:00 PM EST Rehab Services Voice Lab, [facility] [address] [place] [address] Willie Johnston, CCC-ROAD MENDER [address] [place] [address] Scheduled Orders Name Type Priority Associated Diagnoses [...] disturbance documented in this encounter Care Teams Nurse Supervisor Relationship Specialty Start Date End Date Carlos Paniagua MD 132 [place] [address] PCP - General Internal Medicine 07/12/24 documented as of this encounter
--- OUTSIDE RECORDS SUMMARY | 2024-09-09 18:08 | External Medical Summary | Summary of Care ---
Author Name Unknown Organization [facility] Address [address] [facility] [address] Phone [phone] Care Team Providers Care Local Announcer Name Role Phone Carlos Paniagua MD Primary Care Provider [phone] Reason for Visit * Reason Onset Date Comments Home Health 07/25/2024 Encounter Details Date Type Department Care Team (Late st Contact Info) Description 07/25/2024 Telephone [facility] [address] [place] [address] Carlos Paniagua MD [address] [place] [address] Home Health Allergies Active Allergy [...] 2 days 30 Tablet 07/15/2024 Active Nystatin 052205 UNIT/GM External Cream Apply 1 g topically [...] myocardial infarct 04/29/200908/04 Overview: Modified by Acute [place] Protocol #5. Oct 10 2007, Septal Acute [place] 10/28/2007 04/29/2009 Overview: Modified by Acute [place] Protocol #5. Oct 10 2007, Septal Acute [place] 10/28/2007 08/04/2011 Overview: Oct 10 2007, Septal [...] , Calling from: [facility] Speech Therapist Plan of care: 1 [...] Phillip with any advice or orders at [phone]. Please fax new orders to [facility] Home Health [phone] Advised that additional visit orders will be signed by Carlos Paniagua MD and to fax to the office for signature documented in this encounter Plan of Treatment Upcoming Encounters Date Type Department Care Team (Late st Contact Info) Description 08/04/2024 8:00 AM EDT Office Visit Cardiology, [facility] 132 [facility] [place] [address] Margarita Rangel PA-C [address] [place] [address] [place] [address] 08/16/2024 8:20 AM EST Office Visit Family Practice [facility] [place] [address] Carlos Paniagua MD [address] [place] [address] 09/09/2024 2:15 PM EST Office Visit Hematology/Oncology [facility] [address] [place] [address] Won Tesfaye MD [address] [place] [address] 10/27/2024 10:00 AM EST Imaging Radiology, [place] [address]80 [facility] [place] [address] 12/09/2024 1:30 PM EST Appointment Radiology, [facility] 400 [facility] [address] 12/09/2024 2:00 PM EST Rehab Services Voice Lab, [address] [address] Willie Johnston, CCC-BLOW PIT OPERATOR [address] [place] [address] Scheduled Orders Name Type Priority Associated Diagnoses [...] disturbance documented in this encounter Care Teams Local Announcer Relationship Specialty Start Date End Date Carlos Paniagua MD 132 [facility] [place] [address] PCP - General Internal Medicine 07/12/24 documented as of this encounter
--- OUTSIDE RECORDS SUMMARY | 2024-09-09 18:09 | External Medical Summary | Summary of Care ---
Author Name Unknown Organization [facility] Address [address] [facility] [address] Phone [phone] Care Team Providers Care Underliner Name Role Phone Carlos Paniagua MD Primary Care Provider [phone] Reason for Visit * Reason Onset Date Comments Home Health 07/25/2024 Encounter Details Date Type Department Care Team (Late st Contact Info) Description 07/25/2024 Telephone [facility] [address] [place] [address] Carlos Paniagua MD [address] [place] [address] Home Health Allergies Active Allergy [...] Release 24 Hour (toPROL XL)Indications:Ather osclerosis of [place] coronary artery of [place] heart without angina pectoris,HTN, goal below 140/90 [...] 2 days 30 Tablet 07/15/2024 Active Nystatin 978509 UNIT/GM External Cream Apply 1 g topically [...] Lipid Taxonomy. Ischemic cardiomyopathy Coronary atherosclerosis of [place] coronary мария ry documented as of this [...] Phillip Speech Therapist , Calling from: [facility] Speech Therapist Plan of care: 1 [...] Phillip with any advice or orders at [phone]. Please fax new orders to [facility] Home Health [phone] Advised that additional visit orders will be signed by Carlos Paniagua MD and to fax to the office for signature documented in this encounter Plan of Treatment Upcoming Encounters Date Type Department Care Team (Late st Contact Info) Description 08/04/2024 8:00 AM EDT Office Visit Cardiology, [facility] 132 [facility] [place] [address] Margarita Rangel PA-C [address] [place] [address] [place] [address] 08/16/2024 8:20 AM EST Office Visit Family Practice [facility] 132 [facility] [place] [address] Carlos Paniagua MD [address] [place] [address] 09/09/2024 2:15 PM EST Office Visit Hematology/Oncology [facility] [address] [place] [address] Won Tesfaye MD [address] [place] [address] 10/27/2024 10:00 AM EST Imaging Radiology, [place] [address] [facility] [place] [address] 12/09/2024 1:30 PM EST Appointment Radiology, [facility] 400 [facility] [address] 12/09/2024 2:00 PM EST Rehab Services Voice Lab, [address] [address] Willie Johnston, CCC-LEG ASSEMBLER [address] [place] [address] Scheduled Orders Name Type Priority Associated Diagnoses [...] disturbance documented in this encounter Care Teams Underliner Relationship Specialty Start Date End Date Carlos Paniagua MD 132 [facility] [place] [address] PCP - General Internal Medicine 07/12/24 documented as of this encounter
--- OUTSIDE RECORDS SUMMARY | 2024-09-09 18:10 | External Medical Summary | Summary of Care ---
Author Name Unknown Organization [facility] Address [address] [facility] [place] [address] Phone [phone] Care Team Providers Care Instrument Designer Name Role Phone Unavailable Primary Care Provider Unavailabl e Encounter Details Date Type Department Care Team (Latest Contact Info) Description 07/06/2024 7:25 PM EDT - 07/06/2024 11:59 PM EDT Hospital Encounter Radiology Film File [address] [place] [address] Discharge Disposition: Home - Self Care Allergies Active Allergy Reactions Criticality Noted Date Comments Hydrocodone High 08/03/2021 Other reaction(s): Hallucinating Hydrocodone Bit-Homatrop Mbr 08/22/2017 hallucinations Isosorbide Nitrate Other (Please comment) 02/24/2021 headaches Penicillins 09/10/2002 hives documented as of this encounter (statuses as of 07/19/2024) Medications Medication Sig Dispensed Refills Start Date [...] Release 24 Hour (toPROL XL)Indications:Athero sclerosis of [place] coronary artery of [place] heart without angina pectoris,HTN, goal below 140/90 [...] Use as directed. 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 Ischemic cardiomyopathy Coronary atherosclerosis of [place] coronary мария ry documented as of this encounter (statuses as of 07/19/2024) Resolved Problems Problem Noted Date Diagnosed Date Resolved Date Body mass index (BMI) of 40. 0 to 44.9 in adult 05/19/2019 11/22/2023 Overview: Per Obesity protocol Systolic and diastolic CHF, chronic 08/31/2017 12/31/2018 Malignant neoplasm metastatic to lung 02/10/2016 08/31/2017 [...] myocardial infarct 04/29/200908/04 Overview: Modified by Acute [place] Protocol #5. Oct 10 2007, Septal Acute [place] 10/28/2007 04/29/2009 Overview: Modified by Acute [place] Protocol #5. Oct 10 2007, Septal Acute [place] 10/28/2007 08/04/2011 Overview: Oct 10 2007, Septal Painful Soft tissue tumor Left Forehead >1cm 7 08/31/2017 ADVANCE DIRECTIVE INFORMATION 09/04/2006 08/31/2017 Overview: No, brochure given at this visit CHR ISCHEMIC HRT DIS NOS 09/10/2002 HTN, goal below 130/80 09/10/200202/02 Dyslipidemia, goal LDL below 70 08/31/2017 documented as of this encounter (statuses as of 07/19/2024) Immunizations Name Administration Dates Next Due COVID-19 [...] Care Team (Late st Contact Info) Description 08/16/2024 8:20 AM EST Office Visit Family Practice [facility] 132 [facility] [place] [address] Carlos Paniagua MD [address] [place] [address] 09/09/2024 2:15 PM EST Office Visit Hematology/Oncology [facility] [address] [place] [phone] Won Tesfaye MD [address] [place] [address] 10/21/2024 9:00 AM EST Office Visit Cardiology, [facility] [address] [place] [address] Velia Rousseau PA-C [address] [place] [address] 10/27/2024 10:00 AM EST Imaging Radiology, [place] [address] [facility] [place], [place] [address] 12/09/2024 1:30 PM EST Appointment Radiology, [facility] 400 [facility] [place] [phone] 12/09/2024 2:00 PM EST Rehab Services Voice Lab, [facility] 400 [facility] [address] Willie Johnston, [facility]-ASSOCIATE ENTERTAINMENT EDITOR [address] [place] [address] Scheduled Procedures Name Priority Associated Diagnoses Date/Ti [...] Procedure Name Priority Date/Time Associated Diagnosis Comments RADIOLOGY EXAM - CT (IMAGES ONLY, NO REPORT) Routine 07/06/2024 7:25 PM EDT documented in this encounter Results * RADIOLOGY EXAM - CT (IMAGES ONLY, NO REPORT) (07/06/2024 7:25 PM EDT) 07/06/2024 7:06 PM EDT Narrative Scheduling, Silent - 07/18/2024 12:48 PM EDT This is an imaging study not interpreted or resulted by a [facility] or [facility] contracted radiologist. Carlos Paniagua MD RAD CT documented in this encounter
--- OUTSIDE RECORDS SUMMARY | 2024-09-09 18:10 | External Medical Summary | Summary of Care ---
Author Name Unknown Organization [facility] Address [address] [facility] [address] Phone [phone] Care Team Providers Care Lidding Machine Operator Name Role Phone Carlos Paniagua MD Primary Care Provider [phone] Reason for Visit * Reason Onset Date Comments Home Health 07/21/2024 Encounter Details Date Type Department Care Team (Late st Contact Info) Description 07/21/[address] [facility] [address] [place] [address] Carlos Paniagua MD [address] [place] [address] Home Health Allergies Active Allergy Reactions Criticality Noted Date Comments Hydrocodone High 08/03/2021 Other reaction(s): Hallucinating Hydrocodone Bit-Homatrop Mbr 08/22/2017 hallucinations Isosorbide Nitrate Other (Please comment) 02/24/2021 headaches Penicillins 09/10/2002 hives documented as of this encounter (statuses as of 07/21/2024) Medications Medication Sig Dispensed Refills Start Date [...] Release 24 Hour (toPROL XL)Indications:Ather osclerosis of [place] coronary artery of [place] heart without angina pectoris,HTN, goal below 140/90 [...] for 2 days 30 Tablet 07/15/2024 Active documented as of this encounter (statuses as of 07/21/2024) Active Problems Problem Noted Date Diagnosed Date Dementia without behavioral disturbance 10/15/19 History of lung cancer 02/22/2018 COPD, group B, by GOLD 2017 classification 08/31 Liver enzyme elevation 01/24/2017 Acquired hypothyroidism 12/11/2016 HTN, goal below 140/90 08/05/2014 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 Ischemic cardiomyopathy Coronary atherosclerosis of [place] coronary мария ry documented as of this encounter (statuses as of 07/21/2024) Resolved Problems Problem Noted Date Diagnosed Date [...] as of this encounter (statuses as of 07/21/2024) Immunizations Name Administration Dates Next Due COVID-19 mRNA, LNP-s, No Pre serve, 2-Dose Series (Poderopedia) 01/12/2021,12/22/2020 Pneumococcal Conjugate Vacc, 13 Valent (Prevnar) [...] encounter Miscellaneous Notes * Telephone Encounter - Ayleen Dominique LPN - 07/21/2024 8:[address] Eval Start of Care/Continuation Phillip Speech Therapist , Calling from: [facility] Patient has rescheduled the ST eval twice due to unplanned events. Phillip rescheduled for 07/25. FYI documented in this encounter Plan of Treatment Upcoming Encounters Date Type Department Care Team (Late st Contact Info) Description 08/16/2024 8:20 AM EST Office Visit Family Practice [facility] [place] [address] Carlos Paniagua MD [address] [place] [address] 09/09/2024 2:15 PM EST Office Visit Hematology/Oncology [facility] 200 [facility] [place] [phone] Won Tesfaye MD 200 [facility] [place] [address] 10/21/2024 9:00 AM EST Office Visit Cardiology, [facility] [address] [place] [address] Velia Rousseau PA-Nguyen [facility] [place] [address] 10/27/2024 10:00 AM EST Imaging Radiology, [place] [address] [facility] [place] [address] 12/09/2024 1:30 PM EST Appointment Radiology, [address] [address] 12/09/2024 2:00 PM EST Rehab Services Voice Lab, [address] [address] Willie Johnston, CCC-JUNIOR DATA ANALYST [address] [facility] [place] [address] Scheduled Procedures Name Priority Associated Diagnoses Date/Ti [...] filedocumented as of this encounter Care Teams Lidding Machine Operator Relationship Specialty Start Date End Date Carlos Paniagua MD [address] [place] [address] PCP - General Internal Medicine 07/12/24 documented as of this encounter
--- OUTSIDE RECORDS SUMMARY | 2024-09-09 18:10 | External Medical Summary | Summary of Care ---
Author Name Unknown Organization [facility] Address [address] [facility] [address] Phone [phone] Care Team Providers Care University Administrator Name Role Phone Carlos Paniagua MD Primary Care Provider [phone] Reason for Visit * Reason Onset Date Comments Forms Request 07/28/2024 [facility] Encounter Details Date Type Department Care Team ([facility] st Contact Info) Description 07/28/2024 Telephone [facility] [address] [place] [address] Carlos Paniagua MD [address] [place] [address] Forms Request ([facility]) Allergies Active Allergy Reactions Criticality Noted Date [...] Release 24 Hour (toPROL XL)Indications:Ather osclerosis of [place] coronary artery of [place] heart without angina pectoris,HTN, goal below 140/90 [...] 2 days 30 Tablet 07/15/2024 Active Nystatin 259870 UNIT/GM External Cream Apply 1 g topically [...] Lipid Taxonomy. Ischemic cardiomyopathy Coronary atherosclerosis of [place] coronary мария ry documented as of this [...] myocardial infarct 04/29/200908/04 Overview: Modified by Acute [place] Protocol #5. Oct 10 2007, Septal Acute [place] 10/28/2007 04/29/2009 Overview: Modified by Acute [place] Protocol #5. Oct 10 2007, Septal Acute [place] 10/28/2007 08/04/2011 Overview: Oct 10 2007, Septal [...] Telephone Encounter - Celina Alves LPN - 07/28/2024 9:41 AM EDT Received Fax for BFPROVIDERS: Dr. Carlos Paniagua ORDER received from [facility] FIMS and FAXED documented in this encounter Plan of Treatment Upcoming Encounters Date Type Department Care Team (Late st Contact Info) Description 08/04/2024 8:00 AM EDT Office Visit Cardiology, [facility] 132 [facility] [place] [address] Margarita Rangel PA-C 400 [place] [address] 08/16/2024 8:20 AM EST Office Visit Family Practice [facility] [address] [place] [address] Carlos Paniagua MD [address] [place] [address] 09/09/2024 2:15 PM EST Office Visit Hematology/Oncology [facility] 200 [facility] [place] [phone] Won Tesfaye MD 200 [facility] [place] [address] 10/27/2024 10:00 AM EST Imaging Radiology, [facility] 25[address] [facility] [place] [address] 12/09/2024 1:30 PM EST Appointment Radiology, [address] [address] 12/09/2024 2:00 PM EST Rehab Services Voice Lab, [address] [place] [address] Preston[place], [facility] SPEECH THERAPIST [address] [place] [address] Scheduled Procedures Name Priority Associated Diagnoses Date/Ti [...] filedocumented as of this encounter Care Teams University Administrator Relationship Specialty Start Date End Date Carlos Paniagua MD [address] [place] [address] PCP - General Internal Medicine 07/12/24 documented as of this encounter
--- OUTSIDE RECORDS SUMMARY | 2024-09-09 18:10 | External Medical Summary | Summary of Care ---
Author Name Unknown Organization [facility] Address [address] [facility] [address] Phone [phone] Care Team Providers Care Physics Teacher Name Role Phone Carlos Paniagua MD Primary Care Provider [phone] Reason for Visit * Reason Onset Date Comments Home Health 07/25/2024 Encounter Details Date Type Department Care Team (Late st Contact Info) Description 07/25/2024 Telephone [facility] [address] [place] [address] Carlos Paniagua MD [address] [place] [address] Home Health Allergies Active Allergy [...] Release 24 Hour (toPROL XL)Indications:Ather osclerosis of [place] coronary artery of [place] heart without angina pectoris,HTN, goal below 140/90 [...] 2 days 30 Tablet 07/15/2024 Active Nystatin 252927 UNIT/GM External Cream Apply 1 g topically [...] Lipid Taxonomy. Ischemic cardiomyopathy Coronary atherosclerosis of [place] coronary мария ry documented as of this [...] for rash * Telephone Encounter - Johnna Cresnhaw LPN - 07/25/2024 3:26 PM EDT PT/OT/ST Eval Start of Care/Continuation Phillip Speech Therapist , Calling from: [facility] Speech Therapist Plan of care: 1 [...] Phillip with any advice or orders at [phone]. Please fax new orders to [facility] Home Health [phone] Advised that additional visit orders will be signed by Carlos Paniagua MD and to fax to the office for signature documented in this encounter Plan of Treatment Upcoming Encounters Date Type Department Care Team (Late st Contact Info) Description 08/04/2024 8:00 AM EDT Office Visit Cardiology, [facility] 132 [facility] [place] [address] Margarita Rangel PA-C [address] [place] [address] [place] [address] 08/16/2024 8:20 AM EST Office Visit Family Practice [facility] [place] [address] Carlos Paniagua MD [address] [place] [address] 09/09/2024 2:15 PM EST Office Visit Hematology/Oncology [facility] [address] [place] [address] Won Tesfaye MD [address] [place] [address] 10/27/2024 10:00 AM EST Imaging Radiology, [place] [address] [facility] [place] [address] 12/09/2024 1:30 PM EST Appointment Radiology, [facility] 400 [facility] [address] 12/09/2024 2:00 PM EST Rehab Services Voice Lab, [address] [address] Willie Johnston, CCC-CAMPUS DEAN [address] [place] [address] Scheduled Orders Name Type Priority Associated Diagnoses [...] disturbance documented in this encounter Care Teams Physics Teacher Relationship Specialty Start Date End Date aCrlos Paniagua MD 132 [facility] [place] [address] PCP - General Internal Medicine 07/12/24 documented as of this encounter
--- OUTSIDE RECORDS SUMMARY | 2024-09-09 18:11 | External Medical Summary | Summary of Care ---
Author Name Unknown Organization [facility] Address [address] [facility] [place] [address] Phone [phone] Care Team Providers Care Numerical Control Router Operator Name Role Phone Carlos Paniagua MD Primary Care Provider [phone] Encounter Details Date Type Department Care Team (Late st Contact Info) Description 07/06/2024 Orders Only [facility] [address] [place] [address] Carlos Paniagua MD [address] [place] [address] Allergies Active Allergy Reactions Criticality Noted Date Comments Hydrocodone High 08/03/2021 Other reaction(s): Hallucinating Hydrocodone Bit-Homatrop Mbr 08/22/2017 hallucinations Isosorbide Nitrate Other (Please comment) 02/24/2021 headaches Penicillins 09/10/2002 hives documented as of this encounter (statuses as of 07/18/2024) Medications Medication Sig Dispensed Refills Start Date [...] Release 24 Hour (toPROL XL)Indications:Athero sclerosis of chilkat coronary artery of chilkat heart without angina pectoris,HTN, goal below 140/90 [...] as of this encounter (statuses as of 07/18/2024) Active Problems Problem Noted Date Diagnosed Date Dementia without behavioral disturbance 10/15/19 History of lung cancer 02/22/2018 COPD, group B, by GOLD 2017 classification 08/31 Liver enzyme elevation 01/24/2017 Acquired hypothyroidism 12/11/2016 HTN, goal below 140/90 08/05/2014 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 Ischemic cardiomyopathy Coronary atherosclerosis of chilkat coronary мария ry documented as of this encounter (statuses as of 07/18/2024) Resolved Problems Problem Noted Date Diagnosed Date [...] myocardial infarct 04/29/200908/04 Overview: Modified by Acute HI Protocol #5. Oct 10 2007, Septal Acute HI 10/28/2007 04/29/2009 Overview: Modified by Acute HI Protocol #5. Oct 10 2007, Septal Acute HI 10/28/2007 08/04/2011 Overview: Oct 10 2007, Septal Painful Soft tissue tumor Left Forehead >1cm 7 08/31/2017 ADVANCE DIRECTIVE INFORMATION 09/04/2006 08/31/2017 Overview: No, brochure given at this visit CHR ISCHEMIC HRT DIS NOS 09/10/2002 HTN, goal below 130/80 09/10/200202/02 Dyslipidemia, goal LDL below 70 08/31/2017 documented as of this encounter (statuses as of 07/18/2024) Immunizations Name Administration Dates Next Due COVID-19 [...] AM EST Office Visit Family Practice [facility] 132 [facility] [place] [address] Carlos Paniagua MD [address] [place] [address] 09/09/2024 2:15 PM EST Office Visit Hematology/Oncology [address] [place] [address] [place] [address] Won Tesfaye MD [address] [place] [address] 10/21/2024 9:00 AM EST [facility] 132 [facility] [place] [address] Velia Rousseau, PA-C [address] [place] [address] 10/27/2024 10:00 AM EST Imaging Radiology, [place] [id number] [facility], [place] [address] 12/09/2024 1:30 PM EST Appointment Radiology, [facility] [address] 12/09/2024 2:00 PM EST Rehab Services Voice Lab, [facility] [address] Willie Johnston, [facility] [address] [place] [address] Scheduled Procedures Name Priority Associated Diagnoses Date/Ti [...] interpreted or resulted by a [facility] or [facility] contracted radiologist. Carlos Paniagua MD RAD CT documented in this encounter Care Teams Numerical Control Router Operator Relationship Specialty Start Date End Date Carlos Paniagua MD 132 [facility] [place] [address] PCP - General Internal Medicine 07/12/24 documented as of this encounter
--- OUTSIDE RECORDS SUMMARY | 2024-09-09 18:11 | External Medical Summary | Summary of Care ---
Author Name Unknown Organization [facility] [address] [facility] [address] Phone [phone] Care Team Providers Care Bladder Cleaner Name Role Phone Carlos Paniagua MD Primary Care Provider [phone] Reason for Visit * Reason Comments Acute Pt experiencing SOB, stated theres a crackling noise when breathing, nebulizer provides minimal relief. Pt is not able to ambulate without difficulty breathing daughter reports pts o2 level has been 97+, is using nebulizer every 4 hrs. SOB is worse at night. Was admitted into [facility] for pneumonia, pt discharged 07/08/2024. 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); COPD, group B, by GOLD 2017 classification (HCC); Metastasis to mediastinal lymph node (HCC); Liver enzyme elevation; Ischemic cardiomyopathy; HTN, goal below 140/90; Dementia without behavioral disturbance (HCC) Allergies Active Allergy Reactions Criticality Noted Date Comments Hydrocodone High 08/03/2021 Other reaction(s): Hallucinating Hydrocodone Bit-Homatrop Mbr 08/22/2017 hallucinations Isosorbide Nitrate Other (Please comment) 02/24/2021 headaches Penicillins 09/10/2002 hives documented as of this encounter (statuses as of 07/15/2024) Medications Medication Sig Dispensed Refills Start Date [...] Release 24 Hour (toPROL XL)Indications:Athe rosclerosis of southern [place] coronary artery of southern [place] heart without angina pectoris,HTN, goal below 140/90 [...] on 07/15/2024 predniSONE 10 MG Oral Tablet (Deltasone)Indicati ons:Acute cough,COPD exacerbation (HCC) Take 5 tabs for 2 days, 4 tabs for 2 days, 3 tabs for 2 days, 2 tabs for 2 days 1 tab for 2 days 30 Tablet 07/15/2024 Active predniSONE 10 MG Oral Tablet (Deltasone)Indicati ons:Acute cough,COPD exacerbation (HCC) Take 5 tabs for 2 days, 4 tabs for 2 days, 3 tabs for 2 days, 2 tabs for 2 days 1 tab for 2 days 30 Tablet 06/17/2024 4 Discontinu ed(Refill) documented as of this encounter (statuses as of 07/15/2024) Active Problems Problem Noted Date Diagnosed Date [...] Lipid Taxonomy. Ischemic cardiomyopathy Coronary atherosclerosis of southern ute coronary мария ry documented as of this encounter (statuses as of 07/15/2024) Resolved Problems Problem Noted Date Diagnosed Date [...] as of this encounter (statuses as of 07/15/2024) Immunizations Name Administration Dates Next Due COVID-19 [...] 0 10/12/1967 - 10/12/2005 Smokeless Tobacco: Never Tobacco Cessation:Counseling Given: Not Answered Alcohol Use Standard Drinks/Week Comments No 0 [...] Sign Reading Time Taken Comments Blood Pressure 124/62 07/15/2024 1:32 PM EDT Pulse 87 07/15/2024 1:32 PM EDT Temperature 36.3 C (97.3 F) 07/15/2024 1:32 PM ED T Respiratory Rate - - Oxygen Saturation 97% 07/15/2024 1:32 PM EDT Inhaled Oxygen Concentration - - Weight 74.5 kg (164 lb 3.2 oz) 07/15/2024 1:32 P M EDT Height - - Body Mass Index 27.32 04/17/2024 9:02 AM EDT documented in this encounter Progress Notes * Elizabeth Dc MD - 07/15/2024 1:42 PM EDT Images from the original note were not included. History of Present Illness Berta Swenson is a 74 year old female that presents for Acute (Pt experiencing SOB, stated theres a crackling noise when breathing, nebulizer provides minimal relief. Pt is not able to ambulate without difficulty breathing daughter reports pts o2 level has been 97+, is using nebulizer every 4 hrs. /SOB is worse at night. Was admitted into [facility] for pneumonia, pt discharged 07/08/2024.) 74 year old YOfemale with PMH as listed below presents here for evaluation of cough and SOB . Duration of illness: Few days Symptoms present : Pt experiencing SOB, stated theres a crackling noise when breathing, nebulizer provides minimal relief. Pt is not able to ambulate without difficulty breathing daughter reports ptso2 level has been 97+, is using nebulizer every 4 hrs. SOB is worse at night. Was admitted into [facility] for pneumonia, pt discharged 07/08/2024 where she was diagnosed with aspiration pneumonia and was put on Levaquin every 2 days which was just finished this past Sunday. Has history of COPD, remote smoker but not on any routine inhalers and was not given prednisone taper last time. Hospital discharge reviewed. Patient's sodium was high in the hospital and needs repeat blood work Family considering putting her back on halfway due to worsening mental status and mobility. I discussed hospice idea with the family and they were receptive Symptoms not present: Fever chills, cold-like symptoms, body aches, chest pain Have same similar thing in past : Aspiration pneumonia, COPD, lung cancer. See above for detail Since symptoms started things getting : Worse yesterday but a little bit better today Used anything for this illness: As above Other concerns or issues present : No' Physical Exam Vitals: 07/15/24 1332 Temp: 36.3 C (97.3 F) Pulse: 87 SpO2: 97% BP: 124/62 I have reviewed the following results: CMP Assessment and Plan COPD exacerbation (HCC) Continue nebulizer every 4 hours - XR CHEST 2 VIEWS- we will decide antibiotic based on the result - CBC; Future - COMPREHENSIVE METABOLIC PANEL; Future - predniSONE 10 MG Oral Tablet (Deltasone); Take 5 tabs for 2 days, 4 tabs for 2 days, 3 tabs for 2days, 2 tabs for 2 days 1 tab for 2 days Acute cough - predniSONE 10 MG Oral Tablet (Deltasone); Take 5 tabs for 2 days, 4 tabs for 2 days, 3 tabs for 2days, 2 tabs for 2 days 1 tab for 2 days History of lung cancer Vocal cord nodule and lymph node metastasis signals recurrent lung cancer but it could be differentcancer as well 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 Patient has appointment for follow up in a month with PCP and I asked her to remind or ask about this Wrap-Up Time: I spent a total of 30-39 minutes (exact time 38 mins) on the date of service in preparation, delivery, and documentation of the care provided to Berta Swenson excluding any time spent in the performance of separately billed services. documented in this encounter Nursing Notes * Aidan Harris CMA - 07/15/2024 1:32 PM EDT The patient has been properly identified by confirmation of name and date of . Chief Complaint Patient presents with Acute Pt experiencing SOB, stated theres a crackling noise when breathing, nebulizer provides minimal relief. Pt is not able to ambulate without difficulty breathing daughter reports pts o2 level has been 97+, is using nebulizer every 4 hrs. SOB is worse at night. Was admitted into [facility] for pneumonia, pt discharged 07/08/2024. documented in this encounter Plan of Treatment Upcoming Encounters Date Type Department Care Team (Late st Contact Info) Description 08/16/2024 8:20 AM EST Office Visit Family Practice [facility] 132 [facility] [place] [address] Carlos Paniagua MD [address] [place] [address] 09/09/2024 2:15 PM EST Office Visit Hematology/Oncology [facility] 200 [facility] [place] [phone] Won Tesfaye MD 200 [facility] [place] [address] 10/21/2024 9:00 AM EST Office Visit Cardiology, [facility] 132 [facility] [place] [address] Velia Rousseau PA-C 132 [facility] [place] [address] 10/27/2024 10:00 AM EST Imaging Radiology, [address] [place] [address] 12/09/2024 1:30 PM EST Appointment Radiology, [facility] [address] [place] [phone] 12/09/2024 2:00 PM EST Rehab Services Voice Lab, [facility] [address] [place] [address] Willie Johnston, [facility]-INFORMATION SECURITY OFFICER [address] [place] [address] Pending Results Name Type Priority Associated Diagnoses Date /Time XR CHEST 2 VIEWS Medical Imaging STAT COPD exacerbation (HCC) 07/15/2024 2:15 PM EDT COMPREHENSIVE METABOLIC PANEL Lab Routine COPD exacerbation (HCC) 07/15/2024 2:07 PM EDT Scheduled Orders Name Type Priority Associated Diagnoses Orde r Schedule COMPREHENSIVE METABOLIC PANEL Lab Routine COPD exacerbation (HCC) Expected: 07/15/2024 (Approximate), Expires: 07/15/2025 Scheduled Procedures Name Priority Associated Diagnoses Date/Ti [...] COVID-19 Vaccine ( season) 2024 01/12/2021, 12/22/2020 GFR 04/17/2025 04/17/2024, 08/09, 01/02/2023, Additional history exists TSH 04/17/2025 04/17/2024, 08/09, 01/03/2022, Additional history exists O2 ASSESSMENT COMPLETED IN [...] Not on filedocumented as of this encounter Results * (ABNORMAL) CBC (07/15/2024 2:07 PM EDT) WBC 9.50 4.00 - 10.80 K/uL 07/15/2024 2:11 PM EDT [place] [address] RBC 5.12 3.85 - 5.15 M/uL 07/15/2024 2:11 PM EDT [address] HGB 15.7(H) 12.0 - 15.3 g/dL 07/15/2024 2:11 PM EDT [facility] 56 HCT 47.4(H) 36.0 - 45.2 % 07/15/2024 2:11 PM EDT [facility] 56 MCV 92.6 81.5 - 97.5 fL 07/15/2024 2:11 PM EDT [facility] 56 MCH 30.7 27.0 - 34.0 pg 07/15/2024 2:11 PM EDT [facility] 56 MCHC 33.1 32.0 - 36.0 g/dL 07/15/2024 2:11 PM EDT [facility] 56- RDW 14.1 11.5 - 15.5 % 07/15/2024 2:11 PM EDT [facility] 56- PLT 287 140 - 400 K/uL 07/15/2024 2:11 PM EDT [facility] 56 MPV 10.0 6.6 - 11.1 fL 07/15/2024 2:11 PM EDT [facility] 56 Blood Venous blood specimen / Unknown Venipuncture / Unknown 07/15/2024 2:07 PM EDT 07/15/2024 2:07 PM EDT Elizabeth Dc MD LAB BLOOD ORDERABLES [facility] [place] 56-[address] [place] [address] documented in this encounter Visit Diagnoses Diagnosis COPD exacerbation (HCC)- Primary Obstructive chronic bronchitis with exacerbation Acute cough History of lung cancer Personal history of malignant neoplasm of bronchus and lung 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) Secondary and unspecified malignant neoplasm of intrathoracic lymph nodes COPD, group B, by GOLD 2017 classification (HCC) Metastasis to mediastinal lymph node (HCC) Secondary and unspecified malignant neoplasm of intrathoracic lymph nodes Liver enzyme elevation Nonspecific elevation of levels of transaminase or lactic acid dehydrogenase (LDH) Ischemic cardiomyopathy Other specified forms of chronic ischemic heart disease HTN, goal below 140/90 Unspecified essential hypertension Dementia without behavioral disturbance (HCC) Dementia, unspecified, without behavioral disturbance documented in this encounter Care Teams Bladder Cleaner Relationship Specialty Start Date End Date Carlos Paniagua MD [address] [place] [address] PCP - General Internal Medicine 07/12/24 documented as of this encounter
--- OUTSIDE RECORDS SUMMARY | 2024-09-09 18:11 | External Medical Summary | Summary of Care ---
Author Name Unknown Organization [facility] Address [address] [facility] [address] Phone [phone] Care Team Providers Care Dining Room Hostess Name Role Phone Carlos Paniagua MD Primary Care Provider [phone] Reason for Visit * Reason Comments Acute Pt experiencing SOB, stated theres a crackling noise when breathing, nebulizer provides minimal relief. Pt is not able to ambulate without difficulty breathing daughter reports pts o2 level has been 97+, is using nebulizer every 4 hrs. SOB is worse at night. Was admitted into [facility] for pneumonia, pt discharged 07/08/2024. Encounter Details Date Type Department Care Team (Latest Contact Info) Description 07/15/2024 1:20 PM EDT Office Visit General Internal Medicine [facility] 200 [facility] [place] [address] Elizabeth Dc MD 200 [place] [address] COPD exacerbation (HCC)*; Acute cough; History of [...] Release 24 Hour (toPROL XL)Indications:Athe rosclerosis of [place] coronary artery of [place] heart without angina pectoris,HTN, goal below 140/90 [...] Lipid Taxonomy. Ischemic cardiomyopathy Coronary atherosclerosis of [place] coronary мария ry documented as of this [...] admitted into [facility] for pneumonia, pt discharged 07/08/2024.) 74 year [...] admitted into [facility] for pneumonia, pt discharged 07/08/2024 where she [...] work Family considering putting her back on care home due to worsening mental status and mobility. [...] admitted into [facility] for pneumonia, pt discharged 07/08/2024. documented in this encounter Plan of Treatment Upcoming Encounters Date Type Department Care Team (Late st Contact Info) Description 08/16/2024 8:20 AM EST Office Visit Family Practice [facility] 132 [facility] [place] [address] Carlos Paniagua MD [address] [place] [address] 09/09/2024 2:15 PM EST Office Visit Hematology/Oncology [facility] 200 [facility] [place] [phone] Won Tesfaye MD 200 [facility] [place] [address] 10/21/2024 9:00 AM EST Office Visit Cardiology, [facility] 132 [facility] [place] [address] Velia Rousseau PA-C 132 [facility] [place] [address] 10/27/2024 10:00 AM EST Imaging Radiology, [address] [place] [address] 12/09/2024 1:30 PM EST Appointment Radiology, [facility] [address] [place] [phone] 12/09/2024 2:00 PM EST Rehab Services Voice Lab, [facility] [address] [place] [address] Willie Johnston, [facility] [address] [place] [address] Pending Results Name Type Priority Associated Diagnoses [...] - 10.80 K/uL 07/15/2024 2:11 PM EDT [place] [address] RBC 5.12 3.85 - 5.15 M/uL 07/15/2024 2:11 PM EDT [address] HGB 15.7(H) 12.0 - 15.3 g/dL 07/15/2024 2:11 PM EDT [facility] 56 HCT 47.4(H) 36.0 - 45.2 % 07/15/2024 2:11 PM EDT [facility] 56 MCV 92.6 81.5 - 97.5 fL 07/15/2024 2:11 PM EDT [facility] 56 MCH 30.7 27.0 - 34.0 pg 07/15/2024 2:11 PM EDT [facility] 56 MCHC 33.1 32.0 - 36.0 g/dL 07/15/2024 2:11 PM EDT [facility] 56- RDW 14.1 11.5 - 15.5 % 07/15/2024 2:11 PM EDT [facility] 56- PLT 287 140 - 400 K/uL 07/15/2024 2:11 PM EDT [facility] 56 MPV 10.0 6.6 - 11.1 fL 07/15/2024 2:11 PM EDT [facility] 56 Blood Venous blood specimen / Unknown Venipuncture / Unknown 07/15/2024 2:07 PM EDT 07/15/2024 2:07 PM EDT Elizabeth Dc MD LAB BLOOD ORDERABLES [facility] [place] 56-[address] [place] [address] documented in this encounter Visit Diagnoses Diagnosis [...] disturbance documented in this encounter Care Teams Dining Room Hostess Relationship Specialty Start Date End Date Carlos Paniagua MD [address] [place] [address] PCP - General Internal Medicine 07/12/24 documented as of this encounter
--- OUTSIDE RECORDS SUMMARY | 2024-09-09 18:11 | External Medical Summary | Summary of Care ---
Author Name Unknown Organization [facility] Address [address] [facility] [place] [address] Phone [phone] Care Team Providers Care Air Carrier Inspector Name Role Phone Carlos Paniagua MD Primary Care Provider [phone] Reason for Visit * Reason Comments Outpatient Testing Encounter Details Date Type Department Care Team (Late st Contact Info) Description 07/15/2024 2:20 PM EDT Laboratory Laboratory [facility] [place] [address] [place] [phone] [place], [address] Scenery [address] [place] [address] COPD exacerbation (HCC) Allergies Active Allergy Reactions [...] Release 24 Hour (toPROL XL)Indications:Ather osclerosis of grayling coronary artery of grayling heart without angina pectoris,HTN, goal below 140/90 [...] Lipid Taxonomy. Ischemic cardiomyopathy Coronary atherosclerosis of gray[place] coronary мария ry documented as of this [...] 8:20 AM EST Office Visit Family Practice [address] [place] [address] Carlos Paniagua MD [address] [place] [phone] 09/09/2024 2:15 PM EST Office Visit Hematology/Oncology [facility] [address] [place] [address] Won Tesfaye MD [address] [place] [address] 10/21/2024 9:00 AM EST Office Visit Cardiology, [facility] [address] [place] [address] Velia Rousseau PA-C [address] [place] [address] 10/27/2024 10:00 AM EST Imaging Radiology, [facility] 25[address] [facility] [place], [place] [address] 12/09/2024 1:30 PM EST Appointment Radiology, [facility] 400 [facility] [place] [phone] 12/09/2024 2:00 PM EST Rehab Services Voice Lab, [facility] [address] [place] [address] Willie Johnston, [facility]-MANAGER ENT [address] [place] [address] Pending Results Name Type Priority Associated Diagnoses Date /Time COMPREHENSIVE METABOLIC PANEL Lab Routine COPD exacerbation (HCC) 07/15/2024 2:07 PM EDT Scheduled Procedures Name Priority Associated Diagnoses Date/Ti [...] Procedure Name Priority Date/Time Associated Diagnosis Comments CBC Routine 07/15/2024 2:07 PM EDT COPD exacerbation (HCC) documented in this encounter Results * (ABNORMAL) CBC (07/15/2024 2:07 PM EDT) WBC 9.50 4.00 - 10.80 K/uL 07/15/2024 2:11 PM EDT [facility] [place] 56-02 RBC 5.12 3.85 - 5.15 M/uL 07/15/2024 2:11 PM EDT [facility] 56-02 HGB 15.7(H) 12.0 - 15.3 g/dL 07/15/2024 2:11 PM EDT [facility] 56-02 HCT 47.4(H) 36.0 - 45.2 % 07/15/2024 2:11 PM EDT [facility] 56-02 MCV 92.6 81.5 - 97.5 fL 07/15/2024 2:11 PM EDT [facility] 56-02 MCH 30.7 27.0 - 34.0 pg 07/15/2024 2:11 PM EDT [facility] 56 MCHC 33.1 32.0 - 36.0 g/dL 07/15/2024 2:11 PM EDT [facility] RDW 14.1 11.5 - 15.5 % 07/15/2024 2:11 PM EDT [facility] PLT 287 140 - 400 K/uL 07/15/2024 2:11 PM EDT [facility] 56 MPV 10.0 6.6 - 11.1 fL 07/15/2024 2:11 PM EDT [facility] Blood Venous blood specimen / Unknown Venipuncture / Unknown 07/15/2024 2:07 PM EDT 07/15/2024 2:07 PM EDT Elizabeth Dc MD LAB BLOOD ORDERABLES [facility] [address] [place] [address] documented in this encounter Visit Diagnoses Diagnosis COPD exacerbation (HCC) Obstructive chronic bronchitis with exacerbation documented in this encounter Care Teams Air Carrier Inspector Relationship Specialty Start Date End Date Carlos Paniagua MD 132 [facility] [place] [address] PCP - General Internal Medicine 07/12/24 documented as of this encounter
--- OUTSIDE RECORDS SUMMARY | 2024-09-09 18:12 | External Medical Summary ---
Author Name Unknown Address Unknown Organization K09:[facility] [address] [place] [address] Laboratory Report Ordering Provider Test Date Status LINDA JONES 07/15/2024 14:07:34 Final Observation Date Value Abnormality Reference (Units ) Status BUN 07/15/2024 14:07:34 6 6-20 (mg/dL) Final Creatinine 07/15/2024 14:07:34 0.8 0.5-1.0 (mg/dL) Final Glomerular filtration rate/1.73 sq M.predicted [Volume Rate/Area] in Serum, Plasma or Blood by Creatinine-based formula (CKD-EPI) 07/15/2024 14:07:34 82 >=60 (mL/min) Final eGFR is calculated based on the CKD-EPI 2020 equation. Sodium 07/15/2024 14:07:34 138 135-146 (m mol/L) Final Potassium 07/15/2024 14:07:34 4.4 3.5-5.1 (m mol/L) Final Cl 07/15/2024 14:07:34 98 98-107 (mm ol/L) Final CO2 07/15/2024 14:07:34 25 22-32 (mmo l/L) Final Anion gap 07/15/2024 14:07:34 15 7-15 (mmol /L) Final Glucose 07/15/2024 14:07:34 86 70-120 (mg /dL) Final Albumin 07/15/2024 14:07:34 4.3 3.8-5.0 (g /dL) Final AST (Aspartate aminotransferase) 07/15/2024 14:07:34 32 10-35 (U/L) Final Alk Phos 07/15/2024 14:07:34 83 35-130 (U/ L) Final Bilirubin, Total 07/15/2024 14:07:34 0.8 <=1 .2 (mg/dL) Final Calcium 07/15/2024 14:07:34 9.4 8.4-10.2 ( mg/dL) Final Protein 07/15/2024 14:07:34 6.7 6.0-8.3 (g /dL) Final ALT (Alanine aminotransferase) 07/15/2024 14:07:34 26 10-35 (U/L) Final Performing Location [facility] [address] [place] [address]
--- OUTSIDE RECORDS SUMMARY | 2024-09-09 18:12 | External Medical Summary | Summary of Care ---
Author Name Unknown Organization [facility] Address [address] [facility] [address] Phone [phone] Care Team Providers Care Collaborating Supervising Physician Name Role Phone Carlos Paniagua MD Primary Care Provider Reason for Visit * Reason Onset Date Comments Home Health 07/15/2024 Encounter Details Date Type Department Care Team (Late st Contact Info) Description 07/15/2024 Telephone [facility] [address] [place] [address] Carlos Paniagua MD [address] [place] [address] Home Health Allergies Active Allergy [...] Release 24 Hour (toPROL XL)Indications:Ather osclerosis of [place] coronary artery of [place] heart without angina pectoris,HTN, goal below 140/90 [...] Use as directed. 12 Each 04/17/2024 Active predniSONE 10 MG Oral Tablet (Deltasone)Indicatio ns:Acute cough,COPD exacerbation (HCC) Take 5 tabs for 2 days, 4 tabs for 2 days, 3 tabs for 2 days, 2 tabs for 2 days 1 tab for 2 days 30 Tablet 06/17/2024 Active Additional Information Patient not taking.Reported on 07/12/2024 QUEtiapine Fumarate 25 MG Oral Tablet (SEROquel) Take 1 Tablet by mouth at bedtime. 30 Tablet 11 07/12/2024 Active documented as of this encounter (statuses [...] Lipid Taxonomy. Ischemic cardiomyopathy Coronary atherosclerosis of b[place] coronary мария ry documented as of this [...] myocardial infarct 04/29/200908/04 Overview: Modified by Acute [place] Protocol #5. Oct 10 2007, Septal [place] 10/28/2007 04/29/2009 Overview: Modified by [facility] [place] Protocol #5. Oct 10 2007, Septal [place] 10/28/2007 08/04/2011 Overview: Oct 10 2007, Septal [...] mRNA, LNP-s, No Pre serve, 2-Dose Series ([employer]) 01/12/2021,12/22/2020 Pneumococcal Conjugate Vacc, 13 Valent (Prevnar) [...] encounter Miscellaneous Notes * Telephone Encounter - Johnna Crenshaw LPN - 07/15/2024 8:[address] [facility] from [facility] is calling. Reports that ST evaluation will be moved to 07/21/24 per pt and family request. Will send new order for signature. Advised that orders will be signed by Carlos Paniagua MD and to fax to the office for signature. documented in this encounter Plan of Treatment Upcoming Encounters Date Type Department Care Team (Late st Contact Info) Description 08/16/2024 8:20 AM EST Office Visit [facility] [address] [place] [address] Carlos Paniagua MD [address] [place] [address] 09/09/2024 2:15 PM EST Office Visit Hematology/Oncology [facility] [address] [facility] [place] [phone] Won Tesfaye MD [address] [facility] [place] [address] 10/27/2024 10:00 AM EST Imaging Radiology, [place] [id number] [facility] [place] [address] 12/09/2024 1:30 PM EST Appointment Radiology, [facility] [address] [facility] [phone] 12/09/2024 2:00 PM EST Rehab Services Voice Lab, [facility] [address] [place] [address] Willie Johnston, [facility]-COMBINER OPERATOR [address] [place] [address] Scheduled Procedures Name Priority Associated Diagnoses Date/Ti [...] ASSESSMENT COMPLETED IN PAST YEAR FOR COPD 07/12/2025 07/12/2024 Alpha-1 Antitrypsin Completed 06/04/2020 Pneumococcal Vaccine: 65+ [...] filedocumented as of this encounter Care Teams Collaborating Supervising Physician Relationship Specialty Start Date End Date Carlos Paniagua MD [address] [place] [address] PCP - General Internal Medicine 07/12/24 documented as of this encounter
--- OUTSIDE RECORDS SUMMARY | 2024-09-09 18:12 | External Medical Summary ---
Author Name Unknown Address Unknown Organization K09:[facility] [place] [address] Laboratory Report Ordering Provider Test Date Status LINDA JONES 07/15/2024 14:07:34 Final Observation Date Value Abnormality Reference (Units ) Status WBC, Total 07/15/2024 14:07:34 9.50 4.00-10.8 0 (K/uL) Final RBC 07/15/2024 14:07:34 5.12 3.85-5.15 (M/uL) Final Hemoglobin 07/15/2024 14:07:34 15.7 Above high normal 1 2.0-15.3 (g/dL) Final HCT 07/15/2024 14:07:34 47.4 Above high normal 36 .0-45.2 (%) Final MCV 07/15/2024 14:07:34 92.6 81.5-97.5 (fL) Final MCH 07/15/2024 14:07:34 30.7 27.0-34.0 (pg) Final MCHC 07/15/2024 14:07:34 33.1 32.0-36.0 (g/dL) Final RDW 07/15/2024 14:07:34 14.1 11.5-15.5 (%) Final Platelets 07/15/2024 14:07:34 287 140-400 (K /uL) Final MPV 07/15/2024 14:07:34 10.0 6.6-11.1 ( fL) Final Performing Location [facility] [place] [address]
--- OUTSIDE RECORDS SUMMARY | 2024-09-09 18:12 | External Medical Summary | Summary of Care ---
Author Name Unknown Organization [facility] Address [address] [facility] [place] [address] Phone [phone] Care Team Providers Care Java Developer Consultant Name Role Phone Carlos Paniagua MD Primary Care Provider [phone] Encounter Details Date Type Department Care Team (Late st Contact Info) Description 07/15/2024 Orders Only PATIENT PORTAL DO NOT DELETE THIS DEPT USED BY [place] [address] Allergies Active Allergy Reactions Criticality Noted Date [...] Release 24 Hour (toPROL XL)Indications:Ather osclerosis of [place] coronary artery of [place] heart without angina pectoris,HTN, goal below 140/90 [...] Lipid Taxonomy. Ischemic cardiomyopathy Coronary atherosclerosis of [place] coronary мария ry documented as of this [...] 9:27 AM EDT Sexual Orientation Straight 12/31/2018 9 :27 AM EDT Job Start Date Occupation Industry Not on file Not on file Not on file documented as of this encounter Plan of Treatment Upcoming Encounters Date Type Department Care Team (Late st Contact Info) Description 08/16/2024 8:20 AM EST Office Visit Family Practice [facility] [address] [place] [address] Carlos Paniagua MD [address] [place] [phone] 09/09/2024 2:15 PM EST Office [facility] [address] [place] [address] [place] [phone] Won Tesfaye MD [address] [employer] [address] 10/27/2024 10:00 AM EST Imaging Radiology, [facility] [address] [facility] [place] [address] 12/09/2024 1:30 PM EST Appointment Radiology, [facility] [address] [facility] [phone] 12/09/2024 2:00 PM EST Rehab Services Voice Lab, [facility] [address] [facility] [address] Willie Johnston, [facility]-MECHANICAL DESIGN ENGINEER [address] [place] [address] Scheduled Procedures Name Priority Associated Diagnoses Date/Ti [...] filedocumented as of this encounter Care Teams Java Developer Consultant Relationship Specialty Start Date End Date Carlos Paniagua MD [address] [place] [address] PCP - General Internal Medicine 07/12/24 documented as of this encounter
--- OUTSIDE RECORDS SUMMARY | 2024-09-09 18:13 | External Medical Summary | Summary of Care ---
Author Name Unknown Organization [facility] Address [address] [address] Phone [phone] Care Team Providers Care Belt Repairer Name Role Phone Carlos Paniagua MD Primary Care Provider [phone] Reason for Visit * Reason Onset Date Comments Hospital Follow-Up Pt here today for hospital discharge follow up Hospital Follow-Up 07/12/2024 Encounter Details Date Type Department Care Team (Latest Contact Info) Description 07/12/2024 1:40 PM EDT Office Visit Family Practice [facility] [address] [place] [address] Carlos Paniagua MD [address] [place], [place] [id number] SOB (shortness of breath)*; HTN, goal below 140/90; Risk and functional assessment; 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); Metastasis to mediastinal lymph node (HCC); Dementia without behavioral disturbance (HCC); Atherosclerosis of confederated goshute coronary artery of confederated goshute heart without angina pectoris; COPD, group B, by GOLD 2017 classification (HCC); Acquired hypothyroidism; Sundowning; Hospital discharge follow-up Allergies Active Allergy Reactions Criticality Noted Date Comments Hydrocodone High 08/03/2021 Other reaction(s): Hallucinating Hydrocodone Bit-Homatrop Mbr 08/22/2017 hallucinations Isosorbide Nitrate Other (Please comment) 02/24/2021 headaches Penicillins 09/10/2002 hives documented as of this encounter (statuses as of 07/12/2024) Medications Medication Sig Dispensed Refills Start Date [...] Release 24 Hour (toPROL XL)Indications:Ather osclerosis of confederated goshute coronary artery of confederated [...] as of this encounter (statuses as of 07/12/2024) Active Problems Problem Noted Date Diagnosed Date [...] as of this encounter (statuses as of 07/12/2024) Resolved Problems Problem Noted Date Diagnosed Date [...] myocardial infarct 04/29/200908/04 Overview: Modified by Acute AK Protocol #5. Oct 10 2007, Septal Acute AK 10/28/2007 04/29/2009 Overview: Modified by Acute AK Protocol #5. 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 7 08/31/2017 ADVANCE DIRECTIVE INFORMATION 09/04/2006 08/31/2017 Overview: No, brochure given at this visit [facility] ISCHEMIC HRT DIS NOS 09/10/2002 HTN, goal below 130/80 09/10/200202/02 Dyslipidemia, goal LDL below 70 08/31/2017 documented as of this encounter (statuses as of 07/12/2024) Immunizations Name Administration Dates Next Due COVID-19 [...] Sign Reading Time Taken Comments Blood Pressure 126/60 07/12/2024 1:18 PM EDT Pulse 90 07/12/2024 1:18 PM EDT Temperature 36.8 C (98.2 F) 07/12/2024 1:18 PM ED T Respiratory Rate 18 07/12/2024 1:18 PM EDT Oxygen Saturation 98% 07/12/2024 1:18 PM EDT Inhaled Oxygen Concentration - - Weight 75.2 kg (165 lb 12.8 oz) 07/12/2024 1:18 PM EDT Height - - Body Mass Index 27.59 04/17/2024 9:02 AM EDT documented in this encounter Patient Instructions * Patient Instructions* Celina Alves LPN - 07/12/2024 1:21 PM EDT Patient Instructions - Fall Prevention (This education is for all patients over 65 regardless of symptoms) Remember to take your current medications as prescribed. In order to prevent falls, you are encouraged to: Exercise Utilize assistive/adaptive devices Avoid multifocal lenses when walking Avoid hazards in home Maintain a regular toileting schedule Any questions please contact our office. Preventing Falls in the Home (This education is for all patients over 65 regardless of symptoms) As you get older, falls are more likely. Thats because your reaction time slows. Your muscles and joints may also get stiffer, making them less flexible. Illness, medications, and vision changes can also affect your balance. A fall could leave you unable to live on your own. To make your home safer, follow these tips: Floors Put nonskid pads under area rugs Remove throw rugs Replace worn floor coverings Tack carpets firmly to each step on carpeted stairs. Put nonskid strips on the edges of uncarpeted stairs Keep floors and stairs free of clutter and cords Arrange furniture so there are clear pathways Clean up any spills right away Bathrooms Install grab bars in the tub or shower Apply nonskid strips or put a nonskid rubber mat in the tub or shower Sit on a bath chair to bathe Use bathmats with nonskid backing Lighting Keep a flashlight in each room Put a nightlight along the pathway between the bedroom and the bathroom [employer] Patient Education Copyright 2008 - 2010 David except where otherwise noted Preventing Falls: Exercises to Improve Balance, Flexibility, Strength, and Staying Power (This education is for all patients over 65 regardless of symptoms) Certain types of exercises may help make you less likely to fall. Try the ones below. Or do other exercises that your healthcare provider suggests. Depending on your health, you may need to start slowly. Dont let that stop you. Even small amounts of exercise can help you. Be sure to talk to yourhealthcare provider before starting any exercise program. Improve Balance Many types of exercise can help improve balance. Crispin chi and yoga are good examples. Heres another one to try. You can do it anytime and almost anywhere. Stand next to a counter or solid support. Push yourself up onto your tiptoes. Hold for 5 seconds. If you start to lose your balance, hold on to the counter. Rest and repeat 5 times. Work up to holding for 20 to 30 seconds, if you can. Increase Flexibility Being more flexible makes it easier for you to move around safely. Try exercises like the seated hamstring stretch. Sit in a chair and put one foot on a stool. Straighten your leg and reach with both hands down either side of your leg. Reach as far down your leg as you can. Hold for about 20 seconds. Go back to the starting position. Then repeat 5 times. Switch legs. Build Strength Resistance exercises help build strength. You can do them without equipment. Or you can use weights, elastic bands, or special machines. One such exercise is called the biceps curl. You can hold a 1 pound weight or even a can of soup. Do this exercise at least 3 times a week. Strive for everyday. Sit up straight in a chair. Keep your elbow close to your body and your wrist straight. Bend your arm, moving your hand up to your shoulder. Then slowly lower your arm. Repeat 5 times. Switch to the other arm. Build Your Staying Power Aerobic exercises make your heart and lungs stronger so you can keep moving longer. Walking and swimming are two of the best types of exercises you can do. Using a stationary bike is great, too. Find an aerobic exercise that you enjoy. Start slowly and build up. Even 5 minutes is helpful. Aimfor a goal of 30 minutes, at least 3 times a week. You dont have to do 30 minutes in one session. Break it up and walk a little throughout the day. More Helpful Tips Start easy. Slowly work up to doing more. Talk with your healthcare provider about the best exercises for you. Call senior centers or health clubs about exercise programs. If needed, have a family member watch you walk every so often to check your stability. Exercise with a friend. Choose an activity you both enjoy. Try exercises that you can do anytime, anywhere. Here are two examples. Have someone with you when you first try these: Practice walking by placing one foot right in front of the other. Stand up and sit down 10 times. Repeat this throughout the day. [employer] Patient Education Copyright 2008 [employer] except where otherwise noted. Preventing Falls: Moving Safely Using a Cane or Walker (This education is for all patients over 65 regardless of symptoms) Keep the cane away from your feet so you dont trip. A walking aid, such as a cane or walker, can help you stay more independent and avoid falls. Remember to keep your walking aid within easy reach when youre in a chair or in bed. And learn how to use it safely so you dont injure yourself. Using a Cane If you have a stronger side, hold the cane on that side. Get your balance. Move the cane and your weaker leg forward. Support your weight on both the cane and your weaker side. Step with your stronger leg. Start again from step 1. If youre using a folding walker, be sure you know how to lock it open. Check that its locked open before each use. Using a Walker Roll the walker (or lift it, if youre using one without wheels) forward about 12 inches. Step forward with your weaker leg first. Use the walker to help keep your balance. Bring your other foot forward to the center of the walker. Start again from step 1. Helpful Tips Check with your healthcare provider about the right walking aid to use. Ask about a walker with a seat attached. Check the tips of your cane or walker to make sure they have nonskid covers. Move slowly from room to room. Dont aldrich. Sit down to get dressed. Use a tonja pack or backpack to keep your hands free. Get help for jobs that mean climbing, even on a stepstool. [employer] Patient Education Copyright 2008 - 2010 [employer] except where otherwise noted. Urinary Incontinence Plan of Care Documentation: (This education is for all patients over 65 regardless of symptoms) Current medications reconciled. Patient encouraged to: Practice kegal exercises Provide education materials Use the restroom every 2 hours throughout the day Limit caffeine, alcohol, spicy foods and acidic foods Keep a bladder diary Limit fluid intake 3-4 hours before bed Lose weight Prevent constipation Take fluid pills at a time when you can get to the bathroom quickly Control sugar better if diabetic Limit fluid intake to 60 oz. per day Wear support stockings (TEDs)if you have edema Celina Alves LPN 07/12/2024 Kegel Exercises Kegel exercises dont require special clothing or equipment. Theyre easy to learn and simple to do. And if you do them right, no one can tell youre doing them, so they can be done almost anywhere. Your doctor, nurse, or physical therapist can answer any questions you have and help you get started. A Weak Pelvic Floor The pelvic floor muscles may weaken due to aging, and vaginal childbirth, injury, surgery, chronic cough, or lack of exercise. If the pelvic floor is weak, your bladder and other pelvic organs may sag out of place. The urethra may also open too easily and allow urine to leak out. Kegel exercises can help you strengthen your pelvic floor muscles so they can better support the pelvic organs and control urine flow. How Kegel Exercises Are Done Try each of the Kegel exercises described below. When youre doing them, try not to move your leg, buttock, or stomach muscles. While youre urinating, try to stop the flow of urine. Start and stop it as often as you can. Contract as if you were stopping your urine stream, but do it when youre not urinating. Tighten your rectum as if trying not to pass gas. Contract your anus, but dont move your buttocks. Helpful Hints Do your Kegels as often as you can. The more you do them, the faster youll feel the results. Pick an activity you do often as a reminder. For instance, do your Kegels every time you sit down. Tighten your pelvic floor before you sneeze, get up from a chair, cough, laugh, or lift. This protects your pelvic floor from injury and can help prevent urine leakage. Try to hold each Kegel for a slow count to five. You probably wont be able to hold them for thatlong at first, but keep practicing. It will get easier as your pelvic floor gets stronger. Eventually, special weights that you place in your vagina may be recommended to help make your Kegels even more effective. [employer] Patient Education Copyright 2008 - 2010 David except where otherwise noted. Here are some helpful tips for your urinary incontinence: (This education is for all patients over 65 regardless of symptoms) Practice Kegel exercises Use the restroom every 2 hours throughout the day Limit caffeine, alcohol, spicy foods, and acidic foods Keep a bladder diary Limit fluid intake 3-4 hours before bed Lose weight Prevent constipation Take fluid pills at a time when can get to the bathroom quickly Control sugar better if diabetic Limit fluid intake to 60 oz. per day Any questions, please feel free to contact our office. documented in this encounter Progress Notes * Carlos Paniagua MD - 07/12/2024 1:47 PM EDT Subjective Berta Swenson is a 74 year old female. 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) , f/u with dr dinero Hx of smoking , known COPD Recurrent aspiration PNA Is scheduled with speech therapy in 2 wks now Advised to be careful with eating Lives with her daughter Pt also known CAD< severe extensive intracranial arterial ds , severe stenosis at multiple areas Taking asa, lipitor, BP stable F/u with cardio Dementia, multifactorial with vascular dementia Memory issue but per family , it has been stable , Showing confusion in the evening, will try seroquel PMH: Patient Active Problem List Diagnosis Dyslipidemia Ischemic cardiomyopathy Coronary atherosclerosis of confederated goshute coronary artery 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 90 Tablet 3 Cyanocobalamin 1000 MCG/ML Injection Solution (Cyanocobalamin) Inject 1,000 mcg into a large muscleevery 30 days. 1 mL 0 Pantoprazole Sodium 40 MG Oral Tablet Delayed [...] by mouth at bedtime. 30 Tablet 11 predniSONE 10 MG Oral Tablet (Deltasone) Take 5 tabs for 2 days, 4 tabs for 2 days, 3 tabs for 2 days, 2 tabs for 2 days 1 tab for 2 days (Patient not taking: Reported on 07/12/2024) 30 Tablet 0 No current facility-administered medications for this visit. Past Medical History: Diagnosis Date Acute AK (HCC) 10/28/2007 Oct 10 2007, Septal Cancer of lung (HCC) Lymph nodes- last chemo treatment 09/26/12 Chronic ischemic heart disease COPD (chronic obstructive pulmonary disease) (HCC) Coronary atherosclerosis of confederated goshute coronary artery 08/03/2011 Dyslipidemia, goal LDL below 70 GERD (gastroesophageal reflux disease) History of lung cancer 02/22/2018 HTN, goal below 130/80 Ischemic cardiomyopathy 08/03/2011 Lung cancer (HCC) Malignant neoplasm of lower lobe, bronchus or lung 04/12/2012 Reactive airway disease 08/31/2017 Past Surgical History: Procedure Laterality Date BRONCHOSCOPY, DIAGNOSTIC N/A 05/28/2020 BRONCHOSCOPY DIAGNOSTIC WITH OR WITHOUT WASHING performed by Doe Figueroa MD at [facility] CATHETERIZE LEFT HEART THRU SKIN Cardiac Catheterization, Left Heart EGD, FLEXIBLE, DIAGNOSTIC N/A 02/05/2015 mild-mod inflammation/ESOPHAGOGASTRODUODENOSCOPY (EGD), FLEXIBLE, TRANSORAL, DIAGNOSTIC performed by Levar Cooley MD at [facility] EGD, FLEXIBLE,W/ENDOSCOPIC US 01/19/2017 mild-mod inflammation on gastric biopsy/[facility] INFORMATION bowel surg 35 yrs ago due to complication INFORMATION colostomy 35 yrs ago for 2 yrs and reversed INSERTION OF LENS PROSTHESIS Left 01/14/2019 INSERTION OF LENS PROSTHESIS Right 09/16/2019 INTRAVASCULAR STENT, PERC,EACH ADD'L VESSEL 08-20-01 08-20-01 Multi-Link Penta REF [id number] INTRAVASCULAR STENT, PERC,EACH ADD'L VESSEL 09-07-05 CYPHER Sirolimus-eluting coronary stent [id number] IR BIOPSY 11/17/2020 OTHER (INFORMATION) 04/22/12 Insertion of Infuse -A -Port, intraoperative fluoroscopic guidance, layered closure of 5cm incisionDr Hegstrom [facility] REMOVE GALLBLADDER Cholecystectomy SINGLE LOBECTOMY, LUNG December 30, 2010 Right Lower Lobectomy Review of patient's allergies indicates: Allergen Reactions Hydrocodone Other reaction(s): Hallucinating Hydrocodone Bit-Homatrop Mbr hallucinations Isosorbide Mononitrate [Isosorbide Nitrate] Other (Please comment) headaches Penicillins hives Family History Problem Relation Name Age of Onset Heart Disorder Father AK Cancer Father colon cancer Other (Other) Mother of complications of abdominal surgery, "never came out of anesthesia" Cancer Sister "Mass on her neck" Dementia Brother Hypertension Brother Other (Other) Other cousin has psoriasis Family Status Relation Status Fa at age 77 AK,colon ca in 70s,Alzheimers Mo at age 53 surgical complication Sis at age 43 cancer Bro parkinsons Other (Not Specified) Social History Socioeconomic History Marital status: Spouse name: Not on file Number of children: Not on file Years of education: Not on file Highest education level: Not on file Occupational History Occupation: homemaker Tobacco Use Smoking status: Former Current packs/day: 0.00 Average packs/day: 2.0 packs/day for 40.0 years (80.0 ttl pk-yrs) Types: Cigarettes Start date: 10/12/1965 Quit date: 10/12/2005 Years since quittin.7 Smokeless tobacco: Never Vaping Use Vaping status: Never Used Substance and Sexual Activity Alcohol use: No Drug use: No Sexual activity: Not on file Other Topics Concern Not on file Social History Narrative No pets. No mold. Lives with her daughterBernadine. Social Determinants of Health Financial Resource Strain: Not on file Food Insecurity: Not on file Transportation Needs: Not on file Social Connections: Unknown (03/25/2024) Social Connections How often do you feel lonely or isolated from those around you? (Adult - for ages 18 years and over): Not on file Housing Stability: Not on file Review of Systems Constitutional: Positive for activity change and fatigue. Negative for appetite change, chills, diaphoresis, fever and unexpected weight change. HENT: Positive for congestion, postnasal drip, rhinorrhea, trouble swallowing and voice change. Negative for hearing loss. Eyes: Negative for visual disturbance. Respiratory: Positive for cough, chest tightness and shortness of breath. Negative for wheezing. Cardiovascular: Negative for chest pain, palpitations and leg swelling. Gastrointestinal: Negative for abdominal distention, abdominal pain and diarrhea. Endocrine: Negative. Genitourinary: Negative for dysuria. Musculoskeletal: Negative for gait problem. Allergic/Immunologic: Positive for environmental allergies and immunocompromised state. Neurological: Positive for headaches. Negative for dizziness, weakness and light-headedness. Psychiatric/Behavioral: Positive for confusion and dysphoric mood. Negative for agitation and behavioral problems. The patient is nervous/anxious. Objective BP 126/60 | Pulse 90 | Temp 36.8 C (98.2 F) (Tympanic) | Resp 18 | Wt 75.2 kg (165 lb 12.8 oz) | SpO2 98% | BMI 27.59 kg/m | BSA 1.86 m Physical Exam Constitutional: General: She is not in acute distress. Appearance: Normal appearance. She is not ill-appearing, toxic-appearing or diaphoretic. HENT: Head: Normocephalic and atraumatic. Nose: Nose normal. Eyes: Extraocular Movements: Extraocular movements intact. Cardiovascular: Rate and Rhythm: Normal rate and regular rhythm. Pulses: Normal pulses. Pulmonary: Effort: Pulmonary effort is normal. Breath sounds: Rhonchi (B/L upper) present. Comments: Decreased lung sound rt lower Musculoskeletal: Right lower leg: No edema. Left lower leg: No edema. Lymphadenopathy: Cervical: No cervical adenopathy. Neurological: General: No focal deficit present. Mental Status: She is alert and oriented to person, place, and time. Psychiatric: Behavior: Behavior normal. 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 Check-out note: Fax DME to [facility] Serojamison to try Neb Tx Flutter and spirometer Deep breathing tech F/u with SP Aspiration precaution Cont meds F/u with Dr bar Paniagua MD * Celina Alves LPN - 07/12/2024 1:12 PM EDT Urine albumin/creatinine ratio ordered today. Provider aware. documented in this encounter Nursing Notes * Celina Alves LPN - 07/12/2024 1:13 PM EDT Chief Complaint Patient presents with Hospital Follow-Up Pt here today for hospital discharge follow up Pt has sundowning in the evening and ativan helped while in the hospital. documented in this encounter Plan of Treatment Upcoming Encounters Date Type Department Care Team (Late st Contact Info) Description 08/16/2024 8:20 AM EST Office Visit [facility] [address] [place] [id number] Carlos Paniagua MD [address] [place] [address] 09/09/2024 2:15 PM EST Office Visit Hematology/Oncology [facility] [address] [phone] Won Dinero MD [address] [address] 10/27/2024 10:00 AM EST Imaging Radiology, [place] [id number] [facility] [place] [address] 12/09/2024 1:30 PM EST [address] [phone] 12/09/2024 2:00 PM EST Rehab Services Voice Lab, [facility] [address] [address] Willie Johnston, [facility]3]-MINE LABORER [address] [place] [address] Scheduled Orders Name Type Priority Associated Diagnoses Orde r Schedule ALBUMIN / CREATININE RATIO, URINE Lab Routine HTN, goal below 140/90 Expected: 07/12/2024, Expires: 07/12/2025 Scheduled Procedures Name Priority Associated Diagnoses Date/Ti [...] as of this encounter Visit Diagnoses Diagnosis SOB (shortness of breath)- Primary Shortness of breath HTN, goal below 140/90 Unspecified essential hypertension Risk and functional assessment Screening for unspecified condition 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) Secondary and unspecified malignant neoplasm of intrathoracic lymph nodes Metastasis to mediastinal lymph node (HCC) Secondary and unspecified malignant neoplasm of intrathoracic lymph nodes Dementia without behavioral disturbance (HCC) Dementia, unspecified, without behavioral disturbance Atherosclerosis of confederated goshute coronary artery of confed[place] heart without angina pectoris COPD, group B, by GOLD 2017 classification (HCC) Acquired hypothyroidism Unspecified hypothyroidism Sundowning Reactive confusion Hospital discharge follow-up Other follow-up examination documented in this encounter Care Teams Belt Repairer Relationship Specialty Start Date End Date Carlos Paniagua MD [address] [facility] [place] [address] PCP - General Internal Medicine 07/12/24 documented as of this encounter
--- OUTSIDE RECORDS SUMMARY | 2024-09-09 18:13 | External Medical Summary | Summary of Care ---
Author Name Unknown Organization [facility] Address [address] [facility] [address] Phone [phone] Care Team Providers Care Hide Sorter Name Role Phone Carlos Paniagua MD Primary Care Provider [phone] Reason for Visit * Reason Onset Date Comments Order Request 07/12/2024 DME order faxed to [facility] Encounter Details Date Type Department Care Team (Late st Contact Info) Description 07/12/2024 Telephone [facility] [address] [place] [address] Carlos Paniagua MD [address] [place] [address] Order Request (DME order faxed to [facility] ... Allergies Active Allergy Reactions Criticality Noted Date [...] Release 24 Hour (toPROL XL)Indications:Ather osclerosis of [place] coronary artery of [place] heart without angina pectoris,HTN, [...] Lipid Taxonomy. Ischemic cardiomyopathy Coronary atherosclerosis of [place] coronary мария ry documented [...] mRNA, LNP-s, No Pre serve, 2-Dose Series ([employer] Mail) 01/12/2021,12/22/2020 Pneumococcal Conjugate Vacc, 13 Valent (Prevnar) [...] Telephone Encounter - Celina Alves LPN - 07/12/2024 2:16 PM EDT Faxed DME order to [facility] documented in this encounter Plan of Treatment Upcoming Encounters Date Type Department Care Team (Late st Contact Info) Description 08/16/2024 8:20 AM EST Office Visit [facility] [address] [place] [address] Carlos Paniagua MD [address] [facility] [place] [address] 09/09/2024 2:15 PM EST Office Visit Hematology/Oncology [facility] [address] [facility] [place] [phone] Won Tesfaye MD [address] [facility] [place] [address] 10/27/2024 10:00 AM EST Imaging Radiology, [facility] [address] [facility] [place] [address] 12/09/2024 1:30 PM EST Appointment Radiology, [facility] [address] [place] [address] 12/09/2024 2:00 PM EST Rehab Services Voice Lab, [facility] [address] [place] [address] Willie Johnston, CCC-TOPPER PACKER [address] [place] [address] Scheduled Procedures Name Priority Associated Diagnoses Date/Ti [...] BY PFT 02/06/2022 COVID-19 Vaccine (3 - 2024-25 season) 2024 01/12/2021, 12/22/2020 GFR 04/17/2025 04/17/2024, [...] filedocumented as of this encounter Care Teams Hide Sorter Relationship Specialty Start Date End Date Carlos Paniagua MD [address] [place] [address] PCP - General Internal Medicine 07/12/24 documented as of this encounter
--- OUTSIDE RECORDS SUMMARY | 2024-09-09 18:14 | External Medical Summary | Summary of Care ---
Author Name Unknown Organization [facility] Address [address] [place] [address] Phone [phone] Care Team Providers Care Furnace Combustion Tester Name Role Phone Chandni Qureshi BOAT ENGINE MECHANIC Primary Care Provider [phone]- [phone] Encounter Details Date Type Department Care Team (Latest Contact Info) Description 07/06/2024 7:10 PM EDT - 07/06/2024 7:14 PM EDT Hospital Encounter Radiology Film File [address] [place] [address] Arrived Discharge Disposition: Home - Self Care Allergies Active Allergy Reactions Criticality Noted Date Comments Hydrocodone High 08/03/2021 Other reaction(s): Hallucinating Hydrocodone Bit-Homatrop Mbr 08/22/2017 hallucinations Isosorbide Nitrate Other (Please comment) 02/24/2021 headaches Penicillins 09/10/2002 hives documented as of this encounter (statuses as of 07/09/2024) Medications Medication Sig Dispensed Refills Start Date [...] Release 24 Hour (toPROL XL)Indications:Ather osclerosis of [place] coronary artery of [place] heart without angina pectoris,HTN, goal below 140/90 [...] chest pain 25 Tablet 1 04/17/2024 Active Additional Information Patient not taking.Reported on 06/30/2024 Atorvastatin Calcium 40 MG Oral Tablet (Lipitor)Indications [...] bedtime. As needed. 180 mL 04/17/2024 Active Additional Information Patient not taking.Reported on 06/30/2024 Syringe/Needle (Disp) 23G X 1" 3 ML [...] for 2 days 30 Tablet 06/17/2024 Active documented as of this encounter (statuses as of 07/09/2024) Active Problems Problem Noted Date Diagnosed Date [...] Lipid Taxonomy. Ischemic cardiomyopathy Coronary atherosclerosis of [place] coronary мария ry documented as of this encounter (statuses as of 07/09/2024) Resolved Problems Problem Noted Date Diagnosed Date [...] as of this encounter (statuses as of 07/09/2024) Immunizations Name Administration Dates Next Due COVID-19 [...] Care Team (Late st Contact Info) Description 07/18/2024 10:40 AM EDT Office Visit Family Practice [facility] [address] [place] [address] Chandni Qureshi CRNP [address] [place] [address] 09/09/2024 2:15 PM EST Office Visit Hematology/Oncology [facility] Ariana [place] [address] [facility] [address] Won Tesfaye MD [address] [place] [address] 10/27/2024 10:00 AM EST Imaging Radiology, [facility] [address] [facility] [place], [place] [address] 12/09/2024 1:30 PM EST Appointment Radiology, [facility] [address] [facility] [phone] 12/09/2024 2:00 PM EST Rehab Services Voice Lab, [facility] [address] [facility] [address] Willie Johnston, [facility]-ROUTING EQUIPMENT TENDER [address] [facility] [place] [address] Scheduled Procedures Name Priority Associated Diagnoses Date/Ti [...] ASSESSMENT COMPLETED IN PAST YEAR FOR COPD 06/30/2025 06/30/2024 Alpha-1 Antitrypsin Completed 06/04/2020 Pneumococcal Vaccine: 65+ [...] CT (IMAGES ONLY, NO REPORT) Routine 07/06/2024 7:10 PM EDT documented in this encounter Results * RADIOLOGY EXAM - CT (IMAGES ONLY, NO REPORT) (07/06/2024 7:10 PM EDT) 07/06/2024 7:06 PM EDT Narrative Scheduling, Silent - 07/08/2024 8:19 AM EDT This is an imaging study not interpreted or resulted by a [facility] or [facility] contracted radiologist. Chandni PLATT RAD CT documented in this encounter Care Teams Furnace Combustion Tester Relationship Specialty Start Date End Date Chandni Qureshi CRNP 132 [facility] [place] [address] PCP - General Nurse Practitioner 06/17/24 documented as of this encounter
--- OUTSIDE RECORDS SUMMARY | 2024-09-09 18:14 | External Medical Summary | Summary of Care ---
Author Name Unknown Organization [facility] Address [address] [place] [address] Phone [phone] Care Team Providers Care Product Introduction Manager Name Role Phone Chandni Qureshi GIULIA Primary Care Provider [phone]- [phone] Encounter Details Date Type Department Care Team (Latest Contact Info) Description 07/06/2024 7:20 PM EDT - 07/06/2024 11:59 PM EDT Hospital Encounter Radiology Film File [address] [place] [address] Arrived Discharge Disposition: Home - [...] Release 24 Hour (toPROL XL)Indications:Ather osclerosis of [place] coronary artery of [place] [...] myocardial infarct 04/29/200908/04 Overview: Modified by Acute [place] Protocol #5. Oct 10 2007, Septal Acute [place] 10/28/2007 04/29/2009 Overview: Modified by [facility] [place] Protocol #5. Oct 10 2007, Septal Acute [place] 10/28/2007 08/04/2011 Overview: Oct 10 2007, Septal [...] 10:40 AM EDT Office Visit Family Practice [facility] [address] [place] [address] Chandni Qureshi CRNP [address] [place] [address] 09/09/2024 2:15 PM EST Office Visit Hematology/Oncology [facility] Ariana [place] [address] [facility] [address] Won Tesfaye MD [address] [place] [address] 10/27/2024 10:00 AM EST Imaging Radiology, [facility] [address] [facility] [place], [place] [address] 12/09/2024 1:30 PM EST Appointment Radiology, [facility] [address] [facility] [phone] 12/09/2024 2:00 PM EST Rehab Services Voice Lab, [facility] [address] [facility] [address] Willie Johnston, [facility]-GRAY TENDER [address] [facility] [place] [address] Scheduled Procedures Name Priority Associated Diagnoses Date/Ti [...] CT (IMAGES ONLY, NO REPORT) Routine 07/06/2024 7:20 PM EDT documented in this encounter Results * RADIOLOGY EXAM - CT (IMAGES ONLY, NO REPORT) (07/06/2024 7:20 PM EDT) 07/06/2024 7:06 PM EDT Narrative Scheduling, Silent - 07/08/2024 8:20 AM EDT This is an imaging study not interpreted or resulted by a [facility] or [facility] contracted radiologist. Chandni PLATT RAD CT documented in this encounter Care Teams Product Introduction Manager Relationship Specialty Start Date End Date Chandni Qureshi CRNP 132 [facility] [place] [address] PCP - General Nurse Practitioner 06/17/24 documented as of this encounter
--- OUTSIDE RECORDS SUMMARY | 2024-09-09 18:14 | External Medical Summary | Summary of Care ---
Author Name Unknown Organization [facility] Address [address] [place] [address] Phone [phone] Care Team Providers Care Motor Vehicle Inspector Name Role Phone Chandni Qureshi LEMON PICKER Primary Care Provider +1- [phone] Encounter Details Date Type Department Care Team (Latest Contact Info) Description 07/06/2024 4:55 PM EDT - 07/06/2024 7:09 PM EDT Hospital Encounter Radiology Film File [address] [place] [address] Arrived Discharge Disposition: Home - [...] Release 24 Hour (toPROL XL)Indications:Ather osclerosis of [place] coronary artery of [place] heart without angina pectoris,HTN, goal below [...] Taxonomy. Ischemic cardiomyopathy Coronary atherosclerosis of [place] coronary мария ry documented as of [...] 10:40 AM EDT Office Visit Family Practice [facility] [address] [place] [address] Chandni Qureshi CRNP [address] [place] [address] 09/09/2024 2:15 PM EST Office Visit Hematology/Oncology [facility] Ariana [place] 200 [facility] [address] Won Tesfaye MD [address] [place] [address] 10/27/2024 10:00 AM EST Imaging Radiology, [facility] [address] [facility] [place], [place] [address] 12/09/2024 1:30 PM EST Appointment Radiology, [facility] [address] [facility] [phone] 12/09/2024 2:00 PM EST Rehab Services Voice Lab, [facility] [address] [facility] [address] Willie Johnston, [facility] [address] [facility] [place] [address] Scheduled Procedures Name Priority Associated Diagnoses Date/Ti [...] Date/Time Associated Diagnosis Comments RADIOLOGY EXAM - GENERAL RAD (IMAGES ONLY,NO REPORT) Routine 07/06/2024 4:55 PM EDT documented in this encounter Results * RADIOLOGY EXAM - GENERAL RAD (IMAGES ONLY,NO REPORT) (07/06/2024 4:55 PM EDT) 07/06/2024 4:54 PM EDT Narrative Scheduling, Silent - 07/08/2024 8:21 AM EDT This is an imaging study not interpreted or resulted by a [facility] or [facility] contracted radiologist. Chandni PLATT RADIOLOGY (RAD GEN ERAL) documented in this encounter Care Teams Motor Vehicle Inspector Relationship Specialty Start Date End Date Chandni Quershi CRNP [address] [facility] [place] [address] PCP - General Nurse Practitioner 06/17/24 documented as of this encounter
--- OUTSIDE RECORDS SUMMARY | 2024-09-09 18:14 | External Medical Summary | Summary of Care ---
Author Name Unknown Organization [facility] Address [address] [facility] [address] Phone [phone] Care Team Providers Care Food Processing Scientist Name Role Phone Titus Chandni GIULIA Primary Care Provider +1- [phone] Encounter Details Date Type Department Care Team (Late st Contact Info) Description 07/10/2024 Orders Only General Internal Medicine [facility] [address] [facility] [place] [address] Vy Hayes PA-C [address] [facility] [place] [address] Allergies Active Allergy Reactions Criticality Noted Date Comments Hydrocodone High 08/03/2021 Other reaction(s): Hallucinating Hydrocodone Bit-Homatrop Mbr 08/22/2017 hallucinations Isosorbide Nitrate Other (Please comment) 02/24/2021 headaches Penicillins 09/10/2002 hives documented as of this encounter (statuses as of 07/10/2024) Medications Medication Sig Dispensed Refills Start Date [...] Release 24 Hour (toPROL XL)Indications:Ather osclerosis of [place] coronary artery of [place] heart without angina pectoris,HTN, goal below 140/90 [...] As needed. 180 mL 3 04/17/2024 Active Additional Information Patient not taking.Reported [...] as of this encounter (statuses as of 07/10/2024) Active Problems Problem Noted Date Diagnosed Date [...] Lipid Taxonomy. Ischemic cardiomyopathy Coronary atherosclerosis of [place] coronary мария ry documented as of this encounter (statuses as of 07/10/2024) Resolved Problems Problem Noted Date Diagnosed Date [...] as of this encounter (statuses as of 07/10/2024) Immunizations Name Administration Dates Next Due COVID-19 [...] 10:40 AM EDT Office Visit Family Practice [facility] [address] [place] [address] Chandni Qureshi CRNP [address] [place] [address] 09/09/2024 2:15 PM EST Office Visit Hematology/Oncology [facility] [address] [place], [place] [address] Won Tesfaye MD [address] [place] [address] 10/27/2024 10:00 AM EST Imaging Radiology, [facility] [address] [facility] [place] [address] 12/09/2024 1:30 PM EST Appointment Radiology, [facility] 400 [facility] [place] [phone] 12/09/2024 2:00 PM EST Rehab Services Voice Lab, [facility] [address] [place] [address] Willie Johnston, [facility]-PEDIATRIC INTENSIVE PHYSICIAN [address] [facility] [place] [address] Scheduled Procedures Name Priority Associated Diagnoses Date/Ti [...] Procedure Name Priority Date/Time Associated Diagnosis Comments XR CHEST 1 VIEW Routine 06/29/2024 UPPER ENDOSCOPY, OUTSIDE PROCEDURE Routine 06/29/2024 documented in this encounter Results * UPPER ENDOSCOPY, OUTSIDE PROCEDURE (06/29/2024) 06/29/2024 Felipa Karimi MD GASTRO UPPER OUTSIDE LAB (SEE SCANNED REPORT) * XR CHEST 1 VIEW (06/29/2024) Anatomical Region Laterality Modality Chest Other 06/29/2024 Gera Morales DO RADIOLOGY (RAD GE NERAL) documented in this encounter Care Teams Food Processing Scientist Relationship Specialty Start Date End Date Chandni Qureshi CRNP 132 [facility] [place] [address] PCP - General Nurse Practitioner 06/17/24 documented as of this encounter
--- OUTSIDE RECORDS SUMMARY | 2024-09-09 18:15 | External Medical Summary | Summary of Care ---
Author Name Unknown Organization [facility] Address [address] [facility] [place] [address] Phone [phone] Care Team Providers Care Manager Inpatient Name Role Phone EmilypatChandni martinez GIULIA Primary Care Provider +1- [phone] Encounter Details Date Type Department Care Team (Late st Contact Info) Description 07/09/2024 Orders Only Hematology/Oncology, [facility] [address] [place], [place] [phone] Anastacia Nixon CRNP [address] [place] [address] Allergies Active Allergy Reactions Criticality Noted Date [...] Release 24 Hour (toPROL XL)Indications:Ather osclerosis of [place] coronary artery of [place] heart without angina pectoris,HTN, goal below 140/90 [...] Lipid Taxonomy. Ischemic cardiomyopathy Coronary atherosclerosis of [place] coronary мария ry documented as of this [...] 10:40 AM EDT Office Visit Family Practice [facility] [address] [place] [address] Chandni Qureshi CRNP [address] [place] [address] 09/09/2024 2:15 PM EST Office Visit Hematology/Oncology [place] [place] [address] [place], [place] [address] Won Tesfaye MD [address] [place] [address] 10/27/2024 10:00 AM EST Imaging Radiology, [facility] [address] [facility] [place] [address] 12/09/2024 1:30 PM EST Appointment Radiology, [facility] 400 [place] [phone] 12/09/2024 2:00 PM EST Rehab Services Voice Lab, [facility] [address] [place] [address] Willie Johnston, [facility]-TRAIN ENGINEER [address] [place] [address] Scheduled Procedures Name Priority Associated Diagnoses Date/Ti [...] Procedure Name Priority Date/Time Associated Diagnosis Comments CT CHEST W CONTRAST Routine 07/06/2024 documented in this encounter Results * CT CHEST W CONTRAST (07/06/2024) Anatomical Region Laterality Modality Chest, Body, Cardio Other 07/06/2024 Jerry [place] MD RAD CT documented in this encounter Care Teams Manager Inpatient Relationship Specialty Start Date End Date Chandni Qureshi CRNP [address] [place] [address] PCP - General Nurse Practitioner 06/17/24 documented as of this encounter
--- OUTSIDE RECORDS SUMMARY | 2024-09-09 18:15 | External Medical Summary | Summary of Care ---
Author Name Unknown Organization [facility] Address [address] [facility] [place] [address] Phone [phone] Care Team Providers Care Tobacco Drying Machine Operator Name Role Phone Chandni Qureshi Primary Care Provider +1- [phone] Reason for Visit * Reason Onset Date Comments Information 07/07/2024 I believe this p t is at [facility] Encounter Details Date Type Department Care Team (Late st Contact Info) Description 07/07/2024 Telephone Rad[address] [place] [address] Bernadine Zarate, RT (R) Information (I believe this pt is at [place] ... Allergies Active Allergy Reactions Criticality Noted Date Comments Hydrocodone High 08/03/2021 Other reaction(s): Hallucinating Hydrocodone Bit-Homatrop Mbr 08/22/2017 hallucinations Isosorbide Nitrate Other (Please comment) 02/24/2021 headaches Penicillins 09/10/2002 hives documented as of this encounter (statuses as of 07/08/2024) Medications Medication Sig Dispensed Refills Start Date [...] Release 24 Hour (toPROL XL)Indications:Ather osclerosis of [place] coronary artery of burns [...] as of this encounter (statuses as of 07/08/2024) Active Problems Problem Noted Date Diagnosed Date [...] as of this encounter (statuses as of 07/08/2024) Resolved Problems Problem Noted Date Diagnosed Date [...] as of this encounter (statuses as of 07/08/2024) Immunizations Name Administration Dates Next Due COVID-19 [...] Telephone Encounter - Michelle Villar RN - 07/08/2024 12:10 PM EDT Reports are scanned in - brain MRI 07/07/24 - chest xray 07/06/24 - CTA head 07/06/24 - CTA neck 07/06/24 - CT head 07/06/24 - CT chest 07/06/24 Dr Tesfaye: please advise. Patient currently scheduled for CT chest and CT neck 07/09/24. * Telephone Encounter - Charlette Robertson OSA - 07/08/2024 8:58 AM EDT Called the number below they said they could send them over and they would here in a few minutes * Telephone Encounter - Bernadine Zarate RT (R) - 07/08/2024 8:23 AM EDT Please call [phone] and give them a fax number to get Rad reports.Images are all in thanks * Telephone Encounter - Michelle Villar RN - 07/08/2024 7:38 AM EDT Reports still not received. * Telephone Encounter - Bernadine Zarate RT (R) - 07/07/2024 3:56 PM EDT Called over and they are working on loading images from yesterday. Please check on and let me know if CT 's on Sun are still needed. Thanks * Telephone Encounter - Charlette Robertson OSA - 07/07/2024 11:52 AM EDT They do not take phone calls Faxed request * Telephone Encounter - Michelle Villar RN - 07/07/2024 11:26 AM EDT Scheduling: please call [facility] to get ER record/ CT report faxed to office. * Telephone Encounter - Bernadine Zarate RT (R) - 07/07/2024 11:09 AM EDT Sorry I was working over there yesterday and did her scan. Then I noticed her on my schedule here for Sun. Thought I would let you know. I think you will need to call [facility] to get info sent over. Thanks * Telephone Encounter - Michelle Villar RN - 07/07/2024 10:52 AM EDT No documentation of ER visit at [facility]. Patient had recent admission at [facility], did not have CT there. Bernadine: where do you see CT scans were done at [facility]/ patient went to ER? * Telephone Encounter - Bernadine Zarate RT (R) - 07/07/2024 7:53 AM EDT I believe this pt was seen in the ER at [facility] yesteday. She had CT scans done while she was there. I am not sure if you will still need the CT's that ordered here at [facility] on Sun this week. Please cancel CT appts if they are not needed. Bernadine Narvaez GW documented in this encounter Plan of Treatment Upcoming Encounters Date Type Department Care Team (Late st Contact Info) Description 07/09/2024 10:00 AM EDT Imaging Radiology [address] [place] [address] 07/09/2024 10:15 AM EDT Imaging Radiology [address] [employer] [address] [place] [address] 07/18/2024 10:40 AM EDT Office Visit Family Practice [facility] [address] [place] [address] Chandni Qureshi CRNP [address] [place] [address] 09/09/2024 2:15 PM EST Office Visit Hematology/Oncology [facility] [address] [place] [phone] Won Tesfaye MD [address] [place] [address] 10/27/2024 10:00 AM EST Imaging Radiology, [facility] [address] [facility] [place] [address] 12/09/2024 1:30 PM EST Appointment Radiology, [facility] 400 [place] [address] 12/09/2024 2:00 PM EST Rehab Services Voice Lab, [facility] [address] [place] [address] Willie Johnston, CCC-VOCATIONAL TRAINING INSTRUCTOR [address] [place] [address] Scheduled Procedures Name Priority Associated Diagnoses Date/Ti [...] filedocumented as of this encounter Care Teams Tobacco Drying Machine Operator Relationship Specialty Start Date End Date Chandni Qureshi CRNP [address] [place] [address] PCP - General Nurse Practitioner 06/17/24 documented as of this encounter
--- OUTSIDE RECORDS SUMMARY | 2024-09-09 18:15 | External Medical Summary | Summary of Care ---
Author Name Unknown Organization [facility] Address [address] [place] [address] Phone [phone] Care Team Providers Care Casting Wheel Operator Helper Name Role Phone Chandni Qureshi GIULIA Primary Care Provider +1- [phone] Encounter Details Date Type Department Care Team (Latest Contact Info) Description 07/07/2024 12:10 PM EDT - 07/07/2024 11:59 PM EDT Hospital Encounter Radiology Film File [address] [place] [address] Arrived Discharge Disposition: Home - [...] Release 24 Hour (toPROL XL)Indications:Ather osclerosis of [place] coronary artery of [place] heart without angina pectoris,HTN, goal below 140/90 [...] Lipid Taxonomy. Ischemic cardiomyopathy Coronary atherosclerosis of [place] coronary мария ry documented as of this [...] Description 07/09/2024 10:00 AM EDT Imaging Radiology [address] 132 [facility] [place] [address] 07/09/2024 10:15 AM EDT Imaging Radiology [address] 132 [place] [address] 07/18/2024 10:40 AM EDT Office Visit Family Practice [facility] 132 [facility] [place] [address] Chandni Qureshi CRNP [address] [place] [address] 09/09/2024 2:15 PM EST Office Visit Hematology/Oncology [facility] [address] [place] [phone] Won Tesfaye MD [address] [place] [address] 10/27/2024 10:00 AM EST Imaging Radiology, [facility] [address] [facility] [place] [address] 12/09/2024 1:30 PM EST Appointment Radiology, [facility] [address] [place] [address] 12/09/2024 2:00 PM EST Rehab Services Voice Lab, [facility] [address] [place] [address] Willie Johnston, CCC-PUBLIC POLICY ASSOCIATE [address] [place] [address] Scheduled Procedures Name Priority Associated Diagnoses Date/Ti [...] Date/Time Associated Diagnosis Comments RADIOLOGY EXAM - MRI (IMAGES ONLY, NO REPORT) Routine 07/07/2024 12:10 PM EDT documented in this encounter Results * RADIOLOGY EXAM - MRI (IMAGES ONLY, NO REPORT) (07/07/2024 12:10 PM EDT) 07/07/2024 12:0 9 PM EDT Narrative Scheduling, Silent - 07/07/2024 3:48 PM EDT This is an imaging study not interpreted or resulted by a [facility] or [facility] contracted radiologist. Chandni PLATT RAD MRI-MRA documented in this encounter Care Teams Casting Wheel Operator Helper Relationship Specialty Start Date End Date Chandni Qureshi CRNP [address] [place] [address] PCP - General Nurse Practitioner 06/17/24 documented as of this encounter
--- OUTSIDE RECORDS SUMMARY | 2024-09-09 18:15 | External Medical Summary | Summary of Care ---
Author Name Unknown Organization [facility] Address [address] [facility] [place] [address] Phone [phone] Care Team Providers Care Tire Recapper Name Role Phone Chandni Qureshi Primary Care Provider +1- [phone] Reason for Visit * Reason Onset Date Comments Information 07/07/2024 I believe this p t is at [facility] Encounter Details Date Type Department Care Team (Late st Contact Info) Description 07/07/2024 Telephone Radiology [address] [place] [address] Bernadine Zarate, RT (R) Information (I believe this pt is at [place] ... Allergies Active Allergy Reactions Criticality Noted [...] Release 24 Hour (toPROL XL)Indications:Ather osclerosis of [place] coronary artery of [place] heart without angina pectoris,HTN, goal below 140/90 [...] Lipid Taxonomy. Ischemic cardiomyopathy Coronary atherosclerosis of [place] coronary мария ry documented as of this [...] myocardial infarct 04/29/200908/04 Overview: Modified by Acute [place] Protocol #5. Oct 10 2007, Septal Acute [place] 10/28/2007 04/29/2009 Overview: Modified by Acute [place] Protocol #5. Oct 10 2007, Septal Acute [place] 10/28/2007 08/04/2011 Overview: Oct 10 2007, Septal [...] Encounter - Michelle Villar RN - 07/08/2024 2:23 PM EDT Left message for Bernadine that her moms scans will be cancelled for tomorrow as she had them done [facility]. Advised her to call back with any questions. Scheduling: please cancel scan appts tomorrow. Thanks! * Telephone Encounter - Won Tesfaye MD - 07/08/2024 2:17 PM EDT There is no need for having another CT chest or neck at this time. Please cancel that. * Telephone Encounter - Michelle Villar RN [...] - 07/08/2024 8:23 AM EDT Please call [phone] and give them a fax number to [...] 07/07/2024 11:26 AM EDT Scheduling: please call [facility] to get ER record/ CT report faxed to office. * Telephone Encounter - Bernadine Zarate RT (R) - 07/07/2024 11:09 AM EDT Sorry I was working over there yesterday and did her scan. Then I noticed her on my schedule here for Sun. Thought I would let you know. I think you will need to call [facility] to get info sent over. Thanks * Telephone Encounter - Michelle Villar RN - 07/07/2024 10:52 AM EDT No documentation of ER visit at [facility]. Patient had recent admission at [facility], did not have CT there. Bernadine: where do you see CT scans were done at [facility]/ patient went to ER? * Telephone Encounter - Bernadine Zarate RT (R) - 07/07/2024 7:53 AM EDT I believe this pt was seen in the ER at [facility] yesteday. She had CT scans done while she was there. I am not sure if you will still need the CT's that ordered here at [facility] on Sun this week. Please cancel CT appts if they are not needed. Thanks, Bernadine CT GW documented in this encounter Plan of Treatment Upcoming Encounters Date Type Department Care Team (Late st Contact Info) Description 07/09/2024 10:00 AM EDT Imaging Radiology [address] 132 [facility] [place] [address] 07/09/2024 10:15 AM EDT Imaging Radiology [address], [place] [address] [place] [address] 07/18/2024 10:40 AM EDT Office Visit Family Practice [facility] [address] [place] [address] Chandni Qureshi CRNP [address] [place] [address] 09/09/2024 2:15 PM EST Office Visit Hematology/Oncology [facility] [address] [place] [phone] Won Tesfaye MD 200 [facility] [place] [address] 10/27/2024 10:00 AM EST Imaging Radiology, [facility] 2520 [facility] [place] [address] 12/09/2024 1:30 PM EST Appointment Radiology, [address] [place] [address] 12/09/2024 2:00 PM EST Rehab Services Voice Lab, [address] [place] [address] Willie Johnston, [facility] AND REFRACTORY TILE REPAIRER [address] [place] [address] Scheduled Procedures Name Priority Associated Diagnoses Date/Ti [...] filedocumented as of this encounter Care Teams Tire Recapper Relationship Specialty Start Date End Date Chandni Qureshi CRNP [address] [place] [address] PCP - General Nurse Practitioner 06/17/24 documented as of this encounter
--- OUTSIDE RECORDS SUMMARY | 2024-09-09 18:15 | External Medical Summary | Summary of Care ---
Author Name Unknown Organization [facility] Address [address] [facility] [place] [address] Phone [phone] Care Team Providers Care Exercise Equipment Specialist Name Role Phone Chandni Qureshi Primary Care Provider +1- [phone] Reason for Visit * Reason Onset Date Comments Information 07/07/2024 I believe this p t is at [facility] Encounter Details Date Type Department Care Team (Late st Contact Info) Description 07/07/2024 Telephone Radiology [address] [place] [address] Bernadine Zarate, RT (R) Information (I believe this pt is at [place] ... Allergies Active Allergy Reactions Criticality Noted [...] Release 24 Hour (toPROL XL)Indications:Ather osclerosis of [place] coronary artery of [place] heart without angina pectoris,HTN, goal below 140/90 [...] Lipid Taxonomy. Ischemic cardiomyopathy Coronary atherosclerosis of [place] coronary мария ry documented as of this [...] encounter Miscellaneous Notes * Telephone Encounter - Won Tesfaye MD [...] - 07/08/2024 8:23 AM EDT Please call [phone] and give them a fax number to [...] 07/07/2024 11:26 AM EDT Scheduling: please call [facility] to get ER record/ CT report faxed to office. * Telephone Encounter - Bernadine Zarate RT (R) - 07/07/2024 11:09 AM EDT Sorry I was working over there yesterday and did her scan. Then I noticed her on my schedule here for Sun. Thought I would let you know. I think you will need to call [facility] to get info sent over. Thanks * Telephone Encounter - Michelle Villar RN - 07/07/2024 10:52 AM EDT No documentation of ER visit at [facility]. Patient had recent admission at [facility], did not have CT there. Bernadine: where do you see CT scans were done at [facility]/ patient went to ER? * Telephone Encounter - Bernadine Zarate RT (R) - 07/07/2024 7:53 AM EDT I believe this pt was seen in the ER at [facility] yested[place]. She had CT scans done while she was there. I am not sure if you will still need the CT's that ordered here at [facility] on Sun this week. Please cancel CT appts if they are not needed. Brice, Bernadine SANTANA GW documented in this encounter Plan of Treatment Upcoming Encounters Date Type Department Care Team (Late st Contact Info) Description 07/09/2024 10:00 AM EDT Imaging Radiology [address] [place] [address] 07/09/2024 10:15 AM EDT Imaging Radiology [address] [place] [address] 07/18/2024 10:40 AM EDT Office Visit Family Practice [facility] [address] [place] [address] Chandni Qureshi CRNP 132 [facility] [place] [address] 09/09/2024 2:15 PM EST Office Visit Hematology/Oncology [facility] [address] [place] [phone] Won Tesfaye MD [address] [place] [address] 10/27/2024 10:00 AM EST Imaging Radiology, [facility] 2520 [facility] [place] [address] 12/09/2024 1:30 PM EST Appointment Radiology, [address] [place] [address] 12/09/2024 2:00 PM EST Rehab Services Voice Lab, [facility] [address] [place] [address] Willie Johnston, CCC-INTERNAL GRINDER TENDER 132 [facility] [place] [address] Scheduled Procedures Name Priority Associated Diagnoses Date/Ti [...] Vaccine (3 - season) 2024 01/12/2021, 12/22/2020 GFR 04/17/2025 04/17/2024, [...] filedocumented as of this encounter Care Teams Exercise Equipment Specialist Relationship Specialty Start Date End Date Chandni Qureshi CRNP [address] [place] [address] PCP - General Nurse Practitioner 06/17/24 documented as of this encounter
--- OUTSIDE RECORDS SUMMARY | 2024-09-09 18:15 | External Medical Summary | Summary of Care ---
Author Name Unknown Organization [facility] Address [address] [place] [address] Phone [phone] Care Team Providers Care Guest History Clerk Name Role Phone Chandni Qureshi SAGGER FILLER Primary Care Provider +1- [phone] Encounter Details Date Type Department Care Team (Latest Contact Info) Description 07/06/2024 7:15 PM EDT - 07/06/2024 7:19 PM EDT Hospital Encounter Radiology Film File [address] [place] [address] Arrived Discharge Disposition: Home - [...] Release 24 Hour (toPROL XL)Indications:Ather osclerosis of [place] coronary artery of [place] heart without angina pectoris,HTN, goal below 140/90 [...] Lipid Taxonomy. Ischemic cardiomyopathy Coronary atherosclerosis of [place] coronary мария ry documented as of this [...] myocardial infarct 04/29/200908/04 Overview: Modified by Acute [place] Protocol #5. Oct 10 2007, Septal [place] 10/28/2007 04/29/2009 Overview: Modified by Acute [place] Protocol #5. Oct 10 2007, Septal Acute [place] 10/28/2007 08/04/2011 Overview: Oct 10 2007, Septal [...] 10:40 AM EDT Office Visit Family Practice [facility] [address] [place] [address] Chandni Qureshi CRNP 132 [place] [address] 09/09/2024 2:15 PM EST Office Visit Hematology/Oncology [facility] [place] 200 [facility] [address] Won Tesfaye MD [address] [place] [address] 10/27/2024 10:00 AM EST Imaging Radiology, [facility] 2520 [facility] [place], [place] [address] 12/09/2024 1:30 PM EST Appointment Radiology, [facility] 400 [facility] [phone] 12/09/2024 2:00 PM EST Rehab Services Voice Lab, [facility] [address] [facility] [address] Willie Johnston, [facility]-DUPLICATE MAKER [address] [facility] [place] [address] Scheduled Procedures Name Priority Associated Diagnoses Date/Ti [...] CT (IMAGES ONLY, NO REPORT) Routine 07/06/2024 7:15 PM EDT documented in this encounter Results * RADIOLOGY EXAM - CT (IMAGES ONLY, NO REPORT) (07/06/2024 7:15 PM EDT) 07/06/2024 7:06 PM EDT Narrative Scheduling, Silent - 07/08/2024 8:20 AM EDT This is an imaging study not interpreted or resulted by a [facility] or [facility] contracted radiologist. Chandni PLATT RAD CT documented in this encounter Care Teams Guest History Clerk Relationship Specialty Start Date End Date Chandni Qureshi CRNP 132 [facility] [place] [address] PCP - General Nurse Practitioner 06/17/24 documented as of this encounter
--- OUTSIDE RECORDS SUMMARY | 2024-09-09 18:16 | External Medical Summary | Summary of Care ---
Author Name Unknown Organization [facility] Address [address] [facility] [place] [address] Phone [phone] Care Team Providers Care Income Tax Advisor Name Role Phone Chandni Qureshi Primary Care Provider +1- [phone] Reason for Visit * Reason Onset Date Comments Information 07/07/2024 I believe this p t is at [facility] Encounter Details Date Type Department Care Team (Late st Contact Info) Description 07/07/2024 Telephone Radiology [address] [place] [address] Bernadine Zarate, RT (R) Information (I believe this pt is at [place] ... Allergies Active Allergy Reactions Criticality Noted [...] Release 24 Hour (toPROL XL)Indications:Ather osclerosis of [place] coronary artery of [place] heart without angina pectoris,HTN, goal below 140/90 [...] Lipid Taxonomy. Ischemic cardiomyopathy Coronary atherosclerosis of [place] coronary мария ry documented as of this [...] 12/31/2018 Pneumococcal Polysaccharide PPV23 (Pneumovax) 01/03/2022,09/04/2006 Seasonal Influenza, High Dos e, Trivalent, PF, IM (Fluzone HD) 06/30/2024 Seasonal Influenza, PF, 6 M & above, IM , (FluLaval or Fluzone) 12/31/2018,11/20/2017 Seasonal Influenza, Quadriva lent Hd (Fluzone Hd) 01/03/2022 Seasonal Influenza, Trivalen t, (IIV3), with Preserv, (Fluzone) 08/18/2008,08/06/2007,09/04/2006 Seasonal Influenza, Trivalen t, Adjuvanted, 65+ YRS, [...] encounter Miscellaneous Notes * Telephone Encounter - Charlette Robertson OSA - 07/08/2024 8:58 AM EDT Called the number below they said they could send them over and they would here in a few minutes * Telephone Encounter - Bernadine Zarate RT (R) - 07/08/2024 8:23 AM EDT Please call [phone] and give them a fax number to get Rad reports.Images are all in thanks * Telephone Encounter - Mcihelle Villar RN - 07/08/2024 7:38 AM EDT [...] 07/07/2024 11:26 AM EDT Scheduling: please call [facility] to get ER record/ CT report faxed to office. * Telephone Encounter - Bernadine Zarate RT (R) - 07/07/2024 11:09 AM EDT Sorry I was working over there yesterday and did her scan. Then I noticed her on my schedule here for Sun. Thought I would let you know. I think you will need to call [facility] to get info sent over. Thanks * Telephone Encounter - Michelle Villar RN - 07/07/2024 10:52 AM EDT No documentation of ER visit at [facility]. Patient had recent admission at [facility], did not have CT there. Bernadine: where do you see CT scans were done at [facility]/ patient went to ER? * Telephone Encounter - Bernadine Zarate RT (R) - 07/07/2024 7:53 AM EDT I believe this pt was seen in the ER at [facility] [place]ested[place]. She had CT scans done while she was there. I am not sure if you will still need the CT's that ordered here at [facility] on Sun this week. Please cancel CT appts if they are not needed. Bernadine Narvaez CT GW documented in this encounter Plan of Treatment Upcoming Encounters Date Type Department Care Team (Late st Contact Info) Description 07/09/2024 10:00 AM EDT Imaging Radiology [address] 132 [facility] [place] [address] 07/09/2024 10:15 AM EDT Imaging Radiology [address] [place] [address] 07/18/2024 10:40 AM EDT Office Visit Family Practice [facility] [address] [place] [address] Chandni Qureshi CRNP [address] [place] [address] 09/09/2024 2:15 PM EST Office Visit Hematology/Oncology [facility] [address] [facility] [address] Won Tesfaye MD [address] [place] [address] 10/27/2024 10:00 AM EST Imaging Radiology, [facility] [address] [facility] [place] [address] 12/09/2024 1:30 PM EST Appointment Radiology, [facility] 400 [facility], [place] [phone] 12/09/2024 2:00 PM EST Rehab Services Voice Lab, [facility] [address] [place] [address] Willie Johnston, [facility]-CARTOGRAPHIC TECHNICIAN [address] [facility] [place] [address] Scheduled Procedures Name Priority Associated Diagnoses Date/Ti [...] filedocumented as of this encounter Care Teams Income Tax Advisor Relationship Specialty Start Date End Date Chandni Qureshi CRNP [address] [place] [address] PCP - General Nurse Practitioner 06/17/24 documented as of this encounter
--- OUTSIDE RECORDS SUMMARY | 2024-09-09 18:16 | External Medical Summary | Summary of Care ---
Author Name Unknown Organization [facility] Address [address] [facility] [place] [address] Phone [phone] Care Team Providers Care Syrup Mixer Helper Name Role Phone Chandni Qureshi Primary Care Provider +1- [phone] Encounter Details Date Type Department Care Team (Late st Contact Info) Description 07/08/2024 Orders Only Family Practice [facility] [address] [place] [address] Chandni Qureshi CRNP [address] [place] [address] Allergies Active Allergy Reactions Criticality Noted Date [...] Release 24 Hour (toPROL XL)Indications:Ather osclerosis of [place] coronary artery of [place] heart without angina pectoris,HTN, goal below 140/90 [...] Lipid Taxonomy. Ischemic cardiomyopathy Coronary atherosclerosis of [place] coronary мария ry documented as of this [...] myocardial infarct 04/29/200908/04 Overview: Modified by [place] Protocol #5. Oct 10 2007, Septal [place] 10/28/2007 04/29/2009 Overview: Modified by [place] Protocol #5. Oct 10 2007, Septal [place] 10/28/2007 08/04/2011 Overview: Oct 10 2007, Septal [...] Description 07/09/2024 10:00 AM EDT Imaging Radiology [address] 132 [facility] [place] [address] 07/09/2024 10:15 AM EDT Imaging Radiology [address] 132 [facility] [place] [address] 07/18/2024 10:40 AM EDT Office Visit Family [facility] [address] [place] [address] Chandni Qureshi CRNP [address] [place] [address] 09/09/2024 2:15 PM EST Office Visit Hematology/Oncology [facility] 200 [facility] [place] [phone] Won Tesfaye MD [address] [place] [address] 10/27/2024 10:00 AM EST Imaging Radiology, [facility] 2520 [facility] [address] 12/09/2024 1:30 PM EST Appointment Radiology, [facility] 400 [facility] [address] 12/09/2024 2:00 PM EST Rehab Services Voice Lab, [facility] 400 [facility] [address] Willie Johnston, [facility]-LOG SKIDDER [address] [place] [address] Scheduled Procedures Name Priority Associated Diagnoses Date/Ti [...] Diagnosis Comments XR CHEST 1 VIEW Routine 07/06/2024 documented in this encounter Results * XR CHEST 1 VIEW (07/06/2024) Anatomical Region Laterality Modality Chest Other 07/06/2024 History Per Patient RADIOLOGY (RAD GENER AL) documented in this encounter Care Teams Syrup Mixer Helper Relationship Specialty Start Date End Date Chandni Qureshi CRNP 132 [facility] [place] [address] PCP - General Nurse Practitioner 06/17/24 documented as of this encounter
--- OUTSIDE RECORDS SUMMARY | 2024-09-09 18:16 | External Medical Summary | Summary of Care ---
Author Name Unknown Organization [facility] Address [address] [facility] [place] [address] Phone [phone] Care Team Providers Care Clerical Investigator Name Role Phone Chandni Qureshi Primary Care Provider +1- [phone] Encounter Details Date Type Department Care Team (Late st Contact Info) Description 07/06/2024 Orders Only Family Practice [facility] [address] [place] [address] Chandni Qureshi CRNP [address] [place] [...] Release 24 Hour (toPROL XL)Indications:Ather osclerosis of [place] coronary artery of [place] heart without angina pectoris,HTN, goal below 140/90 [...] Lipid Taxonomy. Ischemic cardiomyopathy Coronary atherosclerosis of [place] coronary мария ry documented as of this [...] myocardial infarct 04/29/200908/04 Overview: Modified by Acute [place] Protocol #5. Oct 10 2007, Septal Acute [place] 10/28/2007 04/29/2009 Overview: Modified by Acute [place] Protocol #5. Oct 10 2007, Septal Acute [place] 10/28/2007 08/04/2011 Overview: Oct 10 2007, Septal [...] Description 07/09/2024 10:00 AM EDT Imaging Radiology [address] 132 [facility] [place] [address] 07/09/2024 10:15 AM EDT Imaging Radiology [address] 132 [facility] [place] [address] 07/18/2024 10:40 AM EDT Office Visit Family [facility] [address] [place] [address] Chandni Qureshi CRNP [address] [place] [address] 09/09/2024 2:15 PM EST Office Visit Hematology/Oncology [facility] 200 [facility] [place] [phone] Won Tesfaye MD [address] [place] [address] 10/27/2024 10:00 AM EST Imaging Radiology, [facility] 2520 [facility] [address] 12/09/2024 1:30 PM EST Appointment Radiology, [facility] [address] [facility] [address] 12/09/2024 2:00 PM EST Rehab Services Voice Lab, [facility] [address] [facility] [address] Willie Johnston, [facility]-BUS MONITOR [address] [place] [address] Scheduled Procedures Name Priority Associated Diagnoses Date/Ti [...] interpreted or resulted by a [facility] or [facility] contracted radiologist. Chandni PLATT RAD CT documented in this encounter Care Teams Clerical Investigator Relationship Specialty Start Date End Date Chandni Qureshi CRNP [address] [place] [address] PCP - General Nurse Practitioner 06/17/24 documented as of this encounter
--- OUTSIDE RECORDS SUMMARY | 2024-09-09 18:16 | External Medical Summary | Summary of Care ---
Author Name Unknown Organization [facility] Address [address] [facility] [place] [address] Phone [phone] Care Team Providers Care Quality Assurance Qa Lab Technician Name Role Phone Chandni Qureshi Primary Care Provider +1- [phone] Encounter Details Date Type Department Care Team (Late st Contact Info) Description 07/06/2024 Orders Only Family Practice [facility] [address] [place] [address] Chandni Qureshi CRNP [address] [place] [...] Release 24 Hour (toPROL XL)Indications:Ather osclerosis of ione coronary artery of ione heart without angina pectoris,HTN, goal below 140/90 [...] Lipid Taxonomy. Ischemic cardiomyopathy Coronary atherosclerosis of ione coronary мария ry documented as of this [...] Description 07/09/2024 10:00 AM EDT Imaging Radiology [address] 132 [facility] [place] [address] 07/09/2024 10:15 AM EDT Imaging Radiology [address] 132 [facility] [place] [address] 07/18/2024 10:40 AM EDT Office Visit Family [facility] [address] [place] [address] Chandni Qureshi CRNP [address] [place] [address] 09/09/2024 2:15 PM EST Office Visit Hematology/Oncology [facility] 200 [facility] [place] [phone] Won Tesfaye MD [address] [place] [address] 10/27/2024 10:00 AM EST Imaging Radiology, [facility] 25[address] [facility] [place] [address] 12/09/2024 1:30 PM EST Appointment Radiology, [facility] [address] 12/09/2024 2:00 PM EST Rehab Services Voice Lab, [facility] [address] [facility] [address] Willie Johnston, [facility]-[employer]PER[employer] [address] [place] [address] Scheduled Procedures Name Priority Associated Diagnoses Date/Ti [...] interpreted or resulted by a [facility] or [facility] contracted radiologist. Chandni PLATT RAD CT documented in this encounter Care Teams Quality Assurance Qa Lab Technician Relationship Specialty Start Date End Date Chandni Qureshi CRNP [address] [place] [address] PCP - General Nurse Practitioner 06/17/24 documented as of this encounter
--- OUTSIDE RECORDS SUMMARY | 2024-09-09 18:16 | External Medical Summary | Summary of Care ---
Author Name Unknown Organization [facility] Address [address] [facility] [place] [address] Phone [phone] Care Team Providers Care Automotive Mechanical Engineer Name Role Phone Chandni Qureshi Primary Care Provider +1- [phone] Reason for Visit * Reason Onset Date Comments Information 07/07/2024 I believe this p t is at [facility] Encounter Details Date Type Department Care Team (Late st Contact Info) Description 07/07/2024 Telephone Rad[address] [place] [address] Bernadine Zarate, RT (R) Information (I believe this pt is at [place] ... Allergies Active Allergy Reactions Criticality Noted [...] Release 24 Hour (toPROL XL)Indications:Ather osclerosis of afogn[place] coronary artery of af[place] heart without angina pectoris,HTN, goal below 140/90 [...] Lipid Taxonomy. Ischemic cardiomyopathy Coronary atherosclerosis of afognak coronary мария ry documented as of this [...] encounter Miscellaneous Notes * Telephone Encounter - Bernadine Zarate RT (R) - 07/08/2024 8:23 AM EDT Please call [phone] and give them a fax number to [...] 07/07/2024 11:26 AM EDT Scheduling: please call [facility] to get ER record/ CT report faxed to office. * Telephone Encounter - Bernadine Zarate RT (R) - 07/07/2024 11:09 AM EDT Sorry I was working over there yesterday and did her scan. Then I noticed her on my schedule here for Sun. Thought I would let you know. I think you will need to call [facility] to get info sent over. Thanks * Telephone Encounter - Michelle Villar RN - 07/07/2024 10:52 AM EDT No documentation of ER visit at [facility]. Patient had recent admission at [facility], did not have CT there. Bernadine: where do you see CT scans were done at [facility]/ patient went to ER? * Telephone Encounter - Bernadine Zarate RT (R) - 07/07/2024 7:53 AM EDT I believe this pt was seen in the ER at [facility] yesteday. She had CT scans done while she was there. I am not sure if you will still need the CT's that ordered here at [facility] on Sun this week. Please cancel CT appts if they are not needed. Bernadine Narvaez CT GW documented in this encounter Plan of Treatment Upcoming Encounters Date Type Department Care Team (Late st Contact Info) Description 07/09/2024 10:00 AM EDT Imaging Radiology [address] 132 [facility] [place] [address] 07/09/2024 10:15 AM EDT Imaging Radiology [address] 132 [facility] [place] [address] 07/18/2024 10:40 AM EDT Office Visit Family Practice [facility] 132 [facility] [place] [address] Chandni Qureshi CRNP 132 [facility] [place] [address] 09/09/2024 2:15 PM EST Office Visit Hematology/Oncology [address] [place] [address] [place] [phone] Won Tesfaye MD [address] [place] [address] 10/27/2024 10:00 AM EST Imaging Radiology, [place] [address] [facility] [place] [address] 12/09/2024 1:30 PM EST Appointment Radiology, [facility] [address] [place] [phone] 12/09/2024 2:00 PM EST Rehab Services Voice Lab, [facility] [address] [place] [address] Willie Johnston, [facility] EQUIPMENT SPECIALIST [address] [place] [address] Scheduled Procedures Name Priority Associated Diagnoses Date/Ti [...] filedocumented as of this encounter Care Teams Automotive Mechanical Engineer Relationship Specialty Start Date End Date Chandni Qureshi CRNP [address] [place] [address] PCP - General Nurse Practitioner 06/17/24 documented as of this encounter
--- OUTSIDE RECORDS SUMMARY | 2024-09-09 18:16 | External Medical Summary | Summary of Care ---
Author Name Unknown Organization [facility] Address [address] [facility] [place] [address] Phone [phone] Care Team Providers Care Clinical Trials Assistant Name Role Phone Chandni Qureshi Primary Care Provider +1- [phone] Encounter Details Date Type Department Care Team (Late st Contact Info) Description 07/06/2024 Orders Only Family Practice [facility] [address] [place] [address] Chandni Qureshi CRNP [address] [place] [...] Release 24 Hour (toPROL XL)Indications:Ather osclerosis of o[place]ou[place] coronary artery of [place] heart without angina pectoris,HTN, goal below 140/90 [...] Lipid Taxonomy. Ischemic cardiomyopathy Coronary atherosclerosis of [place] coronary мария ry documented as of this [...] Description 07/09/2024 10:00 AM EDT Imaging Radiology [address] 132 [facility] [place] [address] 07/09/2024 10:15 AM EDT Imaging Radiology [address] 132 [facility] [place] [address] 07/18/2024 10:40 AM EDT Office Visit Family [facility] [address] [place] [address] Chandni Qureshi CRNP [address] [place] [address] 09/09/2024 2:15 PM EST Office Visit Hematology/Oncology [facility] 200 [facility] [place] [phone] Won Tesfaye MD [address] [place] [address] 10/27/2024 10:00 AM EST Imaging Radiology, [facility] [address] [facility] [address] 12/09/2024 1:30 PM EST Appointment Radiology, [facility] 400 [facility] [address] 12/09/2024 2:00 PM EST Rehab Services Voice Lab, [facility] 400 [facility] [address] Willie Johnston, [facility]-LOSS PREVENTION ASSOCIATE [address] [place] [address] Scheduled Procedures Name Priority Associated Diagnoses Date/Ti [...] interpreted or resulted by a [facility] or [facility] contracted radiologist. Chandni PLATT RADIOLOGY (RAD GEN ERAL) documented in this encounter Care Teams Clinical Trials Assistant Relationship Specialty Start Date End Date Chandni Qureshi CRNP 132 [facility] [place] [address] PCP - General Nurse Practitioner 06/17/24 documented as of this encounter
--- OUTSIDE RECORDS SUMMARY | 2024-09-09 18:17 | External Medical Summary | Summary of Care ---
Author Name Unknown Organization [facility] Address [address] [facility] [place] [address] Phone [phone] Care Team Providers Care Basting Cleaner Name Role Phone Chandni Qureshi Primary Care Provider +1- [phone] Encounter Details Date Type Department Care Team (Late st Contact Info) Description 07/06/2024 Result Scan Unspecified Department <No scans attached> Allergies Active Allergy Reactions Criticality Noted Date [...] 07/09/2024 10:00 AM EDT Imaging Radiology [address] 132 [facility] [place] [address] 07/09/2024 10:15 AM EDT Imaging Radiology [address] 132 [facility] [place] [address] 07/18/2024 10:40 AM EDT Office Visit Family Practice [facility] [address] [place] [address] Chandni Qureshi CRNP 132 [facility] [place] [address] 09/09/2024 2:15 PM EST Office Visit Hematology/Oncology [facility] [address] [place] [address] Won Tesfaye MD [address] [place] [address] 10/27/2024 10:00 AM EST Imaging Radiology, [facility] [address] [facility] [place] [address] 12/09/2024 1:30 PM EST Appointment Radiology, [facility] 400 [facility] [place] [phone] 12/09/2024 2:00 PM EST Rehab Services Voice Lab, [facility] 400 [place] [address] Willie Johnston, [facility]3]-FINANCIAL SALES ASSOCIATE [address] [facility] [place] [address] Scheduled Procedures Name Priority Associated Diagnoses Date/Ti [...] Name Priority Date/Time Associated Diagnosis Comments RADIOLOGY SCANNED RESULT 07/06/2024 RADIOLOGY SCANNED RESULT 07/06/2024 RADIOLOGY SCANNED RESULT 07/06/2024 documented in this encounter Results * RADIOLOGY SCANNED RESULT (07/06/2024) 07/06/2024 No Physician Data Unknown DIAGNOSTIC RAD IOLOGY SERVICES * RADIOLOGY SCANNED RESULT (07/06/2024) 07/06/2024 No Physician Data Unknown DIAGNOSTIC RAD IOLOGY SERVICES * RADIOLOGY SCANNED RESULT (07/06/2024) 07/06/2024 No Physician Data Unknown DIAGNOSTIC RAD IOLOGY SERVICES documented in this encounter Care Teams Basting Cleaner Relationship Specialty Start Date End Date Chandni Qureshi CRNP 132 [facility] [place] [address] PCP - General Nurse Practitioner 06/17/24 documented as of this encounter
--- OUTSIDE RECORDS SUMMARY | 2024-09-09 18:17 | External Medical Summary | Summary of Care ---
Author Name Unknown Organization [facility] Address [address] [facility] [place] [address] Phone [phone] Care Team Providers Care Gasket Supervisor Name Role Phone Chandni Qureshi Primary Care Provider +1- [phone] Reason for Visit * Reason Onset Date Comments Information 07/07/2024 I believe this p t is at [facility] Encounter Details Date Type Department Care Team (Late st Contact Info) Description 07/07/2024 Telephone Rad[address] [place] [address] Bernadine Zarate, RT (R) Information (I believe this pt is at [place] ... Allergies Active Allergy Reactions Criticality Noted [...] Release 24 Hour (toPROL XL)Indications:Ather osclerosis of north[place] coronary artery of north[place] heart without angina pectoris,HTN, goal below 140/90 [...] Lipid Taxonomy. Ischemic cardiomyopathy Coronary atherosclerosis of north[place] coronary мария ry documented as of this [...] loading images from yesterday. Please check on Tu and let me know if CT 's on Sun are still needed. Thanks * Telephone Encounter - Charlette Robertson OSA - 07/07/2024 11:52 AM EDT They do not take phone calls Faxed request * Telephone Encounter - Michelle Villar RN - 07/07/2024 11:26 AM EDT Scheduling: please call [facility] to get ER record/ CT report faxed to office. * Telephone Encounter - Bernadine Zarate RT (R) - 07/07/2024 11:09 AM EDT Sorry I was working over there yesterday and did her scan. Then I noticed her on my schedule here for Sun. Thought I would let you know. I think you will need to call [facility] to get info sent over. Thanks * Telephone Encounter - Michelle Villar RN - 07/07/2024 10:52 AM EDT No documentation of ER visit at [facility]. Patient had recent admission at [facility], did not have CT there. Bernadine: where do you see CT scans were done at [facility]/ patient went to ER? * Telephone Encounter - Bernadine Zarate RT (R) - 07/07/2024 7:53 AM EDT I believe this pt was seen in the ER at [facility] yesteday. She had CT scans done while she was there. I am not sure if you will still need the CT's that ordered here at [facility] on Sun this week. Please cancel CT appts if they are not needed. Thanks, Bernadine SANTANA GW documented in this encounter Plan of Treatment Upcoming Encounters Date Type Department Care Team (Late st Contact Info) Description 07/09/2024 10:00 AM EDT Imaging Radiology [address] 132 [facility] [place] [address] 07/09/2024 10:15 AM EDT Imaging Radiology [address] 132 [facility] [place] [address] 07/18/2024 10:40 AM EDT Office Visit Family Practice [facility] 132 [facility] [place] [address] Chandni Qureshi CRNP 132 [facility] [place] [address] 09/09/2024 2:15 PM EST Office Visit Hematology/Oncology [facility] 200 [facility] [place] [address] Won Tesfaye MD 200 [facility] [place] [address] 10/27/2024 10:00 AM EST Imaging Radiology, [address] [address] 12/09/2024 1:30 PM EST Appointment Radiology, [address] [address] 12/09/2024 2:00 PM EST Rehab Services Voice Lab, [address] [address] Willie Johnston, CCC-MANAGEMENT LECTURER 132 [facility] [place] [address] Scheduled Procedures Name Priority Associated Diagnoses Date/Ti [...] filedocumented as of this encounter Care Teams Gasket Supervisor Relationship Specialty Start Date End Date Chandni Qureshi CRNP 132 [place] [address] PCP - General Nurse Practitioner 06/17/24 documented as of this encounter
--- OUTSIDE RECORDS SUMMARY | 2024-09-09 18:17 | External Medical Summary | Summary of Care ---
Author Name Unknown Organization [facility] Address [address] [facility] [place] [address] Phone [phone] Care Team Providers Care Agitator Operator Name Role Phone Chadnni Qureshi Primary Care Provider +1- [phone] Encounter Details Date Type Department Care Team (Late st Contact Info) Description 07/06/2024 Orders Only Family Practice [facility] [address] [place] [address] Chandni Qureshi CRNP [address] [place] [...] 24 Hour (toPROL XL)Indications:Ather osclerosis of eastern shoshone coronary artery of eastern shoshone heart without angina pectoris,HTN, goal below [...] Taxonomy. Ischemic cardiomyopathy Coronary atherosclerosis of eastern shoshone coronary мария ry documented as of [...] Description 07/09/2024 10:00 AM EDT Imaging Radiology [address] 132 [facility] [place] [address] 07/09/2024 10:15 AM EDT Imaging Radiology [address] 132 [facility] [place] [address] 07/18/2024 10:40 AM EDT Office Visit Family [facility] [address] [place] [address] Chandni Qureshi CRNP [address] [place] [address] 09/09/2024 2:15 PM EST Office Visit Hematology/Oncology [facility] 200 [facility] [place] [phone] Won Tesfaye MD [address] [place] [address] 10/27/2024 10:00 AM EST Imaging Radiology, [facility] 2520 [place] [address] 12/09/2024 1:30 PM EST Appointment Radiology, [facility] 400 [facility] [address] 12/09/2024 2:00 PM EST Rehab Services Voice Lab, [facility] [address] [facility] [address] Willie Johnston, [facility] ENERGY MARKETING ANALYST [address] [place] [address] Scheduled Procedures Name Priority Associated Diagnoses Date/Ti [...] interpreted or resulted by a [facility] or [facility] contracted radiologist. Chandni PLATT RAD CT documented in this encounter Care Teams Agitator Operator Relationship Specialty Start Date End Date Chandni Qureshi CRNP [address] [place] [address] PCP - General Nurse Practitioner 06/17/24 documented as of this encounter
--- OUTSIDE RECORDS SUMMARY | 2024-09-09 18:17 | External Medical Summary | Summary of Care ---
Author Name Unknown Organization [facility] Address [address] [facility] [place] [address] Phone [phone] Care Team Providers Care Forest Fire Officer Name Role Phone Chandni Qureshi Primary Care Provider +1- [phone] Reason for Visit * Reason Onset Date Comments Order Request 06/30/2024 Encounter Details Date Type Department Care Team (Late st Contact Info) Description 06/30/2024 Telephone Family Practice [facility] [place] [address] Chandni [facility]ureshi CRNP [facility] [place] [address] Order Request Allergies Active Allergy Reactions Criticality Noted Date Comments Hydrocodone High 08/03/2021 Other reaction(s): Hallucinating Hydrocodone Bit-Homatrop Mbr 08/22/2017 hallucinations Isosorbide Nitrate Other (Please comment) 02/24/2021 headaches Penicillins 09/10/2002 hives documented as of this encounter (statuses as of 07/01/2024) Medications Medication Sig Dispensed Refills Start Date [...] as of this encounter (statuses as of 07/01/2024) Active Problems Problem Noted Date Diagnosed Date [...] as of this encounter (statuses as of 07/01/2024) Resolved Problems Problem Noted Date Diagnosed Date [...] myocardial infarct 04/29/200908/04 Overview: Modified by Acute NC Protocol #5. Oct 10 2007, Septal Acute NC 10/28/2007 04/29/2009 Overview: Modified by Acute NC Protocol #5. 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 See OV notes * Telephone Encounter - Jocelyne Mensah, SUSAN - 06/30/2024 10:14 AM EDT Patient was seen in the ER on 06/29, she choked on soup, she has been choking a lot lately and the ER suggested she should see speech therapy, she was just getting over pneumonia and then choked on the soup and now is having issues breathing since they had to surgically remove what she was choking on. Please call daughter about the speech therapy josé luis documented in this encounter Plan of Treatment Upcoming Encounters Date Type Department Care Team (Late st Contact Info) Description 07/18/2024 10:40 AM EDT Office Visit Family [facility] [address] [place] [address] Chandni Qureshi CRNP [address] [place] [address] 09/09/2024 2:15 PM EST Office Visit Hematology/Oncology [facility] 200 [facility] [place] [phone] Won Tesfaye MD 200 [facility] [place] [address] 10/27/2024 10:00 AM EST Imaging Radiology, [place] [address] [facility] [place] [address] Scheduled Procedures Name Priority Associated Diagnoses Date/Ti [...] filedocumented as of this encounter Care Teams Forest Fire Officer Relationship Specialty Start Date End Date Chandni Qureshi CRNP 132 [place] [address] PCP - General Nurse Practitioner 06/17/24 documented as of this encounter
--- OUTSIDE RECORDS SUMMARY | 2024-09-09 18:17 | External Medical Summary | Summary of Care ---
Author Name Unknown Organization [facility] Address [address] [facility] [place] [address] Phone [phone] Care Team Providers Care Power Transmission Engineer Name Role Phone Chandni Qureshi Primary Care Provider +1- [phone] Reason for Visit * Reason Onset Date Comments Information 07/07/2024 I believe this p t is at [facility] Encounter Details Date Type Department Care Team (Late st Contact Info) Description 07/07/2024 Telephone Radiology [address] [place] [address] Bernadine Zarate, RT (R) Information (I believe this pt is at [place] ... Allergies Active Allergy Reactions Criticality Noted [...] Release 24 Hour (toPROL XL)Indications:Ather osclerosis of [place] coronary artery of [place] heart without angina pectoris,HTN, goal below 140/90 [...] Lipid Taxonomy. Ischemic cardiomyopathy Coronary atherosclerosis of [place] coronary мария ry documented as of this [...] 07/07/2024 11:26 AM EDT Scheduling: please call [facility] to get ER record/ CT report faxed to office. * Telephone Encounter - Bernadine Zarate RT (R) - 07/07/2024 11:09 AM EDT Sorry I was working over there yesterday and did her scan. Then I noticed her on my schedule here for Sun. Thought I would let you know. I think you will need to call [facility] to get info sent over. Thanks * Telephone Encounter - Michelle Villar RN - 07/07/2024 10:52 AM EDT No documentation of ER visit at [facility]. Patient had recent admission at [facility], did not have CT there. Bernadine: where do you see CT scans were done at [facility]/ patient went to ER? * Telephone Encounter - Bernadine Zarate RT (R) - 07/07/2024 7:53 AM EDT I believe this pt was seen in the ER at [facility] yesteday. She had CT scans done while she was there. I am not sure if you will still need the CT's that ordered here at [facility] on Sun this week. Please cancel CT appts if they are not needed. Thanks, Bernadine CT GW documented in this encounter Plan of Treatment Upcoming Encounters Date Type Department Care Team (Late st Contact Info) Description 07/09/2024 10:00 AM EDT Imaging Radiology [address] [facility] [place] [address] 07/09/2024 10:15 AM EDT Imaging Radiology [address] [facility] [place] [address] 07/18/2024 10:40 AM EDT Office Visit Family Practice [facility] [address] [facility] [place] [address] Chandni Qureshi CRNP 132 [facility] [place] [address] 09/09/2024 2:15 PM EST Office Visit Hematology/Oncology [facility] [address] [facility] [place] [address] Won Tesfaye MD [address] [facility] [place] [address] 10/27/2024 10:00 AM EST Imaging Radiology, [facility] [address] [facility] [place] [address] 12/09/2024 1:30 PM EST Appointment Radiology, [address] [place] [address] 12/09/2024 2:00 PM EST Rehab Services Voice Lab, [address] [address] Willie Johnston, [facility]PALEONTOLOGICAL HELPER [address] [place] [address] Scheduled Procedures Name Priority Associated Diagnoses Date/Ti [...] filedocumented as of this encounter Care Teams Power Transmission Engineer Relationship Specialty Start Date End Date Chandni Qureshi CRNP [address] [place] [address] PCP - General Nurse Practitioner 06/17/24 documented as of this encounter
--- OUTSIDE RECORDS SUMMARY | 2024-09-09 18:17 | External Medical Summary | Summary of Care ---
Author Name Unknown Organization [facility] Address [address] [place] [facility] [facility] [facility] [place] [address] Phone [phone] Care Team Providers Care Cribbing Setter Name Role Phone Chandni Qureshi Primary Care Provider +1- [phone] Reason for Visit * Reason Comments Acute 3 days-- pt wheezing , SOB at times, 95 Spo2 over the weekend, no productive cough. Encounter Details Date Type Department Care Team (Late st Contact Info) Description 06/17/2024 1:40 PM EDT Office Visit [facility] [place] [address] Chandni Qureshi CRNP [address] [place] [address] Acute cough*; COPD exacerbation (HCC); Mild dementia with mood disturbance, unspecified dementia type (HCC) Allergies Active Allergy Reactions Criticality Noted Date Comments Hydrocodone High 08/03/2021 Other reaction(s): Hallucinating Hydrocodone Bit-Homatrop Mbr 08/22/2017 hallucinations Isosorbide Nitrate Other (Please comment) 02/24/2021 headaches Penicillins 09/10/2002 hives documented as of this encounter (statuses as of 07/04/2024) Medications Medication Sig Dispensed Refills Start Date [...] Release 24 Hour (toPROL XL)Indications:Athe rosclerosis of [place] coronary artery of [place] heart without angina pectoris,HTN, goal below 140/90 [...] 06/30/2024 Atorvastatin Calcium 40 MG Oral Tablet (Lipitor)Indication [...] 04/17/2024 Active predniSONE 10 MG Oral Tablet (Deltasone)Indicati ons:Acute cough,COPD exacerbation (HCC) Take 5 tabs for 2 days, 4 tabs for 2 days, 3 tabs for 2 days, 2 tabs for 2 days 1 tab for 2 days 30 Tablet 06/17/2024 Active Zoster Vac Recomb Adjuvanted 50 MCG/0.5ML Intramuscular Suspension Reconstituted (Shingrix)Indicatio ns:Need for vaccination for zoster Inject 0.5 mL into a large muscle now and repeat dose in 60 to 180 days 1 Each 1 04/17/2024 06/30/20 24 Discontinue d(Medicatio n List Clean Up) FLUoxetine HCl 10 MG Oral Capsule (PROzac) Take 2 capsules by mouth daily for four weeks, then 1 capsule by mouth daily for four weeks, then stop the medication. 90 Capsule 04/17/2024 06/30/20 24 Discontinue d(Medicatio n List Clean Up) Doxycycline Hyclate 100 MG Oral CapsuleIndications: Acute cough,COPD exacerbation (HCC) Take 1 Capsule by mouth in the morning and 1 Capsule before bedtime. Do all this for 10 days. Until gone.. 20 Capsule 06/17/2024 06/27/20 24 documented as of this encounter (statuses as of 07/04/2024) Active Problems Problem Noted Date Diagnosed Date [...] Lipid Taxonomy. Ischemic cardiomyopathy Coronary atherosclerosis of [place] coronary мария ry documented as of this encounter (statuses as of 07/04/2024) Resolved Problems Problem Noted Date Diagnosed Date [...] as of this encounter (statuses as of 07/04/2024) Immunizations Name Administration Dates Next Due COVID-19 mRNA, LNP-s, No Pre serve, 2-Dose Series (Pfizer) 01/12/2021,12/22/2020 Pneumococcal Conjugate Vacc, 13 Valent (Prevnar) 12/31/2018 Pneumococcal Polysaccharide PPV23 (Pneumovax) 01/03/2022,09/04/2006 Seasonal Influenza, PF, 6 M & above, [...] Sign Reading Time Taken Comments Blood Pressure 114/64 06/17/2024 1:40 PM EDT Pulse 66 06/17/2024 1:40 PM EDT Temperature 36.2 C (97.2 F) 06/17/2024 1:40 PM ED T Respiratory Rate - - Oxygen Saturation 94% 06/17/2024 1:40 PM EDT Inhaled Oxygen Concentration - - Weight 76.5 kg (168 lb 9.6 oz) 06/17/2024 1:40 P M EDT Height - - Body Mass Index 28.06 04/17/2024 9:02 AM EDT documented in this encounter Progress Notes * Chandni Qureshi CRNP - 06/17/2024 1:45 PM EDT Images from the original note were not included. History of Present Illness Berta Swenson is a 74 year old female that presents for Acute (3 days-- pt wheezing, SOB at times, 95 Spo2 over the weekend, no productive cough. ) HPI Here with daughter for the above Using home nebulizers which provide some temporary relief She is coughing more after eating Current Outpatient Medications Medication Sig Dispense Refill predniSONE 10 MG Oral Tablet (Deltasone) Take 5 tabs for 2 days, 4 tabs for 2 days, 3 tabs for 2 days, 2 tabs for 2 days 1 tab for 2 days 30 Tablet 0 Albuterol Sulfate 1.25 MG/3ML Inhalation Nebulization Solution Inhale 1.25 mg via nebulizer every 4hours as needed for Shortness of Breath or Wheezing. 360 mL 2 Atorvastatin Calcium 40 MG Oral Tablet (Lipitor) Take 1 Tablet by mouth in the morning. 90 Tablet 3 Cyanocobalamin 1000 MCG/ML Injection Solution (Cyanocobalamin) Inject 1,000 mcg into a large muscleevery 30 days. 1 mL 0 Ezetimibe 10 MG Oral Tablet (Zetia) Take 1 Tablet by mouth in the morning. 90 Tablet 3 Famotidine 20 MG Oral Tablet (Pepcid) Take 1 Tablet by mouth in the morning and 1 Tablet before bedtime. 180 Tablet 3 Ipratropium-Albuterol 0.5-2.5 (3) MG/3ML Inhalation Solution (Duoneb) Inhale 3 mL via nebulizer in the morning and 3 mL at noon and 3 mL in the evening and 3 mL before bedtime. As needed. (Patient not taking: Reported on 06/30/2024) 180 mL 3 Levothyroxine Sodium 75 MCG Oral Tablet [...] a maximum of 3 for chest pain (Patient not taking: Reported on 06/30/2024) 25 Tablet 1 Pantoprazole Sodium 40 MG Oral Tablet Delayed Release (Protonix) Take 1 Tablet by mouth in the morning. 90 Tablet 3 Syringe/Needle (Disp) 23G X 1" 3 ML Use as directed 180 Each 3 Syringe/Needle (Disp) 25G X 1" 3 ML Use as directed. 12 Each 0 acetaminophen (TYLENOL) 500 MG Tablet Take 2 Tablets by mouth every 8 hours as needed for Pain or Fever. 100 Tab 0 IMODIUM A-D 2 MG PO TABS 1 tablet four times daily as needed ASPIRIN 81 MG PO CHEW one chewable by mouth daily 34 5 No current facility-administered medications for this visit. Physical Exam Vitals: 06/17/24 1340 Temp: 36.2 C (97.2 F) Pulse: 66 SpO2: 94% BP: 114/64 Physical Exam Vitals reviewed. Constitutional: Appearance: Normal appearance. HENT: Head: Normocephalic and atraumatic. Right Ear: Tympanic membrane, ear canal and external ear normal. Left Ear: Tympanic membrane, ear canal and external ear normal. Nose: Nose normal. Mouth/Throat: Mouth: Mucous membranes are moist. Eyes: Extraocular Movements: Extraocular movements intact. Conjunctiva/sclera: Conjunctivae normal. Pupils: Pupils are equal, round, and reactive to light. Cardiovascular: Rate and Rhythm: Normal rate and regular rhythm. Heart sounds: Normal heart sounds. Pulmonary: Effort: Pulmonary effort is normal. No respiratory distress. Breath sounds: Wheezing and rhonchi present. Abdominal: General: Bowel sounds are normal. Palpations: Abdomen is soft. Musculoskeletal: Cervical back: Neck supple. Right lower leg: No edema. Left lower leg: No edema. Lymphadenopathy: Cervical: No cervical adenopathy. Skin: General: Skin is warm and dry. Capillary Refill: Capillary refill takes less than 2 seconds. Neurological: Mental Status: She is alert. Mental status is at baseline. Comments: Pleasantly confused In wheelchair Assessment and Plan Acute cough - Doxycycline Hyclate 100 MG Oral Capsule; Take 1 Capsule by mouth in the morning and 1 Capsule before bedtime. Do all this for 10 days. Until gone.. - predniSONE 10 MG Oral Tablet (Deltasone); Take 5 tabs for 2 days, 4 tabs for 2 days, 3 tabs for 2days, 2 tabs for 2 days 1 tab for 2 days - INFLUENZA A/B RSV SARS-COV2,PCR; Future - INFLUENZA A/B RSV SARS-COV2,PCR COPD exacerbation (HCC) - Doxycycline Hyclate 100 MG Oral Capsule; Take 1 Capsule by mouth in the morning and 1 Capsule before bedtime. Do all this for 10 days. Until gone.. - predniSONE 10 MG Oral Tablet (Deltasone); Take 5 tabs for 2 days, 4 tabs for 2 days, 3 tabs for 2days, 2 tabs for 2 days 1 tab for 2 days - XR CHEST 2 VIEWS - INFLUENZA A/B RSV SARS-COV2,PCR; Future - INFLUENZA A/B RSV SARS-COV2,PCR Mild dementia with mood disturbance, unspecified dementia type (HCC) Follow up as scheduled Consider speech eval Wrap-Up Follow-up: Return if symptoms worsen or fail to improve. | Check-out note: Chest xray now Time: I spent a total of 20-29 minutes (exact time 20 mins) on the date of service in preparation, delivery, and documentation of the care provided to Berta K Messi excluding any time spent in the performance of separately billed services. documented in this encounter Nursing Notes * Mamie Tam LPN - 06/17/2024 1:38 PM EDT The patient has been properly identified by confirmation of name and date of . Chief Complaint Patient presents with Acute 3 days-- pt wheezing, SOB at times, 95 Spo2 over the weekend, no productive cough. Has been using the albuterol nebulizer Tx 3-4 times a day. documented in this encounter Plan of Treatment Upcoming Encounters Date Type Department Care Team (Late st Contact Info) Description 07/09/2024 10:00 AM EDT Imaging Radiology [address] [facility] [address] 07/09/2024 10:15 AM EDT Imaging Radiology [address] 132 [facility] [place] [address] 07/18/2024 10:40 AM EDT Office Visit Family Practice [facility] 132 [facility] [place] [address] Chandni Qureshi CRNP 132 [facility] [place] [address] 09/09/2024 2:15 PM EST Office Visit Hematology/Oncology [facility] [address] [place] [address] Won Tesfaye MD 200 [facility] [place] [address] 10/27/2024 10:00 AM EST Imaging Radiology, [facility] [address] [facility] [place] [address] 12/09/2024 1:30 PM EST Appointment Radiology, [address] [place] [address] 12/09/2024 2:00 PM EST Rehab Services Voice Lab, [facility] [address] [place] [place] [address] Willie Johnston, [facility] INTERN [address] [place] [address] Scheduled Procedures Name Priority Associated Diagnoses Date/Ti [...] Priority Date/Time Associated Diagnosis Comments XR CHEST 2 VIEWS STAT 06/17/2024 2:56 PM EDT COPD exacerbation (HCC) INFLUENZA A/B RSV SARS-COV2,PCR Routine 06/17/2024 2:02 PM EDT Acute cough COPD exacerbation (HCC) documented in this encounter Results * XR CHEST 2 VIEWS (06/17/2024 2:56 PM EDT) Anatomical Region Laterality Modality Chest Digital Radiogra phy 06/17/2024 3:16 PM EDT Impressions 06/17/2024 3:14 PM EDT IMPRESSION Persistent masslike opacities in the right upper lung. No new lung consolidation. Narrative 06/17/2024 3:14 PM EDT EXAM XR CHEST 2 VIEWS - 06/17/2024 2:56 pm HISTORY "cough, SOB" TECHNIQUE Frontal and lateral views of the chest were obtained. COMPARISON 06/08/2022 FINDINGS There is a right central venous port extending into the SVC. Masslike opacities again demonstrated in the right upper lung. There may be minimal right pleural fluid. No pneumothorax. Stable cardiomediastinal silhouette. Procedure Note Yuri Tesfaye MD - 06/17/2024 EXAM XR CHEST 2 VIEWS - 06/17/2024 2:56 pm HISTORY "cough, SOB" TECHNIQUE Frontal and lateral views of the chest were obtained. COMPARISON 06/08/2022 FINDINGS There is a right central venous port extending into the SVC. Masslike opacities again demonstrated in the right upper lung. There maybe minimal right pleural fluid. No pneumothorax. Stablecardiomediastinal silhouette. IMPRESSION IMPRESSION Persistent masslike opacities in the right upper lung. No new lungconsolidation. Chandni PLATT RADIOLOGY (RAD GEN ERAL) * INFLUENZA A/B RSV SARS-COV2,PCR (06/17/2024 2:02 PM EDT) SARS-CoV-2 (COVID-19) Result Negative Negative 06/17/2024 4:27 PM EDT LAB[facility] 57-10 Comment: No SARS-CoV2 Coronavirus RNA detected by PCR (amplified probe). This express test was developed and its performance characteristics determined by [facility]. It has not been cleared or approved by the U.S. Food and Drug Administration (FDA). FDA does not require this test to go thru premarket FDA review. This test is used for clinical purposes. It should not be regarded as investigational or for research. This laboratory is certified under the Clinical Laboratory Improvement Amendments (CLIA) as qualified to perform high complexity clinical laboratory testing. This test is a nucleic acid amplification test (NAAT), a reverse transcriptase polymerase chain reaction (RT-PCR) test, or a Centers for Disease Control- acceptable equivalent. The test is performed in a high complexity Clinical Laboratory Improvement Amendments-(CLIA) certified laboratory. The test is acceptable for SARS-CoV-2 diagnosis, surveillance, and travel within the [place] and to most countries. Please check with local testing authorities about requirements before travel. The validation of bronchial specimens, tracheal aspirates, and sputum for this assay was developed and performance characteristics determined by [facility]. The validation of alternate specimen types has not been cleared or approved by the U.S. Food and Drug Administration (FDA). It has been determined that such clearance is not necessary. Influenza A PCR Result Negative Negative 06/17/2024 4:27 PM EDT LABOR[facility]ORY [facility] 57-10 Comment:No Influenza A RNA d etected by PCR (amplified probe) Influenza B PCR Result Negative Negative 06/17/2024 4:27 PM EDT LABOR[facility]ORY [facility] 57-10 Comment:No Influenza B RNA d etected by PCR (amplified probe) RSV PCR Result Negative Negative 06/17/2024 4:27 PM EDT LAB[facility] 57-10 Comment:No Respiratory Syncy tial Virus RNA detected by PCR (amplified probe) Upper Respiratory Mid-turbinate nasal swab / Unknown Non-blood Collection / Unknown 06/17/2024 2:02 PM EDT 06/17/2024 2:02 PM EDT Chandni [facility]ATT LAB MICRO - GENERA L ORDERABLES [facility] 57-10 132 [place] [address] documented in this encounter Visit Diagnoses Diagnosis Acute cough- Primary COPD exacerbation (HCC) Obstructive chronic bronchitis with exacerbation Mild dementia with mood disturbance, unspecified dementia type (HCC) documented in this encounter Care Teams Cribbing Setter Relationship Specialty Start Date End Date Chandni Qureshi CRNP 132 [place] [address] PCP - General Nurse Practitioner 06/17/24 documented as of this encounter
--- OUTSIDE RECORDS SUMMARY | 2024-09-09 18:17 | External Medical Summary | Summary of Care ---
Author Name Unknown Organization [facility] Address [address] [facility] [place] [address] Phone [phone] Care Team Providers Care Nutrition Services Aide Name Role Phone Chandni Qureshi Primary Care Provider +1- [phone] Reason for Visit * Reason Onset Date Comments Information 07/07/2024 I believe this p t is at [facility] Encounter Details Date Type Department Care Team (Late st Contact Info) Description 07/07/2024 Telephone Radiology [address] [place] [address] Bernadine Zarate, RT (R) Information (I believe this pt is at [place] ... Allergies Active Allergy Reactions Criticality Noted Date Comments Hydrocodone High 08/03/2021 Other reaction(s): Hallucinating Hydrocodone Bit-Homatrop Mbr 08/22/2017 hallucinations Isosorbide Nitrate Other (Please comment) 02/24/2021 headaches Penicillins 09/10/2002 hives documented as of this encounter (statuses as of 07/07/2024) Medications Medication Sig Dispensed Refills Start Date [...] Release 24 Hour (toPROL XL)Indications:Ather osclerosis of [place] coronary artery of [place] heart without angina pectoris,HTN, goal below 140/90 [...] as of this encounter (statuses as of 07/07/2024) Active Problems Problem Noted Date Diagnosed Date Dementia without behavioral disturbance 10/15/19 History of lung cancer 02/22/2018 COPD, group B, by GOLD 2017 classification 08/31 Liver enzyme elevation 01/24/2017 Acquired hypothyroidism 12/11/2016 HTN, goal below 140/90 08/05/2014 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 Ischemic cardiomyopathy Coronary atherosclerosis of [place] coronary мария ry documented as of this encounter (statuses as of 07/07/2024) Resolved Problems Problem Noted Date Diagnosed Date [...] as of this encounter (statuses as of 07/07/2024) Immunizations Name Administration Dates Next Due COVID-19 [...] 07/07/2024 11:26 AM EDT Scheduling: please call [facility] to get ER record/ CT report faxed to office. * Telephone Encounter - Bernadine Zarate RT (R) - 07/07/2024 11:09 AM EDT Sorry I was working over there yesterday and did her scan. Then I noticed her on my schedule here for Sun. Thought I would let you know. I think you will need to call [facility] to get info sent over. Thanks * Telephone Encounter - Michelle Villar RN - 07/07/2024 10:52 AM EDT No documentation of ER visit at [facility]. Patient had recent admission at [facility], did not have CT there. Bernadine: where do you see CT scans were done at [facility]/ patient went to ER? * Telephone Encounter - Bernadine Zarate RT (R) - 07/07/2024 7:53 AM EDT I believe this pt was seen in the ER at [facility] yesteday. She had CT scans done while she was there. I am not sure if you will still need the CT's that ordered here at [facility] on Sun this week. Please cancel CT appts if they are not needed. Bernadine Narvaez CT GW documented in this encounter Plan of Treatment Upcoming Encounters Date Type Department Care Team (Late st Contact Info) Description 07/09/2024 10:00 AM EDT Imaging Radiology [facility] 1st [facility], [address] [place] [address] 07/09/2024 10:15 AM EDT [facility] [address] [place] [address] 07/18/2024 10:40 AM EDT Office Visit Family Practice [facility] [address] [place] [address] Chandni Qureshi CRNP [address] [place] [address] 09/09/2024 2:15 PM EST Office Visit Hematology/Oncology [facility] [address] [place] [phone] Won Tesfaye MD [address] [place] [address] 10/27/2024 10:00 AM EST Imaging Radiology, [address] [place] [address] 12/09/2024 1:30 PM EST Appointment Radiology, [facility] [address] [place] [address] 12/09/2024 2:00 PM EST Rehab Services Voice Lab, [facility] [address] [place] [address] Willie Johnston, CCC-ARTIST MANAGER [address] [place] [address] Scheduled Procedures Name Priority Associated Diagnoses Date/Ti [...] filedocumented as of this encounter Care Teams Nutrition Services Aide Relationship Specialty Start Date End Date Chandni Qureshi CRNP [address] [place] [address] PCP - General Nurse Practitioner 06/17/24 documented as of this encounter
--- OUTSIDE RECORDS SUMMARY | 2024-09-09 18:17 | External Medical Summary | Summary of Care ---
Author Name Unknown Organization [facility] Address [address] [facility] [place] [address] Phone [phone] Care Team Providers Care Produce Inspector Name Role Phone Chandni Qureshi Primary Care Provider +1- [phone] Encounter Details Date Type Department Care Team (Late st Contact Info) Description 07/07/2024 Orders Only Family Practice [facility] [address] [place] [address] Chandni Qureshi CRNP [address] [place] [...] Release 24 Hour (toPROL XL)Indications:Ather osclerosis of [place] coronary artery of [place] heart without angina pectoris,HTN, goal below 140/90 [...] Lipid Taxonomy. Ischemic cardiomyopathy Coronary atherosclerosis of [place] coronary мария ry documented as of this [...] myocardial infarct 04/29/200908/04 Overview: Modified by Acute [place] Protocol #5. Oct 10 2007, Septal [place] 10/28/2007 04/29/2009 Overview: Modified by Acute [place] Protocol #5. Oct 10 2007, Septal Acute [place] 10/28/2007 08/04/2011 Overview: Oct 10 2007, Septal [...] Description 07/09/2024 10:00 AM EDT Imaging Radiology [address] 132 [facility] [place] [address] 07/09/2024 10:15 AM EDT Imaging Radiology [address] 132 [facility] [place] [address] 07/18/2024 10:40 AM EDT Office Visit Family [facility] [address] [place] [address] Chandni Qureshi CRNP [address] [place] [address] 09/09/2024 2:15 PM EST Office Visit Hematology/Oncology [facility] 200 [facility] [place] [phone] Won Tesfaye MD [address] [place] [address] 10/27/2024 10:00 AM EST Imaging Radiology, [facility] [address] [facility] [place] [address] 12/09/2024 1:30 PM EST Appointment Radiology, [facility] [address] [facility] [phone] 12/09/2024 2:00 PM EST Rehab Services Voice Lab, [facility] [address] [facility] [address] Willie Johnston, [facility] PLUG TESTER [address] [place] [address] Scheduled Procedures Name Priority Associated Diagnoses Date/Ti [...] interpreted or resulted by a [facility] or [facility] contracted radiologist. Chandni PLATT RAD MRI-MRA documented in this encounter Care Teams Produce Inspector Relationship Specialty Start Date End Date Chandni Qureshi CRNP [address] [place] [address] PCP - General Nurse Practitioner 06/17/24 documented as of this encounter
--- OUTSIDE RECORDS SUMMARY | 2024-09-09 18:17 | External Medical Summary | Summary of Care ---
Author Name Unknown Organization [facility] Address [address] [facility] [place] [address] Phone [phone] Care Team Providers Care Confectionery Maker Name Role Phone Chandni Qureshi Primary Care Provider +1- [phone] Reason for Visit * Reason Onset Date Comments Information 07/07/2024 I believe this p t is at [facility] Encounter Details Date Type Department Care Team (Late st Contact Info) Description 07/07/2024 Telephone Rad[address] [place] [address] Bernadine Zarate, RT (R) Information (I believe this pt is at [place] ... Allergies Active Allergy Reactions Criticality Noted [...] Release 24 Hour (toPROL XL)Indications:Ather osclerosis of [place] coronary artery of [place] heart without angina pectoris,HTN, goal below 140/90 [...] Lipid Taxonomy. Ischemic cardiomyopathy Coronary atherosclerosis of [place] coronary мария ry documented as of this [...] 07/07/2024 11:26 AM EDT Scheduling: please call [facility] to get ER record/ CT report faxed to office. * Telephone Encounter - Bernadine Zarate RT (R) - 07/07/2024 11:09 AM EDT Sorry I was working over there yesterday and did her scan. Then I noticed her on my schedule here for Sun. Thought I would let you know. I think you will need to call [facility] to get info sent over. Thanks * Telephone Encounter - Michelle Villar RN - 07/07/2024 10:52 AM EDT No documentation of ER visit at [facility]. Patient had recent admission at [facility], did not have CT there. Bernadine: where do you see CT scans were done at [facility]/ patient went to ER? * Telephone Encounter - Bernadine Zarate RT (R) - 07/07/2024 7:53 AM EDT I believe this pt was seen in the ER at [facility]ested[place]. She had CT scans done while she was there. I am not sure if you will still need the CT's that ordered here at [facility] on Sun this week. Please cancel CT appts if they are not needed. Thanks, Bernadine SANTANA GW documented in this encounter Plan of Treatment Upcoming Encounters Date Type Department Care Team (Late st Contact Info) Description 07/09/2024 10:00 AM EDT Imaging Radiology [address] 132 [facility] [place] [address] 07/09/2024 10:15 AM EDT Imaging Radiology [address] 132 [facility] [place] [address] 07/18/2024 10:40 AM EDT Office Visit Family Practice [facility] 132 [facility] [place] [address] Chandni Qureshi CRNP 132 [facility] [place] [address] 09/09/2024 2:15 PM EST Office Visit Hematology/Oncology [facility] 200 [facility] [place] [phone] Won Tesfaye MD 200 [facility] [place] [address] 10/27/2024 10:00 AM EST Imaging Radiology, [address] [address] 12/09/2024 1:30 PM EST Appointment Radiology, [address] [phone] 12/09/2024 2:00 PM EST Rehab Services Voice Lab, [address] [address] Willie Johnston, CCC-CREPE BOX TENDER 132 [facility] [place] [address] Scheduled Procedures Name Priority Associated Diagnoses Date/Ti [...] filedocumented as of this encounter Care Teams Confectionery Maker Relationship Specialty Start Date End Date Chandni Qureshi CRNP 132 [place] [address] PCP - General Nurse Practitioner 06/17/24 documented as of this encounter
--- OUTSIDE RECORDS SUMMARY | 2024-09-09 18:17 | External Medical Summary | Summary of Care ---
Author Name Unknown Organization [facility] Address [address] [facility] [place] [address] Phone [phone] Care Team Providers Care Etl Database Developer Name Role Phone Chandni Qureshi Primary Care Provider +1- [phone] Reason for Visit * Reason Onset Date Comments Information 07/07/2024 I believe this p t is at [facility] Encounter Details Date Type Department Care Team (Late st Contact Info) Description 07/07/2024 Telephone Radiology [address] [place] [address] Bernadine Zarate, RT (R) Information (I believe this pt is at [place] ... Allergies Active Allergy Reactions Criticality Noted [...] Release 24 Hour (toPROL XL)Indications:Ather osclerosis of [place] coronary artery of [place] heart without angina pectoris,HTN, goal below 140/90 [...] Lipid Taxonomy. Ischemic cardiomyopathy Coronary atherosclerosis of [place] coronary мария ry documented as of this [...] - 07/08/2024 8:23 AM EDT Please call [phone] and give them a fax number to [...] 07/07/2024 11:26 AM EDT Scheduling: please call [facility] to get ER record/ CT report faxed to office. * Telephone Encounter - Bernadine Zarate RT (R) - 07/07/2024 11:09 AM EDT Sorry I was working over there yesterday and did her scan. Then I noticed her on my schedule here for Sun. Thought I would let you know. I think you will need to call [facility] to get info sent over. Thanks * Telephone Encounter - Michelle Villar RN - 07/07/2024 10:52 AM EDT No documentation of ER visit at [facility]. Patient had recent admission at [facility], did not have CT there. Bernadine: where do you see CT scans were done at [facility]/ patient went to ER? * Telephone Encounter - Bernadine Zarate RT (R) - 07/07/2024 7:53 AM EDT I believe this pt was seen in the ER at [facility] [place]. She had CT scans done while she was there. I am not sure if you will still need the CT's that ordered here at [facility] on Sun this week. Please cancel CT appts if they are not needed. Bernadine Narvaez CT GW documented in this encounter Plan of Treatment Upcoming Encounters Date Type Department Care Team (Late st Contact Info) Description 07/09/2024 10:00 AM EDT Imaging Radiology [address] 132 [facility] [place] [address] 07/09/2024 10:15 AM EDT Imaging Radiology [address] 132 [facility] [place] [address] 07/18/2024 10:40 AM EDT Office Visit Family Practice [facility] 132 [facility] [place] [address] Chandni Qureshi CRNP 132 [facility] [place] [address] 09/09/2024 2:15 PM EST Office Visit Hematology/Oncology [address] [place] [address] [place] [phone] Won Tesfaye MD [address] [place] [address] 10/27/2024 10:00 AM EST Imaging Radiology, [place] [address] [facility] [place] [address] 12/09/2024 1:30 PM EST Appointment Radiology, [facility] [address] [place] [phone] 12/09/2024 2:00 PM EST Rehab Services Voice Lab, [facility] [address] [place] [address] Willie Johnston, [facility] RELIEF DRIVER [address] [place] [address] Scheduled Procedures Name Priority Associated Diagnoses Date/Ti [...] filedocumented as of this encounter Care Teams Etl Database Developer Relationship Specialty Start Date End Date Chandni Qureshi CRNP [address] [place] [address] PCP - General Nurse Practitioner 06/17/24 documented as of this encounter
--- OUTSIDE RECORDS SUMMARY | 2024-09-09 18:17 | External Medical Summary | Summary of Care ---
Author Name Unknown Organization [facility] Address [address] [facility] [place] [address] Phone [phone] Care Team Providers Care Marketing Team Lead Name Role Phone Chandni Qureshi Primary Care Provider +1- [phone] Reason for Visit * Reason Onset Date Comments Information 07/07/2024 I believe this p t is at [facility] Encounter Details Date Type Department Care Team (Late st Contact Info) Description 07/07/2024 Telephone Radiology [address] [place] [address] Bernadine Zarate, RT (R) Information (I believe this pt is at [place] ... Allergies Active Allergy Reactions Criticality Noted [...] Release 24 Hour (toPROL XL)Indications:Ather osclerosis of [place] coronary artery of [place] heart without angina pectoris,HTN, goal below 140/90 Take 1 Tablet by mouth in the morning. 90 Tablet 3 04/17/2024 Active Cyanocobalamin 1000 MCG/ML Injection Solution (Cyanocobalamin)Tameal cations:B12 deficiency Inject 1,000 mcg into a [...] Lipid Taxonomy. Ischemic cardiomyopathy Coronary atherosclerosis of [place] coronary мария ry documented as of this [...] I think you will need to call [facility] to get info sent over. Thanks * Telephone Encounter - Michelle Villar RN - 07/07/2024 10:52 AM EDT No documentation of ER visit at [facility]. Patient had recent admission at [facility], did not have CT there. Bernadine: where do you see CT scans were done at [facility]/ patient went to ER? * Telephone Encounter - Bernadine Zarate RT (R) - 07/07/2024 7:53 AM EDT I believe this pt was seen in the ER at [facility] [place]. She had CT scans done while she was there. I am not sure if you will still need the CT's that ordered here at [facility] on Sun this week. Please cancel CT appts if they are not needed. Thanks, Bernadine SANTANA GW documented in this encounter Plan of Treatment Upcoming Encounters Date Type Department Care Team (Late st Contact Info) Description 07/09/2024 10:00 AM EDT Imaging Radiology [address] 132 [facility] [place] [address] 07/09/2024 10:15 AM EDT Imaging Radiology [address] 132 [facility] [place] [address] 07/18/2024 10:40 AM EDT Office Visit Family Practice [facility] 132 [facility] [place] [address] Chandni Qureshi CRNP 132 [facility] [place] [address] 09/09/2024 2:15 PM EST Office Visit Hematology/Oncology [facility] 200 [facility] [place] [address] Won Tesfaye MD 200 [facility] [place] [address] 10/27/2024 10:00 AM EST Imaging Radiology, [address] [address] 12/09/2024 1:30 PM EST Appointment Radiology, [address] [address] 12/09/2024 2:00 PM EST Rehab Services Voice Lab, [address] [address] Willie Johnston, CCC-HAND SIZER 132 [facility] [place] [address] Scheduled Procedures Name Priority Associated Diagnoses Date/Ti [...] filedocumented as of this encounter Care Teams Marketing Team Lead Relationship Specialty Start Date End Date Chandni Qureshi CRNP [address] [place] [address] PCP - General Nurse Practitioner 06/17/24 documented as of this encounter
--- OUTSIDE RECORDS SUMMARY | 2024-09-09 18:18 | External Medical Summary | Summary of Care ---
Author Name Unknown Organization [facility] Address [address] [place] [address] Phone [phone] Care Team Providers Care Ordnance Keeper Name Role Phone Emilypatjuan Chandni GIULIA Primary Care Provider [phone] Reason for Visit * Reason Onset Date Comments Hospital Follow-Up ER follow up from visit to [facility] on 06/29 after choking on her vegetable soup. Heimlich was completed at home prior to visiting the ER. Patient still having trouble breathing but was reported that it is better compared to yesterday. Hospital Follow-Up 06/30/2024 Medication Administration 06/30/2024 Flu an d/or Pneumo Inj Encounter Details Date Type Department Care Team (Latest Contact Info) Description 06/30/2024 3:00 PM EDT Office Visit [facility] [address] [facility] [place] [address] Vy Hayes PA-C [address] [facility] [place] [address] Hospital discharge follow-up*; Choking, subsequent encounter; Foreign body in esophagus, subsequent encounter; Dysphagia, unspecified type; COPD, group B, by GOLD 2017 classification (HCC); Need for prophylactic vaccination and inoculation against influenza Allergies Active Allergy Reactions Criticality Noted Date Comments Hydrocodone High 08/03/2021 Other reaction(s): Hallucinating Hydrocodone Bit-Homatrop Mbr 08/22/2017 hallucinations Isosorbide Nitrate Other (Please comment) 02/24/2021 headaches Penicillins 09/10/2002 hives documented as of this encounter (statuses as of 06/30/2024) Medications Medication Sig Dispensed Refills Start Date [...] Release 24 Hour (toPROL XL)Indications:Athe rosclerosis of buck[place] coronary artery of [place] heart without angina pectoris,HTN, goal below 140/90 [...] 180 days 1 Each 1 04/17/2024 4 Discontinu ed(Medicat ion List Clean Up) FLUoxetine HCl 10 MG Oral Capsule (PROzac) Take 2 capsules by mouth daily for four weeks, then 1 capsule by mouth daily for four weeks, then stop the medication. 90 Capsule 04/17/2024 4 Discontinu ed(Medicat ion List Clean Up) documented as of this encounter (statuses as of 06/30/2024) Active Problems Problem Noted Date Diagnosed Date [...] Lipid Taxonomy. Ischemic cardiomyopathy Coronary atherosclerosis of buck[place] coronary мария ry documented as of this encounter (statuses as of 06/30/2024) Resolved Problems Problem Noted Date Diagnosed Date [...] as of this encounter (statuses as of 06/30/2024) Immunizations Name Administration Dates Next Due COVID-19 [...] Sign Reading Time Taken Comments Blood Pressure 116/62 06/30/2024 3:04 PM EDT Pulse 70 06/30/2024 3:04 PM EDT Temperature 36.3 C (97.4 F) 06/30/2024 3:04 PM ED T Respiratory Rate - - Oxygen Saturation 96% 06/30/2024 3:04 PM EDT Inhaled Oxygen Concentration - - Weight 78.6 kg (173 lb 4.8 oz) 06/30/2024 3:04 P M EDT Height - - Body Mass Index 28.84 04/17/2024 9:02 AM EDT documented in this encounter Patient Instructions * Patient Instructions* Tiffanie Mcdaniel MED ASSIST - 06/30/2024 3:46 PM EDT ~~PATIENT INSTRUCTIONS FOR FLU SHOT~~ Possible side effects of influenza vaccine, (flu shot), are usually mild and include: 1. Soreness or redness at injection site 2. Low grade fever 3. Body aches You may use Tylenol/Acetaminophen as needed for these symptoms. LET YOUR DOCTOR KNOW IMMEDIATELY IF YOU HAVE DIFFICULTY BREATHING OR SWALLOWING, EXPERIENCE ITCHINGOF FEET OR HANDS, HAVE SWELLING OF EYES, FACE OR INSIDE OF NOSE. documented in this encounter Progress Notes * Tiffanie Mcdaniel MED ASSIST - 06/30/2024 3:46 PM EDT PRE - ADMINISTRATION DOCUMENTATION Are you experiencing any cold symptoms or fever? No Have you had Guillain-Indianola Syndrome (an illness that causes paralysis) within the last 6 weeks? No Have you had the flu shot in the past? YES Have you ever had a reaction to the flu shot? No NAN Guerrero, 06/30/2024 3:46 PM Immunization Administration Documentation Time Out Procedure Performed: Yes Patient Identified (Ask Name/Date of ): Yes Does the patient have a fever greater than 101 degrees today? No Patient allergic to latex? No VFC Stock: No Immunization(s) verified: Yes, Immunization Name: Flu, VIS Sheet(s) given: Yes Verified Side and Site: Yes Verified Shot(s) with Parent(s)/Patient: Yes * Vy Hayes PA-C - 06/30/2024 3:19 PM EDT SUBJECTIVE: Berta Swenson is a 74 year old female. Chief Complaint Patient presents with Hospital Follow-Up ER follow up from visit to [facility] on 06/29 after choking on her vegetable soup. Heimlich was completedat home prior to visiting the ER. Patient still having trouble breathing but was reported that it is better compared to yesterday. Hospital Follow-Up Medication Administration Flu and/or Pneumo Inj Recent Admission: Patient was recently admitted to [facility] ER. The date of discharge was 06/29/24. Discharge report received and reviewed. HPI: Pt presented to ER yesterday after choking on vegetable soup. Family that was with the patientat the time performed the Heimlich maneuver x 2 and several vegetables came up. Was still unable toswallow when she went to the ER. Was given water to sip and this was immediately vomited back up. Had EGD performed that was normal. No foreign bodies appreciated. Stomach and esophagus were normal. Pt accompanied today by her daughter who assists with history due to pt's dementia. Reports pt has been having difficulty with swallowing for the last few weeks. Can choke when drinking water or eating solids. Yesterday was the worst. Breathing also seemed more labored yesterday. Has given the pt multiple nebulizer treatments since being home as well as dose of prednisone which seems to have helped. Patient Active Problem List Diagnosis Dyslipidemia Ischemic cardiomyopathy Coronary atherosclerosis of buck[place] coronary artery Secondary malignant neoplasm of intrathoracic [...] mouth in the morning. 90 Tablet 3 Atorvastatin Calcium 40 MG Oral Tablet (Lipitor) Take 1 Tablet by mouth in the morning. 90 Tablet 3 Ezetimibe 10 MG Oral Tablet (Zetia) Take 1 Tablet by mouth in the morning. 90 Tablet 3 Albuterol Sulfate 1.25 MG/3ML Inhalation Nebulization Solution Inhale 1.25 mg via nebulizer every 4hours as needed for Shortness of Breath or Wheezing. 360 mL 2 Syringe/Needle (Disp) 23G X 1" 3 ML Use as directed 180 Each 3 Syringe/Needle (Disp) 25G X 1" 3 ML Use as directed. 12 Each 0 predniSONE 10 MG Oral Tablet (Deltasone) Take 5 tabs for 2 days, 4 tabs for 2 days, 3 tabs for 2 days, 2 tabs for 2 days 1 tab for 2 days 30 Tablet 0 Nitroglycerin 0.4 MG Sublingual Tablet Sublingual (Nitrostat) 1 tab dissolved under tongue every 5 mins for a maximum of 3 for chest pain (Patient not taking: Reported on 06/30/2024) 25 Tablet 1 Ipratropium-Albuterol 0.5-2.5 (3) MG/3ML Inhalation Solution (Duoneb) Inhale 3 mL via nebulizer in the morning and 3 mL at noon and 3 mL in the evening and 3 mL before bedtime. As needed. (Patient not taking: Reported on 06/30/2024) 180 mL 3 No current facility-administered medications for this visit. Current and discharge medications have been reconciled. Review of patient's allergies indicates: Allergen Reactions Hydrocodone Other reaction(s): Hallucinating Hydrocodone Bit-Homatrop Mbr hallucinations Isosorbide Mononitrate [Isosorbide Nitrate] Other (Please comment) headaches Penicillins hives OBJECTIVE: BP 116/62 | Pulse 70 | Temp 36.3 C (97.4 F) (Tympanic) | Wt 78.6 kg (173 lb 4.8 oz) | SpO2 96% | BMI 28.84 kg/m | BSA 1.9 m REVIEW OF SYSTEMS: Review of Systems Constitutional: Negative for chills and fever. Respiratory: Positive for choking. Cardiovascular: Negative for chest pain. Gastrointestinal: Negative for constipation, diarrhea and vomiting. Genitourinary: Negative. PHYSICAL EXAM: BP 116/62 | Pulse 70 | Temp 36.3 C (97.4 F) (Tympanic) | Wt 78.6 kg (173 lb 4.8 oz) | SpO2 96% | BMI 28.84 kg/m | BSA 1.9 m Physical Exam Constitutional: General: She is not in acute distress. HENT: Mouth/Throat: Pharynx: Oropharynx is clear. Cardiovascular: Rate and Rhythm: Normal rate and regular rhythm. Pulmonary: Effort: Pulmonary effort is normal. Breath sounds: Rhonchi present. Abdominal: General: Bowel sounds are normal. Palpations: Abdomen is soft. Musculoskeletal: Cervical back: Normal range of motion and neck supple. Skin: General: Skin is warm and dry. Neurological: General: No focal deficit present. Mental Status: She is alert. ASSESSMENT: Hospital discharge follow-up (Primary) - DISCH MED RECON CUR MED LIS Choking, subsequent encounter - FLUORO SWALLOWING FUNCTION W VIDEO CINE Foreign body in esophagus, subsequent encounter - FLUORO SWALLOWING FUNCTION W VIDEO CINE Dysphagia, unspecified type - FLUORO SWALLOWING FUNCTION W VIDEO CINE COPD, group B, by GOLD 2017 classification (HCC) Need for prophylactic vaccination and inoculation against influenza - INFLUENZA VAC., TRIVALENT, HD, PF, 65 AND ABOVE, 0.5 ML IM (FLUZONE HD) Follow Up: Return if symptoms worsen or fail to improve. PLAN: Continue present medication(s): Study(ies) ordered: Swallowing study ordered. Follow up with PCP in July as sched. I spent a total of 40-54 minutes (exact time 48 mins) minutes on the date of service in preparation, delivery, and documentation of the care provided to Berta Swenson excluding any time spent in performance of separately billed services. Vy Hayes PA-C documented in this encounter Nursing Notes * Tiffanie Mcdaniel MED ASSIST - 06/30/2024 3:08 PM EDT Chief Complaint Patient presents with Hospital Follow-Up ER follow up from visit to [facility] on 06/29 after choking on her vegetable soup. Heimlich was completedat home prior to visiting the ER. Patient still having trouble breathing but was reported that it is better compared to yesterday. Patient's daughter also inquiring about speech therapy referral that was supposed to be placed on 06/17 at [facility] visit. Did not see a speech therapy referral in orders. documented in this encounter Plan of Treatment Upcoming Encounters Date Type Department Care Team (Late st Contact Info) Description 07/18/2024 10:40 AM EDT Office Visit Family Practice [facility] [address] [facility] [place] [address] Chandni Qureshi CRNP [address] [place] [address] 09/09/2024 2:15 PM EST Office Visit Hematology/Oncology [facility] [address] [place] [id number] Won Tesfaye MD [address] [place] [address] 10/27/2024 10:00 AM EST Imaging Radiology, [facility] [address] [facility] [place] [address] Scheduled Orders Name Type Priority Associated Diagnoses Orde r Schedule FLUORO SWALLOWING FUNCTION W VIDEO CINE Medical Imaging Routine Choking, subsequent encounter Foreign body in esophagus, subsequent encounter Dysphagia, unspecified type Ordered: 06/30/2024 Scheduled Procedures Name Priority Associated Diagnoses Date/Ti [...] as of this encounter Visit Diagnoses Diagnosis Hospital discharge follow-up- Primary Other follow-up examination Choking, subsequent encounter Foreign body in esophagus, subsequent encounter Dysphagia, unspecified type COPD, group B, by GOLD 2017 classification (HCC) Need for prophylactic vaccination and inoculation against influenza documented in this encounter Care Teams Ordnance Keeper Relationship Specialty Start Date End Date Chandni Qureshi CRNP [address] [place] [address] PCP - General Nurse Practitioner 06/17/24 documented as of this encounter
[2024-09-09] MEDS: MoRPHine SULFATE 2 MG/ML CARP ONE (18:22)
[2024-09-09] MEDS: GLYCOPYRROLATE 0.2 MG/ML VIAL IV PRN (19:29)
[2024-09-10] MEDS: LORazepam 2 MG/1 ML VIAL IV PRN (03:59)
[2024-09-10] MEDS ORDERED: STAT IV Infusion **Titration per Protocol STA (08:26)
[2024-09-10] MEDS ORDERED: MoRPHine BOLUS from BAG IV PRN (08:26)
--- NOTE | 2024-09-10 08:31 | Hospitalist Progress Note ---
Date of Service September 10, 2024 Assessment & Plan (1) Non-ST elevated myocardial infarction (non-STEMI): Plan: Continue with comfort care measures (2) Lung cancer: Plan: Continue with comfort care measures (3) Shingles: Plan: Continue with comfort care measures (4) Hypertension: Plan: Continue with comfort care measures (5) Vocal cord paralysis: Plan: Continue with comfort care (6) Acute hypoxemic respiratory failure: Plan: Supplemental oxygen and continue with comfort care measures Plan Patient appears to be patient appears to be immediately terminal, continue providing palliative care and comfort care measures Admission and Anticipated Discharge Date Admission Date: September 09, 2024 Subjective Toward yesterday afternoon, patientTook a downturn and became unresponsive with agonal breathing, family was notified by nursing staff and patient was started on comfort care. Patient was seen and examined today, treatment was changed to morphine drip. Physical Exam Physical Exam: VITALS: Reviewed. WEIGHT/BMI reviewed. GEN: Continues to have agonal breathing Results & Data Results & Data Laboratory Results No labs ordered Diagnostic Findings No imaging Medications Administered Current Inpatient Medications Acetaminophen (Acetaminophen 650 Mg Supp) 650 mg OH Q6H PRN PRN Reason: Fever 37.8C or Above Stop: 10/09/24 17:22 Atropine Sulfate (Atropine Sulfate 1% Op Soln 5 Ml Btl) 4 drops SL Q1H PRN PRN Reason: Secretions or pulm congestion Stop: 10/09/24 17:22 Glycopyrrolate (Glycopyrrolate 0.2 Mg/Ml Vial) 0.4 mg IV Q4H PRN PRN Reason: Rattling Secretions or Pulm Congestion Stop: 10/09/24 17:22 Last Admin: 09/09/24 19:29 Dose: 0.4 mg Hyoscyamine (Hyoscyamine Sulfate 0.125 Mg Tab) 0.125 mg SL Q4H PRN PRN Reason: Secretions or Pulm Congestion Stop: 10/09/24 17:22 Morphine Sulfate (Morphine Sulf) 100 mg in 100 mls @ 1 mls/hr IV .Q96H ELIECER; Protocol Stop: 09/24/24 08:29 Lorazepam (Lorazepam 2 Mg/1 Ml Vial) 0.5 mg IV Q1H PRN PRN Reason: Insomnia Stop: 10/09/24 17:18 Last Admin: 09/10/24 07:44 Dose: 0.5 mg Morphine Sulfate (Morphine Bolus From Bag) 1 mg IV Q30M PRN PRN Reason: Comfort Care Parameters Stop: 09/24/24 08:25 Ondansetron HCl (Ondansetron Inj 2 Mg/Ml 2 Ml Vial) 4 mg IV Q6H PRN PRN Reason: Nausea Stop: 10/08/24 22:29 Valacyclovir HCl (Valacyclovir Hcl 500 Mg Tablet) 1,000 mg PO TID ELIECER Stop: 09/19/24 02:39 Last Admin: 09/09/24 07:40 Dose: Not Given (2) Lung cancer Laterality: unspecified laterality Lung location: unspecified part of lung Qualified Code(s): C34.90 - Malignant neoplasm of unspecified part of unspecified bronchus or lung
[2024-09-10] MEDS: MoRPHine SULF 100 MG/100 ML BAG IV SCH (08:57)
[2024-09-10] MEDS: MoRPHine SULFATE 2 MG/ML CARP IV STA (10:12)
[2024-09-10] MEDS: MoRPHine BOLUS from BAG IV PRN (11:01)
[2024-09-11 04:05] VITALS: BP 102/65
--- NOTE | 2024-09-11 10:07 | Hospitalist Progress Note ---
Date of Service September 11, 2024 Assessment & Plan (1) Non-ST elevated myocardial infarction (non-STEMI): Plan: Continue with comfort care measures (2) Lung cancer: Plan: Continue with comfort care measures (3) Shingles: Plan: Continue with comfort care measures (4) Hypertension: Plan: Continue with comfort care measures (5) Vocal cord paralysis: Plan: Continue with comfort care (6) Acute hypoxemic respiratory failure: Plan: Supplemental oxygen and continue with comfort care measures Plan Patient appears to be patient appears to be immediately terminal, continue providing palliative care and comfort care measures Admission and Anticipated Discharge Date Admission Date: September 09, 2024 Subjective Patient was seen by palliative care and the her treatment of comfort care measures were adjusted, patient was briefly reviewed today, appeared comfortable with ongoing agonal breathing. Results & Data Results & Data Vital Signs (Past 12 Hours) Vital Signs Temp Pulse Resp BP Pulse Ox O2 Del Method O2 Flow Rate 09/11/24 07:15 Nasal Cannula 2 09/11/24 04:05 36.7 C 59 L 14 102/65 97 Room Air 09/11/24 00:40 Nasal Cannula 2 Medications Administered Current Inpatient Medications Acetaminophen (Acetaminophen 650 Mg Supp) 650 mg [place] Q6H PRN PRN Reason: Fever 37.8C or Above Stop: 10/09/24 17:22 Atropine Sulfate (Atropine Sulfate 1% Op Soln 5 Ml Btl) 4 drops SL Q1H PRN PRN Reason: Secretions or pulm congestion Stop: 10/09/24 17:22 Glycopyrrolate (Glycopyrrolate 0.2 Mg/Ml Vial) 0.4 mg IV Q4H PRN PRN Reason: Rattling Secretions or Pulm Congestion Stop: 10/09/24 17:22 Last Admin: 09/09/24 19:29 Dose: 0.4 mg Hyoscyamine (Hyoscyamine Sulfate 0.125 Mg Tab) 0.125 mg SL Q4H PRN PRN Reason: Secretions or Pulm Congestion Stop: 10/09/24 17:22 Morphine Sulfate (Morphine Sulf) 100 mg in 100 mls @ 3 mls/hr IV .[id number] ELIECER; Protocol Stop: 09/24/24 08:29 Last Titration: 09/11/24 07:00 Dose: 3 mg/hr, 3 mls/hr Lorazepam (Lorazepam 2 Mg/1 Ml Vial) 0.5 mg IV Q1H PRN PRN Reason: Insomnia Stop: 10/09/24 17:18 Last Admin: 09/10/24 19:44 Dose: 0.5 mg Morphine Sulfate (Morphine Bolus From Bag) 2 mg IV Q15M PRN PRN Reason: Comfort Care Parameters Stop: 09/24/24 08:25 Last Admin: 09/10/24 12:55 Dose: 2 mg Ondansetron HCl (Ondansetron Inj 2 Mg/Ml 2 Ml Vial) 4 mg IV Q6H PRN PRN Reason: Nausea Stop: 10/08/24 22:29 Valacyclovir HCl (Valacyclovir Hcl 500 Mg Tablet) 1,000 mg PO TID ELIECER Stop: 09/19/24 02:39 Last Admin: 09/09/24 07:40 Dose: Not Given (2) Lung cancer Laterality: unspecified laterality Lung location: unspecified part of lung Qualified Code(s): C34.90 - Malignant neoplasm of unspecified part of unspecified bronchus or lung
[2024-09-11] MEDS: ARTIFICIAL TEARS OPB PRN (14:07)
--- NOTE | 2024-09-11 14:11 | Palliative Care Progress Note ---
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 Detether pt from IV tubing, monitor cables, and check vitals once per shift. Please continue HFNC and titrate down as able for patient comfort. Use medications above PRN for dyspnea/tachypnea and do not increase oxygen once titrated down. Assess q1h for pain/dyspnea and treat accordingly. Admission and Anticipated Discharge Date Admission Date: September 09, 2024 Subjective Patient was seen at bedside, remains unresponsive to verbal and gentle tactile stimuli. Breathing nonlabored on morphine infusion at 3mg/hr. No family present, pt's son in law called in for updates, he will be visiting pt this afternoon. Review of Systems Review of Systems: MARTHA, pt unresponsive Physical Exam Physical Exam: pt unresponsive, supine in bed appears comfortable and in NAD on RA. Pt on morphine drip at 3mg/hr. Eyes: PERRL, conjunctivae normal, anicteric sclerae Respiratory: Auscultation: + crackles resp rate 18bpm with intermittent short (less than 10sec) apneic periods Cardiovascular: Rate/Rhythm: + tachycardic and + irregularly irregular Extremities: + edema Gastrointestinal (Abdomen): normal bowel sounds, soft, nontender, no hepatosplenomegaly Skin: + turgor decreased, + dry skin and + pal von Neurologic: unresponsive, on morphine drip at 1mg/hr Results & Data Vital Signs (Past 12 Hours) Vital Signs Temp Pulse Resp BP Pulse Ox O2 Del Method O2 Flow Rate 09/11/24 07:15 Nasal Cannula 2 09/11/24 04:05 36.7 C 59 L 14 102/65 97 Room Air Medications Administered Current Inpatient Medications Acetaminophen (Acetaminophen 650 Mg Supp) 650 mg ID Q6H PRN PRN Reason: Fever 37.8C or Above Stop: 10/09/24 17:22 Artificial Tears (Artificial Tears) 1 drops OPB QID PRN PRN Reason: Dryness Stop: 10/11/24 13:35 Atropine Sulfate (Atropine Sulfate 1% Op Soln 5 Ml Btl) 4 drops SL Q1H PRN PRN Reason: Secretions or pulm congestion Stop: 10/09/24 17:22 Glycopyrrolate (Glycopyrrolate 0.2 Mg/Ml Vial) 0.4 mg IV Q4H PRN PRN Reason: Rattling Secretions or Pulm Congestion Stop: 10/09/24 17:22 Last Admin: 09/09/24 19:29 Dose: 0.4 mg Hyoscyamine (Hyoscyamine Sulfate 0.125 Mg Tab) 0.125 mg SL Q4H PRN PRN Reason: Secretions or Pulm Congestion Stop: 10/09/24 17:22 Morphine Sulfate (Morphine Sulf) 100 mg in 100 mls @ 3 mls/hr IV .[id number] ELIECER; Protocol Stop: 09/24/24 08:29 Last Titration: 09/11/24 07:00 Dose: 3 mg/hr, 3 mls/hr Lorazepam (Lorazepam 2 Mg/1 Ml Vial) 0.5 mg IV Q1H PRN PRN Reason: Insomnia Stop: 10/09/24 17:18 Last Admin: 09/10/24 19:44 Dose: 0.5 mg Morphine Sulfate (Morphine Bolus From Bag) 2 mg IV Q15M PRN PRN Reason: Comfort Care Parameters Stop: 09/24/24 08:25 Last Admin: 09/10/24 12:55 Dose: 2 mg Ondansetron HCl (Ondansetron Inj 2 Mg/Ml 2 Ml Vial) 4 mg IV Q6H PRN PRN Reason: Nausea Stop: 10/08/24 22:29 Valacyclovir HCl (Valacyclovir Hcl 500 Mg Tablet) 1,000 mg PO TID ELIECER Stop: 09/19/24 02:39 Last Admin: 09/09/24 07:40 Dose: Not Given PG Care Time/CCT Total # of Minutes Spent Total Time Spent with Patient: Total time spent is greater than 50% in coordination of care (as documented) at patient's floor/unit and/or counseling patient: Coding [place] [address] SUB INP/OBS CARE 2/35MIN Patient Type Established History Problem Focused Exam Problem Focused Medical Decision Making Low Complexity Diagnoses Encounter for end of life care Z51.5 Encounter for end of life education, guidance and counseling Hospice care Z51.5
[2024-09-11 18:09] VITALS: PULSE 99; RESP 16; TEMP 98.2; O2SAT 88
--- NOTE | 2024-09-12 00:38 | Death Pronouncement Note ---
Date of Service September 12, 2024 Pronouncement Note Admission Date September 09, 2024 Date and Time of Date of : 09/12/24 Time of : 00:02 Additional Data Confirmation of : no pulse, no respirations, no heart sounds and pupils fixed and dilated Pronouncement Performed By: Attending Physician Family: contacted Attending physician: Lj Colunga MD
--- NOTE | 2024-09-12 07:28 | Discharge Summary ---
Discharge Summary Date of Service September 12, 2024 Principal Dx & Hospital Course #1 = Principal Diagnosis (1) Non-ST elevated myocardial infarction (non-STEMI): (2) Lung cancer: (3) Shingles: (4) Hypertension: (5) Vocal cord paralysis: (6) Acute hypoxemic respiratory failure: Notes For Next Care Provider Medication Changes From Visit Not indicated Admission HPI Per Admitting Provider Patient was not seen as she overnight. Discharge Exam Not seen as patient Updated Medication List Medication Instructions Recorded Confirmed Type aspirin 81 mg tablet,delayed 81 mg PO QPM 07/06/18 09/08/24 History release metoprolol succinate 50 mg 50 mg PO QAM 07/06/18 09/08/24 History tablet,extended release 24 hr (Toprol XL) atorvastatin 40 mg tablet 40 mg PO QPM 12/21/20 09/08/24 History cyanocobalamin (vitamin B-12) 1,000 mcg IM UD 09/08/24 09/08/24 History 1,000 mcg/mL injection solution ezetimibe 10 mg tablet 10 mg PO QAM 09/08/24 09/08/24 History famotidine 20 mg tablet 20 mg PO BID 09/08/24 09/08/24 History hydroxyzine HCl 10 mg tablet 10 mg PO HS 09/08/24 09/08/24 History ipratropium 0.5 mg-albuterol 3 mg 3 ml inhalation DAILY PRN 09/08/24 09/08/24 History (2.5 mg base)/3 mL nebulization SOB/Wheezing soln levothyroxine 75 mcg tablet 75 mcg PO QAM 09/08/24 09/08/24 History nystatin 100,000 unit/gram topical 100,000 unit topical BID 09/08/24 09/08/24 History cream prednisone 10 mg tablet 10 mg PO QAM 09/08/24 09/08/24 History quetiapine 25 mg tablet 25 mg PO HS 09/08/24 09/08/24 History Hospital Stay Data Consultations 09/08/24 15:59 Consult Otolaryngology (Head and Neck) Stat 09/08/24 17:17 ED Decision to Admit Stat 09/09/24 11:39 Consult Palliative Care Stat Diagnostic Imagining Performed 09/08/24 15:44 CT angio chest PE protocol Stat CT neck soft tissues [CT soft tissue neck w con] Stat Total Time Total Time Spent Total Time Spent (In Minutes): 10 minutes
== END 2024-09-12 01:21 | disposition expired | DRG 154 ==
LOC: 3W 14:33 → ED 14:33 → 3W 21:03 → 3E 09-09 05:58